=== PATIENT | male | born 1975 | race Caucasian/White ===

== ENCOUNTER 2017-04-25 09:03 | Emergency (ER) | payer OTHER ==
--- NOTE | 2017-04-25 09:29 | XR ---
EXAMINATION TYPE: XR knee complete RT DATE OF EXAM: 04/25/2017 COMPARISON: 04/06/2017 HISTORY: 41-year-old male patellar pain after fall a few days ago TECHNIQUE: 3 views FINDINGS: No acute fracture, subluxation, or dislocation. Extensor mechanism is intact. No significant knee ladraius nt effusion. Periarticular bone islands. IMPRESSION: 1. No acute osseous abnormality seen. 2. If concern for internal derangement or chondral injury, MRI can be performed.
--- NOTE | 2017-04-25 10:11 | XR ---
EXAMINATION TYPE: XR knee limited RT DATE OF EXAM: 04/25/2017 COMPARISON: Earlier today HISTORY: 41-year-old male pain in center of kneecap after fall a few days ago TECHNIQUE: Merchant's view. FINDINGS: A couple subtle cortical lucencies along the anterior margin of the patella suspected to relate to no rmal variation. The patella remains appropriate situated along the trochlear groove. IMPRESSION: A couple cortical lucencies along the anterior margin of the patella suspected to relate to normal va riation rather than a subtle nondisplaced fracture. If persistent clinical concern, follow-up CT or M [facility].
--- NOTE | 2017-04-25 10:29 | ED ---
General Adult HPI - General Chief complaint: Extremity Injury, Lower Stated complaint: Knee pain Time Seen by Provider: 04/25/17 09:10 Source: patient, RN notes reviewed Mode of arrival: ambulatory Limitations: no limitations - History of Present Illness Initial comments: 41-year-old male presents to the emergency department with a chief complaint of right knee pain. Patient states about a week ago he tripped and fell onto his right knee. Patient states he continues pain and he feels as if the top of his knee Feels different than it used to. He states he is able to ambulate still. Patient denies any fever chills with this. He states he did not hit his head and there is no other injury from the incident. The patient was concerned due to his continued discomfort so he thought that he should be seen.Patient denies any recent fever, chills, shortness of breath, chest pain, back pain, abdominal pain, nausea vomiting, numbness or tingling, dysuria or hematuria, constipation or diarrhea, headaches or visual changes, or any other current symptoms. - Related Data Home Medications Medication Instructions Recorded Confirmed Ibuprofen [Motrin] 800 mg PO TID PRN 04/25/17 04/25/17 Allergies Allergy/AdvReac Type Severity Reaction Status Date / Time No Known Allergies Allergy Verified 04/25/17 09:30 Review of Systems ROS Statement: Those systems with pertinent positive or pertinent negative responses have been documented in the HPI. ROS Other: All systems not noted in ROS Statement are negative. Past Medical History Past Medical History: No Reported History History of Any Multi-Drug Resistant Organisms: None Reported Past Surgical History: Cholecystectomy Past Psychological History: No Psychological Hx Reported Smoking Status: Current every day smoker Past Alcohol Use History: Occasional Past Drug Use History: None Reported General Exam - General Exam Comments Initial Comments: General: The patient is awake and alert, in no distress, and does not appear acutely ill. Neck: The neck is supple, there is no tenderness. Cardiovascular: There is a regular rate and rhythm. No murmur, rub or gallop is appreciated. Respiratory: Lungs are clear to auscultation, respirations are non-labored, breath sounds are equal. No wheezes, stridor, rales, or rhonchi. Musculoskeletal: Sensation intact with 2+ pulses. Right lower extremity. Frontal motion of right hip right knee and right ankle. Patient does have some tenderness to palpation of the patella. There is appear to be a mild depression noted with a small abrasion. Patient has full range of motion 5 out of 5 muscle strength testing. Patient is able to walk on the emergency department. Neurological: CN II-XII intact, There are no obvious motor or sensory deficits. Coordination appears grossly intact. Speech is normal. Skin: Skin is warm and dry and no rashes or lesions are noted. Psychiatric: Normal mood and affect. Limitations: no limitations Course Vital Signs 04/25/17 09:05 Temperature 97.8 F Pulse Rate 79 Respiratory 18 Rate Blood Pressure 155/88 O2 Sat by Pulse 100 Oximetry Medical Decision Making - Medical Decision Making 41-year-old male presents emergency Department chief complaint of right knee pain after a fall. At this time Scan was ordered due to the fact the x-rays show that there could possibly be a fracture and he has had pain for the last week without improvement continuous pain over this depression. This time CAT scan is reviewed with no acute fracture. This time we did discuss follow-up return parameters questions. Patient stated that he understood any significant this plan. He will be discharged. - Radiology Data Radiology results: report reviewed, image reviewed Disposition Clinical Impression: Contusion of right knee Disposition: HOME SELF-CARE Condition: Stable Instructions: Knee Pain (ED) Additional Instructions: Please use medication as discussed. Please follow up with family doctor if symptoms have not improved over the next two days. Please return to the emergency room if your symptoms increase or worsen or for any other concerns. Referrals: Manolo Lopez DO [Primary Care Provider] - 1-2 days Time of Disposition: 10:49
--- NOTE | 2017-04-25 10:47 | CT ---
EXAMINATION TYPE: CT knee RT wo con DATE OF EXAM: 04/25/2017 COMPARISON: 04/25/2017, 04/06/2017 HISTORY: Right sided knee pain post fall [address] DLP: 473.3 mGycm Automated exposure control for dose reduction was used. TECHNIQUE: Axial images with reconstructed coronal and sagittal plane images. FINDINGS: Joint spaces appear preserved. No acute fractures are evident. No significant joint effusion is evide nt. Patella appears intact. Couple of bone islands are within the lateral femoral condyle and within the metaphysis of the tibia. The lucencies identified on the sunrise view of the patella are again evident on the CT examination. No fractures evident. Muscular density is unremarkable surrounding the knee. Subcutaneous tissues appear unremarkable. IMPRESSION: 1. NO ACUTE OSSEOUS ABNORMALITY.
[2017-04-25 10:59] VITALS: BP 127/79; PULSE 65; RESP 16; TEMP 98
== END 2017-04-25 10:58 | disposition home or self-care (01) ==
LOC: EC 09:03
DX: S80.01XA Contusion of right knee, initial encounter (principal); F17.200 Nicotine dependence, unspecified, uncomplicated; W19.XXXA Unspecified fall, initial encounter; Y92.89 Other specified places as the place of occurrence of the external cause
CPT/HCPCS: 99284

== ENCOUNTER → 2018-06-18 | Outpatient (CLI) | payer OTHER ==
--- NOTE | 2018-06-19 07:25 | XR ---
EXAMINATION TYPE: XR shoulder complete RT DATE OF EXAM: 06/18/2018 CLINICAL HISTORY: Right-sided neck pain radiating to the right shoulder TECHNIQUE: Three views of the right shoulder are obtained. COMPARISON: None. FINDINGS: There is no acute fracture/dislocation evident in the right shoulder. Subcentimeter scler otic focus within the right humeral head likely represents a small benign bone island. The acromiocla vicular and glenohumeral joint spaces appear within normal limits. The visualized ribs are intact an d unremarkable. IMPRESSION: There is no acute fracture or dislocation in the right shoulder.
--- NOTE | 2018-06-19 07:32 | XR ---
EXAMINATION TYPE: XR cervical spine comp DATE OF EXAM: 06/18/2018 TECHNIQUE: Frontal, lateral, oblique, swimmers, and open mouth view of the cervical spine are didi du HISTORY: M25.511 pain in right shoulder, M54.2 Cervicalgia COMPARISON: None FINDINGS: The cervical spine is visualized in its entirety from C1 thru the top of T1 level, it is s atisfactory in alignment without evidence of acute fracture or dislocation. The pre-vertebral soft t issue appears within normal limits. Very small anterior osteophytes are seen at C6-C7. Uncovertebral hypertrophy and facet arthropathy are seen at this level creating bilateral mild neural foraminal erika rowing. The C1-C2 articulation is within normal limits on the open mouth view. The oblique images ar e within normal limits. IMPRESSION: No acute fracture or malalignment is seen in the cervical spine. Bilateral mild neural f oraminal narrowing at C6-C7 secondary to uncovertebral hypertrophy, facet arthropathy and small osteo phytes.
== END ==
LOC: RADXRMAIN 16:05
PROVIDERS: ATTEND Family Medicine
DX: M25.511 Pain in right shoulder (principal); M48.02 Spinal stenosis, cervical region; M46.92 Unspecified inflammatory spondylopathy, cervical region; M25.78 Osteophyte, vertebrae
CPT/HCPCS: 72050

== ENCOUNTER 2018-06-20 18:29 | Emergency (ER) | payer OTHER ==
[2018-06-20 18:38] VITALS: TEMP 98.6
[2018-06-20] MEDS ORDERED: methylPREDNISolone SOD SUCCI 125 MG/2 ML VIAL IM ONE (19:13)
[2018-06-20] MEDS ORDERED: HYDROcodone/APAP 5-325MG 1 EACH TAB PO STA (19:13)
[2018-06-20] MEDS ORDERED: KETOROLAC 30 MG/ML 1 ML VIAL IM STA (19:14)
--- NOTE | 2018-06-20 19:17 | ED ---
General Adult HPI - General Chief complaint: Extremity Injury, Upper Stated complaint: pain in neck and rt arm Time Seen by Provider: 06/20/18 18:52 Source: patient Mode of arrival: ambulatory Limitations: no limitations - History of Present Illness Initial comments: 42-year-old male patient presents to the emergency department today for evaluation of neck pain, right shoulder pain, and radicular type symptoms on the right arm. Patient states that the right arm feels weak and tingly at times. He states that symptoms started approximately a month ago and have been progressively worsening since. States he did see his primary care physician who diagnosed him with arthritis after obtaining x-rays. States he was given ibuprofen and Flexeril which have not been helping. Patient states that he is to start physical therapy however he has very significant pain with any type of movement. States he is unable to sleep or lie flat due to the pain. He denies any known injury to the neck. Denies any chest pain or trouble breathing. Denies any headache, blurred vision, double vision, dizziness, or weakness. Patient denies any recent rash, fever, chills, abdominal pain, nausea, vomiting , diarrhea, constipation, back pain, dizziness, weakness, hematuria, dysuria, urinary urgency, urinary frequency, headache, visual changes, or any other complaints. - Related Data Home Medications Medication Instructions Recorded Confirmed Ibuprofen [Motrin] 800 mg PO TID 04/25/17 06/20/18 Cyclobenzaprine [Flexeril] 10 mg PO TID 06/20/18 06/20/18 Previous Rx's Medication Instructions Recorded Hydrocodone/Acetaminophen [Bryan 1 tab PO Q6HR PRN #12 tab 06/20/18 5-325] predniSONE 50 mg PO DAILY #5 tablet 06/20/18 Allergies Allergy/AdvReac Type Severity Reaction Status Date / Time No Known Allergies Allergy Verified 06/20/18 19:11 Review of Systems ROS Statement: Those systems with pertinent positive or pertinent negative responses have been documented in the HPI. ROS Other: All systems not noted in ROS Statement are negative. Past Medical History Past Medical History: No Reported History History of Any Multi-Drug Resistant Organisms: None Reported Past Surgical History: Cholecystectomy Past Psychological History: No Psychological Hx Reported Smoking Status: Current every day smoker Past Alcohol Use History: Occasional Past Drug Use History: None Reported General Exam Limitations: no limitations General appearance: alert, in no apparent distress, other (Physical well- developed, well-nourished adult male patient in no acute distress. Vital signs upon presentation are temperature 98.6F, pulse 101, respirations 18, blood pressure 134/91, pulse ox 96% on room air.) Eye exam: Present: normal appearance, PERRL, EOMI. Absent: scleral icterus, conjunctival injection, periorbital swelling ENT exam: Present: normal exam, normal oropharynx, mucous membranes moist Neck exam: Present: normal inspection, full ROM, other (C-spine tenderness). Absent: tenderness, meningismus, lymphadenopathy Respiratory exam: Present: normal lung sounds bilaterally. Absent: respiratory distress, wheezes, rales, rhonchi, stridor Cardiovascular Exam: Present: regular rate, normal rhythm, normal heart sounds. Absent: systolic murmur, diastolic murmur, rubs, gallop, clicks Extremities exam: Present: normal inspection, full ROM, normal capillary refill , other (Skin to the right upper extremities pink, warm, dry. Cap refills less than 3 seconds. Radial pulses 2+ and equal bilaterally.). Absent: tenderness, pedal edema, joint swelling, calf tenderness Neurological exam: Present: alert, oriented X3, CN II-XII intact, other ( Strength to the right upper extremity is 3/5. All other extremities are 5/5) Psychiatric exam: Present: normal affect, normal mood Skin exam: Present: warm, dry, intact, normal color. Absent: rash Course Vital Signs 06/20/18 18:35 Temperature 98.6 F Pulse Rate 101 H Respiratory 18 Rate Blood Pressure 134/91 O2 Sat by Pulse 96 Oximetry Medical Decision Making - Medical Decision Making 42-year-old male patient presents to the emergency department today for evaluation of right neck and shoulder pain. Physical examination did reveal some mild weakness to the right upper extremity. Neurovascular status was intact. CT of the neck was performed and it shows mild spurring at C6 to C7. Patient symptoms are consistent with cervical radiculopathy. Will treat with prednisone. He does have ibuprofen and Flexeril at home, he is instructed to continue taking this. He will also be given a prescription for Bryan for assistance was sleeping. He is instructed to follow-up with his primary care physician for recheck in 1-2 days. He is instructed to proceed with physical therapy as directed. Return parameters discussed in detail. He verbalizes understanding and agrees with this plan. - Radiology Data Radiology results: report reviewed, image reviewed CT cervical spine without contrast was obtained. Report was reviewed in its entirety. Impression by Dr. Rizvi shows mild spurring at C6 to 7. No fracture seen Disposition Clinical Impression: Cervical radiculopathy Disposition: HOME SELF-CARE Condition: Good Instructions (If sedation given, give patient instructions): Cervical Radiculopathy (ED) Additional Instructions: Apply warm moist heat to the neck. Perform gentle range of motion exercises. Proceed with physical therapy as directed by your primary care physician. Complete medications as prescribed. Return to the emergency department immediately for any new, worsening, or concerning symptoms. Prescriptions: Hydrocodone/Acetaminophen [Bryan 5-325] 1 tab PO Q6HR PRN #12 tab PRN Reason: Pain predniSONE 50 mg PO DAILY #5 tablet Is patient prescribed a controlled substance at d/c from ED?: No Referrals: Manolo Lopez DO [Primary Care Provider] - 1-2 days Time of Disposition: 20:51
--- NOTE | 2018-06-20 19:53 | CT ---
EXAMINATION TYPE: CT cervical spine wo con DATE OF EXAM: 06/20/2018 COMPARISON: None HISTORY: neck pain radiating into right arm, no injury CT DLP: 601.3 mGycm Automated exposure control for dose reduction was used. TECHNIQUE: CT scan of the cervical spine is obtained without contrast, axial images are obtained, sa gittal and coronal reformatted images are also reviewed. FINDINGS: There is mild straightening of the cervical spine. Disc spaces are fairly normal. Posterior elements are intact. There is minimal spurring at C6-7. The facet joints are intact. Skull base is i ntact. There is no evidence of a fracture. IMPRESSION: Mild spurring at C6-7. No fracture seen.
[2018-06-20 20:57] VITALS: BP 128/72; PULSE 77; RESP 16
== END 2018-06-20 20:56 | disposition home or self-care (01) ==
LOC: EC 18:29
DX: M54.12 Radiculopathy, cervical region (principal); M46.02 Spinal enthesopathy, cervical region; F17.200 Nicotine dependence, unspecified, uncomplicated; Z79.1 Long term (current) use of non-steroidal anti-inflammatories (NSAID); Z79.899 Other long term (current) drug therapy
CPT/HCPCS: 72125; 99283; 96372 ×2; J2930; J1885

== ENCOUNTER 2019-05-27 15:09 | Emergency (ER) | payer OTHER ==
[2019-05-27 15:59] VITALS: PULSE 66; RESP 16; TEMP 97.8
--- NOTE | 2019-05-27 16:19 | XR ---
EXAMINATION TYPE: XR shoulder complete RT DATE OF EXAM: 05/27/2019 CLINICAL HISTORY: Pain for one month. TECHNIQUE: Three views of the right shoulder are obtained. COMPARISON: Right shoulder x-rays June 18, 2018. FINDINGS: There is no acute fracture/dislocation evident in the right shoulder. The acromioclavicul ar and glenohumeral joint spaces appear within normal limits. Distal acromion morphology unremarkable . Sclerotic round lesion superior femoral head measuring 4 to 5 mm favors benign bone island was pres ent on prior study. The visualized ribs are intact and unremarkable. IMPRESSION: As above. No significant change from prior.
--- NOTE | 2019-05-27 16:27 | ED ---
Extremity Problem HPI - General Chief complaint: Extremity Problem,Nontraumatic Stated complaint: Rt shoulder pain Time Seen by Provider: 05/27/19 15:56 Source: patient Mode of arrival: ambulatory Limitations: physical limitation - History of Present Illness Initial comments: 43-year-old male presented for right shoulder pain 1 month. Patient states he has right anterior shoulder pain has been ongoing for a month increased with overhead range of motion. Patient states he works for [employer] and does a lot of heavy lifting overhead and he feels that this has been created the pain patient denies any direct trauma injury to his a fever redness or swelling of the area. Patient denies a chest pain shortness of breath. Patient states when he palpates the anterior shoulder he can reproduce the pain at times hears cracking when he ranges at the shoulder. Remaining review of systems negative patient has a weakness distal to the shoulder denies any loss of sensation list pallor of the extremity. Remaining review of systems negative. Upon arrival patient appears well no signs of acute distress. - Related Data Home Medications Medication Instructions Recorded Confirmed Ibuprofen [Motrin] 800 mg PO TID 04/25/17 06/20/18 Cyclobenzaprine [Flexeril] 10 mg PO TID 06/20/18 06/20/18 Previous Rx's Medication Instructions Recorded Hydrocodone/Acetaminophen [Leverett 1 tab PO Q6HR PRN #12 tab 06/20/18 5-325] predniSONE 50 mg PO DAILY #5 tablet 06/20/18 Allergies Allergy/AdvReac Type Severity Reaction Status Date / Time No Known Allergies Allergy Verified 06/20/18 19:11 Review of Systems ROS Statement: Those systems with pertinent positive or pertinent negative responses have been documented in the HPI. ROS Other: All systems not noted in ROS Statement are negative. Past Medical History Past Medical History: No Reported History History of Any Multi-Drug Resistant Organisms: None Reported Past Surgical History: Cholecystectomy Past Psychological History: No Psychological Hx Reported Smoking Status: Former smoker Past Alcohol Use History: Occasional Past Drug Use History: None Reported General Exam - General Exam Comments Initial Comments: General: The patient is awake and alert, in no distress, and does not appear acutely ill. Eye: +3 mm pupils are equal, round and reactive to light, extra-ocular movements are intact. No nystagmus. There is normal conjunctiva bilaterally. No signs of icterus. . Cardiovascular: There is a regular rate and rhythm. No murmur, rub or gallop is appreciated. Respiratory: Lungs are clear to auscultation, respirations are non-labored, breath sounds are equal. No wheezes, stridor, rales, or rhonchi. Musculoskeletal: Normal inspection the shoulders bilaterally pain has pain palpation over the before meals joint. Patient has copious palpation over the before meals joint when he ranges overhead. Patient is a limitations range motion however complains of discomfort with overhead range of motion. Strength intact of the shoulder although and risks of the upper extremity is equal in comparison bilaterally. Sensation intact. No badge anesthesia. Patient is able to make the okay fingers crossed thumbs-up and oppose the small digit and thumb. Radial pulses +2 b/l. Neurological: A&O x 3. CN II-XII intact grossly, There are no obvious motor or sensory deficits. Coordination appears grossly intact. Speech is normal. Skin: Skin is warm and dry and no rashes or lesions are noted. No extremity edema. Psychiatric: Cooperative, appropriate mood & affect, normal judgment. Limitations: physical limitation Course Vital Signs 05/27/19 05/27/19 15:54 16:30 Temperature 97.8 F 97.8 F Pulse Rate 66 66 Respiratory 16 16 Rate Blood Pressure 143/90 140/88 O2 Sat by Pulse 97 97 Oximetry Medical Decision Making - Medical Decision Making 43-year-old male presenting today for chief complaint of right shoulder pain patient does a lot of repetitive movements with overhead. C joint pain to palpation. X-ray does not reveal any specific AC joint separation nor osseous process however MRI is a more sensitive study. Patient is neurovascularly intact and at this time feel he stated for discharge with outpatient orthopedic follow-up. Patient is placed in sling for comfort Rice instructions discussed the patient was discharged appearing well after discussing case with Dr. English Disposition Clinical Impression: Right shoulder pain, AC joint pain Disposition: HOME SELF-CARE Condition: Good Instructions (If sedation given, give patient instructions): Acromioclavicular Separation (ED), Shoulder Pain (ED) Additional Instructions: Please use medication as discussed. Please follow-up with family doctor in the next 2 days and orthopedic surgery for further evaluation of AC joint pain. Please return to emergency room if the symptoms increase or worsen or for any o ther concerns. Is patient prescribed a controlled substance at d/c from ED?: No Referrals: Manolo Lopez DO [Primary Care Provider] - 1-2 days Clif Marroquin MD [Medical Doctor] - 1-2 days Time of Disposition: 16:26
[2019-05-27 16:30] VITALS: BP 140/88
== END 2019-05-27 16:35 | disposition home or self-care (01) ==
LOC: EC 15:09
DX: M25.511 Pain in right shoulder (principal); Z87.891 Personal history of nicotine dependence
CPT/HCPCS: 99283

== ENCOUNTER → 2019-06-05 | Outpatient (CLI) | payer OTHER ==
--- NOTE | 2019-06-05 15:49 | MR ---
EXAMINATION TYPE: MR shoulder RT wo con DATE OF EXAM: 06/05/2019 1:58 PM COMPARISON: NONE HISTORY: Pain in right shoulder x 1.5 months TECHNIQUE: Multiplanar multispin echo imaging of the right shoulder was performed. FINDINGS: Rotator cuff : Heterogeneity of the supraspinatus tendon compatible with chronic tendinopathy. Focal intrasubstance tear at the level of the critical zone without full thickness tear identified. Remaini ng constituents of the rotator cuff are intact. Bursa: No bursal effusion or thickening is seen. Musculature: There is no muscular tear, contusion, or atrophy. Acromioclavicular joint : Small subacromial spur results in impingement. Mild AC joint arthropathy. Osseous structures : 4 mm bone island noted within the superior humeral head. Minimal cystic degenera tive change greater humeral tuberosity. There are no fractures or regions of abnormal bone marrow sig nal intensity. Long biceps tendon : The biceps tendon is normally situated within the bicipital groove. No complete or partial biceps tendon tear is present. Glenohumeral Joint fluid : There is no glenohumeral joint effusion. Cartilage and Bone : No focal hyaline cartilage defects are noted. No Hill-Sachs, reverse Hill-Sachs, or bony Bankart lesions are seen. Labrum : There are no SLAP or soft tissue Bankart lesions. No paralabral cysts are seen. OTHER FINDINGS : none IMPRESSION: 1. Heterogeneity of the supraspinatus tendon compatible with chronic tendinopathy. Focal intrasubstan ce tear at the level of the critical zone without full thickness tear identified. 2. Small subacromial spur resulting in impingement.
== END | disposition home or self-care (01) ==
LOC: RADMRIMAIN 13:02
PROVIDERS: ATTEND Nurse Practitioner Family
DX: M75.101 Unspecified rotator cuff tear or rupture of right shoulder, not specified as traumatic (principal); M25.811 Other specified joint disorders, right shoulder

== ENCOUNTER → 2021-01-19 | Outpatient (CLI) | payer OTHER ==
--- NOTE | 2021-01-19 09:22 | US ---
EXAMINATION TYPE: US liver DATE OF EXAM: 01/19/2021 COMPARISON: NONE CLINICAL HISTORY: B18.2 chronic viral hepatitis C. No complaints of pain. Patient had abnormal blood work EXAM MEASUREMENTS: Liver Length: 18.1 cm Gallbladder Wall: Surgically absent cm CBD: 0.8 cm Right Kidney: 11.4 x 6.6 x 5.2 cm Pancreas: Obscured by bowel gas Liver: Increased attenuation, decreased visualization of vessels suggestive of fatty infiltrate. Par tially Obscured by bowel gas Gallbladder: Surgically absent Evidence for sonographic Reza's sign: No CBD: wnl, post surgical Right Kidney: No hydronephrosis or masses seen sub optimal exam overall due to large amounts of bowel gas and large patient body habitus. IMPRESSION: 1. Moderate fatty infiltration of the liver. Hepatomegaly is present. No discrete mass is evident. 2. Some limitation due to bowel gas.
== END | disposition home or self-care (01) ==
LOC: RADUSWWP 08:49
PROVIDERS: ATTEND Family Medicine
DX: K76.0 Fatty (change of) liver, not elsewhere classified (principal); R16.0 Hepatomegaly, not elsewhere classified; B18.2 Chronic viral hepatitis C
CPT/HCPCS: 76705

== ENCOUNTER → 2021-09-23 | Outpatient (CLI) | payer OTHER ==
--- NOTE | 2021-09-23 18:07 | XR ---
EXAMINATION TYPE: Cervical Spine X-Ray Limited, Cervical Spine X-Ray Limited DATE OF EXAM: 09/23/2021 COMPARISON: 06/18/2018 HISTORY: Neck pain left hand fifth digit pain TECHNIQUE: 3 view cervical spine FINDINGS: Prevertebral space is normal. Vertebral body heights are preserved. Disc heights are preser apolonia. Alignment is normal. Posterior spinal lamellar line is intact. Odontoid is visualized. Normal. T here is mild limitation at the tip due to overlying occiput. No significant interval change is eviden t. IMPRESSION: 1. Unremarkable three-view cervical spine
== END | disposition home or self-care (01) ==
LOC: RADXRMAIN 14:43
PROVIDERS: ATTEND Family Medicine
DX: M54.2 Cervicalgia (principal)
CPT/HCPCS: 72040

== ENCOUNTER 2021-10-21 16:09 | Emergency (ER) | payer OTHER ==
[2021-10-21 16:33] VITALS: TEMP 97.8
--- NOTE | 2021-10-21 16:49 | ED ---
Skin/Abscess/FB HPI - General Chief complaint: Skin/Abscess/Foreign Body Stated complaint: IHS, Needle Stick Time Seen by Provider: 10/21/21 16:39 Source: patient, RN notes reviewed Mode of arrival: ambulatory Limitations: no limitations - History of Present Illness Initial comments: This is a 45-year-old male who is an employee at [employer] from [employer] [place] who presents to the emergency department with a finger prick injury. Patient was cleaning a heart retractor from a surgery that took place this morning, and the roll track from the retractor scraped his right ring finger. He did bleed following the event. Per regulations, he had to come to the emergency department for evaluation and blood work. He had his tetanus vaccine last year. Denies any fevers, chills, sore throat, cough, dyspnea, chest pain, palpitations, abdominal pain, nausea, vomiting, diarrhea, back pain, or headaches. MD complaint: other (finger prick) Location: R hand (right ring finger) - Related Data Home Medications Medication Instructions Recorded Confirmed Ibuprofen [Motrin] 800 mg PO TID 04/25/17 06/20/18 Cyclobenzaprine [Flexeril] 10 mg PO TID 06/20/18 06/20/18 Previous Rx's Medication Instructions Recorded Hydrocodone/Acetaminophen [Lorenzo 1 tab PO Q6HR PRN #12 tab 06/20/18 5-325] predniSONE 50 mg PO DAILY #5 tablet 06/20/18 Allergies Allergy/AdvReac Type Severity Reaction Status Date / Time No Known Allergies Allergy Verified 10/21/21 16:33 Review of Systems ROS Statement: Those systems with pertinent positive or pertinent negative responses have been documented in the HPI. ROS Other: All systems not noted in ROS Statement are negative. Past Medical History Past Medical History: No Reported History History of Any Multi-Drug Resistant Organisms: None Reported Past Surgical History: Cholecystectomy Past Psychological History: No Psychological Hx Reported Smoking Status: Never smoker Past Alcohol Use History: Occasional Past Drug Use History: None Reported General Exam Limitations: no limitations General appearance: alert, in no apparent distress Head exam: Present: atraumatic, normocephalic, normal inspection Respiratory exam: Present: normal lung sounds bilaterally. Absent: respiratory distress, wheezes, rales, rhonchi, stridor Cardiovascular Exam: Present: regular rate, normal rhythm, normal heart sounds. Absent: systolic murmur, diastolic murmur, rubs, gallop, clicks Neurological exam: Present: alert, oriented X3, CN II-XII intact Psychiatric exam: Present: normal affect, normal mood Skin exam: Present: other (Pinpoint puncture wound in the finger pad of the right index finger. No active bleeding. ) Course Vital Signs 10/21/21 16:30 Temperature 97.8 F Medical Decision Making - Medical Decision Making This is a 45-year-old male who presents to the emergency department for a needle stick injury. The appropriate forms were filled out for employee blood-borne pathogen exposure following needle stick injury. The forms were sent to the lab and the appropriate blood work, including HIV and hepatitis panels were drawn. Patient is up-to-date on his tetanus vaccine. Advised to keep the wound clean and to soak it in warm water for 10 minutes twice a day for 2-3 days. If he develops any swelling, erythema, heat to the effected area, or fevers, he should return to the emergency department as he may be developing an infection. Return precautions reviewed in depth, the patient is instructed to return to the emergency department with any new, worsening, or concerning symptoms. Patient verbalized understanding. This case was discussed in detail with the attending ED physician. Presentation, findings, and treatment plan discussed in detail as well. Disposition Clinical Impression: Exposure to body fluid due to accidental needlestick injury Disposition: HOME SELF-CARE Instructions (If sedation given, give patient instructions): Needle Stick Injuries (ED) Additional Instructions: Return to the emergency department with any new, worsening, or concerning symptoms. Is patient prescribed a controlled substance at d/c from ED?: No Referrals: Manolo Lopez DO [Primary Care Provider] - 1-2 days
== END 2021-10-21 17:48 | disposition home or self-care (01) ==
LOC: EC 16:09
DX: S69.91XA Unspecified injury of right wrist, hand and finger(s), initial encounter (principal); W46.1XXA Contact with contaminated hypodermic needle, initial encounter
CPT/HCPCS: 99283

== ENCOUNTER 2021-11-15 16:05 | Inpatient (IN) | payer OTHER ==
[2021-11-15] MEDS ORDERED: SODIUM CHLORIDE 0.9% 1,000 ML IV STA (16:15)
[2021-11-15] MEDS ORDERED: DILTIAZEM 5 MG/ML 5 ML VIAL IVP STA (16:17)
[2021-11-15] MEDS ORDERED: DILTIAZEM DRIP BOLUS FROM BAG 1 MG SOLN IV ONE (16:17)
--- NOTE | 2021-11-15 16:29 | ED ---
Dizziness HPI - General Chief Complaint: Dizziness Stated Complaint: dizziness Time Seen by Provider: 11/15/21 16:09 Source: patient, EMS, RN notes reviewed Mode of arrival: EMS Limitations: no limitations - History of Present Illness Initial Comments: 45-year-old male with a history of disease he had the onset this past week of dizziness after getting up from a bent over position he had recurrence of this also he went to [facility] and had a fairly extensive workup and was told he had vertigo. Over the will past week and today being Monday he had recurrent episodes of dizziness he denies any chest pain shortness of breath he presents today with complaints of persistent dizziness frontal headache dull in nature with some radiation to his right ear he was found by paramedics have a tachycardic heart rate suspicious for a flutter. He has no prior history of heart disease no thyroid issues and is aware of. Was seen in his doctor's office and sent from there to here by EMS . He denies any recent alcohol use is not Cough ear stimulant type drinks. No change in his diet recently. He also noted have very high blood pressure per paramedics. MD Complaint: dizziness, lightheadedness - Related Data Home Medications Medication Instructions Recorded Confirmed Ibuprofen [Motrin] 800 mg PO Q8H PRN 04/25/17 11/15/21 Allergies Allergy/AdvReac Type Severity Reaction Status Date / Time No Known Allergies Allergy Verified 11/15/21 18:46 Review of Systems ROS Statement: Those systems with pertinent positive or pertinent negative responses have been documented in the HPI. ROS Other: All systems not noted in ROS Statement are negative. Past Medical History Past Medical History: No Reported History History of Any Multi-Drug Resistant Organisms: None Reported Past Surgical History: Cholecystectomy Past Psychological History: No Psychological Hx Reported Smoking Status: Former smoker Past Alcohol Use History: Occasional Past Drug Use History: Marijuana General Exam - General Exam Comments Initial Comments: This is a well-developed well-nourished awake alert oriented 4 male Limitations: no limitations General appearance: alert, anxious Head exam: Present: atraumatic, normocephalic, normal inspection Eye exam: Present: normal appearance, PERRL, EOMI. Absent: scleral icterus, conjunctival injection, periorbital swelling ENT exam: Present: normal exam, mucous membranes moist Neck exam: Present: normal inspection, full ROM, other (No stridor JVD or bruits). Absent: tenderness, meningismus, lymphadenopathy Respiratory exam: Present: normal lung sounds bilaterally. Absent: respiratory distress, wheezes, rales, rhonchi, stridor Cardiovascular Exam: Present: normal rhythm, tachycardia, normal heart sounds. Absent: systolic murmur, diastolic murmur, rubs, gallop, clicks GI/Abdominal exam: Present: soft, normal bowel sounds. Absent: distended, tenderness, guarding, rebound, rigid Extremities exam: Present: normal inspection, full ROM, normal capillary refill. Absent: tenderness, pedal edema, joint swelling, calf tenderness Back exam: Present: normal inspection Neurological exam: Present: alert, oriented X3, CN II-XII intact Psychiatric exam: Present: normal affect, normal mood Skin exam: Present: warm, dry, intact, normal color. Absent: rash Course Vital Signs 11/15/21 11/15/21 11/15/21 16:08 16:26 19:14 Temperature 98.2 F 98.3 F Pulse Rate 154 H 89 72 Respiratory 20 18 16 Rate Blood Pressure 128/114 149/98 140/98 O2 Sat by Pulse 98 95 Oximetry - Reevaluation(s) Reevaluation #1: 11/15/21 17:31 The patient did appear to spontaneously convert no symptoms heart rate improved to 86 on monitor EKG showed a sinus rhythm 86 OK interval 151 QRS rate 101 daily since QTC 364/407 st-t wave changes Reevaluation #2: 11/15/21 17:46 I did review the charting from the [facility] visit on 11/11/21 labs appeared be within normal limits as well as a CAT scan. EKG Findings - EKG Results: EKG: interpreted by SEVEN (Gamino atrial flutter rate 153 QRS duration 103 QT/QTC 188/[address] configuration. This correlates with the one sent from the doctor's office.) Medical Decision Making - Medical Decision Making I did reevaluate the patient multiple occasions no further episodes of atrial flutter reported or detected and monitoring. I did discuss the case with Dr. Diaz as well as the patient and family. Patient will be admitted for observation today started on metoprolol XL and monitored throughout the night. I did discuss case with Dr. Mahan - Lab Data Result diagrams: 11/15/21 16:20 11/15/21 16:20 Lab Results 11/15/21 11/15/21 11/15/21 Range/Units 16:20 16:20 16:20 WBC 6.9 (3.8-10.6) k/uL RBC 5.45 (4.30-5.90) m/uL Hgb 18.0 H (13.0-17.5) gm/dL Hct 50.9 (39.0-53.0) % MCV 93.4 (80.0-100.0) fL MCH 33.1 (25.0-35.0) pg MCHC 35.4 (31.0-37.0) g/dL RDW 13.5 (11.5-15.5) % Plt Count 226 (150-450) k/uL MPV 8.0 Neutrophils % 84 % Lymphocytes % 13 % Monocytes % 1 % Eosinophils % 1 % Basophils % 0 % Neutrophils # 5.8 (1.3-7.7) k/uL Lymphocytes # 0.9 L (1.0-4.8) k/uL Monocytes # 0.1 (0-1.0) k/uL Eosinophils # 0.1 (0-0.7) k/uL Basophils # 0.0 (0-0.2) k/uL PT 11.0 (9.0-12.0) sec INR 1.0 (<1.2) D-Dimer 0.30 (<0.60) mg/L FEU Sodium 137 (137-145) mmol/L Potassium 4.8 (3.5-5.1) mmol/L Chloride 105 (98-107) mmol/L Carbon Dioxide 22 (22-30) mmol/L Anion Gap 10 mmol/L BUN 12 (9-20) mg/dL Creatinine 0.62 L (0.66-1.25) mg/dL Est GFR (CKD-EPI)AfAm >90 (>60 ml/min/1.73 sqM) Est GFR (CKD-EPI)NonAf >90 (>60 ml/min/1.73 sqM) Glucose 134 H (74-99) mg/dL Calcium 10.0 (8.4-10.2) mg/dL Magnesium 1.9 (1.6-2.3) mg/dL Total Bilirubin 1.2 (0.2-1.3) mg/dL AST 46 (17-59) U/L ALT 40 (4-49) U/L Alkaline Phosphatase 86 (38-126) U/L Creatine Kinase 269 H (55-170) U/L Troponin I (0.000-0.034) ng/mL NT-Pro-B Natriuret Pep pg/mL Total Protein 8.6 H (6.3-8.2) g/dL Albumin 5.1 H (3.5-5.0) g/dL TSH 0.915 (0.465-4.680) mIU/L 11/15/21 11/15/21 Range/Units 16:20 16:20 WBC (3.8-10.6) k/uL RBC (4.30-5.90) m/uL Hgb (13.0-17.5) gm/dL Hct (39.0-53.0) % MCV (80.0-100.0) fL MCH (25.0-35.0) pg MCHC (31.0-37.0) g/dL RDW (11.5-15.5) % Plt Count (150-450) k/uL MPV Neutrophils % % Lymphocytes % % Monocytes % % Eosinophils % % Basophils % % Neutrophils # (1.3-7.7) k/uL Lymphocytes # (1.0-4.8) k/uL Monocytes # (0-1.0) k/uL Eosinophils # (0-0.7) k/uL Basophils # (0-0.2) k/uL PT (9.0-12.0) sec INR (<1.2) D-Dimer (<0.60) mg/L FEU Sodium (137-145) mmol/L Potassium (3.5-5.1) mmol/L Chloride (98-107) mmol/L Carbon Dioxide (22-30) mmol/L Anion Gap mmol/L BUN (9-20) mg/dL Creatinine (0.66-1.25) mg/dL Est GFR (CKD-EPI)AfAm (>60 ml/min/1.73 sqM) Est GFR (CKD-EPI)NonAf (>60 ml/min/1.73 sqM) Glucose (74-99) mg/dL Calcium (8.4-10.2) mg/dL Magnesium (1.6-2.3) mg/dL Total Bilirubin (0.2-1.3) mg/dL AST (17-59) U/L ALT (4-49) U/L Alkaline Phosphatase (38-126) U/L Creatine Kinase (55-170) U/L Troponin I <0.012 (0.000-0.034) ng/mL NT-Pro-B Natriuret Pep 95 pg/mL Total Protein (6.3-8.2) g/dL Albumin (3.5-5.0) g/dL TSH (0.465-4.680) mIU/L - Radiology Data Radiology results: report reviewed (Patient reviewed no acute findings), image reviewed Disposition Clinical Impression: Atrial flutter, Dizziness, Cephalgia Disposition: ADMITTED IP TO THIS [facility] Condition: Stable Referrals: Manolo Lopez DO [Primary Care Provider] - 1-2 days Decision Date: 11/15/21 Decision Time: 19:00
--- NOTE | 2021-11-15 17:05 | XR ---
EXAMINATION TYPE: XR chest 1V portable DATE OF EXAM: 11/15/2021 COMPARISON: NONE HISTORY: Tachycardia TECHNIQUE: 2 views AP FINDINGS: There is no heart failure nor confluent pneumonic infiltrate. Costophrenic angles are clear but there are chest leads. Bony thorax is intact. IMPRESSION: Normal chest.
[2021-11-15 17:22] LABS: Basophils % (A) 0 %; Eosinophils # (A) 0.1 k/uL (0-0.7); Eosinophils % (A) 1 %; HCT 50.9 % (39.0-53.0); Lymphocytes # (A) 0.9 k/uL (1.0-4.8); Lymphocytes % (A) 13 %; MCH 33.1 pg (25.0-35.0); MCHC 35.4 g/dL (31.0-37.0); MCV 93.4 fL (80.0-100.0); Monocytes # (A) 0.1 k/uL (0-1.0); Monocytes % (A) 1 %; Neutrophils # (A) 5.8 k/uL (1.3-7.7); Neutrophils % (A) 84 %; Platelet Count 226 k/uL (150-450); RBC 5.45 m/uL (4.30-5.90); RDW 13.5 % (11.5-15.5); WBC 6.9 k/uL (3.8-10.6)
[2021-11-15 17:34] LABS: ALT 40 U/L (4-49); AST 46 U/L (17-59); African American GFR (CKD) >90 (>60 ml/min/1.73 sqM); Albumin 5.1 g/dL (3.5-5.0); Alkaline Phosphatase 86 U/L (38-126); Anion Gap 10 mmol/L; Blood Urea Nitrogen 12 mg/dL (9-20); Carbon Dioxide 22 mmol/L (22-30); Chloride 105 mmol/L (98-107); Creatine Kinase 269 U/L (55-170); Glucose 134 mg/dL (74-99); Magnesium 1.9 mg/dL (1.6-2.3); Non-African American GFR(CKD) >90 (>60 ml/min/1.73 sqM); Sodium 137 mmol/L (137-145); Total Bilirubin 1.2 mg/dL (0.2-1.3); Total Protein 8.6 g/dL (6.3-8.2)
[2021-11-15 17:42] LABS: Potassium 4.8 mmol/L (3.5-5.1)
[2021-11-15] MEDS: SODIUM CHLORIDE 0.9% 1,000 ML IV STA ×2 (18:11→19:22)
[2021-11-15] MEDS ORDERED: ACETAMINOPHEN TAB 500 MG TAB PO STA (19:24)
[2021-11-15] MEDS ORDERED: METOPROLOL SUCCINATE (ER) 25 MG TAB.ER.24H PO STA (19:48)
[2021-11-15] MEDS ORDERED: ACETAMINOPHEN TAB 325 MG TAB PO PRN (20:02)
[2021-11-15] MEDS ORDERED: NALOXONE 0.4 MG/ML 1 ML VIAL IV PRN (20:02)
[2021-11-15] MEDS: SODIUM CHLORIDE 0.9% 1,000 ML IV SCH (21:31)
--- NOTE | 2021-11-15 23:06 | P.HPIM ---
History of Present Illness H&P Date: 11/15/21 The patient is a 45-year-old male with no known PMH who presents to the emergency room with complaints of lightheadedness and diaphoresis. 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 He was able to gain his footing and did not lose consciousness. He again experienced the same symptoms as he tried to look up a few minutes later. He then had resolution of symptoms for the rest of the day. The following morning, he went to [facility] emergency room where a workup was unremarkable and the patient was diagnosed with vertigo and discharged home with meclizine. He reports however that his symptoms of lightheadedness started again on Monday morning, but were now also accompanied with diaphoresis and occasional shortness of breath with minimal exertion. He reports staying in bed for most of the weekend and was seen at his PCPs office earlier today where he was noted to be in tachycardia. The PCP subsequently sen t the patient to the emergency room via EMS. Upon arrival, EKG revealed a flutter with RVR at 153 bpm. Subsequent EKG without intervention revealed normal sinus rhythm at 86 bpm. The patient reports that after arrival to the emergency room, his symptoms resolved and he now feels back at his baseline, albeit somewhat tired. Denied experiencing lower extremity swelling or pain. Denied nausea, vomiting, cough, fever, chills. Chest x-ray was unremarkable. With laboratory evaluation showing troponin less than 0.012, CK 269, glucose 134. Review of systems: Pertinent positives and negatives as discussed in HPI, a complete review of systems was performed and all other systems are negative. Physical examination: General: non toxic, no distress, appears at stated age, obese Derm: no unusual rashes/lesions, warm Head: atraumatic, normocephalic, symmetric Eyes: EOMI, no lid lag, anicteric sclera, pupils equal round reactive to light ENT: Nose and ears atraumatic Neck: No cervical lymphadenopathy, trachea midline, supple Mouth: no lip lesion, mucus membranes moist Cardiovascular: S1S2 reg, no murmur, positive dorsalis pedis pulse bilateral, no edema Lungs: CTA bilateral, no rhonchi, no rales, no accessory muscle use Abdominal: soft, nontender to palpation, no guarding Ext: muscle strength 5 out of 5 in all 4 extremities grossly, no gross muscle atrophy, no contractures, Neuro: CN II-XI grossly intact, no gross focal neuro deficits Psych: Alert, oriented, appropriate affect Assessment/plan Newly diagnosed a flutter with RVR -Patient's [id number] score: 0 -Continue Toprol by mouth for now -Cardiology consulted -Echocardiogram -Cardiac monitoring -Hold off on anticoagulation at this time Lightheadedness, likely secondary to above -Continue with above management Hyperglycemia -Check A1c Elevated creatine kinase -Continue IV hydration Morbid obesity -Advised on lifestyle modification including a diet plan DVT prophylaxis -Lovenox subcu The patient is admitted with an anticipated less than 2 midnight stay for evaluation of a flutter. CODE STATUS: Full Code Discussed with: Patient Anticipated discharge date: In a.m. Anticipated discharge place: Home Past Medical History Past Medical History: No Reported History History of Any Multi-Drug Resistant Organisms: None Reported Past Surgical History: Cholecystectomy Past Psychological History: No Psychological Hx Reported Smoking Status: Former smoker Past Alcohol Use History: Occasional Past Drug Use History: Marijuana - Past Family History Father Family Medical History: Coronary Artery Disease (CAD) Medications and Allergies Home Medications Medication Instructions Recorded Confirmed Type Ibuprofen [Motrin] 800 mg PO Q8H PRN 04/25/17 11/15/21 History Allergies Allergy/AdvReac Type Severity Reaction Status Date / Time No Known Allergies Allergy Verified 11/15/21 18:46 Physical Exam Vitals: Vital Signs Temp Pulse Resp BP Pulse Ox 11/15/21 19:14 98.3 F 72 16 140/98 95 11/15/21 16:26 89 18 149/98 11/15/21 16:08 98.2 F 154 H 20 128/114 98 Intake and Output 11/15/21 11/15/21 11/15/21 06:59 14:59 22:59 Other: Weight 122.47 kg Results CBC & Chem 7: 11/15/21 16:20 11/15/21 16:20 Labs: Abnormal Lab Results - Last 24 Hours (Table) 11/15/21 11/15/21 Range/Units 16:20 16:20 Hgb 18.0 H (13.0-17.5) gm/dL Lymphocytes # 0.9 L (1.0-4.8) k/uL Creatinine 0.62 L (0.66-1.25) mg/dL Glucose 134 H (74-99) mg/dL Creatine Kinase 269 H (55-170) U/L Total Protein 8.6 H (6.3-8.2) g/dL Albumin 5.1 H (3.5-5.0) g/dL
[2021-11-16] MEDS: METOPROLOL SUCCINATE (ER) 25 MG TAB.ER.24H PO SCH ×3 (08:08→10:24)
[2021-11-16] MEDS: ENOXAPARIN 40 MG/0.4 ML SYRINGE SQ SCH ×2 (08:09→10:22)
[2021-11-16] MEDS: APIXABAN 5 MG TAB PO SCH ×2 (10:24→20:12)
[2021-11-16] MEDS ORDERED: SODIUM CHLORIDE 0.9% 1,000 ML IV SCH (10:45)
[2021-11-16] MEDS: SODIUM CHLORIDE 0.9% 1,000 ML IV SCH ×2 (11:18→22:44)
--- NOTE | 2021-11-16 11:31 | P.CRDCN ---
History of Present Illness History of present illness: This is Dr. Sullivan dictating a consult on this patient The patient was interviewed and examined IMPRESSION / ASSESSMENT: Typical atrial flutter with RVR associated with dizziness and lightheadedness Recurrent symptoms for the last several days Possible mild hypertension Possible obstructive sleep apnea per history Normal thyroid Increased BMI PLAN: Anticoagulative ELIQUIS 5 g twice daily Start oral be to blockers Consider EP study and ablation for typical atrial flutter I had a very detailed discussion with the patient regarding his diagnosis, discussion regarding atrial flutter and atrial fibrillation EP study and efficacy ablation in the management of atrial flutter Success rates of greater than 95% long-term Complication rate of less than 1% Risk of stroke Hence at least 3 months of anticoagulation Check hemoglobin A1c Lipid panel Reassessment of JULISSA VASC with thereafter Outpatient sleep apnea assessment Consideration for antihypertensive therapy with injury tensive receptor blockers after the ablation For now we will treat him with oral beta blockers ELIQUIS has been initiated Tomorrow Lovenox can be discontinued HPI Patient presented to the ER complaining of recurrent dizziness He also complained of palpitations He was at [facility] the same symptoms but his EKG was normal and he was discharged home with medications for vertigo They've not helped him at all Medication here is found to be in atrial flutter with RVR up to 150 beats a minute ROS: No fever chills or rigors, no cough, phlegm or expectoration, no nausea, vomiting or diarrhea, no hematuria, dysuria, no musculoskeletal complaints, no strokes or seizures, no skin lesions. EXAMINATION: Blood pressure 131/98 and 131/78 mmHg Pulse rate in the 60s in sinus rhythm Afebrile Normal heart sounds no murmurs or gallops no rub Breath sounds are clear no rhonchi no crackles Abdomen soft Extremities warm REVIEW OF LABS, ECG & MEDICAL DATA NO KNOWN DRUG ALLERGIES Possible mild hypertension Likely obstructive sleep apnea based on history He stopped smoking many years back Very social and minimal alcohol use Normal chest x-ray In sinus rhythm with twelve-lead EKG shows normal CA narrow QRS normal ST segments During tachycardia ventricular rate 753 beats a minute EKG consistent with typical atrial flutter with upsloping ST depression of 1 mm Normal white count of 6.9 thousand, hemoglobin 18 g Platelet count 226,000 Normal d-dimer Normal electrolytes Normal BUN and creatinine Normal cardiac enzymes Elevated CPK Normal TSH of 0.9 Past Medical History Past Medical History: No Reported History History of Any Multi-Drug Resistant Organisms: None Reported Past Surgical History: Cholecystectomy Past Psychological History: No Psychological Hx Reported Smoking Status: Former smoker Past Alcohol Use History: Occasional Past Drug Use History: Marijuana - Past Family History Father Family Medical History: Coronary Artery Disease (CAD) Medications and Allergies Home Medications Medication Instructions Recorded Confirmed Type Ibuprofen [Motrin] 800 mg PO Q8H PRN 04/25/17 11/15/21 History Allergies Allergy/AdvReac Type Severity Reaction Status Date / Time No Known Allergies Allergy Verified 11/15/21 18:46 Physical Exam Vitals: Vital Signs Temp Pulse Pulse Pulse Resp BP BP 11/16/21 11:28 97.9 F 66 17 123/72 11/16/21 11:19 70 18 131/78 11/16/21 08:07 98.6 F 64 18 131/98 11/16/21 08:00 97.1 F L 67 65 17 123/72 11/16/21 04:00 97.5 F L 56 L 14 113/59 11/16/21 02:00 63 14 11/16/21 00:00 98.3 F 63 14 148/91 11/15/21 19:14 98.3 F 72 16 140/98 11/15/21 16:26 89 18 149/98 11/15/21 16:08 98.2 F 154 H 20 128/114 Pulse Ox 11/16/21 11:28 97 11/16/21 11:19 97 11/16/21 08:07 96 11/16/21 08:00 96 11/16/21 04:00 98 11/16/21 02:00 11/16/21 00:00 96 11/15/21 19:14 95 11/15/21 16:26 11/15/21 16:08 98 Intake and Output 11/15/21 11/16/21 11/16/21 22:59 06:59 14:59 Intake Total 1000 Balance 1000 Intake: IV 1000 Sodium Chloride 0.9% 1, 1000 000 ml @ 130 mls/hr IV . Q7H42M STA Rx#:[id number] Other: Weight 122.47 kg Results 11/15/21 16:20 11/15/21 16:20 Cardiac Enzymes 11/15/21 11/15/21 11/15/21 Range/Units 16:20 16:20 20:42 AST 46 (17-59) U/L Troponin I <0.012 <0.012 (0.000-0.034) ng/mL 11/16/21 Range/Units 00:30 AST (17-59) U/L Troponin I <0.012 (0.000-0.034) ng/mL Coagulation 11/15/21 Range/Units 16:20 PT 11.0 (9.0-12.0) sec CBC 11/15/21 Range/Units 16:20 WBC 6.9 (3.8-10.6) k/uL RBC 5.45 (4.30-5.90) m/uL Hgb 18.0 H (13.0-17.5) gm/dL Hct 50.9 (39.0-53.0) % Plt Count 226 (150-450) k/uL Comprehensive Metabolic Panel 11/15/21 Range/Units 16:20 Sodium 137 (137-145) mmol/L Potassium 4.8 (3.5-5.1) mmol/L Chloride 105 (98-107) mmol/L Carbon Dioxide 22 (22-30) mmol/L BUN 12 (9-20) mg/dL Creatinine 0.62 L (0.66-1.25) mg/dL Glucose 134 H (74-99) mg/dL Calcium 10.0 (8.4-10.2) mg/dL AST 46 (17-59) U/L ALT 40 (4-49) U/L Alkaline Phosphatase 86 (38-126) U/L Total Protein 8.6 H (6.3-8.2) g/dL Albumin 5.1 H (3.5-5.0) g/dL Current Medications Generic Name Dose Route Start Last Admin Trade Name Freq PRN Reason Stop Dose Admin Acetaminophen 650 mg 11/15/21 20:02 11/16/21 05:58 Acetaminophen Tab 325 Mg Tab PO 650 mg Q6HR PRN Administration Mild Pain or Fever > 100.5 Apixaban 5 mg 11/16/21 10:15 11/16/21 10:24 Apixaban 5 Mg Tab PO 5 mg BID DONALD Administration Protocol Sodium Chloride 1,000 mls @ 75 mls/hr 11/15/21 20:15 11/16/21 11:18 Saline 0.9% IV Not Given .[id number] DONALD Sodium Chloride 1,000 mls @ 20 mls/hr 11/16/21 10:45 11/16/21 11:18 Saline 0.9% IV Not Given .Q24H DONALD Metoprolol Succinate 25 mg 11/16/21 10:30 11/16/21 10:24 Metoprolol Succinate (Er) 25 Mg Tab.Er.24h PO 25 mg DAILY DONALD Administration Naloxone HCl 0.2 mg 11/15/21 20:02 Naloxone 0.4 Mg/Ml 1 Ml Vial IV Q2M PRN Opioid Reversal Intake and Output 11/15/21 11/16/21 11/16/21 22:59 06:59 14:59 Intake Total 1000 Balance 1000 Intake: IV 1000 Sodium Chloride 0.9% 1, 1000 000 ml @ 130 mls/hr IV . Q7H42M STA Rx#:[id number] Other: Weight 122.47 kg 11/15/21 16:20 11/15/21 16:20
--- NOTE | 2021-11-16 12:40 | CA ---
Transthoracic Echo Report Name: John Neri Age: 45 Gender: M : 1975 Exam Date: 11/16/2021 08:42 Exam Location: [facility] Ht (in): 71 Wt (lb): 270 Ordering Physician: John Corcoran MD Attending/Referring Phys: Marketing Information Analyst Carmen Pugh RDCS Procedure CPT: Indications: atrial flutter Cardiac Hx: Fm hx of heart disease Technical Quality: Technically difficult study Contrast 1: Lumason Total Dose (mL): 1 Contrast 2: Total Dose (mL): MEASUREMENTS (Male / Female) Normal Values 2D ECHO LV Diastolic Diameter PLAX 4.8 cm 4.2 - 5.9 / 3.9 - 5.3 cm LV Systolic Diameter PLAX 2.2 cm IVS Diastolic Thickness 1.4 cm 0.6 - 1.0 / 0.6 - 0.9 cm LVPW Diastolic Thickness 1.7 cm 0.6 - 1.0 / 0.6 - 0.9 cm LV Relative Wall Thickness 0.6 M-MODE Aortic Root Diameter MM 3.2 cm LA Systolic Diameter MM 2.5 cm LA Ao Ratio MM 0.8 MV E Point Septal Separation 0.7 cm AV Cusp Separation MM 2.2 cm DOPPLER AV Peak Velocity 109.4 cm/s AV Peak Gradient 4.8 mmHg MV Area PHT 3.2 cm??? MR Peak Velocity 90.4 cm/s MR Peak Gradient 3.3 mmHg Mitral E Point Velocity 94.2 cm/s Mitral A Point Velocity 56.4 cm/s Mitral E to A Ratio 1.7 MV Deceleration Time 237.7 ms TR Peak Velocity 159.4 cm/s TR Peak Gradient 10.2 mmHg Right Ventricular Systolic Press 15.2 mmHg FINDINGS Left Ventricle Moderately increased septal wall thickness. Left ventricular ejection fraction is estimated at 55-60 %.left ventricular cavity size normal. Lumason used to visualize wall motion. Right Ventricle The right ventricle is normal in size and function. Right Atrium The right atrium is normal in size. Left Atrium The left atrium is normal in size. Mitral Valve Structurally normal mitral valve without significant stenosis or prolapse. There is trace mitral regurgitation. Aortic Valve Structurally normal aortic valve without significant sclerosis or stenosis. There is no aortic regurgitation. Tricuspid Valve Structurally normal tricuspid valve without significant stenosis. Pulmonary artery systolic pressure is normal. Trace tricuspid regurgitation. Pulmonic Valve Structurally normal pulmonic valve without significant stenosis. There is no pulmonic regurgitation. Pericardium Normal pericardium without effusion. Aorta Normal aortic root dimension. CONCLUSIONS Moderate LVH Normal left ventricular ejection fraction 55-60% Trace mitral regurgitation Normal RVSP Trace tricuspid regurgitation No pericardial effusion Previewed by: Dr. Bill Chu DO (Electronically Signed) Final Date: 16 November 2021 12:39
--- NOTE | 2021-11-16 14:26 | P.PN ---
Subjective Progress Note Date: 11/16/21 Hospital course: Patient is a very pleasant 45-year-old male with no known reported past medical history. He presented to the emergency department on 11/16/91 with chief complaints of dizziness/lightheadedness and diaphoresis. 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 He was able to gain his footing and did not lose consciousness. He again experienced the same symptoms as he tried to look up a few minutes later. He then had resolution of symptoms for the rest of the day. The following morning, he went to [facility] emergency room where a workup was unremarkable and the patient was diagnosed with vertigo and discharged home with meclizine. He reports however that his symptoms of lightheadedness started again on Monday morning, but were now also accompanied with diaphoresis and occasional shortness of breath with minimal exertion. He reports staying in bed for most of the weekend and was seen at his PCPs office earlier today where he was noted to be in tachycardia. The PCP subsequently sent the patient to the emergency room via EMS. Upon arrival, EKG revealed a flutter with RVR at 153 bpm. Subsequent EKG without intervention revealed normal sinus rhythm at 86 bpm. The patient reports that after arrival to the emergency room, his symptoms resolved and he now feels back at his baseline, albeit somewhat tired. Denied experiencing any chest pain or lower extremity swelling or pain. Denied nausea, vomiting, cough, fever, or chills. Chest x-ray was unremarkable. With laboratory evaluation showing troponin less than 0.012, CK 269, glucose 134. Physical examination: Patient seen and fully evaluated at bedside this morning. He remains converted back in normal sinus rhythm with rate in 60s. Vital signs unremarkable. Patient being started on Eliquis by cardiology at this time and to continue metoprolol 25 mg daily. Patient denies currently experiencing any headache, lightheadedness, dizziness, chest pain, palpitations, or shortness of breath. Patient denies any recent swelling/tingling/weakness/pain in his extremities. General: non toxic, no distress, appears at stated age Derm: warm, dry Head: atraumatic, normocephalic, symmetric Eyes: EOMI, no lid lag, anicteric sclera Mouth: no lip lesion, mucus membranes moist Cardiovascular: S1S2 reg, no murmur, positive posterior tibial pulse bilateral, Lungs: CTA bilateral, no rhonchi, no rales , no accessory muscle use Abdominal: soft, nontender to palpation, no guarding, no appreciable organomegaly Ext: no gross muscle atrophy, no edema, no contractures Neuro: CN II-XI grossly intact, no focal neuro deficits Psych: Alert, oriented, appropriate affect Assessment and plan of care Newly diagnosed a flutter with RVR -Patient's [id number] score: 0 -Continue Toprol by mouth for now -Cardiology consulted starting patient on Eliquis and discussed with patient e fficiency of ablation in the management of atrial flutter -Echocardiogram revealing EF 55-60% with moderate left ventricular hypertrophy and trace mitral and tricuspid regurgitation. -Cardiac monitoring Lightheadedness, likely secondary to above -Continue with above management Hyperglycemia -Hemoglobin A1c 5.5% Elevated creatine kinase -Continue IV hydration Morbid obesity -Advised on lifestyle modification including a diet plan DVT prophylaxis -Lovenox subcu CODE STATUS: Full Code Discussed with: Patient Anticipated discharge date: In a.m. Anticipated discharge place: Home A total of 34 minutes was spent on the care of this complex patient more than 50% of the time was spent in counseling and care coordination. Obi Randall NP rendered care for this patient independently, reviewed the findings and plan as documented in the note above. I did not physically speak with or examine the patient on this date. Objective - Vital Signs Vital signs: Vital Signs Temp 97.5 F L 11/16/21 04:00 Pulse 56 L 11/16/21 04:00 Resp 14 11/16/21 04:00 BP 113/59 11/16/21 04:00 Pulse Ox 98 11/16/21 04:00 FiO2 Intake & Output 11/15/21 11/16/21 11/16/21 18:59 06:59 18:59 Intake Total 1000 Balance 1000 Weight 122.47 kg 122.47 kg Intake: IV 1000 Sodium Chloride 0.9% 1, 1000 000 ml @ 130 mls/hr IV . [id number] [facility] Rx#:[id number] - Labs CBC & Chem 7: 11/15/21 16:20 11/15/21 16:20 Labs: Abnormal Lab Results - Last 24 Hours (Table) 11/15/21 11/15/21 Range/Units 16:20 16:20 Hgb 18.0 H (13.0-17.5) gm/dL Lymphocytes # 0.9 L (1.0-4.8) k/uL Creatinine 0.62 L (0.66-1.25) mg/dL Glucose 134 H (74-99) mg/dL Creatine Kinase 269 H (55-170) U/L Total Protein 8.6 H (6.3-8.2) g/dL Albumin 5.1 H (3.5-5.0) g/dL
[2021-11-16] MEDS ORDERED: MELATONIN 5 MG TABLET PO PRN (20:49)
[2021-11-17] MEDS: METOPROLOL SUCCINATE (ER) 25 MG TAB.ER.24H PO SCH (08:32)
[2021-11-17] MEDS: APIXABAN 5 MG TAB PO SCH ×2 (08:32→20:36)
[2021-11-17 08:49] LABS: HCT 46.6 % (39.0-53.0); HGB 16.1 gm/dL (13.0-17.5); MCHC 34.6 g/dL (31.0-37.0); MCV 95.5 fL (80.0-100.0); Mean Platelet Volume 8.6; Platelet Count 217 k/uL (150-450); RBC 4.88 m/uL (4.30-5.90); RDW 13.8 % (11.5-15.5); WBC 10.1 k/uL (3.8-10.6)
[2021-11-17 09:03] LABS: African American GFR (CKD) >90 (>60 ml/min/1.73 sqM); Anion Gap 7 mmol/L; Blood Urea Nitrogen 19 mg/dL (9-20); Calcium 8.9 mg/dL (8.4-10.2); Carbon Dioxide 21 mmol/L (22-30); Chloride 112 mmol/L (98-107); Glucose 108 mg/dL (74-99); Non-African American GFR(CKD) >90 (>60 ml/min/1.73 sqM); Potassium 4.4 mmol/L (3.5-5.1); Sodium 140 mmol/L (137-145)
--- NOTE | 2021-11-17 10:23 | P.PN ---
Subjective Progress Note Date: 11/17/21 Hospital course: Patient is a very pleasant 45-year-old male with no known reported past medical history. He presented to the emergency department on 11/16/91 with chief complaints of dizziness/lightheadedness and diaphoresis. 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 He was able to gain his footing and did not lose consciousness. He again experienced the same symptoms as he tried to look up a few minutes later. He then had resolution of symptoms for the rest of the day. The following morning, he went to [facility] emergency room where a workup was unremarkable and the patient was diagnosed with vertigo and discharged home with meclizine. He reports however that his symptoms of lightheadedness started again on Monday morning, but were now also accompanied with diaphoresis and occasional shortness of breath with minimal exertion. He reports staying in bed for most of the weekend and was seen at his PCPs office earlier today where he was noted to be in tachycardia. The PCP subsequently sent the patient to the emergency room via EMS. Upon arrival, EKG revealed a flutter with RVR at 153 bpm. Subsequent EKG without intervention revealed normal sinus rhythm at 86 bpm. The patient reports that after arrival to the emergency room, his symptoms resolved and he now feels back at his baseline, albeit somewhat tired. Denied experiencing any chest pain or lower extremity swelling or pain. Denied nausea, vomiting, cough, fever, or chills. Chest x-ray was unremarkable. With laboratory evaluation showing troponin less than 0.012, CK 269, glucose 134. Physical examination: Patient seen and fully evaluated at bedside this morning. He remains converted back in sinus rhythm with rate in 50s -60s. Vital signs otherwise stable. Morning vitals blood pressure 141/72, heart rate 61, respiratory rate 16, and SpO2 of 97% on room air. Patient remains on Eliquis and metoprolol 25 mg daily. He continues to deny experiencing any headache, lightheadedness, dizziness, chest pain, palpitations, or shortness of breath. Plan is for patient to undergo EPC study and ablation tomorrow morning with Dr. Sullivan. Morning labs reviewed. CBC unremarkable. BMP revealing hyperchloremia with chloride of 112 and hypocarbia with carbon dioxide 21. General: non toxic, no distress, appears at stated age Derm: warm, dry Head: atraumatic, normocephalic, symmetric Eyes: EOMI, no lid lag, anicteric sclera Mouth: no lip lesion, mucus membranes moist Cardiovascular: Regular rhythm, S1S2 reg, no murmur, positive posterior tibial pulse bilateral, Lungs: CTA bilateral, no rhonchi, no rales , no accessory muscle use Abdominal: soft, nontender to palpation, no guarding, no appreciable organomegaly Ext: no gross muscle atrophy, no edema, no contractures Neuro: CN II-XI grossly intact, no focal neuro deficits Psych: Alert, oriented, appropriate affect Assessment and plan of care Newly diagnosed atrial flutter with RVR -Patient's [id number] score: 0, however there is concerns for underlying hypertension which would place patient's [id number] score 1 -Continue metoprolol 25 mg daily -Cardiology following, plans to take patient for EP study with ablation tomorrow morning. -Continue anticoagulation with Eliquis. -Echocardiogram revealing EF 55-60% with moderate left ventricular hypertrophy and trace mitral and tricuspid regurgitation. -Cardiac monitoring Lightheadedness, likely secondary to above -Continue with above management Hyperglycemia -Hemoglobin A1c 5.5%, continue heart healthy and carb consistent diet. Elevated creatine kinase -Received IV fluid hydration Obesity with BMI of 30.7 kg/m -Advised on lifestyle modification including a diet plan CODE STATUS: Full Code DVT prophylaxis: Lovenox Discussed with: Patient Anticipated discharge date: Possibly tomorrow after ablation pending clearance from cardiology Anticipated discharge place: Home A total of 35 minutes was spent on the care of this complex patient more than 50% of the time was spent in counseling and care coordination. Obi Randall NP rendered care for this patient independently, reviewed the findings and plan as documented in the note above. I did not physically speak with or examine the patient on this date. Objective - Vital Signs Vital signs: Vital Signs Temp 97.9 F 11/17/21 08:00 Pulse 61 11/17/21 08:00 Resp 16 11/17/21 08:00 BP 141/72 11/17/21 08:00 Pulse Ox 97 11/17/21 08:00 FiO2 Intake & Output 11/16/21 11/17/21 11/17/21 18:59 06:59 18:59 Other: # Voids 1 2 - Labs CBC & Chem 7: 11/17/21 07:14 11/17/21 07:14 Labs: Abnormal Lab Results - Last 24 Hours (Table) 11/17/21 Range/Units 07:14 Chloride 112 H (98-107) mmol/L Carbon Dioxide 21 L (22-30) mmol/L Glucose 108 H (74-99) mg/dL
--- NOTE | 2021-11-17 12:49 | P.PN ---
Subjective Progress Note Date: 11/17/21 HISTORY OF PRESENT ILLNESS: This is a 45-year-old male who is admitted to the hospital secondary to dizziness and lightheadedness. Patient was found to be in atrial flutter with RVR. The patient was started on IV Cardizem. This morning the patient is maintaining sinus mechanism with a heart rate in the 50s. He denies chest pain or pressure. Denies shortness of breath. Denies dizziness or lightheadedness. Denies any palpitations. PHYSICAL EXAM: VITAL SIGNS: Reviewed. GENERAL: Well-developed in no acute distress. NECK: Supple. No JVD or thyromegaly LUNGS: Respirations even and unlabored. Lungs essentially clear to auscultation bilaterally. HEART: Regular rate and rhythm. S1 and S2 heard. EXTREMITIES: Normal range of motion. No clubbing or cyanosis. Peripheral pulses intact. No lower extremity edema ASSESSMENT: Dizziness and lightheadedness Paroxysmal typical atrial flutter with RVR Possible mild hypertension Likely obstructive sleep apnea Former nicotine dependence PLAN: Continue telemetry monitoring Continue current cardiac medications Nothing by mouth at midnight Patient scheduled for EP study tomorrow with Dr. Sullivan Further recommendations pending patient course Nurse practitioner note has been reviewed by physician. Signing provider agrees with the documented findings, assessment, and plan of care. Objective - Vital Signs Vital signs: Vital Signs Temp 97.8 F 11/17/21 11:24 Pulse 59 L 11/17/21 11:24 Resp 18 11/17/21 11:24 BP 135/82 11/17/21 11:24 Pulse Ox 96 11/17/21 11:24 FiO2 Intake & Output 11/16/21 11/17/21 11/17/21 18:59 06:59 18:59 Other: # Voids 1 2 1 - Labs CBC & Chem 7: 11/17/21 07:14 11/17/21 07:14 Labs: Abnormal Lab Results - Last 24 Hours (Table) 11/17/21 Range/Units 07:14 Chloride 112 H (98-107) mmol/L Carbon Dioxide 21 L (22-30) mmol/L Glucose 108 H (74-99) mg/dL
[2021-11-18] MEDS: APIXABAN 5 MG TAB PO SCH ×2 (06:12→20:26)
[2021-11-18] MEDS: METOPROLOL SUCCINATE (ER) 25 MG TAB.ER.24H PO SCH (06:12)
[2021-11-18] MEDS ORDERED: ROCURONIUM 10 MG/ML (5 ML VIAL) IV ONE (08:50)
[2021-11-18] MEDS ORDERED: fentaNYL (PF) 50 MCG/ML 2 ML AMP ONE (08:50)
[2021-11-18] MEDS ORDERED: HYDROmorphone (PF) 1 MG/ML ONE (08:50)
[2021-11-18] MEDS ORDERED: SUCCINYLCHOLINE CHLORIDE 200 MG/10 ML VIAL IV ONE (08:50)
[2021-11-18] MEDS ORDERED: MIDAZOLAM 2 MG/2 ML VIAL ONE (08:50)
[2021-11-18] MEDS ORDERED: IV FLUID CONTINUATION 1,000 ML IV ONE (08:50)
[2021-11-18] MEDS ORDERED: PROPOFOL 10 MG/ML 20 ML VIAL IV ONE (08:50)
[2021-11-18] MEDS ORDERED: NEOSTIGMINE 1 MG/ML 10 ML VIAL ONE (08:50)
[2021-11-18] MEDS ORDERED: GLYCOPYRROLATE 0.2 MG/ML 2 ML VIAL ONE (08:50)
[2021-11-18] MEDS ORDERED: ISOPROTERENOL 250 MCG/1.25 ML SYR IV ONE (08:50)
[2021-11-18] MEDS ORDERED: LIDOCAINE 1% INJ 10MG/ML (5 ML VIAL-PF) SQ ONE (09:30)
[2021-11-18] MEDS ORDERED: HEPARIN SODIUM (1,000 UNIT/ML) 1,000 UNIT in SODIUM CHLORIDE 0.9% 1,000 ML IRRIGATION ONE (10:01)
[2021-11-18] MEDS ORDERED: ACETAMINOPHEN IV (For NPO) 1,000 MG in EMPTY BAG 1 BAG IVPB ONE (11:26)
--- NOTE | 2021-11-18 12:37 | P.EPPROC ---
- EP Procedure Note Electrophysiology Procedure Note: Diagnosis Symptomatic paroxysmal typical atrial flutter with a very rapid ventricular response Associated near-syncopal spells Started on ELIQUIS 5 g twice daily Procedure Diagnostic EP study and successful radiofrequency ablation for typical atrial flutter with bidirectional block with differential pacing Plan ELIQUIS for 3 months Short course of metoprolol for a few weeks and then discontinue Details Patient was brought to the EP lab in a fasting state. Written informed consent was obtained prior to the procedure. General anesthesia provided Venous sheaths were placed in the right left femoral veins Baseline measurements were as follows Sinus cycle length 1177 ms, [place] interval 146 ms, QRS 106 ms and QT interval 410 ms AH 59 ms and HV 44 ms Sinus node recovery times at 600, 504 100 ms were 1153, 2054 and 05/05/2008 milliseconds Right bundle branch block with PACs AV node Wenckebach keep up block 360 ms Intracardiac echocardiography was performed high right atrial and CS pacing was performed 3-D electro-anatomic mapping of the cavo tricuspid isthmus RF ablation of the cavo tricuspid isthmus A complete line of block was made This line was interrogated with atrial pacing and complete bidirectional block with differential pacing was achieved Following that high-dose Isuprel was infused Short bursts of atrial fibrillation induced No other SVT induced with atrial pacing Patient tolerated the procedure well without any acute complications
[2021-11-18] MEDS ORDERED: ONDANSETRON 4 MG/2 ML VIAL IVP PRN ×2 (14:25→19:48)
--- NOTE | 2021-11-18 16:13 | P.PN ---
Subjective Progress Note Date: 11/18/21 Hospital course: Patient is a very pleasant 45-year-old male with no known reported past medical history. He presented to the emergency department on 11/16/91 with chief complaints of dizziness/lightheadedness and diaphoresis. 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 He was able to gain his footing and did not lose consciousness. He again experienced the same symptoms as he tried to look up a few minutes later. He then had resolution of symptoms for the rest of the day. The following morning, he went to [facility] emergency room where a workup was unremarkable and the patient was diagnosed with vertigo and discharged home with meclizine. He reports however that his symptoms of lightheadedness started again on Monday morning, but were now also accompanied with diaphoresis and occasional shortness of breath with minimal exertion. He reports staying in bed for most of the weekend and was seen at his PCPs office earlier today where he was noted to be in tachycardia. The PCP subsequently sent the patient to the emergency room via EMS. Upon arrival, EKG revealed a flutter with RVR at 153 bpm. Subsequent EKG without intervention revealed normal sinus rhythm at 86 bpm. The patient reports that after arrival to the emergency room, his symptoms resolved and he now feels back at his baseline, albeit somewhat tired. Denied experiencing any chest pain or lower extremity swelling or pain. Denied nausea, vomiting, cough, fever, or chills. Chest x-ray was unremarkable. With laboratory evaluation showing troponin less than 0.012, CK 269, glucose 134. Patient was admitted under our services with consultation to cardiology. He underwent an echocardiogram revealing EF 55-60% with moderate left ventricular hypertrophy and trace mitral and tricuspid regurgitation. Patient was started on oral anticoagulation with Eliquis and metoprolol 25 mg daily. Patient underwent EPS study with successful cardiac ablation on 11/18/21. Physical examination: Patient seen and fully evaluated at bedside after return from EPS study with successful radiofrequency ablation. Patient very nauseous upon return from procedure and order placed for Zofran at this time. Upon evaluation patient had noted irregular rhythm and evaluation and quality assurance monitor revealing normal sinus rhythm with frequent PACs. Patient currently denies having any headache, lightheadedness, dizziness, chest pain, palpitations, shortness of breath, or any other complaints. Patient's at bedside. We will continue to monitor patient overnight with continuous telemetry monitoring. General: non toxic, no distress, appears at stated age Derm: warm, dry Head: atraumatic, normocephalic, symmetric Eyes: EOMI, no lid lag, anicteric sclera Mouth: no lip lesion, mucus membranes moist Cardiovascular: Irregularly irregular rhythm S1S2 reg, no murmur, positive posterior tibial pulses bilaterally, Lungs: Respirations even, regular, and unlabored on room air. No accessory muscle use. Abdominal: soft, nontender to palpation, no guarding, no appreciable organomegaly Ext: no gross muscle atrophy, no edema, no contractures Neuro: CN II-XI grossly intact, no focal neuro deficits Psych: Alert, oriented, appropriate affect Assessment and plan of care Newly diagnosed a flutter with RVR -Patient's [id number] score: 0 -Continue metoprolol 25 mg daily. -Cardiology consulted starting patient on Eliquis and discussed with patient efficiency of ablation in the management of atrial flutter -Echocardiogram revealing EF 55-60% with moderate left ventricular hypertrophy and trace mitral and tricuspid regurgitation. -Cardiac monitoring Lightheadedness, likely secondary to above -Continue with above management Hyperglycemia -Hemoglobin A1c 5.5% Elevated creatine kinase -Treated with IV fluids. Morbid obesity -Advised on lifestyle modification including a diet plan CODE STATUS: Full Code DVT prophylaxis: Eliquis Discussed with: Patient, patient's , and RN Anticipated discharge date: Tomorrow morning Anticipated discharge place: Home A total of 33 minutes was spent on the care of this complex patient more than 50% of the time was spent in counseling and care coordination. I reviewed the documentation as provided by the GLADIS above, who is the original author of this note. I agree with the documented assessment and plan, with the following changes: none Objective - Vital Signs Vital signs: Vital Signs Temp 96.3 F L 11/18/21 15:11 Pulse 56 L 11/18/21 15:11 Resp 16 11/18/21 15:11 BP 111/75 11/18/21 15:11 Pulse Ox 95 11/18/21 15:11 FiO2 Intake & Output 11/17/21 11/18/21 11/18/21 18:59 06:59 18:59 Intake Total 300 913 Balance 300 913 Weight 122.47 kg Intake: IV 913 Intake, IV Titration 300 Amount Sodium Chloride 0.9% 1, 300 000 ml @ 75 mls/hr IV . [id number] [facility] Rx#:[id number] Oral 0 Other: # Voids 1 2 - Labs CBC & Chem 7: 11/17/21 07:14 11/17/21 07:14
[2021-11-18] MEDS ORDERED: ACETAMINOPHEN TAB 325 MG TAB PO PRN (18:00)
[2021-11-18] MEDS ORDERED: LACTATED RINGERS 1,000 ML IV SCH (19:48)
[2021-11-18] MEDS ORDERED: LIDOCAINE 1% (10MG/ML) FOR IV START INTRADERMA PRN (19:48)
[2021-11-18] MEDS ORDERED: DEXAMETHASONE SOD PHOSPHATE 4 MG/ML 1 ML VIAL IV ONE (19:48)
[2021-11-19 04:36] VITALS: RESP 18
[2021-11-19] MEDS: APIXABAN 5 MG TAB PO SCH (09:25)
[2021-11-19] MEDS: METOPROLOL SUCCINATE (ER) 25 MG TAB.ER.24H PO SCH (09:25)
--- NOTE | 2021-11-19 09:54 | P.DS ---
Providers Date of admission: 11/16/21 10:44 Expected date of discharge: 11/19/21 Attending physician: Ruddy Mahan MD Consults: 11/15/21 20:02 Consult Physician Routine Consulting Provider: Lorne Diaz Consult Reason/Comments: Atrial flutter Do you want consulting provider notified?: Yes, Notify in am Primary care physician: [facility] [place] Course: Discharge Diagnosis: Newly diagnosed a flutter with RVR, converted now in sinus rhythm. Patient was started on oral anticoagulation with Eliquis along with metoprolol 25 mg daily and underwent EPS study with successful cardiac ablation on 11/18/21. Patient will require oral anticoagulation 3 months and instructed to follow-up with PCP in 1-2 days and cardiology in 1 week. Lightheadedness, likely secondary to above Hyperglycemia, Hemoglobin A1c 5.5% . Patient educated on the importance of following a heart healthy and carb consistent diet. Elevated creatine kinase, Treated with IV fluids. Obesity with BMI of 38.7 kg/m . Advised on lifestyle modification including a diet plan Hospital Course: Patient is a very pleasant 45-year-old male with no known reported past medical history. He presented to the emergency department on 11/16/91 with chief complaints of dizziness/lightheadedness and diaphoresis. 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 He was able to gain his footing and did not lose consciousness. He again experienced the same symptoms as he tried to look up a few minutes later. He then had r esolution of symptoms for the rest of the day. The following morning, he went to [facility] emergency room where a workup was unremarkable and the patient was diagnosed with vertigo and discharged home with meclizine. He reports however that his symptoms of lightheadedness started again on Monday morning, but were now also accompanied with diaphoresis and occasional shortness of breath with minimal exertion. He reports staying in bed for most of the weekend and was seen at his PCPs office earlier today where he was noted to be in tachycardia. The PCP subsequently sent the patient to the emergency room via EMS. Upon arrival, EKG revealed a flutter with RVR at 153 bpm. Subsequent EKG without intervention revealed normal sinus rhythm at 86 bpm. The patient reports that after arrival to the emergency room, his symptoms resolved and he now feels back at his baseline, albeit somewhat tired. Denied experiencing any chest pain or lower extremity swelling or pain. Denied nausea, vomiting, cough, fever, or chills. Chest x-ray was unremarkable. With laboratory evaluation showing troponin less than 0.012, CK 269, glucose 134. Patient was admitted under our services with consultation to cardiology. He underwent an echocardiogram revealing EF 55-60% with moderate left ventricular hypertrophy and trace mitral and tricuspid regurgitation. Patient was started on oral anticoagulation with Eliquis along with metoprolol 25 mg daily and underwent EPS study with successful cardiac ablation on 11/18/21. Patient is medically stable at this time. Metoprolol and Eliquis prescriptions were sent to pharmacy. Patient to follow up outpatient with PCP in 1-2 days and cardiology in 1 week. Physical examination: Patient seen and fully evaluated at the bedside this morning. Patient reports feeling great and denies having any needs, complaints, or concerns at this time. Patient remains in sinus rhythm with frequent PACs. Patient is medically stable for discharge and will remain on metoprolol pending further cardiology evaluation and upon follow-up visit secondary to frequent PACs. General: non toxic, no distress, appears at stated age Derm: warm, dry Head: atraumatic, normocephalic, symmetric Eyes: EOMI, no lid lag, anicteric sclera Mouth: no lip lesion, mucus membranes moist Cardiovascular: Irregularly irregular rhythm S1S2 reg, no murmur, positive posterior tibial pulses bilaterally, Lungs: Respirations even, regular, and unlabored on room air. No accessory muscle use. Abdominal: soft, nontender to palpation, no guarding, no appreciable organ omegaly Ext: no gross muscle atrophy, no edema, no contractures Neuro: CN II-XI grossly intact, no focal neuro deficits Psych: Alert, oriented, appropriate affect A total of 33 minutes of time were spent preparing this complex discharge summary. Pt was discharged on 11/19/21 at 9:52 AM Patient Condition at Discharge: Stable Plan - Discharge Summary New Discharge Prescriptions: New Apixaban [Eliquis] 5 mg PO BID #180 tab Metoprolol Succinate (ER) [Toprol XL] 25 mg PO DAILY 30 Days #30 tab Continue Ibuprofen [Motrin] 800 mg PO Q8H PRN PRN Reason: Pain Discharge Medication List Ibuprofen [Motrin] 800 mg PO Q8H PRN 04/25/17 [History] Metoprolol Succinate (ER) [Toprol XL] 25 mg PO DAILY 30 Days #30 tab 11/17/21 [Rx] Apixaban [Eliquis] 5 mg PO BID #180 tab 11/18/21 [Rx] Follow up Appointment(s)/Referral(s): Patrick Sullivan MD [STAFF PHYSICIAN] - 11/29/21 9:30 am (Monday) Manolo Lopez DO [Primary Care Provider] - 11/22/21 11:15 am (Monday with PEDIATRIC CNS Evelyn) Patient Instructions/Handouts: Safe Use of Anticoagulants (DC), Cardiac Ablation (DC) Activity/Diet/Wound Care/Special Instructions: Activity: As tolerated. Take breaks as needed. Diet: Heart healthy and carb consistent diet. Avoid salts, or foods with hidden salts such as canned or boxed foods and frozen dinners. Extra salt makes your heart work harder and traps the fluid in your body for longer. Special Instructions: Take all of your medications as directed and remember to keep all of your doctor's appointments and follow-up as needed. Please monitor your blood pressure and heart rate daily and document these findings in a daily journal to bring with you to your next appointment at your cardiologists office. Post EP study - Ablation instructions 1. Keep access sites dry for 2 days. 2. No heavy lifting or straining for 2 days. 3. Avoid bending the hips repeatedly for 2 days. 4. You may go up and down stairs slowly Call if the following is noted 1. Bleeding, increasing swelling or pain at the access sites. 2. Increasing chest discomfort, especially upon taking a deep breath. 3. Increasing shortness of breath, at rest or with exertion. 4. Undue cough / phlegm 5. Difficulty or pain while swallowing. 6. Pain or change in color in the extremities. 7. Fever, chills, rigors. 8. Increasing headache or neurologic symptoms. 9. Dizziness, fainting, palpitations Continue ELIQUIS for 3 months, as we discussed....PLEASE be careful. 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 Being that you have been placed on a blood thinner it is very important to watch for any signs of bleeding and notify your doctor immediately if you notice any bleeding. It is also important to remove any trip hazards such as rugs or loose extension cords from your home to prevent unnecessary falls and if you do experience a fall or head injury, it is extremely important to be evaluated by a medical provider immediately to ensure no internal bleeding. Avoid any use of alcohol, as this places you at increased risk of falls and injuries. Thank you for allowing us to participate in your care, it was truly a pleasure having you for our patient!!! Discharge Disposition: HOME SELF-CARE
[2021-11-19 10:02] VITALS: BP 116/75; PULSE 49; TEMP 98.5
--- NOTE | 2021-11-19 11:33 | P.PN ---
Subjective Progress Note Date: 11/19/21 HISTORY OF PRESENT ILLNESS: This is a 45-year-old male who is admitted to the hospital secondary to dizziness and lightheadedness. Patient was found to be in atrial flutter with RVR. The patient was started on IV Cardizem. This morning the patient is maintaining sinus mechanism with a heart rate in the 50s. He denies chest pain or pressure. Denies shortness of breath. Denies dizziness or lightheadedness. Denies any palpitations. 11/19/2021 Patient examined this morning at the bedside. He is s/p ablation with Dr. Sullivan. He reports mild discomfort to his groins. He denies chest pain or pressure. Denies SOB. He has been up ambulating to the bathroom. Blood pressure stable. Telemetry reveals sinus bradycardia with PACs. PHYSICAL EXAM: VITAL SIGNS: Reviewed. GENERAL: Well-developed in no acute distress. NECK: Supple. No JVD or thyromegaly LUNGS: Respirations even and unlabored. Lungs essentially clear to auscultation bilaterally. HEART: Regular rate and rhythm. S1 and S2 heard. EXTREMITIES: Normal range of motion. No clubbing or cyanosis. Peripheral pulses intact. No lower extremity edema ASSESSMENT: Dizziness and lightheadedness Paroxysmal typical atrial flutter with RVR Possible mild hypertension Likely obstructive sleep apnea Former nicotine dependence PLAN: Continue current cardiac medications Patient may be discharged home this afternoon from a cardiac standpoint Follow up outpatient with Dr. Sullivan Further recommendations pending patient course Nurse practitioner note has been reviewed by physician. Signing provider agrees with the documented findings, assessment, and plan of care. Objective - Vital Signs Vital signs: Vital Signs Temp 98.5 F 11/19/21 08:20 Pulse 49 L 11/19/21 08:20 Resp 18 11/19/21 08:20 BP 116/75 11/19/21 08:20 Pulse Ox 95 11/19/21 08:20 FiO2 Intake & Output 11/18/21 11/19/21 11/19/21 18:59 06:59 18:59 Intake Total 913 180 Output Total 0 Balance 913 180 Weight 122.47 kg Intake: IV 913 Oral 0 180 Output: Urine 0 Stool 0 Urine/Stool Mix 0 Oral Regurgitation 0 Other: Voiding Method Toilet # Voids 0 2 # Bowel Movements 0 - Labs CBC & Chem 7: 11/17/21 07:14 11/17/21 07:14
== END 2021-11-19 12:40 | disposition home or self-care (01) | DRG 274 ==
LOC: EC 16:05 → 3SCARD 20:02 → OBSVTOIN 11-16 10:44 → 3SCARD 11-16 11:16
PROVIDERS: ADMIT Internal Medicine; ATTEND Internal Medicine
PROC: 02K83ZZ Map Conduction Mechanism, Percutaneous Approach (ICD-10-PCS; principal; 2021-11-18 08:30)
PROC: 02583ZZ Destruction of Conduction Mechanism, Percutaneous Approach (ICD-10-PCS; principal; 2021-11-18 08:30)
PROC: 4A023FZ Measurement of Cardiac Rhythm, Percutaneous Approach (ICD-10-PCS; principal; 2021-11-18 08:30)
PROC: 4A0234Z Measurement of Cardiac Electrical Activity, Percutaneous Approach (ICD-10-PCS; principal; 2021-11-18 08:30)
DX: I48.3 Typical atrial flutter (principal); Y99.0 Civilian activity done for income or pay; I08.1 Rheumatic disorders of both mitral and tricuspid valves; R73.9 Hyperglycemia, unspecified; Z87.891 Personal history of nicotine dependence; I49.1 Atrial premature depolarization; I45.10 Unspecified right bundle-branch block; G47.33 Obstructive sleep apnea (adult) (pediatric); E66.01 Morbid (severe) obesity due to excess calories; Z68.38 Body mass index [BMI] 38.0-38.9, adult; Z71.3 Dietary counseling and surveillance; Z79.899 Other long term (current) drug therapy; I48.91 Unspecified atrial fibrillation; Z82.49 Family history of ischemic heart disease and other diseases of the circulatory system
CPT/HCPCS: 36415; 71045; 80048; 80053; 82550; 83036; 83735; 83880; 84443; 84484; 85025; 85027; 85379; 85610; 93005; 93306; 93623; 93653; 93662; 96360; 96361; 96372; 99285

== ENCOUNTER → 2021-12-16 | Outpatient (CLI) | payer OTHER ==
--- NOTE | 2021-12-16 17:17 | P.SLEEP ---
History of Present Illness DATE: 12/16/2021 CONSULTATION/NEW PATIENT EVALUATION HISTORY OF PRESENT ILLNESS/SLEEP-WAKE EVALUATION: 46year old gentleman had been evaluated in the sleep center for possible obstructive sleep apnea hypopnea syndrome. SLEEP SCHEDULE: Usually sleep schedule on weekdaysfrom 11 PM to 8:15 AM], during days of from midnight until 10 AM]. FALLING ASLEEP No problems with falling asleep, although patient has TV set and bedroom]. DURING SLEEP:Patient sleeps in different positions with the snoring and witnessed episodes of stop breathing. Usually patient wakes up from sleep 2 times with nocturia] No history of hypnogogical hallucinations, sleep paralysis, or cataplexy. DURING THE DAY/WAKE STATE In the morning patient wake up tired, has episodes of irritability]. [place] sleepiness scale i 6] Usually patient doesn't take naps]. PAST MEDICAL HISTORY atrial flutter]. PAST SURGICAL HISTORY Cardiac ablation 10/2021, cholecystectomy. MEDICATIONS Metoprolol 25 mg once a day, Eliquis 5 mg once a day, ibuprofen 800 mg as needed]. SOCIAL HISTORY Positive history of smoking for about 20 years half pack a day, quit , alcohol consumption occasional. FAMILY HISTORY:Heart problems, snoring, cancer]. REVIEW OF SYSTEMS:Snoring, awakenings from sleep]. No fevers. No double vision. No recent chest pain. No shortness of breath. No abdominal pain. No bleeding episodes. No blood in urine. No seizure episodes. PHYSICAL EXAMINATION: GENERAL: A pleasant patient without any distress. VITAL SIGNS: B 112/79 , HR [69] , RR16 , .8 pounds, height5 t10s, body mass index38.8 . HEENT: PERRLA, EOMI. Evaluation of oropharynx showed tongue protrudes midline, low position of soft palate Mallampati4. NECK: Supple. No JVD. Thyroid is not palpable. 18 inches in circumference. LUNGS: Clear to percussion and to auscultation. Good air exchange. No wheezing or rhonchi. HEART: S1, S2 regular. No murmurs, gallops or rubs. ABDOMEN: Soft and nontender. Bowel sounds are present. No organomegaly appreciated. EXTREMITIES: No clubbing or cyanosis. FAMILY PHYSICIAN: Awake, alert, and oriented x3. Cranial nerves 2 to 7 intact. There is no fasciculation or atrophy noted. No focal deficits observed. ASSESSMENT: 1 Snoring, awakenings from sleep, extremely low position of soft palate Mallampati 4, white neck 18 inches in circumference. Obstructive sleep apnea hypopnea syndrome]. 2. [].History of atrial flatter. 3 [].Status post cardiac ablation recently. 4. [].Obesity body mass index 38.8 5 [].Status post cholecystectomy. PLAN: 1. Polysomnography for evaluation of patient's breathing during sleep. 2. CPAP/BiPAP titration if sleep study confirms obstructive sleep apnea- hypopnea syndrome. 3. Preferable position during sleep on the side. 4. No driving if patient feels any sleepiness. Patient is aware of civil and criminal liability for unsafe driving. 5. Sleep hygiene with regular sleep time for at least 7.5-8 hours. 6. Losing weight. Thank you very much for referring this patient for consultation. Sincerely, Naeem Alvarado MD, PhD, FAASM. Diplomat of [place] [employer], Sleep Medicine Board by [place] [employer] [place] [employer] [place] [facility] [place] Past Medical History Past Medical History: No Reported History History of Any Multi-Drug Resistant Organisms: None Reported Past Surgical History: Cholecystectomy Past Psychological History: No Psychological Hx Reported Smoking Status: Former smoker Past Alcohol Use History: Occasional Past Drug Use History: Marijuana - Past Family History Father Family Medical History: Coronary Artery Disease (CAD) Medications and Allergies Home Medications Medication Instructions Recorded Confirmed Type Ibuprofen [Motrin] 800 mg PO Q8H PRN 04/25/17 11/15/21 History Metoprolol Succinate (ER) [Toprol 25 mg PO DAILY 30 Days #30 tab 11/17/21 Rx XL] Apixaban [Eliquis] 5 mg PO BID #180 tab 11/18/21 Rx Allergies Allergy/AdvReac Type Severity Reaction Status Date / Time No Known Allergies Allergy Verified 11/15/21 18:46 Sleep Note - Sleep Note Sleep Note: Temperature: Pulse Rate: Respiratory Rate: Blood Pressure: SpO2: Height: Weight: BMI: Neck Circumference:
== END | disposition home or self-care (01) ==
LOC: SLEEP 16:30
PROVIDERS: ATTEND Internal Medicine
DX: G47.33 Obstructive sleep apnea (adult) (pediatric) (principal); Z86.79 Personal history of other diseases of the circulatory system; Z68.38 Body mass index [BMI] 38.0-38.9, adult; Z90.49 Acquired absence of other specified parts of digestive tract
CPT/HCPCS: 99211

== ENCOUNTER 2022-01-11 08:34 | Emergency (ER) | payer OTHER ==
[2022-01-11 08:39] VITALS: BP 145/87; PULSE 68; RESP 20; TEMP 98
[2022-01-11] MEDS ORDERED: KETOROLAC 15 MG/ML 1 ML VIAL IM STA (09:09)
[2022-01-11] MEDS ORDERED: predniSONE 20 MG TAB PO STA (09:09)
[2022-01-11] MEDS ORDERED: CYCLOBENZAPRINE 10 MG TAB PO STA (09:10)
--- NOTE | 2022-01-11 09:46 | CT ---
EXAMINATION TYPE: CT cervical spine wo con DATE OF EXAM: 01/11/2022 COMPARISON: CT cervical spine report 2019. Images not available due to down time. Cervical spine Limi stu x-ray September 23, 2021 HISTORY: pain after radicular injury. CT DLP: 730.6 mGycm. Automated Exposure Control for Dose Reduction was Utilized. TECHNIQUE: CT scan of the cervical spine is obtained without contrast, axial images are obtained, sa gittal and coronal reformatted images are also reviewed. FINDINGS: Cervical spine is visualized in its entirety from C1 through upper thoracic levels, demonst rates stable and satisfactory alignment without evidence of acute fracture or dislocation. Preverteb ral soft tissue appears within normal limits. The C1-C2 articulation is within normal limits on the coronal images. Vertebral body heights are maintained. Mild disc space narrowing and spurring C6-C7 l evel. Spinal canal grossly preserved. Axial images show focal right paracentral disc protrusion effacing anterior thecal sac at C6-C7 level on axial image 68 along with mild to moderate bilateral neural foraminal narrowing due to marginal s purring. Remainder axial levels appear within normal limits.. Thyroid gland is felt within normal goldsmith its. Visualized lung apices show no pneumothorax. IMPRESSION: There is no acute fracture or dislocation evident in the cervical spine.
--- NOTE | 2022-01-11 10:20 | ED ---
Neck Injury/Pain HPI - General Chief Complaint: Neck Pain/Injury Stated Complaint: neck pain, possible pinched nerve Mode of arrival: ambulatory Limitations: no limitations - History of Present Illness Initial Comments: 46-year-old male presents to the emergency department with reported right-sided neck pain. He is an employee in [employer]. States that he has been doing a lot of heavy lifting and twisting. He has had right-sided neck pain which radiates into his right chest and down his right arm. Reports to a numbing and tingling sensation in the right hand. He is right-hand dominant. Denies any blunt trauma. No headaches or visual changes. No pain, numbness or tingling into his leg. He has been taking ibuprofen and placing cool compresses to the site. He is on Eliquis for his cardiac history and is not supposed to be taking NSAIDs. He called his cardiac cath tech for pain medication recommendations however when he did not receive a call back, he proceeded to the emergency department. No fevers. No intravenous drug use. No other alleviating, precipitating or modifying factors - Related Data Home Medications Medication Instructions Recorded Confirmed Ibuprofen [Motrin] 800 mg PO Q8H PRN 04/25/17 11/15/21 Previous Rx's Medication Instructions Recorded Metoprolol Succinate (ER) [Toprol 25 mg PO DAILY 30 Days #30 tab 11/17/21 XL] Apixaban [Eliquis] 5 mg PO BID #180 tab 11/18/21 Cyclobenzaprine [Flexeril] 10 mg PO TID #24 tab 01/11/22 predniSONE [Deltasone] 20 mg PO BID #10 tab 01/11/22 Allergies Allergy/AdvReac Type Severity Reaction Status Date / Time No Known Allergies Allergy Verified 11/15/21 18:46 Review of Systems ROS Statement: Those systems with pertinent positive or pertinent negative responses have been documented in the HPI. ROS Other: All systems not noted in ROS Statement are negative. Past Medical History Past Medical History: No Reported History History of Any Multi-Drug Resistant Organisms: None Reported Past Surgical History: Cholecystectomy Additional Past Surgical History / Comment(s): Cardiac ablation Past Psychological History: No Psychological Hx Reported Smoking Status: Former smoker Past Alcohol Use History: Occasional Past Drug Use History: Marijuana - Past Family History Father Family Medical History: Coronary Artery Disease (CAD) General Exam Limitations: no limitations General appearance: alert, in no apparent distress Head exam: Present: atraumatic, normocephalic, normal inspection Eye exam: Present: normal appearance, PERRL, EOMI. Absent: scleral icterus, conjunctival injection, periorbital swelling ENT exam: Present: normal exam, mucous membranes moist Neck exam: Present: tenderness (paraspinal tenderness to the right). Absent: meningismus, lymphadenopathy Respiratory exam: Present: normal lung sounds bilaterally. Absent: respiratory distress, wheezes, rales, rhonchi, stridor Cardiovascular Exam: Present: regular rate, normal rhythm, normal heart sounds. Absent: systolic murmur, diastolic murmur, rubs, gallop, clicks GI/Abdominal exam: Present: soft, normal bowel sounds. Absent: distended, tenderness, guarding, rebound, rigid Extremities exam: Present: normal inspection, full ROM, normal capillary refill. Absent: tenderness, pedal edema, joint swelling, calf tenderness Back exam: Present: normal inspection Neurological exam: Present: alert, oriented X3, CN II-XII intact Psychiatric exam: Present: normal affect, normal mood Skin exam: Present: warm, dry, intact, normal color. Absent: rash Course Vital Signs 01/11/22 08:36 Temperature 98 F Pulse Rate 68 Respiratory 20 Rate Blood Pressure 145/87 O2 Sat by Pulse 97 Oximetry Medical Decision Making - Medical Decision Making Upon arrival patient is placed in room 27. A thorough history and physical exam was performed. Patient reports to worsening pain after working. He is given prednisone 60 mg and Flexeril [address] is performed which demonstrates C6-C7 right paracentral disc protrusion effacing the anterior thecal sac. Mild to moderate bilateral neural foraminal narrowing due to marginal spurring. Results are discussed with the patient. He does feel improved after medication administration. He will be placed on steroids and muscle relaxers the outpatient setting. Instructed to call his primary care doctor to make an appointment. May need an MRI. They also need a spine referral. If he has any new or worsening symptoms she should return to the emergency room. Patient was agreeable to this plan and was discharged home in stable condition Disposition Clinical Impression: Cervical radiculopathy, Neck pain Disposition: HOME SELF-CARE Condition: Stable Instructions (If sedation given, give patient instructions): Cervical Radiculopathy (ED) Additional Instructions: Please take the steroids and muscle relaxers as directed. Call your primary care doctor. You may need an MRI. I recommend that you follow-up with a spine doctor. Return for any new or worsening symptoms Prescriptions: predniSONE [Deltasone] 20 mg PO BID #10 tab Cyclobenzaprine [Flexeril] 10 mg PO TID #24 tab Is patient prescribed a controlled substance at d/c from ED?: No Referrals: Manolo Lopez DO [Primary Care Provider] - 1-2 days Justin Wilson DO [Doctor of Osteopathic Medicine] - 1-2 days Time of Disposition: 10:20
== END 2022-01-11 10:33 | disposition home or self-care (01) ==
LOC: EC 08:34
DX: M54.12 Radiculopathy, cervical region (principal); Z87.891 Personal history of nicotine dependence; F12.90 Cannabis use, unspecified, uncomplicated; Z79.899 Other long term (current) drug therapy
CPT/HCPCS: 72125; 99284; 96372; J1885; J7512

== ENCOUNTER 2022-01-25 08:39 | Inpatient (IN) | payer OTHER ==
[2022-01-25] MEDS ORDERED: KETOROLAC 15 MG/ML 1 ML VIAL IM STA (10:14)
--- NOTE | 2022-01-25 10:23 | ED ---
Neck Injury/Pain HPI - General Chief Complaint: Neck Pain/Injury Stated Complaint: Neck pain,numbness in arm,recheck Time Seen by Provider: 01/25/22 10:04 Source: RN notes reviewed Limitations: no limitations - History of Present Illness Initial Comments: Patient is a 46-year-old male presents to the emergency room with complaints of worsening neck pain with right upper extremity radiculopathy. He reports that his right upper extremity radiculopathy was initially intermittent but now has become persistent with right upper extremity weakness interfering with ADLs and persistent tingling in his hand. He states that due to his insurance and occupation he has not been able to follow-up with physical therapy or maintain lifting restrictions. He states initially muscle relaxers and pain medications were helping with his symptoms but no longer help. He states that he was on a regimen of steroids without any improvement in symptoms as well. he denies any new trauma or injury to his neck. He denies any headache, dizziness, or syncopal episodes. He has a past medical history significant for a flutter which she has had a cardiac ablation for and remains on Eliquis. - Related Data Home Medications Medication Instructions Recorded Confirmed traMADol HCL 50 mg PO Q6H PRN 01/25/22 01/25/22 Previous Rx's Medication Instructions Recorded Apixaban [Eliquis] 5 mg PO BID #180 tab 11/18/21 Cyclobenzaprine [Flexeril] 10 mg PO TID #24 tab 01/11/22 Allergies Allergy/AdvReac Type Severity Reaction Status Date / Time No Known Allergies Allergy Verified 01/25/22 14:57 Review of Systems ROS Statement: Those systems with pertinent positive or pertinent negative responses have been documented in the HPI. ROS Other: All systems not noted in ROS Statement are negative. Past Medical History Past Medical History: No Reported History History of Any Multi-Drug Resistant Organisms: None Reported Past Surgical History: Cholecystectomy Additional Past Surgical History / Comment(s): Cardiac ablation Past Psychological History: No Psychological Hx Reported Smoking Status: Former smoker Past Alcohol Use History: Occasional Past Drug Use History: Marijuana - Past Family History Father Family Medical History: Coronary Artery Disease (CAD) General Exam General appearance: alert, in no apparent distress Head exam: Present: atraumatic, normocephalic, normal inspection Eye exam: Present: normal appearance, PERRL, EOMI. Absent: scleral icterus, conjunctival injection, periorbital swelling ENT exam: Present: normal exam, mucous membranes moist Neck exam: Present: tenderness (Posterior) Respiratory exam: Absent: respiratory distress, accessory muscle use Right General: Present: normal inspection Vascular: Absent: vascular compromise Back exam: Present: normal inspection, full ROM, tenderness (Cervical spine) Neurological exam: Present: alert, oriented X3, CN II-XII intact Expanded Motor strength exam: RUE: 4, LUE: 5 Psychiatric exam: Present: normal affect, normal mood Skin exam: Present: warm, dry, intact, normal color. Absent: rash Course Vital Signs 01/25/22 08:59 Temperature 98.0 F Pulse Rate 89 Respiratory 18 Rate Blood Pressure 136/86 O2 Sat by Pulse 96 Oximetry Medical Decision Making - Medical Decision Making 46-year-old male presenting to the emergency room with increase in chronic neck pain with worsening radiculopathy. Will give Toradol IM and monitor response. Will update computed tomography scan of neck due to worsening of radiculopathy. No change in symptoms with Toradol. Computed tomography scan revealed worsening of C6 C7 bilateral neural foramen stenosis. Dr. Wilson page regarding discussion of changes in findings. Dr. Wilson in the OR spoke with him after completion of his R case regarding patient's symptomatology and CT progression. Recommended a dose of IV Decadron and pain control. Advised obtaining a stat MRI for further evaluation. MRI ordered along with Decadron will monitor response. Morphine also given for pain. Pain control with morphine and Decadron in lying position however when sitting upright pain quickly returned. No significant pain improvement with Dilaudid. Dr. Wilson at bedside to discuss MRI findings and potential plan of care. MRI shows at level CVI-C7 lobulated posterior spur disc complex effacing the anterior thecal sac with slight indentation left aspect of the spinal cord ventricular surface moderate to severe bilateral foramen narrowing is confirmed. Dr. Wilson to admit with medical management and cardiac consult for surgery at the end of the week. Will place admission orders. Case discussed with Dr. Lozano - Radiology Data Radiology results: report reviewed, image reviewed CT cervical spine without contrast impression 1. No acute fracture or malalignment of cervical spine. 2. Moderate spondylitic changes particularly centered at C6-C7. This may contribute to mild spinal stenosis. Additional moderate to severe bilateral neuroforaminal stenosis at this level primarily due to uncovertebral joint arthropathy. 3. Mild to moderate bilateral neuroforaminal foramen narrowing at C7 through T1 and mild at left C5- C6. MRI cervical spine without contrast impression straightening of cervical goal spine with multilevel degenerative disc changes greatest at C6/C7 level with lobulated posterior spur disc complex effacing the anterior thecal sac with slight indentation left aspect of the spinal cord ventricular surface. Moderate to severe bilateral neural foraminal narrowing is confirmed. Disposition Clinical Impression: Cervical radiculopathy, Spondylosis of cervical spine Disposition: ADMITTED IP TO THIS HOSP Condition: Stable Is patient prescribed a controlled substance at d/c from ED?: No Referrals: Manolo Lopez DO [Primary Care Provider] - 1-2 days Time of Disposition: 17:16
--- NOTE | 2022-01-25 10:56 | CT ---
EXAMINATION TYPE: CT cervical spine wo con DATE OF EXAM: 01/25/2022 COMPARISON: 01/11/2022 HISTORY: 46-year-old male Neck pain, right arm weakness. TECHNIQUE: Contiguous axial scanning of the cervical spine without IV contrast. Coronal and sagittal reconstructions performed. CT DLP: 680.4 mGycm Automated exposure control for dose reduction was used. FINDINGS: No cranial cervical junction abnormality, predental space widening, or prevertebral soft tissue swell ing. Degenerative change at the C1 dens articulation. Mild to moderate degenerative change C6-C7 with disc osteophyte complex formation. This likely impres ses on the ventral thecal sac possibly with mild narrowing of the spinal canal. Uncovertebral joint a rthropathy lower cervical spine particularly C6-C7. No acute fracture of the cervical spine. There is straightening of the normal cervical lordosis but with preserved alignment. Assessment of the spinal canal from C6 and below is limited due to artifact from shoulders. At C5-C6, mild uncovertebral and facet spurring contributes to mild left neuroforaminal narrowing. At C6/C7, bilateral uncovertebral joint arthropathy contributes to moderate to severe bilateral neura l foraminal stenosis. At C7-T1, uncovertebral joint arthropathy contributes to mild to moderate bilateral neuroforaminal na rrowing. IMPRESSION: 1. NO ACUTE FRACTURE OR MALALIGNMENT OF THE CERVICAL SPINE. 2. MODERATE SPONDYLOTIC CHANGE PARTICULARLY CENTERED AT C6-C7. THIS MAY CONTRIBUTE TO MILD SPINAL CAN AL STENOSIS HERE. ADDITIONAL MODERATE TO SEVERE BILATERAL NEUROFORAMINAL STENOSIS AT THIS LEVEL, PRIM ARILY DUE TO UNCOVERTEBRAL JOINT ARTHROPATHY. 3. MILD TO MODERATE BILATERAL NEUROFORAMINAL NARROWING AT C7-T1 AND MILD ON THE LEFT AT C5-C6.
[2022-01-25] MEDS ORDERED: MORPHINE SULFATE 4 MG/ML SYRINGE IVP STA (11:15)
[2022-01-25] MEDS ORDERED: MORPHINE SULFATE 4 MG/ML SYRINGE IM STA (12:40)
[2022-01-25] MEDS ORDERED: DEXAMETHASONE SOD PHOSPHATE 10 MG/ML 1 ML VIAL IVP STA (12:44)
[2022-01-25] MEDS ORDERED: DEXAMETHASONE SOD PHOSPHATE 10 MG/ML 1 ML VIAL IM STA (12:50)
--- NOTE | 2022-01-25 15:12 | MR ---
MRI CERVICAL SPINE: CLINICAL HISTORY: Neck pain with right upper extremity weakness. TECHNIQUE: Multiplanar, multisequence imaging of the cervical spine is performed without IV contrast. COMPARISON: CT cervical spine earlier today. FINDINGS: Sagittal images of the cervical spine show the craniocervical junction to remain within nor mal limits. The cervical and upper thoracic spinal cord is normal in caliber and signal. Vertebral alignment is stable and straightened. Mild disc space narrowing C6-C7 level redemonstrated otherwise the vertebral body and intravertebral disk heights otherwise are normal. The bone marrow signal int ensity is within normal limits. Axial images C2-C3 level show mild to minimal right-sided neural foraminal narrowing due to uncoverte bral facet spurring. Axial images at C3-C4 level shows similar finding. Axial images at C4-C5 level show broad-based left paracentral disc protrusion minimally effacing ante rior thecal sac and causing asymmetric mild to minimal left-sided neural foraminal narrowing. Axial images at C5-C6 level show broad-based posterior spur disc complex minimally effacing anterior thecal sac and causing mild to moderate bilateral neural foraminal narrowing. Axial images at C6-C7 level show lobulated posterior spur disc complex effacing the anterior thecal s ac with slight indentation left aspect of final cord ventral surface axial image 16. [id number] re bilateral neural foraminal narrowing is confirmed. Axial images at C7-T1 level appear within normal limits. IMPRESSION: Straightening of cervical spine with multilevel degenerative changes greatest at C6-C7 le alexander as detailed above. No acute findings are evident.
[2022-01-25] MEDS ORDERED: HYDROmorphone 1 MG/ML 1 ML SYRINGE IVP STA (15:46)
[2022-01-25] MEDS ORDERED: HYDROmorphone 0.5 MG/0.5 ML SYRINGE IVP PRN (16:45)
[2022-01-25] MEDS ORDERED: SENNOSIDES-DOCUSATE SODIUM 1 EACH TAB PO PRN (16:45)
[2022-01-25] MEDS ORDERED: HYDROcodone/APAP 5-325MG 1 EACH TAB PO PRN (16:45)
[2022-01-25] MEDS ORDERED: NALOXONE 0.4 MG/ML 1 ML VIAL IV PRN (16:54)
--- NOTE | 2022-01-25 17:14 | P.HPOR ---
History of Present Illness H&P Date: 01/25/22 Chief Complaint: arm pain/weakness Patient is a 46-year-old male employed at [employer] in with a history of CAD, recent cardiac ablation an ongoing right upper extremity pain/weakness who presented to the emergency department earlier today with a chief complaint of worsening neck pain and right upper extremity weakness and numbness/tingling. Patient says around Labor weekend this year he began having right-sided neck pain as well as pain in right shoulder blade which radiated down his right arm all the way into his digits. Patient says he has seen his primary care provider, Dr. Ellen Lopez before for this issue and did come to the emergency department 2 weeks ago here at [employer] [facility] [employer] for the same complaint. Patient was then treated with steroids, Flexeril and Donie over the past month. Patient says when he ran out of steroids at home and the pain in his right upper extremity came back. Patient feels over the past few days the pain is right upper extremity has increased. Patient does feel that the weakness in his right upper extremity is getting worse. Patient says he did have a cardiac ablation at the end of October of this year. Patient says he has been taking Eliquis daily since then and his last dose of Eliquis was this morning. Patient denies any previous orthopedic surgical history. Patient denies any falls/traumas to his right arm/neck. CT of cervical spine MRI of cervical spine was performed today at [facility]. MRI of cervical spine does show disc herniation at C6-C7 as well as bilateral neural foraminal stenosis at this level. Negative for any vertebral fractures/subluxation/spondylolisthesis. Patient denies chest pain, fever, shortness breath, nausea, vomiting, change in vision, loss of bowel/bladder control. Past Medical History Past Medical History: No Reported History History of Any Multi-Drug Resistant Organisms: None Reported Past Surgical History: Cholecystectomy Additional Past Surgical History / Comment(s): Cardiac ablation Past Psychological History: No Psychological Hx Reported Smoking Status: Former smoker Past Alcohol Use History: Occasional Past Drug Use History: Marijuana - Past Family History Father Family Medical History: Coronary Artery Disease (CAD) Medications and Allergies Home Medications Medication Instructions Recorded Confirmed Type Apixaban [Eliquis] 5 mg PO BID #180 tab 11/18/21 01/25/22 Rx Cyclobenzaprine [Flexeril] 10 mg PO TID #24 tab 01/11/22 01/25/22 Rx traMADol HCL 50 mg PO Q6H PRN 01/25/22 01/25/22 History Allergies Allergy/AdvReac Type Severity Reaction Status Date / Time No Known Allergies Allergy Verified 01/25/22 14:57 Physical Examination Inspection: Negative for any open fractures, significant ecchymosis/erythema/ulcers. Sensation: Sensation is equal, symmetric, bilaterally intact throughout the upper and lower extremities. Palpation: Patient does have some mild tenderness to palpation along the Lower posterior cervical spine. Nontender to palpation throughout rest of exam Range of motion: Full range of motion bilateral upper and lower extremities on exam Motor: 4/5 in resisted right elbow flexion and right wrist flexion/extension. 5/5 in all other major motor groups. Special tests: Positive Spurling's on the right side. Negative Fredi's bilaterally; negative clonus bilaterally Neurovascular status: Radial pulse intact, 2+ bilaterally. Capillary refill under 3 seconds in digits of upper extremities. Assessment and Plan Assessment: 1. Right upper extremity radiculopathy; neck pain; right upper extremity weakness 2. History of recent cardiac ablation Plan: 1. Right upper extremity radiculopathy; neck pain; right upper extremity weakness - MRI and CT of cervical spine do demonstrate disc herniation at C6-C7 as well as bilateral neuroforaminal stenosis at this level. Patient was seen at bedside this afternoon in the emergency department with family at bedside. Dr. Wilson and I did discuss with options for treatment and results of the imaging. At this time, due to ongoing right upper extremity pain and weakness and worsening in symptoms without relief from Donie, Flexeril, patient would like to move forward with spine surgery. Patient does have some weakness in resisted elbow flexion and wrist flexion/extension on the right upper extremity as well as positive Spurling's. We are recommending intervention in the form of C6 to C7 ACDF. Patient is to be NPO beginning Monday01/30/2022. Withhold Eliquis at this time. We'll continue to follow patient during his stay here in hospital 2. Appreciate medical and cardiac management - patient does need clearance for surgery 3. Pain management - Toradol; Donie; Flexeril; Dilaudid only if necessary 4. DVT prophylaxis - withhold thinners at this time 5. GI prophylaxis - senna 6. PT/OT - weightbearing as tolerated Time with Patient: Less than 30
[2022-01-25] MEDS: KETOROLAC 15 MG/ML 1 ML VIAL IVP SCH (20:00)
[2022-01-25] MEDS: HYDROmorphone 1 MG/ML 1 ML SYRINGE IVP PRN (21:57)
[2022-01-25] MEDS: CYCLOBENZAPRINE 5 MG TAB PO PRN (21:58)
[2022-01-26] MEDS: KETOROLAC 15 MG/ML 1 ML VIAL IVP SCH ×4 (00:22→18:02)
[2022-01-26] MEDS: HYDROmorphone 1 MG/ML 1 ML SYRINGE IVP PRN ×5 (01:59→19:44)
--- NOTE | 2022-01-26 03:36 | P.CONS ---
History of Present Illness - Reason for Consult Consult date: 01/25/22 - History of Present Illness The patient is a 46-year-old male with a PMH of a flutter (status post ablation October 2021 currently on Eliquis) who presented to the emergency room with complaints of neck pain with radiation of the right arm. She reports that symptoms started roughly 2 months ago with predominantly right-sided neck pain with radiation down to the right arm with accompanying arm weakness, numbness, and tingling. The patient was seen at [facility] emergency room and was given a course of steroids, Flexeril, and pain control with [place], which failed to alleviate his symptoms. The patient denied any urinary or bowel complaints. The patient underwent a CT scan and MRI of cervical spine which revealed C6/C7 disc herniation with neural foraminal stenosis. The patient was subsequently given IV Decadron and pain control and is admitted for further management. Orthopedic surgery is planning on spinal surgery for Monday01/30/22. The patient denied any additional complaints. He denied experiencing chest discomfort, shortness of breath, nausea, vomiting, abdominal pain, diarrhea. Review of systems: Pertinent positives and negatives as discussed in HPI, a complete review of systems was performed and all other systems are negative. Physical examination: General: non toxic, no distress, appears at stated age, obese Derm: no unusual rashes/lesions, warm Head: atraumatic, normocephalic, symmetric Eyes: EOMI, no lid lag, anicteric sclera, pupils equal round reactive to light ENT: Nose and ears atraumatic Neck: No cervical lymphadenopathy, trachea midline, supple Mouth: no lip lesion, mucus membranes moist Cardiovascular: S1S2 reg, no murmur, positive dorsalis pedis pulse bilateral, no edema Lungs: CTA bilateral, no rhonchi, no rales, no accessory muscle use Abdominal: soft, nontender to palpation, no guarding Ext: muscle strength 4 out of 5 of right upper extremity, strength 5 out of 5 elsewhere, no gross muscle atrophy, no contractures, Neuro: CN II-XI grossly intact, no gross focal neuro deficits Psych: Alert, oriented, appropriate affect Assessment/plan History of a flutter status post ablation -Eliquis currently being held in preparation for surgery -Cardiology consulted for cardiac clearance preop Cervical radiculopathy -Defer management including pain control and DVT prophylaxis to primary surgery service Past Medical History Past Medical History: No Reported History, Atrial Flutter, Sleep Apnea/CPAP/BIPAP Additional Past Medical History / Comment(s): HX of hep C History of Any Multi-Drug Resistant Organisms: None Reported Past Surgical History: Cholecystectomy Additional Past Surgical History / Comment(s): Cardiac ablation, Gall bladder 2003 Past Psychological History: No Psychological Hx Reported Smoking Status: Former smoker Past Alcohol Use History: Occasional Past Drug Use History: Marijuana - Past Family History Father Family Medical History: Coronary Artery Disease (CAD) Additional Family Medical History / Comment(s): Brain tumor Mother Family Medical History: Chest Pain / Angina Additional Family Medical History / Comment(s): Breast cancer Medications and Allergies Home Medications Medication Instructions Recorded Confirmed Type Apixaban [Eliquis] 5 mg PO BID #180 tab 11/18/21 01/25/22 Rx Cyclobenzaprine [Flexeril] 10 mg PO TID #24 tab 01/11/22 01/25/22 Rx traMADol HCL 50 mg PO Q6H PRN 01/25/22 01/25/22 History Allergies Allergy/AdvReac Type Severity Reaction Status Date / Time No Known Allergies Allergy Verified 01/25/22 14:57 Physical Exam Vitals: Vital Signs Temp Pulse Pulse Resp BP BP Pulse Ox 01/25/22 20:00 98.2 F 87 16 123/79 95 01/25/22 18:45 98.2 F 97 18 150/80 95 01/25/22 17:00 98.1 F 100 18 153/87 95 01/25/22 16:45 98.1 F 98 18 95 01/25/22 08:59 98.0 F 89 18 136/86 96 Intake and Output 01/25/22 01/25/22 01/25/22 06:59 14:59 22:59 Other: Weight 124.738 kg 124.738 kg
[2022-01-26] MEDS: CYCLOBENZAPRINE 5 MG TAB PO PRN ×2 (05:42→14:20)
[2022-01-26 09:15] LABS: African American GFR (CKD) 105.6 (60.0-200.0); Anion Gap 11.1 mmol/L (10.00-18.00); BUN/Creat Ratio 13.7 Ratio (12.00-20.00); Blood Urea Nitrogen 13.7 mg/dL (9.0-27.0); Calcium 9.2 mg/dL (8.7-10.3); Carbon Dioxide 21.9 mmol/L (20.0-27.5); Non-African American GFR(CKD) 91.1 (60.0-200.0); Potassium 5.1 mmol/L (3.5-5.5)
--- NOTE | 2022-01-26 09:17 | P.PN ---
Subjective Progress Note Date: 01/26/22 Principal diagnosis: Right upper extremity weakness/radiculopathy Patient was seen at bedside this morning resting comfortably sitting in the semirecumbent position in bed. Patient says he has been up and walking around the room and urinating okay. Patient says he is still having right upper extremity numbness and tingling. Patient says is mostly in the center of the neck and does radiate to his right shoulder blade and down the backside of his right arm into his right forearm and digits 2 and 3 in his right hand. Patient feels that some of the medication has helped somewhat, although he is still in a lot of pain in the right upper extremity. Patient denies any chest pain, fever, shortness breath, nausea, oncology vision, loss of bowel/bladder control. Patient denies saddle anesthesia. Objective - Vital Signs Vital signs: Vital Signs Temp 97.6 F 01/26/22 04:37 Pulse 78 01/26/22 04:37 Resp 16 01/26/22 04:37 BP 104/64 01/26/22 04:37 Pulse Ox 96 01/26/22 04:37 FiO2 Intake & Output 01/25/22 01/26/22 01/26/22 18:59 06:59 18:59 Intake Total 1080 Balance 1080 Weight 124.738 kg Intake: Oral 1080 Other: # Voids 3 - Exam Inspection: Negative for any open fractures, significant ecchymosis/er ythema/ulcers. Sensation: Sensation is equal, symmetric, bilaterally intact throughout the upper and lower extremities. Palpation: Patient does have some mild tenderness to palpation along the Lower posterior cervical spine. Nontender to palpation throughout rest of exam Range of motion: Full range of motion bilateral upper and lower extremities on exam Motor: 4/5 in resisted right elbow flexion and right wrist flexion/extension. 5/5 in all other major motor groups. Special tests: Positive Spurling's on the right side. Negative Fredi's bilaterally; negative clonus bilaterally Neurovascular status: Radial pulse intact, 2+ bilaterally. Capillary refill under 3 seconds in digits of upper extremities. - Labs CBC & Chem 7: 01/26/22 04:52 Assessment and Plan Assessment: 1. C6/C7 bilateral neural foraminal stenosis; degenerative disc disease; herniated disc, C6 to C7 2. History of recent cardiac ablation Plan: 1. C6-C7 bilateral neural foraminal stenosis; degenerative disc disease; herniated disc, C6 to C7- MRI and CT of cervical spine do demonstrate disc herniation at C6-C7 as well as bilateral neuroforaminal stenosis at this level. At this time, due to ongoing right upper extremity pain and weakness and worsening in symptoms without relief from [place], Flexeril, patient would like to move forward with spine surgery. Patient does have some weakness in resisted elbow flexion and wrist flexion/extension on the right upper extremity as well as positive Spurling's. We are recommending intervention in the form of C6 to C7 ACDF. Patient is to be NPO beginning Monday01/30/2022. Withhold Eliquis at this time. We'll continue to follow patient during his stay here in hospital 2. Appreciate medical and cardiac management - patient does need clearance for surgery 3. Pain management - Toradol; [place]; Flexeril; Dilaudid only if necessary 4. DVT prophylaxis - withhold thinners at this time 5. GI prophylaxis - senna 6. PT/OT - weightbearing as tolerated Time with Patient: Less than 30
--- NOTE | 2022-01-26 11:14 | P.CRDCN ---
History of Present Illness Consult date: 01/26/22 History of present illness: HISTORY OF PRESENT ILLNESS: This is a 46-year-old male with a past medical history significant for typical atrial flutter with history of ablation. Patient follows in the office with Dr. Sullivan. We have been asked to see the patient in consultation for clearance. Patient examined at the bedside. Patient is scheduled for C6-C7 decompression and fusion in the near future with orthopedic surgery. The patient's Eliquis has been placed on hold. Patient denies any chest pain or pressure. He denies any shortness of breath. Patient states prior to coming to the hospital he was able to walk up a few flight of stairs with no difficulty. Patient's vital signs are stable. He is laying flat in bed and appears comfortable. * EKG: Not available at this time * Laboratory data: Sodium 135. Potassium 5.1. BUN 13. Creatinine 1.0. * Current home cardiac medications include Eliquis 5mg BID * Most recent echocardiogram obtained in October 2021 revealed ejection fraction 55-60% REVIEW OF SYSTEMS: At the time of my exam: CONSTITUTIONAL: Denies fever or chills. HEENT: Denies blurred vision, vision changes, or eye pain. Denies hemoptysis CARDIOVASCULAR: Denies chest pain. Denies orthopnea. Denies PND. Denies palpitations RESPIRATORY: Denies shortness of breath. GASTROINTESTINAL: Denies abdominal pain. Denies nausea or vomiting. HEMATOLOGIC: Denies bleeding disorders. GENITOURINARY: Denies any blood in urine. SKIN: Denies pruitis. Denies rash. PHYSICAL EXAM: VITAL SIGNS: Reviewed. GENERAL: Well-developed in no acute distress. HEENT: Head is normocephalic. Pupils are equal, round. Sclerae anicteric. Mucous membranes of the mouth are moist. Neck supple. No JVD or thyromegaly LUNGS: Respirations even and unlabored. Lungs essentially clear to auscultation bilaterally. HEART: Regular rate and rhythm. S1 and S2 heard. ABDOMEN: Soft. Nondistended. Nontender. EXTREMITIES: Normal range of motion. No clubbing or cyanosis. Peripheral pulses intact. No lower extremity edema NEUROLOGIC: Awake and alert. Oriented x 3. ASSESSMENT: Upper extremity weakness/radiculopathy C6/C7 bilateral neural foraminal stenosis; degenerative disc disease; herniated disc, C6 to C7 History of typical atrial flutter with previous ablation PLAN: No need to repeat echocardiogram as this was performed in October 2021 Continue to hold Eliquis. Resume VELMA post operatively when cleared with orthopedics The patient is cleared from a cardiac standpoint to proceed with surgery Further recommendations pending patient course Nurse practitioner note has been reviewed by physician. Signing provider agrees with the documented findings, assessment, and plan of care. Past Medical History Past Medical History: No Reported History, Atrial Flutter, Sleep Apnea/CPAP/B IPAP Additional Past Medical History / Comment(s): HX of hep C History of Any Multi-Drug Resistant Organisms: None Reported Past Surgical History: Cholecystectomy Additional Past Surgical History / Comment(s): Cardiac ablation, Gall bladder 2002 Past Psychological History: No Psychological Hx Reported Smoking Status: Former smoker Past Alcohol Use History: Occasional Past Drug Use History: Marijuana - Past Family History Father Family Medical History: Coronary Artery Disease (CAD) Additional Family Medical History / Comment(s): Brain tumor Mother Family Medical History: Chest Pain / Angina Additional Family Medical History / Comment(s): Breast cancer Medications and Allergies Home Medications Medication Instructions Recorded Confirmed Type Apixaban [Eliquis] 5 mg PO BID #180 tab 11/18/21 01/25/22 Rx Cyclobenzaprine [Flexeril] 10 mg PO TID #24 tab 01/11/22 01/25/22 Rx traMADol HCL 50 mg PO Q6H PRN 01/25/22 01/25/22 History Allergies Allergy/AdvReac Type Severity Reaction Status Date / Time No Known Allergies Allergy Verified 01/25/22 14:57 Physical Exam Vitals: Vital Signs Temp Pulse Pulse Resp BP BP Pulse Ox 01/26/22 08:35 78 16 01/26/22 04:37 97.6 F 78 16 104/64 96 01/25/22 20:00 98.2 F 87 16 123/79 95 01/25/22 18:45 98.2 F 97 18 150/80 95 01/25/22 17:00 98.1 F 100 18 153/87 95 01/25/22 16:45 98.1 F 98 18 95 Intake and Output 01/25/22 01/26/22 01/26/22 22:59 06:59 14:59 Intake Total 1080 Balance 1080 Intake: Oral 1080 Other: # Voids 3 Weight 124.738 kg Results 01/26/22 04:52 Comprehensive Metabolic Panel 01/26/22 Range/Units 04:52 Sodium 135 (135-145) mmol/L Potassium 5.1 (3.5-5.5) mmol/L Chloride 102 (96-109) mmol/L Carbon Dioxide 21.9 (20.0-27.5) mmol/L BUN 13.7 (9.0-27.0) mg/dL Creatinine 1.0 (0.6-1.5) mg/dL Glucose 124 H (70-110) mg/dL Calcium 9.2 (8.7-10.3) mg/dL Current Medications Generic Name Dose Route Start Last Admin Trade Name Freq PRN Reason Stop Dose Admin Hydrocodone Bitart/Acetaminophen 1 each 01/25/22 16:45 01/26/22 00:22 Hydrocodone/Apap 5-325mg 1 Each Tab PO 1 each Q6HR PRN Administration Pain Scale 4 - 6 Hydrocodone Bitart/Acetaminophen 1 each 01/25/22 16:45 Hydrocodone/Apap 10-325mg 1 Each Tab PO Q6H PRN Pain Scale 7 - 10 Cyclobenzaprine HCl 5 mg 01/25/22 16:45 01/26/22 05:42 Cyclobenzaprine 5 Mg Tab PO 5 mg TID PRN Administration Muscle Spasm Hydromorphone HCl 0.5 mg 01/25/22 16:45 Hydromorphone 0.5 Mg/0.5 Ml Syringe IVP Q3HR PRN Pain Scale 4 - 6 Hydromorphone HCl 1 mg 01/25/22 16:45 01/26/22 09:12 Hydromorphone 1 Mg/Ml 1 Ml Syringe IVP 1 mg Q3HR PRN Administration Pain Scale of 7 - 10 Ketorolac Tromethamine 15 mg 01/25/22 18:00 01/26/22 05:41 Ketorolac 15 Mg/Ml 1 Ml Vial IVP 01/28/22 16:49 15 mg Q6HR DONALD Administration Naloxone HCl 0.2 mg 01/25/22 16:54 Naloxone 0.4 Mg/Ml 1 Ml Vial IV Q2M PRN Opioid Reversal Senna/Docusate Sodium 2 each 01/25/22 16:45 Sennosides-Docusate Sodium 1 Each Tab PO DAILY PRN Constipation Intake and Output 01/25/22 01/26/22 01/26/22 22:59 06:59 14:59 Intake Total 1080 Balance 1080 Intake: Oral 1080 Other: # Voids 3 Weight 124.738 kg 01/26/22 04:52
[2022-01-26 11:44] LABS: Basophils # (A) 0.02 X 10*3/uL (0.00-0.10); Basophils % (A) 0.2 %; Eosinophils # (A) 0.01 X 10*3/uL (0.04-0.35); Eosinophils % (A) 0.1 %; HCT 49.1 % (39.6-50.0); HGB 16.9 g/dL (13.0-17.0); Immature Grans, Automated 0.4 %; Lymphocytes # (A) 1.04 X 10*3/uL (0.90-5.00); MCH 31.8 pg (27.0-32.0); MCHC 34.4 g/dL (32.0-37.0); MCV 92.3 fL (80.0-97.0); Monocytes # (A) 0.73 X 10*3/uL (0.20-1.00); Monocytes % (A) 5.6 %; NRBC Per 100 WBC 0 /100 WBCS (0.0-0.0); Neutrophils # (A) 11.19 X 10*3/uL (1.80-7.70); Neutrophils % (A) 85.7 %; Platelet Count 138 X 10*3/uL (140-440); RBC 5.32 X 10*6/uL (4.40-5.60); RBC Morphology NORMAL; RDW 11.8 % (11.5-14.5); WBC 13.04 X 10*3/uL (4.50-10.00)
--- NOTE | 2022-01-26 12:05 | P.PN ---
Subjective Progress Note Date: 01/26/22 The patient is a 46-year-old male with a PMH of a flutter (status post ablation October 2021 currently on Eliquis) who presented to the emergency room with complaints of neck pain with radiation of the right arm.The patient underwent a CT scan and MRI of cervical spine which revealed C6/C7 disc herniation with neural foraminal stenosis. The patient was subsequently given IV Decadron and pain control and is admitted for further management. Orthopedic surgery is planning on spinal surgery for Monday01/30/22. Patient was seen and examined. No acute events overnight. Patient was well- controlled lower back pain. General: non toxic, no distress, appears at stated age, obese Derm: no unusual rashes/lesions, warm Head: atraumatic, normocephalic, symmetric Eyes: EOMI, no lid lag, anicteric sclera ENT: Nose and ears atraumatic Neck: No cervical lymphadenopathy, trachea midline, supple Mouth: no lip lesion, mucus membranes moist Cardiovascular: S1S2 reg, no murmur, no edema Lungs: CTA bilateral, no rhonchi, no rales, no accessory muscle use Ext: muscle strength 4 out of 5 of right upper extremity, strength 5 out of 5 elsewhere, no gross muscle atrophy, no contractures, Neuro: no gross focal neuro deficits Psych: Alert, oriented, appropriate affect Assessment/plan #History of a flutter status post ablation -Eliquis currently being held in preparation for surgery -Cardiology cleared the patient for surgery #Cervical radiculopathy -Defer management including pain control and DVT prophylaxis to primary surgery service Objective - Vital Signs Vital signs: Vital Signs Temp 98 F 01/26/22 11:56 Pulse 94 01/26/22 11:56 Resp 16 01/26/22 11:56 BP 154/83 01/26/22 11:56 Pulse Ox 97 01/26/22 11:56 FiO2 Intake & Output 01/25/22 01/26/22 01/26/22 18:59 06:59 18:59 Intake Total 1080 Balance 1080 Weight 124.738 kg Intake: Oral 1080 Other: # Voids 3 - Labs CBC & Chem 7: 01/26/22 04:52 01/26/22 04:52 Labs: Abnormal Lab Results - Last 24 Hours (Table) 09/28/22 09/28/22 Range/Units 04:52 04:52 WBC 13.04 H (4.50-10.00) X 10*3/uL Plt Count 138 L (140-440) X 10*3/uL Immature Gran # 0.05 H (0.00-0.04) X 10*3/uL Neutrophils # 11.19 H (1.80-7.70) X 10*3/uL Eosinophils # 0.01 L (0.04-0.35) X 10*3/uL Glucose 124 H (70-110) mg/dL
[2022-01-27] MEDS: HYDROcodone/APAP 10-325MG 1 EACH TAB PO PRN (00:03)
[2022-01-27] MEDS: KETOROLAC 15 MG/ML 1 ML VIAL IVP SCH ×4 (00:04→17:59)
[2022-01-27] MEDS: HYDROmorphone 1 MG/ML 1 ML SYRINGE IVP PRN ×6 (04:46→22:10)
[2022-01-27] MEDS: CYCLOBENZAPRINE 5 MG TAB PO PRN ×2 (08:53→22:10)
--- NOTE | 2022-01-27 09:29 | P.PN ---
Subjective Progress Note Date: 01/27/22 HISTORY OF PRESENT ILLNESS: This is a 46-year-old male with a past medical history significant for typical atrial flutter with history of ablation. Patient follows in the office with Dr. Sullivan. We have been asked to see the patient in consultation for clearance. Patient examined at the bedside. Patient is scheduled for C6-C7 decompression and fusion in the near future with orthopedic surgery. The patient's Eliquis has been placed on hold. Patient denies any chest pain or pressure. He denies any shortness of breath. Patient states prior to coming to the hospital he was able to walk up a few flight of stairs with no difficulty. Patient's vital signs are stable. He is laying flat in bed and appears comfortable. * EKG: Not available at this time * Laboratory data: Sodium 135. Potassium 5.1. BUN 13. Creatinine 1.0. * Current home cardiac medications include Eliquis 5mg BID * Most recent echocardiogram obtained in October 2021 revealed ejection fraction 55-60% 01/27/2022 Patient examined this morning at the bedside. He denies chest pain or pressure. Denies SOB. Vital signs are stable. Eliquis remains on hold. PHYSICAL EXAM: VITAL SIGNS: Reviewed. GENERAL: Well-developed in no acute distress. HEENT: Head is normocephalic. Pupils are equal, round. Sclerae anicteric. Mucous membranes of the mouth are moist. Neck supple. No JVD or thyromegaly LUNGS: Respirations even and unlabored. Lungs essentially clear to auscultation bilaterally. HEART: Regular rate and rhythm. S1 and S2 heard. ABDOMEN: Soft. Nondistended. Nontender. EXTREMITIES: Normal range of motion. No clubbing or cyanosis. Peripheral pulses intact. No lower extremity edema NEUROLOGIC: Awake and alert. Oriented x 3. ASSESSMENT: Upper extremity weakness/radiculopathy C6/C7 bilateral neural foraminal stenosis; degenerative disc disease; herniated disc, C6 to C7 History of typical atrial flutter with previous ablation PLAN: No need to repeat echocardiogram as this was performed in October 2021 Continue to hold Eliquis. Resume VELMA post operatively when cleared with orthopedics The patient is cleared from a cardiac standpoint to proceed with surgery Further recommendations pending patient course Nurse practitioner note has been reviewed by physician. Signing provider agrees with the documented findings, assessment, and plan of care. Objective - Vital Signs Vital signs: Vital Signs Temp 97.5 F L 01/27/22 05:00 Pulse 76 01/27/22 05:00 Resp 16 01/27/22 05:00 BP 131/85 01/27/22 05:00 Pulse Ox 96 01/27/22 05:00 FiO2 Intake & Output 01/26/22 01/27/22 01/27/22 18:59 06:59 18:59 Intake Total 360 590 Balance 360 590 Intake: Oral 360 590 Other: # Voids 4 3 # Bowel Movements 1 - Labs CBC & Chem 7: 01/26/22 04:52 01/26/22 04:52 Labs: Abnormal Lab Results - Last 24 Hours (Table) 01/26/22 Range/Units 04:52 WBC 13.04 H (4.50-10.00) X 10*3/uL Plt Count 138 L (140-440) X 10*3/uL Immature Gran # 0.05 H (0.00-0.04) X 10*3/uL Neutrophils # 11.19 H (1.80-7.70) X 10*3/uL Eosinophils # 0.01 L (0.04-0.35) X 10*3/uL
--- NOTE | 2022-01-27 10:20 | P.PN ---
Subjective Progress Note Date: 01/27/22 The patient is a 46-year-old male with a PMH of a flutter (status post ablation October 2021 currently on Eliquis) who presented to the emergency room with complaints of neck pain with radiation of the right arm.The patient underwent a CT scan and MRI of cervical spine which revealed C6/C7 disc herniation with neural foraminal stenosis. The patient was subsequently given IV Decadron and pain control and is admitted for further management. Orthopedic surgery is planning on spinal surgery for Monday01/30/22. Patient was seen and examined. No acute events overnight. Patient was well- controlled lower back pain. General: non toxic, no distress, appears at stated age, obese Derm: no unusual rashes/lesions, warm Head: atraumatic, normocephalic, symmetric Eyes: EOMI, no lid lag, anicteric sclera ENT: Nose and ears atraumatic Neck: No cervical lymphadenopathy, trachea midline, supple Mouth: no lip lesion, mucus membranes moist Lungs: no accessory muscle use Ext: no gross muscle atrophy, no contractures Neuro: no gross focal neuro deficits Psych: Alert, oriented, appropriate affect Assessment/plan #History of a flutter status post ablation -Eliquis currently being held in preparation for surgery -Cardiology cleared the patient for surgery #Leukocytosis -No signs of active infection -Likely reactive -Continue to monitor #Cervical radiculopathy -Defer management including pain control and DVT prophylaxis to primary surgery service Objective - Vital Signs Vital signs: Vital Signs Temp 97.5 F L 01/27/22 05:00 Pulse 76 01/27/22 05:00 Resp 16 01/27/22 05:00 BP 131/85 01/27/22 05:00 Pulse Ox 96 01/27/22 05:00 FiO2 Intake & Output 01/26/22 01/27/22 01/27/22 18:59 06:59 18:59 Intake Total 360 590 Balance 360 590 Intake: Oral 360 590 Other: # Voids 4 3 # Bowel Movements 1 - Labs CBC & Chem 7: 01/26/22 04:52 01/26/22 04:52 Labs: Abnormal Lab Results - Last 24 Hours (Table) 01/26/22 Range/Units 04:52 WBC 13.04 H (4.50-10.00) X 10*3/uL Plt Count 138 L (140-440) X 10*3/uL Immature Gran # 0.05 H (0.00-0.04) X 10*3/uL Neutrophils # 11.19 H (1.80-7.70) X 10*3/uL Eosinophils # 0.01 L (0.04-0.35) X 10*3/uL
--- NOTE | 2022-01-27 11:56 | P.PN ---
Subjective Progress Note Date: 01/27/22 Principal diagnosis: Right upper extremity weakness/radiculopathy Patient was seen at bedside this morning resting comfortably sitting up in chair. Patient says he has been up and walking around the room and urinating okay. Patient says he is still having right upper extremity numbness and tingling. Patient says is mostly in the center of the neck and does radiate to his right shoulder blade and down the backside of his right arm into his right forearm and digits 2 and 3 in his right hand. Patient feels that some of the medication has helped somewhat, although he is still in a lot of pain in the right upper extremity. Patient denies any chest pain, fever, shortness breath, nausea, oncology vision, loss of bowel/bladder control. Patient denies saddle anesthesia. Objective - Vital Signs Vital signs: Vital Signs Temp 97.5 F L 01/27/22 05:00 Pulse 76 01/27/22 05:00 Resp 16 01/27/22 05:00 BP 131/85 01/27/22 05:00 Pulse Ox 96 01/27/22 05:00 FiO2 Intake & Output 01/26/22 01/27/22 01/27/22 18:59 06:59 18:59 Intake Total 360 590 Balance 360 590 Intake: Oral 360 590 Other: # Voids 4 3 # Bowel Movements 1 - Exam Inspection: Negative for any open fractures, significant ecchymosis/erythema/ulcers. Sensation: Sensation is equal, symmetric, bilaterally intact throughout the upper and lower extremities. Palpation: Patient does have some mild tenderness to palpation along the Lower posterior cervical spine. Nontender to palpation throughout rest of exam Range of motion: Full range of motion bilateral upper and lower extremities on exam Motor: 4/5 in resisted right elbow flexion and right wrist flexion/extension. 5/5 in all other major motor groups. Special tests: Positive Spurling's on the right side. Negative Fredi's bilaterally; negative clonus bilaterally Neurovascular status: Radial pulse intact, 2+ bilaterally. Capillary refill under 3 seconds in digits of upper extremities. - Labs CBC & Chem 7: 01/26/22 04:52 01/26/22 04:52 Assessment and Plan Assessment: 1. C6/C7 bilateral neural foraminal stenosis; degenerative disc disease; herniated disc, C6 to C7 2. History of recent cardiac ablation Plan: 1. C6-C7 bilateral neural foraminal stenosis; degenerative disc disease; herniated disc, C6 to C7- MRI and CT of cervical spine do demonstrate disc he rniation at C6-C7 as well as bilateral neuroforaminal stenosis at this level. Surgery planned/schedule for this Monday01/30/2022 - C6-C7 ACDF. Patient is to be NPO beginning Monday01/30/2022. Withhold Eliquis at this time. We'll continue to follow patient during his stay here in hospital 2. Appreciate medical and cardiac management 3. Pain management - Toradol; [place]; Flexeril; Dilaudid only if necessary 4. DVT prophylaxis - withhold thinners at this time 5. GI prophylaxis - senna 6. PT/OT - weightbearing as tolerated Time with Patient: Less than 30
[2022-01-28] MEDS: HYDROcodone/APAP 10-325MG 1 EACH TAB PO PRN (01:13)
[2022-01-28] MEDS: KETOROLAC 15 MG/ML 1 ML VIAL IVP SCH ×3 (01:14→12:02)
[2022-01-28] MEDS: HYDROmorphone 1 MG/ML 1 ML SYRINGE IVP PRN ×6 (04:27→22:02)
[2022-01-28] MEDS: CYCLOBENZAPRINE 5 MG TAB PO PRN ×2 (09:14→19:25)
--- NOTE | 2022-01-28 09:31 | P.PN ---
Subjective Progress Note Date: 01/28/22 HISTORY OF PRESENT ILLNESS: This is a 46-year-old male with a past medical history significant for typical atrial flutter with history of ablation. Patient follows in the office with Dr. Sullivan. We have been asked to see the patient in consultation for clearance. Patient examined at the bedside. Patient is scheduled for C6-C7 decompression and fusion in the near future with orthopedic surgery. The patient's Eliquis has been placed on hold. Patient denies any chest pain or pressure. He denies any shortness of breath. Patient states prior to coming to the hospital he was able to walk up a few flight of stairs with no difficulty. Patient's vital signs are stable. He is laying flat in bed and appears comfortable. * EKG: Not available at this time * Laboratory data: Sodium 135. Potassium 5.1. BUN 13. Creatinine 1.0. * Current home cardiac medications include Eliquis 5mg BID * Most recent echocardiogram obtained in October 2021 revealed ejection fraction 55-60% 01/27/2022 Patient examined this morning at the bedside. He denies chest pain or pressure. Denies SOB. Vital signs are stable. Eliquis remains on hold. 01/28/2022 Patient examined this morning at the bedside. He denies chest pain or pressure. Denies SOB. Vital signs are stable. Eliquis remains on hold. PHYSICAL EXAM: VITAL SIGNS: Reviewed. GENERAL: Well-developed in no acute distress. HEENT: Head is normocephalic. Pupils are equal, round. Sclerae anicteric. Mucous membranes of the mouth are moist. Neck supple. No JVD or thyromegaly LUNGS: Respirations even and unlabored. Lungs essentially clear to auscultation bilaterally. HEART: Regular rate and rhythm. S1 and S2 heard. ABDOMEN: Soft. Nondistended. Nontender. EXTREMITIES: Normal range of motion. No clubbing or cyanosis. Peripheral pulses intact. No lower extremity edema NEUROLOGIC: Awake and alert. Oriented x 3. ASSESSMENT: Upper extremity weakness/radiculopathy C6/C7 bilateral neural foraminal stenosis; degenerative disc disease; herniated disc, C6 to C7 History of typical atrial flutter with previous ablation PLAN: No need to repeat echocardiogram as this was performed in October 2021 Continue to hold Eliquis. Resume VELMA post operatively when cleared with orthopedics The patient is cleared from a cardiac standpoint to proceed with surgery we will sign off. Please reconsult if needed. Nurse practitioner note has been reviewed by physician. Signing provider agrees with the documented findings, assessment, and plan of care. Objective - Vital Signs Vital signs: Vital Signs Temp 97.7 F 01/28/22 05:00 Pulse 62 01/28/22 05:00 Resp 16 01/28/22 05:00 BP 105/69 01/28/22 05:00 Pulse Ox 98 01/28/22 05:00 FiO2 Intake & Output 01/27/22 01/28/22 01/28/22 18:59 06:59 18:59 Intake Total 590 Balance 590 Intake: Oral 590 Other: # Voids 2 3 - Labs CBC & Chem 7: 01/26/22 04:52 01/26/22 04:52
--- NOTE | 2022-01-28 10:13 | P.PN ---
Subjective Progress Note Date: 01/28/22 Principal diagnosis: Right upper extremity weakness/radiculopathy Patient was seen at bedside this morning resting comfortably. Patient says he has been up and walking around the room and urinating okay. Patient says he is still having right upper extremity numbness and tingling. Patient says is mostly in the center of the neck and does radiate to his right shoulder blade an d down the backside of his right arm into his right forearm and digits 2 and 3 in his right hand. Patient feels that some of the medication has helped somewhat, although he is still in a lot of pain in the right upper extremity. Patient denies any chest pain, fever, shortness breath, nausea, oncology vision, loss of bowel/bladder control. Patient denies saddle anesthesia. Objective - Vital Signs Vital signs: Vital Signs Temp 97.7 F 01/28/22 05:00 Pulse 62 01/28/22 05:00 Resp 16 01/28/22 05:00 BP 105/69 01/28/22 05:00 Pulse Ox 98 01/28/22 05:00 FiO2 Intake & Output 01/27/22 01/28/22 01/28/22 18:59 06:59 18:59 Intake Total 590 Balance 590 Intake: Oral 590 Other: # Voids 2 3 - Exam Inspection: Negative for any open fractures, significant ecchymosis/erythema/ulcers. Sensation: Sensation is equal, symmetric, bilaterally intact throughout the upper and lower extremities. Palpation: Patient does have some mild tenderness to palpation along the Lower posterior cervical spine. Nontender to palpation throughout rest of exam Range of motion: Full range of motion bilateral upper and lower extremities on exam Motor: 4/5 in resisted right elbow flexion and right wrist flexion/extension. 5/5 in all other major motor groups. Special tests: Positive Spurling's on the right side. Negative Fredi's bilaterally; negative clonus bilaterally Neurovascular status: Radial pulse intact, 2+ bilaterally. Capillary refill under 3 seconds in digits of upper extremities. - Labs CBC & Chem 7: 01/26/22 04:52 01/26/22 04:52 Assessment and Plan Assessment: 1. C6/C7 bilateral neural foraminal stenosis; degenerative disc disease; herni ated disc, C6 to C7 2. History of recent cardiac ablation Plan: 1. C6-C7 bilateral neural foraminal stenosis; degenerative disc disease; herniated disc, C6 to C7- MRI and CT of cervical spine do demonstrate disc herniation at C6-C7 as well as bilateral neuroforaminal stenosis at this level. Surgery planned/schedule for this Monday01/30/2022 - C6-C7 ACDF. Patient is to be NPO beginning Monday01/30/2022. Withhold Eliquis at this time. We'll continue to follow patient during his stay here in hospital 2. Appreciate medical and cardiac management 3. Pain management - Toradol; [place]; Flexeril; Dilaudid only if necessary 4. DVT prophylaxis - withhold thinners at this time 5. GI prophylaxis - senna 6. PT/OT - weightbearing as tolerated Time with Patient: Less than 30
--- NOTE | 2022-01-28 12:57 | P.PN ---
Subjective Progress Note Date: 01/28/22 The patient is a 46-year-old male with a PMH of a flutter (status post ablation October 2021 currently on Eliquis) who presented to the emergency room with complaints of neck pain with radiation of the right arm.The patient underwent a CT scan and MRI of cervical spine which revealed C6/C7 disc herniation with neural foraminal stenosis. The patient was subsequently given IV Decadron and pain control and is admitted for further management. Orthopedic surgery is planning on spinal surgery for Monday01/30/22. Patient was seen and examined. No acute events overnight. Patient was well- controlled lower back pain. General: non toxic, no distress, appears at stated age, obese Derm: no unusual rashes/lesions, warm Head: atraumatic, normocephalic, symmetric Eyes: EOMI, no lid lag, anicteric sclera ENT: Nose and ears atraumatic Neck: No cervical lymphadenopathy, trachea midline, supple Mouth: no lip lesion, mucus membranes moist Lungs: no accessory muscle use Ext: no gross muscle atrophy, no contractures Neuro: no gross focal neuro deficits Psych: Alert, oriented, appropriate affect Assessment/plan #History of a flutter status post ablation -Eliquis currently being held in preparation for surgery -Cardiology cleared the patient for surgery #Leukocytosis -No signs of active infection -Likely reactive -Continue to monitor #Cervical radiculopathy -Defer management including pain control and DVT prophylaxis to primary surgery service Objective - Vital Signs Vital signs: Vital Signs Temp 98 F 01/28/22 11:32 Pulse 81 01/28/22 11:32 Resp 20 01/28/22 11:32 BP 127/68 01/28/22 11:32 Pulse Ox 99 01/28/22 11:32 FiO2 Intake & Output 01/27/22 01/28/22 01/28/22 18:59 06:59 18:59 Intake Total 590 Balance 590 Intake: Oral 590 Other: # Voids 2 3 - Labs CBC & Chem 7: 01/26/22 04:52 01/26/22 04:52
[2022-01-29] MEDS: HYDROmorphone 1 MG/ML 1 ML SYRINGE IVP PRN ×7 (03:31→23:56)
[2022-01-29] MEDS: CYCLOBENZAPRINE 5 MG TAB PO PRN ×2 (07:34→17:26)
--- NOTE | 2022-01-29 10:11 | P.PN ---
Subjective Progress Note Date: 01/29/22 The patient is a 46-year-old male with a PMH of a flutter (status post ablation October 2021 currently on Eliquis) who presented to the emergency room with complaints of neck pain with radiation of the right arm.The patient underwent a CT scan and MRI of cervical spine which revealed C6/C7 disc herniation with neural foraminal stenosis. The patient was subsequently given IV Decadron and pain control and is admitted for further management. Orthopedic surgery is planning on spinal surgery for Monday01/30/22. Patient was seen and examined. No acute events overnight. Patient was well- controlled lower back pain. General: non toxic, no distress, appears at stated age, obese Derm: no unusual rashes/lesions, warm Head: atraumatic, normocephalic, symmetric Eyes: EOMI, no lid lag, anicteric sclera ENT: Nose and ears atraumatic Neck: No cervical lymphadenopathy, trachea midline, supple Mouth: no lip lesion, mucus membranes moist Lungs: no accessory muscle use Ext: no gross muscle atrophy, no contractures Neuro: no gross focal neuro deficits Psych: Alert, oriented, appropriate affect Assessment/plan #History of a flutter status post ablation -Eliquis currently being held in preparation for surgery -Cardiology cleared the patient for surgery #Leukocytosis -No signs of active infection -Likely reactive -Continue to monitor #Cervical radiculopathy -Defer management including pain control and DVT prophylaxis to primary surgery service Objective - Vital Signs Vital signs: Vital Signs Temp 98.0 F 01/29/22 04:06 Pulse 76 01/29/22 04:06 Resp 15 01/29/22 04:06 BP 116/64 01/29/22 04:06 Pulse Ox 94 L 01/29/22 04:06 FiO2 - Labs CBC & Chem 7: 01/26/22 04:52 01/26/22 04:52
--- NOTE | 2022-01-29 11:01 | P.PN ---
Subjective Progress Note Date: 01/29/22 Principal diagnosis: Right upper extremity weakness/radiculopathy Patient was seen at bedside this morning resting comfortably. Patient says he has been up and walking around the room and urinating okay. Patient says he is still having right upper extremity numbness and tingling. Patient says is mostly in the center of the neck and does radiate to his right shoulder blade an d down the backside of his right arm into his right forearm and digits 2 and 3 in his right hand. Patient feels that some of the medication has helped somewhat, although he is still in a lot of pain in the right upper extremity. Patient denies any chest pain, fever, shortness breath, nausea, oncology vision, loss of bowel/bladder control. Patient denies saddle anesthesia. Objective - Vital Signs Vital signs: Vital Signs Temp 98.0 F 01/29/22 04:06 Pulse 76 01/29/22 08:40 Resp 15 01/29/22 08:40 BP 116/64 01/29/22 04:06 Pulse Ox 94 L 01/29/22 04:06 FiO2 Intake & Output 01/28/22 01/29/22 01/29/22 18:59 06:59 18:59 Intake Total 480 Balance 480 Intake: Oral 480 Other: # Voids 4 - Exam Inspection: Negative for any open fractures, significant ecchymosis/erythema/ulcers. Sensation: Sensation is equal, symmetric, bilaterally intact throughout the upper and lower extremities. Palpation: Patient does have some mild tenderness to palpation along the Lower posterior cervical spine. Nontender to palpation throughout rest of exam Range of motion: Full range of motion bilateral upper and lower extremities on exam Motor: 4/5 in resisted right elbow flexion and right wrist flexion/extension. 5/5 in all other major motor groups. Special tests: Positive Spurling's on the right side. Negative Fredi's bilaterally; negative clonus bilaterally Neurovascular status: Radial pulse intact, 2+ bilaterally. Capillary refill under 3 seconds in digits of upper extremities. - Labs CBC & Chem 7: 01/26/22 04:52 01/26/22 04:52 Assessment and Plan Assessment: 1. C6/C7 bilateral neural foraminal stenosis; degenerative disc disease; herni ated disc, C6 to C7 2. History of recent cardiac ablation Plan: 1. C6-C7 bilateral neural foraminal stenosis; degenerative disc disease; herniated disc, C6 to C7- MRI and CT of cervical spine do demonstrate disc herniation at C6-C7 as well as bilateral neuroforaminal stenosis at this level. Surgery planned/schedule for r, Monday01/30/2022 - C6-C7 ACDF. Patient is to be NPO beginning rw, Monday01/30/2022. Withhold Eliquis at this time. We'll continue to follow patient during his stay here in hospital 2. Appreciate medical and cardiac management 3. Pain management - Toradol; [place]; Flexeril; Dilaudid only if necessary 4. DVT prophylaxis - withhold thinners at this time 5. GI prophylaxis - senna 6. PT/OT - weightbearing as tolerated Time with Patient: Less than 30
[2022-01-30] MEDS: HYDROmorphone 1 MG/ML 1 ML SYRINGE IVP PRN ×6 (03:06→23:58)
[2022-01-30] MEDS ORDERED: TRANEXAMIC ACID IN NACL,ISO-OS 1,000 MG in SALINE 1 100ML.BAG IVPB PRN ×2 (05:00)
--- NOTE | 2022-01-30 07:42 | P.PN ---
Progress Note - Text Progress Note Date: 01/30/22 Spine Surgery Risk Review John Neri is a 46 yo male presenting for evaluation of RUE radiculopathy with new RUE weakness that is progressive and refractory. It was my pleasure to have seen and examined John Neri . In our visit today we have had a chance to go over subjective complaints, physical examination findings and treatments including the natural course history without intervention and various interventional options. The patients imaging demonstrates C6-7 spondylosis with stenosis central and b/l foraminal due to large HNP that is older. There is myelomalacia starting at this level as well as kyphosis related to the spondylotic changes and disc collapse. On physical exam, John Neri demonstrates RUE weakness, RUE radiculopathy, decreased sensation in C6-7 levels in the hands b/l. I have explained to the patient that as their condition progresses it will cause further neurological deficits and eventual paralysis. Based on the patients imaging, physical exam, and the rapid progression and disabling nature of their symptoms, at this time I recommend surgery in the form or a: C6-7 anterior cervical discectomy and fusion. I discussed the risk and benefits of this procedure at length with John Neri . The patient and his who is at bedside agreed to considered pursuing the procedure abovementioned. Prior to surgery, she should follow up with her PCP (Cardio, ID, IM etc) for clearance. Questions were invited and answered, and the patient wishes to proceed as outlined below. Currently, I am recommendin. C6-7 anterior cervical discectomy and fusion 2. Follow up with PCP for surgical clearance 3. Review of surgical risks and benefits as well as an educational packet on the proposed surgical procedure. Risks: All surgical procedures come with inherent risks, including those related to positioning, anesthesia, intraoperative findings, and postoperative complications. It is important to understand that surgery does not come with any guarantee of a successful outcome as complications and adverse events are always possible. The patient was given a handout in office today discussing the surgical procedure and risks associated with the intervention, both of which were discussed with the patient. These risks include but are not limited to the following: * Experiencing same, different or even worse symptoms in back, neck, arms, or legs compared to before surgery. * Requiring further surgery or other forms of treatment presently or at some time in the future at same or other levels of the intended spine surgery. * On an extreme but fortunately relatively rare basis severe complication such as blindness, stroke, heart attack, temporary and/or permanent nerve injury, paralysis, coma, or may occur, sometimes without known explanation. * Surgical complications may include but are not limited to risk of infection, fluid accumulation in the surgical dissection site, including a seroma or hematoma, that requires additional surgery, wound drainage, bleeding, new numbness or weakness, vision changes/loss, spinal fluid leakage, non-healing and/or infected incision, headaches, difficulty or inability to swallow, hoarseness, hemopneumothorax, pneumothorax, impotence, retrograde ejaculation, vaginal dryness; injury to nerves, spinal cord, blood vessels, lymphatics or other vital organs (i.e., bowel injury, injury to the great vessels); heterotopic bone formation; complications related to the hardware such as screws, rods, cages including misplaced hardware, device failure, instrumentation at the wrong spine level, hardware fracture/breakage, or hardware loosening; vertebral failure of the spinal column above or below the newly placed hardware; retained surgical instrumentations or devices and the need for further surgery. * Medical risks of the planned spine surgery include but are not limited to generalized Infections to the whole body or local areas outside of the surgical site (sepsis), heart attack, bleeding, anaphylaxis, meningitis, seizure, epilepsy, hearing loss, burn hayes, laceration of the head or other areas of the body, bruising, hypersensitivity of the skin, bladder over distension; allergic reaction; shoulder injury related to positioning; fat, blood and air clots to other areas of the body like heart, lungs, brain; failure of internal organs such as lungs, kidneys, liver and excessive bleeding. If blood transfusions are necessary, note that transfusions may cause intolerance reactions such as anaphylaxis or other complex reactions. * Despite best efforts, the results of spine surgery might not heal in terms of bone, soft tissues such as skin, fascia, ligaments, and joints. Additionally, in order to achieve best possible results, spine surgery may be carried out beyond the initially planned levels and involve decompression, fusion including insertion of hardware at levels other than the original intended area of surgical interest change some portions of the procedure in order to ensure the best possible outcomes. * With spine surgery and spinal fusion, there are different off label uses of instrumentation (devices, implants and hardware) as well as biological substances (bone morphogenic proteins, demineralized bone matrix) as well as using extra bone from allograft sources (i.e. cadaver bone) or autograft (iliac crest bone, ribs, or the spine itself). The patient has been given information about these practices and their inherent risks and benefits. The patient has had a chance to review all the listed information, has been given print outs detailing this information, and has had all his/her questions answered to their satisfaction. It was my pleasure to have seen and examined John Neri . In our visit today we have had a chance to go over my understanding of our patient's current condition, the natural course history without intervention and various interventional options. Questions were invited and answered, and the patient wishes to proceed as outlined above. I have seen and examined the patient for 25 minutes and we have spent more than 50% of the time in repeat and detailed counseling about the patient's condition, its natural course history with out and as much as can be predicted with surgery and re-review of various surgical treatment options. In conclusion, John Neri and his at bedside requested we proceed with the above suggested surgery and are willing to accept risks and limitations of the suggested surgery as nature of the disease process and our best attempts at treatment for the condition. Thank you again for allowing us to be part of your patient's care. Please don't hesitate to contact me if you have any further questions. Signed and authenticated by: Justin Vazquez [facility] [address] [facility], [address] [address]
[2022-01-30] MEDS ORDERED: TRANEXAMIC ACID IN NACL,ISO-OS 1,000 MG/100 ML BAG ONE (08:09)
[2022-01-30] MEDS ORDERED: ceFAZolin 1,000 MG VIAL ONE (08:09)
[2022-01-30] MEDS ORDERED: GLYCOPYRROLATE 0.2 MG/ML 2 ML VIAL ONE (08:09)
[2022-01-30] MEDS ORDERED: NEOSTIGMINE 1 MG/ML 10 ML VIAL ONE (08:09)
[2022-01-30] MEDS ORDERED: ONDANSETRON 4 MG/2 ML VIAL ONE (08:09)
[2022-01-30] MEDS ORDERED: MIDAZOLAM 2 MG/2 ML VIAL ONE (08:09)
[2022-01-30] MEDS ORDERED: LIDOCAINE 2% INJ 20 MG/ML (2 ML VIAL) ONE (08:09)
[2022-01-30] MEDS ORDERED: HYDROmorphone (PF) 1 MG/ML ONE (08:09)
[2022-01-30] MEDS ORDERED: SODIUM CHLORIDE 0.9% 100 ML BAG ONE (08:09)
[2022-01-30] MEDS ORDERED: DEXAMETHASONE SOD PHOSPHATE 10 MG/ML 1 ML VIAL ONE (08:09)
[2022-01-30] MEDS ORDERED: PROPOFOL 10 MG/ML 20 ML VIAL IV ONE (08:09)
[2022-01-30] MEDS ORDERED: ROCURONIUM 10 MG/ML (5 ML VIAL) IV ONE (08:09)
[2022-01-30] MEDS ORDERED: fentaNYL (PF) 50 MCG/ML 2 ML AMP ONE (08:09)
[2022-01-30] MEDS ORDERED: KETOROLAC 15 MG/ML 1 ML VIAL ONE (08:09)
[2022-01-30] MEDS ORDERED: SUCCINYLCHOLINE CHLORIDE 200 MG/10 ML VIAL IV ONE (08:09)
[2022-01-30] MEDS ORDERED: LACTATED RINGERS 1,000 ML IV ONE (08:13)
[2022-01-30] MEDS ORDERED: GELATIN SPONGE,ABSORB (LARGE) 1 EACH SPONGE MISCELLANE ONE (08:40)
[2022-01-30] MEDS ORDERED: THROMBIN (BOVINE) 5,000 UNIT VIAL TOPICAL ONE (10:17)
[2022-01-30] MEDS ORDERED: HYDROmorphone 0.5 MG/0.5 ML SYRINGE IVP ONE ×4 (10:47→11:37)
--- NOTE | 2022-01-30 11:23 | FL ---
Intraoperative/procedural fluoroscopic services were provided. Total fluoroscopy time is 25 seconds w ith a total of 3 submitted images to PACS. Please see the operative/procedural note for further detai ls.
[2022-01-30] MEDS: ACETAMINOPHEN TAB 325 MG TAB PO SCH ×3 (12:49→23:55)
--- NOTE | 2022-01-30 12:49 | CT ---
EXAMINATION TYPE: CT cervical spine wo con CT DLP: 1020.00 mGycm, Automated exposure control for dose reduction was used. DATE OF EXAM: 01/30/2022 12:34 PM COMPARISON: Presurgical CT spine 06/20/2018 and 01/11/2022, 01/25/2022 CLINICAL INDICATION:Male, 46 years old with history of s/p C6-C ACDF, S/P C6-C7 Decompression fusion TECHNIQUE: Axial CT images from the skull base to the inferior aspect of T2 we obtained without intra venous contrast. Coronal and sagittal reformatted images were also reviewed. FINDINGS: Fracture: None. Osseous structures: Unremarkable post fixation hardware changes at 6 and C7. Hardware appears intact. Vertebral alignment: Alignment within normal limits. Spinal canal/Neural Foramina: No evidence of significant spinal canal narrowing. No evidence for sign ificant neural foraminal stenosis. Neck soft tissues: Prevertebral soft tissues are within normal limits. Other: The airway is patent. Postsurgical drainage catheter terminating in the soft tissues of the ri ght neck. Scattered foci of gas consistent with post surgical changes. Mild atelectasis changes seen within the lungs most pronounced medially. IMPRESSION: 1. Post surgical changes with mild multilevel degenerative disc disease. Hardware appears intact. 2. No evidence of fracture.
--- NOTE | 2022-01-30 13:43 | P.PN ---
Subjective Progress Note Date: 01/30/22 The patient is a 46-year-old male with a PMH of a flutter (status post ablation October 2021 currently on Eliquis) who presented to the emergency room with complaints of neck pain with radiation of the right arm.The patient underwent a CT scan and MRI of cervical spine which revealed C6/C7 disc herniation with neural foraminal stenosis. The patient was subsequently given IV Decadron and pain control and is admitted for further management. Orthopedic surgery is planning on spinal surgery for Monday01/30/22. Patient was seen and examined. No acute events overnight. He is s/p C6-7 anterior cervical discectomy and fusion. He reports pain well controlled with pain regimen. General: Drowsy, no distress, appears at stated age Derm: warm, dry Head: atraumatic, normocephalic, symmetric Eyes: EOMI, no lid lag, anicteric sclera Mouth: no lip lesion, mucus membranes moist Cardiovascular: S1S2 reg, no murmur Lungs: Decreased breath sounds bilateral, no rhonchi, no rales , no accessory muscle use Ext: no gross muscle atrophy, no edema, no contractures Neuro: no focal neuro deficits Psych: Alert, oriented, appropriate affect Assessment/plan #History of a flutter status post ablation -Eliquis currently being held in preparation for surgery -Cardiology cleared the patient for surgery #Leukocytosis -No signs of active infection -Likely reactive -Continue to monitor #Cervical radiculopathy -Defer management including pain control and DVT prophylaxis to primary surgery service -s/p C6-7 anterior cervical discectomy and fusion POD 0 Objective - Vital Signs Vital signs: Vital Signs Temp 98.7 F 01/30/22 12:30 Pulse 90 01/30/22 12:30 Resp 16 01/30/22 12:30 BP 143/74 01/30/22 12:30 Pulse Ox 92 L 01/30/22 12:30 FiO2 Intake & Output 01/29/22 01/30/22 01/30/22 18:59 06:59 18:59 Intake Total 360 0 560 Output Total 7 34 Balance 353 0 526 Weight 124.738 kg Intake: IV 500 Oral 360 0 60 Output: Drainage 3 Anterior Neck 3 Urine 6 Stool 1 1 Estimated Blood Loss 30 Other: # Voids 5 1 - Labs CBC & Chem 7: 01/26/22 04:52 01/26/22 04:52
[2022-01-30] MEDS: ceFAZolin 3 GM in SODIUM CHLORIDE 0.9% 100 ML IVPB SCH ×2 (16:56→23:54)
[2022-01-30] MEDS: CYCLOBENZAPRINE 5 MG TAB PO PRN (17:49)
[2022-01-30] MEDS: HYDROcodone/APAP 10-325MG 1 EACH TAB PO PRN (20:07)
[2022-01-31] MEDS: HYDROmorphone 1 MG/ML 1 ML SYRINGE IVP PRN ×3 (02:57→09:24)
[2022-01-31] MEDS: ACETAMINOPHEN TAB 325 MG TAB PO SCH (05:56)
[2022-01-31] MEDS: CYCLOBENZAPRINE 5 MG TAB PO PRN (05:56)
[2022-01-31 06:01] LABS: Basophils % (A) 0 %; Eosinophils # (A) 0.2 k/uL (0-0.7); Eosinophils % (A) 2 %; HCT 45.5 % (39.0-53.0); HGB 15.7 gm/dL (13.0-17.5); Lymphocytes % (A) 7 %; MCH 31.2 pg (25.0-35.0); MCHC 34.4 g/dL (31.0-37.0); MCV 90.5 fL (80.0-100.0); Mean Platelet Volume 9.2; Monocytes # (A) 0.6 k/uL (0-1.0); Monocytes % (A) 4 %; Neutrophils # (A) 13.4 k/uL (1.3-7.7); Neutrophils % (A) 87 %; Platelet Count 206 k/uL (150-450); RBC 5.02 m/uL (4.30-5.90); RDW 12.1 % (11.5-15.5); WBC 15.3 k/uL (3.8-10.6)
--- NOTE | 2022-01-31 08:41 | P.PN ---
Subjective Progress Note Date: 01/31/22 Principal diagnosis: Right upper extremity weakness/radiculopathy Patient seen and examined at bedside. Patient is currently resting in bed awaiting breakfast. He states he has been tolerating intake of fluids and food without difficulty swallowing. Surgical dressing has been changed and TIMOTHY drain removed, patient tolerated well. Patient states pain is managed on current re gimen. Patient reports intermittent numbness and tingling to the first 3 digits of the right hand. Overall patient states he has noticed improvement of his symptoms in the right upper extremity since procedure. Patient reports he feels comfortable being discharged home today. He denies any fever/chills, shortness of breath, or chest pain. Objective - Vital Signs Vital signs: Vital Signs Temp 98.4 F 01/31/22 06:23 Pulse 89 01/31/22 06:23 Resp 16 01/31/22 06:23 BP 143/72 01/31/22 06:23 Pulse Ox 96 01/31/22 06:23 FiO2 Intake & Output 01/30/22 01/31/22 01/31/22 18:59 06:59 18:59 Intake Total 560 Output Total 50 0 Balance 510 0 Weight 124.738 kg Intake: IV 500 Oral 60 Output: Drainage 13 0 Anterior Neck 13 0 Urine 6 Stool 1 Estimated Blood Loss 30 Other: Voiding Method Toilet # Voids 2 - Exam Physical Examination General: The patient is awake and alert, in no acute distress Skin: Skin is warm and dry with no obvious rashes or lesions. Hairy patches absent, no dorsal skin dimples, no cafe au lait spots. Surgical incision to right anterior cervical region; dressing CDI, TIMOTHY drain removed. Eye: Pupils are equal, round and reactive to light, extra-ocular movements are intact; there is normal conjunctiva bilaterally. Neck: The neck is supple, there is no tenderness and ROM intact. Cardiovascular: There is a regular rate and rhythm. No murmur, rub or gallop is appreciated. Respiratory: Lungs are clear to auscultation, respirations are non-labored, breath sounds are equal. Gastrointestinal: Soft, non-distended, non-tender abdomen . Back: There is no tenderness to palpation in the midline, paralumbar, parathoracic or buttocks region. There is no obvious deformity . Musculoskeletal: ROM limited secondary to pain and stiffness from surgical procedure. Shoulder abduction 5/5, elbow flexors 5/5, wrist dorsiflexors 4/5. finger abductor 4/5, industrial psychology teacher 4/5, hip flexor 5/5, knee flexor 5/5, ankle dorsiflexo r 5/5, ankle plantarflexion 5/5 and extensor hallucis 5/5. Neurological: CN 2-12 intact. There are no obvious motor or sensory deficits. Movement and coordination equal and intact. Sensory exam to light touch intact C5-T1 and intact from L2-S1. Reflexes 2/4 in bilateral upper and lower extremities. Negative Hoffmans, babinski, and clonus signs. Psychiatric: Cooperative, appropriate mood & affect, normal judgment. - Labs CBC & Chem 7: 01/31/22 05:17 01/26/22 04:52 Labs: Abnormal Lab Results - Last 24 Hours (Table) 01/31/22 Range/Units 05:17 WBC 15.3 H (3.8-10.6) k/uL Neutrophils # 13.4 H (1.3-7.7) k/uL Assessment and Plan Assessment: Post-op Day 1 anterior cervical dissection and fusion C6-C7 Plan: Plan: -Appreciate clinical practice consultant and team management. -Activity: Ambulate QID, OOB all meals, up and about, limit lifting bending twisting to less than 5 lbs. Use walker or cane if needed for stability. -Daily PT/OT, increase ambulation strength and balance. -Neck brace when up and about, not needed in bed or chair -Pain control: Adequate at this time -Meds: reviewed -GI ppx: senna, Miralax -DVT PPX: Patient may restart his Eliquis 02/01/22 -Hygiene: Shower today. Maintain dressing clean and dry. -Encourage IS 10x/hr -Dispo: Anticipate discharge home today 01/31/22 with homecare *I reviewed and discussed this case with my attending Dr. Wilson, whom has reviewed this chart and films and is in agreement with assessment and plan of care as outlined above. I have personally seen and examined the patient, performed the documentation and the assessment and plan as written. Number of minutes spent on the visit: 20m.
--- NOTE | 2022-01-31 08:43 | P.DS ---
Providers Date of admission: 01/25/22 16:58 Expected date of discharge: 01/31/22 Attending physician: Justin Wilson DO Consults: 01/25/22 16:43 Consult Physician Routine Consulting Provider: Phuong Shepard Consult Reason/Comments: Medical Management/clearance for c6-c7 ACDF Do you want consulting provider notified?: Yes Primary care physician: [facility] Course: Hospital Course: The patient was evaluated preoperatively and found to have the diagnosis of cervical stenosis, right upper extremity radiculopathy. They underwent appropriate preoperative care and were willing to undergo the intended procedure. They underwent a successful anterior cervical dissection and fusion C6-C7, were recovered appropriately and sent to the floor. While on the floor they worked with physical therapy, occupational therapy and nursing to enhance their recovery experience. Their pain was well controlled through their stay and they were started on appropriate medications, DVT ppx modalities, activity and dietary needs. Daily labs were monitored closely, and transfusions were only used when necessary. Medicine as well as other consulting services have made their input and have helped with our team approach and multidisciplinary care. PT milestones have been met and passed and they have made the recommendation of home for this patient and treating providers agree with this care path. The patient will be discharged home with appropriate medications, instructions and follow-up information and in stable condition. Patient Condition at Discharge: Good Plan - Discharge Summary Discharge Rx Participant: Yes New Discharge Prescriptions: New cefaDROXiL [Duricef] 500 mg PO Q12HR 3 Days #6 cap HYDROcodone/APAP 10-325MG [[place] 10-325] 1 tab PO Q4-6H PRN #56 tab PRN Reason: Pain Sennosides/Docusate Sodium [Senna-S 8.6-50 mg Tablet] 1 each PO DAILY PRN #20 tablet PRN Reason: Constipation Cyclobenzaprine [Flexeril] 5 mg PO TID #90 tablet Pregabalin [Lyrica] 150 mg PO BID #60 cap No Action Apixaban [Eliquis] 5 mg PO BID #180 tab Cyclobenzaprine [Flexeril] 10 mg PO TID #24 tab traMADol HCL 50 mg PO Q6H PRN PRN Reason: Pain Discharge Medication List Apixaban [Eliquis] 5 mg PO BID #180 tab 11/18/21 [Rx] Cyclobenzaprine [Flexeril] 10 mg PO TID #24 tab 01/11/22 [Rx] traMADol HCL 50 mg PO Q6H PRN 01/25/22 [History] Cyclobenzaprine [Flexeril] 5 mg PO TID #90 tablet 01/31/22 [Rx] HYDROcodone/APAP 10-325MG [[place]ide 10-325] 1 tab PO Q4-6H PRN #56 tab 01/31/22 [Rx] Pregabalin [Lyrica] 150 mg PO BID #60 cap 01/31/22 [Rx] Sennosides/Docusate Sodium [Senna-S 8.6-50 mg Tablet] 1 each PO DAILY PRN #20 tablet 01/31/22 [Rx] cefaDROXiL [Duricef] 500 mg PO Q12HR 3 Days #6 cap 01/31/22 [Rx] Follow up Appointment(s)/Referral(s): Manolo Lopez DO [Primary Care Provider] - 1-2 days Justin Wilson DO [Doctor of Osteopathic Medicine] - 2 Weeks Activity/Diet/Wound Care/Special Instructions: Spine Discharge and Recovery Instructions Date of Surgery: 01/30/2022 Diagnosis: Cervical stenosis, right upper extremity radiculopathy Procedure: Anterior cervical discectomy and fusion C6-C7 Medications: See medication list All medication refills should be obtained through your primary care doctor or your clinic spine surgeon. Please discuss prescription refills at your follow up appointment. Do not call the hospital for medication refills. Dressing: Leave your dressing in place for a total of 3 days post operatively. Then you may remove your dressing and leave open to air. Keep the area clean and if not able to keep area clean, then cover with sterile gauze and tape. Showering: You may shower 3 days after your procedure allowing soap and water to run over incision. Do not scrub. Do not soak. Blot dry. Follow up: Please confirm a follow up appointment with your surgeon 2 weeks post operatively. Please make an appointment to follow up with your PCP in 1-2 weeks after surgery for evaluation 3 phase, 3-week plan POST OP WEEKS 1-3 1. Lifting/carrying/pushing/pulling limited to less than 5 pounds. 2. Do not sit for longer than 15 minutes at one time. Get up and walk around. Prolonged sitting is NOT advised. If you lay down, see if you can tolerate laying down on you front (belly side) 3. Walk for periods of 15 minutes = 1 mile but no longer; do it multiple times times each day. 4. Ice your low back after activity. POST OP WEEKS 3-6 1. Lifting limited to less than 20 pounds. 2. Do not sit for longer than 30 minutes at a time. Frequently change positions. Use a sit-to stand workstation or take frequent breaks from sitting if you have returned to work. 3. Walk for 30 minutes each day. If possible, do these three or more times a day POST OP WEEKS 6+ At your 6-week appointment we will give you a physical therapy referral to focus on a core stabilization and strengthening program. You should also work on leg & buttock strengthening, hamstring & quadriceps stretching, and continue a low impact aerobic activity program such as swimming, walking, or riding a stationary bicycle. During the initial 6 weeks after your surgery, you are at the highest risk of re-injuring your spine. You should generally avoid BLTs (bending, lifting and twisting combination motions) and follow the above guidelines to reduce the chance of reinjury. You can anticipate post op appointments in our office at approximately 3 weeks and 6 weeks after your surgery. INCISION CARE: If your incision is not draining you do NOT need to cover it with a dressing. Keep your incision clean, dry and intact. In most cases, we apply skin glue, paloma or sutures to the incision at the time of surgery. This will be like a crust or have the appearance of a scab and will fall off in time on its own. The stitches or paloma need to be removed at 3 weeks post op appointment. You may begin to shower 3 days after surgery (this allows the glue to martini well). However, please avoid scrubbing the incision site or peeling off any of the skin glue. This will ensure optimal healing of your incision. Also, during this time avoid soaking the incision area in water - this includes swimming pools, hot tubs or baths. No ointments, lotions or oils on the incision until your surgeon allows. Leave paloma, sutures or glue in place. Neurological dysfunction that comes on suddenly can also be a sign of a stroke. Below some common symptoms of a stroke are listed: B - balance difficulty such as sudden onset walking or leaning to one side - NEW E - eye problem such as sudden double vision or trouble seeing on one side - NEW F - Facial weakness or numbness on one side - NEW A - Arm or leg weakness or numbness on one side - NEW S - Slurred speech or difficulty with word finding - NEW T - Time is BRAIN! Call 911 as soon as you recognize these symptoms Diet: Consume a regular diet rich in vegetables and lean protein such as chicken or fish. You should consume in a ratio of approximately 20% fats|40% carbohydrates|40%protein. Vegetables, sweet potatoes, brown rice or quinoa are examples of good carbohydrates. Chips, white bread, cookies and sweets/sugar are examples of bad carbohydrates. Limit your bad carbs, go wild with good carbs. "Life's Simple 7" Guidelines as per [place] [employer] These will help you reclaim your life after surgery and seismograph operator helper in your recovery, keeping in mind your restrictions. (1) Get Active. Physical activity can help people lose weight, control high blood pressure and cholesterol, feel emotionally better, and sleep better. (2) Control Cholesterol. Avoid a diet high in saturated fat, trans fat, & cholesterol. Limit whole milk & cream, ice cream, butter, egg yolks, processed meats (like sausage and hot dogs), and fatty meats. Choose healthy foods that are low in saturated fat, trans fat and cholesterol which include: Fruits and vegetables, fiber rich grain products (like whole grain pasta and brown rice), lean meat such as chicken, fish, nuts, seeds, and legumes. (3) Eat Better. Eat small portions. Shop at the grocery with a list and do not stray from it. Tips for a healthy diet include: Limit sodium intake to less than 1500mg daily, avoid prepackaged, processed, and fast foods, choose a diet rich in fruits, vegetables, and whole grain, high fiber foods, and limit saturated & cholesterol in your diet. (4) Manage Blood Pressure. If you have high blood pressure, you should have a cuff at home so that you can check your blood pressure regularly. Be sure you have a good cuff. An arm one is generally better than a wrist one. Bring the cuff to a doctor's appointment to validate that the measurements that your cuff are taking are accurate. Take your blood pressure twice daily when you are sitting down and relaxing. Record the numbers in a log and bring this log with you to your doctors' appointments. (5) Lose Weight if your BMI is above 25. A healthy BMI is between 19-25. To calculate Your BMI, you may use a Standard BMI Calculator on the NIH BMI website: <www.nhlbi.nih.gov/guidelines/obesity/BMI/bmicalc.htm>. Weigh oneself daily. If you are overweight, set a goal to lose weight. A pound a week loss if needed is a good target. (6) Reduce Blood Sugar. Limit foods and liquids with "added sugars." (Added sugars include sucrose, fructose, glucose, maltose, dextrose, high fructose corn syrup, corn syrup, concentrated fruit juice and honey). (7) Stop Smoking. If you smoke, quitting smoking is one of the best things that you can do for your health. Smoking increases your risk of heart attack, stroke, and peripheral vascular disease, which is a build-up of plaque in your arteries. Please discard all the cigarettes and lighters in your house. Have a plan for what you will do when you have the urge to smoke. Direct and second- hand smoke shortens your life as well as the lives of your family, friends and others around you. For your health and the health of those around you, please consider quitting! Proper Bending Body Mechanics: Maintain a wide stance with one foot slightly in front of the other. Keep your back straight. Bend utilizing the strength in your hips and knees. Do not bend at the waist. Maintain the lifted object at your waist-level close to your body. Avoid lifting weight that causes immediately pain or pain anywhere in the body afterwards. Smoking/Nicotine If there was ever one thing that you could do to increase your overall health, decrease your risk of cardiovascular problems by about 39% the second you make the choice, it is to STOP SMOKING. Your body's most instant gratification is the second you stop smoking. We have all heard the studies, read the articles but it is true, smoking is extremely bad for your overall health, and moreover it is detrimental to your bone health. Nicotine, IN ANY FORM, kills bone cells, prevents your body from healing fractures, and significantly prolongs healing after surgery. In spine surgery specifically, it increases your risk of not healing your bones to create a fusion and increases your risk of having a revision surgery due to this up to 60%. I know it is hard. I know it feels impossible. But there are ways. Take control of your life. We are here to help you through it. And when you are ready, ask us and we can direct you to help if you desire. Use the START Plan to Quit Smoking (please visit the [employer] website listed below for more information): S = Set a quit date. Choose a date within the next 2 weeks, so you have enough time to prepare without losing your motivation to quit. If you mainly smoke at work, quit on the weekend, so you have a few days to adjust to the change. T = Tell family, friends, and co-workers that you plan to quit. Let your friends and family in on your plan to quit smoking and tell them you need their support and encouragement to stop. Look for a quit ozzy who wants to stop smoking as well. You can help each other get through the rough times. A = Anticipate and plan for the challenges you'll face while quitting. Most people who begin smoking again do so within the first 3 months. You can help yourself make it through by preparing ahead for common challenges, such as nicotine withdrawal and cigarette cravings. R = Remove cigarettes and other tobacco products from your home, car, and work. Throw away all your cigarettes (no emergency pack!), lighters, ashtrays, and matches. Wash your clothes and freshen up anything that smells like smoke. Shampoo your car, clean your drapes and carpet, and steam your furniture. T = Talk to your doctor about getting help to quit. Your doctor can prescribe medication to help with withdrawal and suggest other alternatives. If you can't see a doctor, you can get many products over the counter at your local pharmacy or grocery store, including the nicotine patch, nicotine lozenges, and nicotine gum. Resources for Quitting Smoking: <https://www.[place].gov/documents/[facility]/Quit_Tobacco_Resources_for_patients _313480_7.pdf> Supplementation: Take recommended dosages of Vitamin D and Calcium to help fortify your bones and help them to heal. See your health maintenance packet for dosages and recommended levels. DVT/VTE prophylaxis: You will be given compression stockings from the hospital. Wear these daily for the first two weeks after surgery. You may take them off at night. You may be prescribed a medication to help thin your blood. Take this as directed. If you are not prescribed this medication, early and frequent ambulation has been shown to be the best prophylaxis to deep vein thrombosis and sequelae related to this event. Discharge Disposition: HOME WITH HOME HEALTH SERVICES
--- NOTE | 2022-01-31 10:29 | P.PN ---
Subjective Progress Note Date: 01/31/22 The patient is a 46-year-old male with a PMH of a flutter (status post ablation October 2021 currently on Eliquis) who presented to the emergency room with complaints of neck pain with radiation of the right arm.The patient underwent a CT scan and MRI of cervical spine which revealed C6/C7 disc herniation with neural foraminal stenosis. The patient was subsequently given IV Decadron and pain control and is admitted for further management. Orthopedic surgery is planning on spinal surgery for Monday01/30/22. Patient was seen and examined. No acute events overnight. He is s/p C6-7 anterior cervical discectomy and fusion. He reports pain well controlled with pain regimen. General: Drowsy, no distress, appears at stated age Derm: warm, dry Head: atraumatic, normocephalic, symmetric Eyes: EOMI, no lid lag, anicteric sclera Mouth: no lip lesion, mucus membranes moist Ext: no gross muscle atrophy, no edema, no contractures Neuro: no focal neuro deficits Psych: Alert, oriented, appropriate affect Assessment/plan #History of a flutter status post ablation -Eliquis to be restarted tomorrow -Cardiology cleared the patient for surgery #Leukocytosis -No signs of active infection -Likely reactive -Continue to monitor #Cervical radiculopathy -Defer management including pain control and DVT prophylaxis to primary surgery service -s/p C6-7 anterior cervical discectomy and fusion POD 1 Objective - Vital Signs Vital signs: Vital Signs Temp 98.4 F 01/31/22 06:23 Pulse 89 01/31/22 06:23 Resp 16 01/31/22 06:23 BP 143/72 01/31/22 06:23 Pulse Ox 96 01/31/22 06:23 FiO2 Intake & Output 01/30/22 01/31/22 01/31/22 18:59 06:59 18:59 Intake Total 560 Output Total 50 0 Balance 510 0 Weight 124.738 kg Intake: IV 500 Oral 60 Output: Drainage 13 0 Anterior Neck 13 0 Urine 6 Stool 1 Estimated Blood Loss 30 Other: Voiding Method Toilet Toilet # Voids 2 - Labs CBC & Chem 7: 01/31/22 05:17 01/26/22 04:52 Labs: Abnormal Lab Results - Last 24 Hours (Table) 01/31/22 Range/Units 05:17 WBC 15.3 H (3.8-10.6) k/uL Neutrophils # 13.4 H (1.3-7.7) k/uL
[2022-01-31 11:14] VITALS: BP 132/83; PULSE 72; RESP 18; TEMP 98.1
[2022-01-31] MEDS: HYDROcodone/APAP 10-325MG 1 EACH TAB PO PRN (11:23)
--- NOTE | 2022-02-01 10:20 | P.OP ---
Date of Procedure: 01/30/22 Preoperative Diagnosis: 1. C6-7 HNP with stenosis 2. b/l radiculopathy 3. RUE weakness Postoperative Diagnosis: 1. C6-7 HNP with stenosis 2. b/l radiculopathy 3. RUE weakness Procedure(s) Performed: 1. Anterior Right sided approach 2. C6-7 anterior interbody arthrodesis (79821) 3. C6-7 insertion of interbody device (43591) 4. Application anterior non-integrated plate (27085) 5. Use of intraoperative microscope (81678) Implants: -Leisa cascadia 12 deg lordotic 9 mm cage -Boomerane 14 mm plate -Autograft -Allografat Anesthesia: GETA Surgeon: Justin Wilson Claim Specialist #1: Tony Heart (Was present and assisted in all aspects of the case. ) Estimated Blood Loss (ml): 10 IV fluids (ml): 1,000 Urine output (ml): 0 Pathology: none sent Condition: stable Disposition: PACU Indications for Procedure: 46 yo male who has been dealing with RUE weakness and radiculopathy for some time now has presented to the ED several times in the past month for increasing weakness in his RUE as well as radiculopathy. 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 This last time to the ED he was unable to go home as the pain was significant and was refractory to all medications. An MRI was ordered which showed large disc herniation at C6-7 that was subacute and causing severe central and b/l foraminal stenosis. We discussed options with the patient. He was on Eliquis and we stopped this, obtained cardio and medical clearances and discussed surgical options. Given the patients state as well as his MRI findings and pain, surgery was offered in the form of C6-7 ACDF and he agreed. We discussed risks as outlined in the risk review and he was willing to accept these and was ready for surgery. Description of Procedure: The patient was seen and examined in the preoperative area. All preoperative protocols were followed. Informed consent was obtained risks and benefits of the procedure were discussed at length. Risks including bleeding infection damage to the surrounding tissue and risk of reoperation were discussed with the patient. Risk of anesthesia up to and including was a discussed with the patient. These are outlined in the risk review. They were willing to accept these risks and all of the risks of surgery. The patient was given a weight- based dose of antibiotics in the form of 2 g Ancef. The patient was seen and evaluated by the anesthesia team who deemed them fit for surgery. The site was marked, the patient was willing to proceed with the procedure. The patient was transferred to the operative suite by the Department of anesthesia. They were then drifted off to sleep by the department anesthesia an d GETA was performed. The patient tolerated this well. Once confirmation of lines and ventilation the patient was transferred to a supine flattop Anthony table very carefully. All bony prominences including wrists, elbows, axilla, chest, hips, and thighs, and feet were padded very well. Special attention was paid to the genitalia and these were padded accordingly. SCDs were placed on bilateral lower extremities and were connected. Arms were well padded and placed tucked at his side thumbs up well-padded. Interscapular roll was placed and the patient's head was gently placed on a jelly donut.. Once in position, again we confirmed good ventilation capabilities and that lines were running appropriately. The patient's anterior cervical spine was then exposed. 1010s were placed outlining the incision site. Standard alcohol was used to clean the incision site and allowed to dry. C-arm was used to biomark the patient and confirm level for incision which was marked with a skin marker. Operative briefing was performed with all teams and everyone in agreement to proceed. The patient was then prepped and draped in a normal sterile fashion. Timeout was then performed and all parties were in agreement with the procedure to be performed. Transverse incision was made on the right side of the patient's anterior cervical neck over the previously by marked area and a standard Conteh-Batista approach. Dissection was bluntly taken down to the omohyoid was identified and carefully mobilized the medial structures were carefully mobilized. The platysma was split longitudinally with its fibers. We then mobilized some platysmal flap which allowed visualization of the omohyoid immobilization. We then bluntly dissected with a Kitner down until the anterior cervical fascia was identified as well as LL. A blunt probe was then used under lateral fluoroscopy to confirm level of operation we confirmed C6-C7 levels of operation. We then under lateral fluoroscopy placed our pins in the C6 and C7 respectively the retractor was placed as well as the distractor and a Lambert rongeur was used to remove the disc material. The operating microscope was then brought in for visualization. We performed complete discectomy anteriorly using curette as well as Lambert Francisco pituitary and Kerrison rongeur. A high-speed bur was then used to minimally bur the endplates of any remaining cartilage and posteriorly of the C6 inferior endplate any osteophytes were removed. This revealed the PLL which was identified and the PLL was then split using a 60 up-biting curette. Once split a Kerrison rongeur was used to remove the PLL as well as perform bilateral foraminotomies. Once this was accomplished meticulous hemostasis was performed we irrigated the disc space out with an used trials under lateral fluoroscopic guidance to size the area once the appropriate size was identified the cage was selected and impacted into place under lateral fluoroscopic guidance after being packed with autograft and allograft. Once in position the cage was tested and was stable to draw press operator was then removed distraction was removed and the distractor pins removed and bone wax placed in the void. We then selected a plate that was the appropriate size and drilled through the plate for the holes under lateral fluoroscopic guidance we then placed screws through these holes of the lateral fluoroscopic guidance and tightened them and they had good purchase. The locking mechanism was then set on the anterior portion of the plate and screws were stable. Final AP and lateral fluoroscopic images confirmed good placement of hardware as well as centrally located in good decompression. We then copiously irrigated with normal sterile saline Surgicel was placed deep over the plate and a deep drain was placed and sewn in position on the skin. The wound was then closed in layered fashion first the platysmal muscle with 3-0 Vicryl followed by the subcu tissue with 3-0 Vicryl. Subcuticular was closed with a 4-0 running strata fix. The skin was then cleaned and dressed sterilely with skin glue which was allowed to dry and then a operative foam dressing was placed. The drain sponge and Tegaderm. The patient was placed in a soft collar. The patient was transferred back to their hospital bed atraumatically. Drain continued to hold suction and were in good position. Patient was then awakened and extubated by the department of anesthesia having tolerated the procedure very well with no complications. They were transferred to the postoperative care unit in stable condition.
== END 2022-01-31 13:20 | disposition home or self-care (01) | DRG 472 ==
LOC: EC 08:39 → 5NMEDONC 16:58
PROVIDERS: ADMIT Orthopaedic Surgery; ATTEND Orthopaedic Surgery
PROC: 01N10ZZ Release Cervical Nerve, Open Approach (ICD-10-PCS; principal; 2022-01-30 08:00)
PROC: 0RG1070 Fusion of Cervical Vertebral Joint with Autologous Tissue Substitute, Anterior Approach, Anterior Column, Open Approach (ICD-10-PCS; principal; 2022-01-30 08:00)
PROC: 4A11X4G Monitoring of Peripheral Nervous Electrical Activity, Intraoperative, External Approach (ICD-10-PCS; principal; 2022-01-30 08:00)
PROC: 0RG10A0 Fusion of Cervical Vertebral Joint with Interbody Fusion Device, Anterior Approach, Anterior Column, Open Approach (ICD-10-PCS; principal; 2022-01-30 08:00)
PROC: 0RT30ZZ Resection of Cervical Vertebral Disc, Open Approach (ICD-10-PCS; principal; 2022-01-30 08:00)
DX: M48.02 Spinal stenosis, cervical region (principal); G95.89 Other specified diseases of spinal cord; I48.3 Typical atrial flutter; D72.829 Elevated white blood cell count, unspecified; G89.29 Other chronic pain; I25.10 Atherosclerotic heart disease of native coronary artery without angina pectoris; G47.30 Sleep apnea, unspecified; M47.22 Other spondylosis with radiculopathy, cervical region; M50.123 Cervical disc disorder at C6-C7 level with radiculopathy; M40.12 Other secondary kyphosis, cervical region; Z28.311 Partially vaccinated for COVID-19; Z87.891 Personal history of nicotine dependence; Z82.49 Family history of ischemic heart disease and other diseases of the circulatory system; Z79.01 Long term (current) use of anticoagulants; Z79.899 Other long term (current) drug therapy
CPT/HCPCS: 72040; 72125; 72141; 80048; 85025; 93005; 96372; 96374; 99285

== ENCOUNTER → 2022-03-23 | Outpatient (CLI) | payer OTHER ==
--- NOTE | 2022-03-23 12:15 | P.PN ---
Subjective DATE: 03/23/2022 FOLLOW UP VISIT. Patient with obstructive sleep apnea hypopnea syndrome return to sleep center for follow-up visit. Recently patient had sleep study which documented obstructive sleep apnea hypopnea syndrome. Patient was initiated on PAP therapy and today is first visit after treatment was started. I explained to the patient details of sleep studies which have been done for him. Patient was able to use PAP equipment most of the nights. Patient has problems with drooling from his mouth. The patient does not have significant problems with the mask, PAP pressure and humidification. [place] sleepiness scale is 7, which is normal. Recently patient had neck surgery and because of that was not able to use CPAP unit every night. I checked information from PAP unit. PAP unit pressure 5-12, average 11.0 cm H2O. Usage is 77% and 67 % for more then 4 hours, average 5.4 hours per night. Leak is 5.8 l/m, which is in acceptable range. Apnea Hypopnea Index is 1.7, which is normal. MEDICATIONS:1. Metoprolol 25 mg once a day 2. Eliquis 5 mg once a day 3. Ibuprofen as needed During physical exam: GENERAL: A pleasant patient without any distress. VITAL SIGNS: BP 116/81, HR 78, RR 16 , weight 299, temperature 97.9, oxygen saturation at room air 97% . HEENT: PERRLA, EOMI.low position of soft palate, Mallapati 4 . NECK: Supple. No JVD. LUNGS: Clear to percussion and to auscultation. Good air exchange. No wheezing or rhonchi. HEART: S1, S2 regular. ABDOMEN: Soft and nontender. Obese EXTREMITIES: No clubbing or cyanosis. AXMINSTER WEAVER: Awake, alert, and oriented x3. No focal deficit. Impressions: 1. Obstructive sleep apnea-hypopnea syndrome. Patient demonstrated borderline compliance with treatment, benefiting from treatment. 2. Obesity. 3. History of atrial flutter. 4. Status post cardiac ablation. 5. Status post cholecystectomy. Plan: 1. Continue using PAP equipment every night for the whole night. Prescription for chinstrap to prevent drooling. 2. To change air filter at least 1-2 times per month. 3. PAP unit should stay lower then position of the head. 4. Advised patient to remove all remaining water from humidifier canister daily and make it dry after each usage. Refill canister with fresh distilled water before each usage. 5. Sleep hygiene with regular time in bed for at least 8 hours. 6. Precautions related to driving. No driving if feel any sleepiness. 7. I will maintain prescription for PAP supplies including mask, tube, filters. 8. Follow up visit in 6 months or earlier if patient has any problems. 9. Watching and losing weight. Thank you very much for allowing me to participate in the management of your patient. Naeem Alvarado MD, PhD, FAASM. Diplomat of [place] [employer], Sleep Medicine Board by [place] [employer] [facility] [facility] [place]
== END | disposition home or self-care (01) ==
LOC: SLEEP 11:46
PROVIDERS: ATTEND Internal Medicine
DX: G47.33 Obstructive sleep apnea (adult) (pediatric) (principal); E66.9 Obesity, unspecified; I48.92 Unspecified atrial flutter; Z90.49 Acquired absence of other specified parts of digestive tract; R63.4 Abnormal weight loss

== ENCOUNTER → 2023-02-27 | Outpatient (CLI) | payer OTHER ==
[2023-02-27 13:57] LABS: Basophils % (A) 1 %; Eosinophils # (A) 0.1 k/uL (0-0.7); Eosinophils % (A) 2 %; HCT 52.8 % (39.0-53.0); HGB 18.4 gm/dL (13.0-17.5); Lymphocytes # (A) 2.1 k/uL (1.0-4.8); Lymphocytes % (A) 34 %; MCH 31.7 pg (25.0-35.0); MCHC 34.8 g/dL (31.0-37.0); Mean Platelet Volume 8.4; Monocytes # (A) 0.4 k/uL (0-1.0); Monocytes % (A) 6 %; Neutrophils # (A) 3.5 k/uL (1.3-7.7); Neutrophils % (A) 56 %; Platelet Count 228 k/uL (150-450); RDW 12.9 % (11.5-15.5); WBC 6.2 k/uL (3.8-10.6)
[2023-02-27 22:31] LABS: ALT 70 U/L (10-49); AST 47 U/L (14-35); Albumin/Globulin Ratio 1.56 Ratio (1.60-3.17); Alkaline Phosphatase 95 U/L (41-126); BUN/Creat Ratio 11.33 Ratio (12.00-20.00); Blood Urea Nitrogen 10.2 mg/dL (9.0-27.0); Calcium 10.2 mg/dL (8.7-10.3); Carbon Dioxide 23.7 mmol/L (21.6-31.8); Chloride 100 mmol/L (96-109); Globulin 3.2 d/dL (1.6-3.3); Glucose 95 mg/dL (70-110); Potassium 4.4 mmol/L (3.5-5.5); Sodium 137 mmol/L (135-145); Total Bilirubin 0.6 mg/dL (0.3-1.2); Total Protein 8.2 d/dL (6.2-8.2)
[2023-02-28 07:54] LABS: Chol/HDL Ratio 5.07 Ratio; LDL Cholesterol,Calculated 147.5 mg/dL (0.0-131.0); Magnesium 2.2 mg/dL (1.5-2.4); VLDL Calculation 19.48 mg/dL (5.00-40.00)
== END | disposition home or self-care (01) ==
LOC: LABWHC1 11:33
PROVIDERS: ATTEND Internal Medicine Clinical Cardiac Electrophysiology
DX: E78.5 Hyperlipidemia, unspecified (principal); I48.0 Paroxysmal atrial fibrillation
CPT/HCPCS: 36415; 80053; 80061; 83735; 84443; 85025

== ENCOUNTER 2023-03-26 15:25 | Emergency (ER) | payer OTHER ==
[2023-03-26 16:00] VITALS: TEMP 98.1
[2023-03-26] MEDS ORDERED: LIDOCAINE 5% PATCH TOPICAL STA (18:04)
[2023-03-26] MEDS ORDERED: HYDROcodone/APAP 5-325MG 1 EACH TAB PO STA (18:04)
[2023-03-26] MEDS ORDERED: KETOROLAC 15 MG/ML 1 ML VIAL IM STA (18:20)
--- NOTE | 2023-03-26 18:41 | CT ---
EXAMINATION TYPE: CT lumbar spine wo con CT DLP: 1525.4 mGycm, Automated exposure control for dose reduction was used. DATE OF EXAM: 03/26/2023 6:35 PM COMPARISON: Radiograph 02/16/2023. CLINICAL INDICATION:Male, 47 years old with history of pain; Chronic lower back pain. TECHNIQUE: Multiple axial images were obtained from the midportion of T11 through the sacroiliac ladarius nts. Soft tissue and bone windows in coronal and sagittal planes were obtained and reviewed Contrast used: mL of , none. Oral contrast used: none. FINDINGS: Alignment: There are 5 lumbar type vertebral bodies within normal alignment. Bone: No evidence of fracture is identified. Mild degeneration changes with osteophyte formation dis c space narrowing facet arthropathy. Findings worse at L5-S1. There is moderate to severe bilateral n eural foraminal stenosis at L5-S1. Nonfused posterior arch of L5. Discs: There is moderate to severe bilateral neural foraminal stenosis at L5-S1 and moderate bilatera l L4-L5 neural foraminal stenosis. The spinal canal is patent without evidence of significant spinal canal stenosis. Other: No gallbladder surgically absent. IMPRESSION: 1. No evidence for spinal fracture. 2. Degeneration changes worse at L5-S1 with severe bilateral neural foraminal stenosis and L4-L5 with moderate to severe bilateral neural foraminal stenosis.
[2023-03-26] MEDS ORDERED: ACET/COD 300 MG/30 MG STARTER PACK 6 TAB BTL PO STA (19:46)
--- NOTE | 2023-03-26 19:49 | ED ---
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 Wilson since emergency Department with breakthrough lower back pain. No acute injury. Describes shooting pain through both buttocks into the legs. States this is somewhat new. Denies saddle paresthesias or anesthesias. Denies any numbness. Denies urinary or bowel incontinence or retention. Denies any paralysis. History to have an MRI of his lumbar spine in the next week however due to the pain presents for further evaluation. Typically does not have this amount of pain or type of pain. - Related Data Home Medications Medication Instructions Recorded Confirmed traMADol HCL 50 mg PO Q6H PRN 01/25/22 01/25/22 Previous Rx's Medication Instructions Recorded Apixaban [Eliquis] 5 mg PO BID #180 tab 11/18/21 Cyclobenzaprine [Flexeril] 10 mg PO TID #24 tab 01/11/22 Cyclobenzaprine [Flexeril] 5 mg PO TID #90 tablet 01/31/22 HYDROcodone/APAP 10-325MG [[place] 1 tab PO Q4-6H PRN #56 tab 01/31/22 10-325] Pregabalin [Lyrica] 150 mg PO BID #60 cap 01/31/22 Sennosides/Docusate Sodium 1 each PO DAILY PRN #20 tablet 01/31/22 [Senna-S 8.6-50 mg Tablet] cefaDROXiL [Duricef] 500 mg PO Q12HR 3 Days #6 cap 01/31/22 Allergies Allergy/AdvReac Type Severity Reaction Status Date / Time No Known Allergies Allergy Verified 03/26/23 15:52 Review of Systems ROS Statement: Those systems with pertinent positive or pertinent negative responses have been documented in the HPI. Review of Systems: CONST: Denies fever EYES: Denies blurry vision ENT: Denies nasal congestion C/V: Denies Chest pain RESP: Denies shortness of breath GI: Denies abdominal pain : Denies dysuria SKIN: Denies rash. MSK: Endorses lower back pain NEURO: Denies headache ROS Other: All systems not noted in ROS Statement are negative. Past Medical History Past Medical History: No Reported History, Atrial Flutter, Sleep Apnea/CPAP/BIPAP Additional Past Medical History / Comment(s): HX of hep C, Back History of Any Multi-Drug Resistant Organisms: None Reported Past Surgical History: Cholecystectomy Additional Past Surgical History / Comment(s): Cardiac ablation, Gall bladder 2002 Past Psychological History: No Psychological Hx Reported Smoking Status: Former smoker Past Alcohol Use History: Occasional Past Drug Use History: Marijuana - Past Family History Father Family Medical History: Coronary Artery Disease (CAD) Additional Family Medical History / Comment(s): Brain tumor Mother Family Medical History: Chest Pain / Angina Additional Family Medical History / Comment(s): Breast cancer General Exam - General Exam Comments Initial Comments: General: Appears in no acute distress. HEAD: Normal with no signs of head trauma. EYES: PERRLA, EOMI, conjunctiva normal, no discharge. ENT: Hearing grossly intact, normal oropharynx. RESPIRATORY: Clear breath sounds bilaterally. No wheezes, rales, or rhonchi. C/V: Regular rate and rhythm. S1 and S2 auscultated, peripheral pulses 2+ and intact throughout ABD: Abd is soft, nontender, nondistended EXT: Normal range of motion, no obvious deformity. No midline cervical, t horacic, lumbar spine deformities. Mild distal lumbar spine tenderness to palpation in the midline. Patient states this is chronic. SKIN: No rashes or lesions observed on exposed skin. NEURO: Alert and oriented x 4. Cranial nerves II-XII intact. No focal sensory or strength deficits. GCS of 15. Limitations: no limitations Course Vital Signs 03/26/23 03/26/23 15:50 20:00 Temperature 98.1 F Pulse Rate 57 L 60 Respiratory 20 18 Rate Blood Pressure 133/89 123/83 O2 Sat by Pulse 99 94 L Oximetry Medical Decision Making - Medical Decision Making Was pt. sent in by a medical professional or institution (, PA, J[employer]NEY[employer]STIC ANALYST, urgent care, hospital, or custodial...) When possible be specific @ -No Did you speak to anyone other than the patient for history (EMS, parent, family, police, friend...)? What history was obtained from this source @ -No Did you review nursing and triage notes (agree or disagree)? Why? @ -I reviewed and agree with nursing and triage notes Were old charts reviewed (outside hosp., previous admission, EMS record, old EKG, old radiological studies, urgent care reports/EKG's, custodial records)? Report findings @ -Old charts reviewed Differential Diagnosis (chest pain, altered mental status, abdominal pain women, abdominal pain men, vaginal bleeding, weakness, fever, dyspnea, syncope, headache, dizziness, GI bleed, back pain, seizure, CVA, palpatations, mental health, musculoskeletal)? @ -Differential Back Pain: Strain, zoster, cauda equina syndrome, epidural abscess, vertebral osteomyelitis, discitis, fracture, subluxation, disc herniation, DJD, spinal stenosis, dissection, AAA, pancreatitis, peptic ulcer disease, pyelonephritis, kidney stone, this is not meant to be an all-inclusive list. EKG interpreted by me (3pts min.). @ -None done X-rays interpreted by me (1pt min.). @ -None done CT interpreted by me (1pt min.). @ -CT of the lumbar spine reveals degenerative changes at L5-S1 with bilateral foraminal stenosis consistent with his pain. U/S interpreted by me (1pt. min.). @ -None done What testing was considered but not performed or refused? (CT, X-rays, U/S, labs)? Why? @ -None What meds were considered but not given or refused? Why? @ -None Did you discuss the management of the patient with other professionals (professionals i.e. , PA, JOURNEY[employer] LEVEL ACOUSTIC ANALYST, lab, RT, psych nurse, social service director, chief of party, teacher, environmental officer, immigration case worker)? Give summary @ -No Was smoking cessation discussed for >3mins.? @ -No Was critical care preformed (if so, how long)? @ -No Were there social determinants of health that impacted care today? How? (Homelessness, low income, unemployed, alcoholism, drug addiction, transportation, low edu. Level, literacy, decrease access to med. care, long-term, rehab)? @ -No Was there de-escalation of care discussed even if they declined (Discuss DNR or withdrawal of care, Hospice)? DNR status @ -No What co-morbidities impacted this encounter? (DM, HTN, Smoking, COPD, CAD, Cancer, CVA, ARF, Chemo, Hep., AIDS, mental health diagnosis, sleep apnea, morb id obesity)? @ -None Was patient admitted / discharged? Hospital course, mention meds given and route, prescriptions, significant lab abnormalities, going to OR and other pertinent info. @ -Based on the patient's presentation physical exam, I did offer the patient CT imaging which he accepted. No evidence of cauda equina at this time. Vital signs are within acceptable limits. He will be provided analgesia control with Toradol, lidocaine patch, Irvona. CT imaging shows degenerative changes with foraminal stenosis bilaterally likely causing his symptoms. Discussed this with the patient. He expressed understanding. He will continue with follow-up with MRI and follow-up with his surgeon Dr. Wilson. He is feeling improved at this time. I instructed the patient to follow up with their PCP in the next 1-3 days. I explained that the patient should return to the emergency department if they experience any worsening symptoms. Strict return precautions were discussed with the patient. The patient expressed understanding of these instructions. I answered all questions that the patient had. The patient was discharged home in good condition with their prescriptions and follow up information. Undiagnosed new problem with uncertain prognosis? @ -No Drug Therapy requiring intensive monitoring for toxicity (Heparin, Nitro, Insulin, Cardizem)? @ -No Were any procedures done? @ -No Diagnosis/symptom? @ -Low back pain, radiculopathy Acute, or Chronic, or Acute on Chronic? @ -Acute Uncomplicated (without systemic symptoms) or Complicated (systemic symptoms)? @ -Uncomplicated Side effects of treatment? @ -No Exacerbation, Progression, or Severe Exacerbation? @ -No Poses a threat to life or bodily function? How? (Chest pain, [place], [place], pneumonia, PE, COPD, DKA, ARF, appy, cholecystitis, CVA, Diverticulitis, Homicidal, Suicidal, threat to staff... and all critical care pts) @ -No Disposition Clinical Impression: Radiculopathy, Back pain Disposition: HOME SELF-CARE Condition: Good Instructions (If sedation given, give patient instructions): Acute Low Back Pain (ED) Is patient prescribed a controlled substance at d/c from ED?: No Referrals: Rafael Dinero MD [Primary Care Provider] - 1-2 days Goodmanson,Justin, DO [Doctor of Osteopathic Medicine] - 1-2 days Time of Disposition: 19:48
[2023-03-26 20:07] VITALS: BP 123/83; PULSE 60; RESP 18
== END 2023-03-26 20:01 | disposition home or self-care (01) ==
LOC: EC 15:25
DX: M54.10 Radiculopathy, site unspecified (principal); M51.37 Other intervertebral disc degeneration, lumbosacral region; M48.061 Spinal stenosis, lumbar region without neurogenic claudication; G47.30 Sleep apnea, unspecified; F12.90 Cannabis use, unspecified, uncomplicated; Z87.891 Personal history of nicotine dependence; Z90.49 Acquired absence of other specified parts of digestive tract
CPT/HCPCS: 72131; 99284; 96372; J1885

== ENCOUNTER 2023-03-28 19:04 | Emergency (ER) | payer OTHER ==
--- NOTE | 2023-03-28 19:16 | ED ---
Back Pain HPI - General Source: patient, RN notes reviewed Mode of arrival: ambulatory Limitations: no limitations - History of Present Illness MD Complaint: back pain <Delmy Trammell - Last Filed: 03/28/23 20:13> <Joseph Mtz - Last Filed: 03/28/23 23:11> - General Chief Complaint: Back Pain/Injury Stated Complaint: pain in lower spine/hip/back area Time Seen by Provider: 03/28/23 19:07 - History of Present Illness Initial Comments: This is a 47 year old male who presents to the emergency department for lower back pain. Reports a history of chronic lower back pain that has been worsening over the last few days. This starts in the lower back and goes down both of his legs. Denies any loss of bowel/bladder control or saddle anesthesia. He was evaluated here for this 2 days ago as well. He was supposed to have an MRI, however this was denied by his insurance. (Delmy Trammell) 47-year-old male presenting with chief complaint of low back pain. Patient has history of chronic lower back pain for which he follows with Dr. Wilson. No new injury or trauma. Pain goes across the lower back with radiation down the left leg. No loss of bowel or bladder control or saddle paresthesia. Patient was seen here 2 days ago and received lumbar spine CT. He states he was supposed to receive an MRI but was declined by insurance. He is waiting to get in with Dr. Wilson after he returns from being on the office. No abdominal pain, dysuria, hematuria, fever, chills (Joseph Mtz) - Related Data Home Medications Medication Instructions Recorded Confirmed traMADol HCL 50 mg PO Q6H PRN 01/25/22 01/25/22 Previous Rx's Medication Instructions Recorded Apixaban [Eliquis] 5 mg PO BID #180 tab 11/18/21 Cyclobenzaprine [Flexeril] 10 mg PO TID #24 tab 01/11/22 Cyclobenzaprine [Flexeril] 5 mg PO TID #90 tablet 01/31/22 HYDROcodone/APAP 10-325MG [[place] 1 tab PO Q4-6H PRN #56 tab 01/31/22 10-325] Pregabalin [Lyrica] 150 mg PO BID #60 cap 01/31/22 Sennosides/Docusate Sodium 1 each PO DAILY PRN #20 tablet 01/31/22 [Senna-S 8.6-50 mg Tablet] cefaDROXiL [Duricef] 500 mg PO Q12HR 3 Days #6 cap 01/31/22 methylPREDNISolone Dose Pack 4 mg PO DIRECTED #1 packet 03/28/23 [Medrol Dose Pack] Allergies Allergy/AdvReac Type Severity Reaction Status Date / Time No Known Allergies Allergy Verified 03/28/23 19:59 Review of Systems ROS Other: All systems not noted in ROS Statement are negative. <Delmy Trammell - Last Filed: 03/28/23 20:13> ROS Other: All systems not noted in ROS Statement are negative. <Joseph Mtz - Last Filed: 03/28/23 23:11> ROS Statement: Those systems with pertinent positive or pertinent negative responses have been documented in the HPI. Past Medical History Past Medical History: No Reported History, Atrial Flutter, Sleep Apnea/CPAP/BIPAP Additional Past Medical History / Comment(s): HX of hep C, Back History of Any Multi-Drug Resistant Organisms: None Reported Past Surgical History: Cholecystectomy Additional Past Surgical History / Comment(s): Cardiac ablation, Gall bladder 2002 Past Psychological History: No Psychological Hx Reported Smoking Status: Former smoker Past Alcohol Use History: Occasional Past Drug Use History: Marijuana - Past Family History Father Family Medical History: Coronary Artery Disease (CAD) Additional Family Medical History / Comment(s): Brain tumor Mother Family Medical History: Chest Pain / Angina Additional Family Medical History / Comment(s): Breast cancer <Delmy Trammell - Last Filed: 03/28/23 20:13> General Exam Limitations: no limitations <Delmy Trammell - Last Filed: 03/28/23 20:13> Limitations: no limitations General appearance: alert, in no apparent distress Head exam: Present: atraumatic, normocephalic, normal inspection Eye exam: Present: normal appearance, EOMI Neck exam: Present: normal inspection, full ROM Respiratory exam: Absent: respiratory distress Back exam: Present: normal inspection, paraspinal tenderness Neurological exam: Present: alert, oriented X3 Psychiatric exam: Present: normal affect, normal mood Skin exam: Present: warm, dry, intact, normal color. Absent: rash <Joseph Mtz - Last Filed: 03/28/23 23:11> - General Exam Comments Initial Comments: Visual Physical Exam Vital signs reviewed General: Well-appearing, nontoxic, no acute distress. Head: Normocephalic, atraumatic Eyes: PERRLA, EOMI ENT: Airway patent Chest: Nonlabored breathing Skin: No visual rash, normal skin tone Neuro: Alert and oriented 3 Musculoskeletal: No gross abnormalities (Delmy Trammell) Course Vital Signs 03/28/23 03/28/23 19:56 21:35 Temperature 98.5 F Pulse Rate 77 55 L Respiratory 20 18 Rate Blood Pressure 161/102 163/104 O2 Sat by Pulse 95 98 Oximetry Medical Decision Making <Delmy Trammell - Last Filed: 03/28/23 20:13> <Joseph Mtz - Last Filed: 03/28/23 23:11> - Medical Decision Making I performed the QuickNote portion of this chart. Signed Delmy Trammell PA-C. (Delmy Trammell) Was pt. sent in by a medical professional or institution ([facility], [employer], urgent care, hospital, or [facility]...) When possible be specific @ -No Did you speak to anyone other than the patient for history (EMS, parent, family, police, friend...)? What history was obtained from this source @ -No Did you review nursing and triage notes (agree or disagree)? Why? @ -I reviewed and agree with nursing and triage notes Were old charts reviewed (outside hosp., previous admission, EMS record, old EKG, old radiological studies, urgent care reports/EKG's, [facility] records)? Report findings @ -No old charts were reviewed Differential Diagnosis (chest pain, altered mental status, abdominal pain women, abdominal pain men, vaginal bleeding, weakness, fever, dyspnea, syncope, headache, dizziness, GI bleed, back pain, seizure, CVA, palpatations, mental health, musculoskeletal)? @ - [facility] Differential Back Pain: Strain, zoster, cauda equina syndrome, epidural abscess, vertebral osteomyelitis, discitis, fracture, subluxation, disc herniation, DJD, spinal stenosis, dissection, AAA, pancreatitis, peptic ulcer disease, pyelonephritis, kidney stone this is not meant to be an all-inclusive list. EKG interpreted by me (3pts min.). @ -As above X-rays interpreted by me (1pt min.). @ -None done CT interpreted by me (1pt min.). @ -None done U/S interpreted by me (1pt. min.). @ -None done What testing was considered but not performed or refused? (CT, X-rays, U/S, labs)? Why? @ -None What meds were considered but not given or refused? Why? @ -None Did you discuss the management of the patient with other professionals (professionals i.e. Dr., PA, [employer], lab, RT, psych nurse, social media marketer, power engineer, teacher, chemistry technical officer, telephonic case manager)? Give summary @ -No Was smoking cessation discussed for >3mins.? @ -No Was critical care preformed (if so, how long)? @ -No Were there social determinants of health that impacted care today? How? (Homelessness, low income, unemployed, alcoholism, drug addiction, transportation, low edu. Level, literacy, decrease access to med. care, usp, rehab)? @ -No Was there de-escalation of care discussed even if they declined (Discuss DNR or withdrawal of care, Hospice)? DNR status @ -No What co-morbidities impacted this encounter? (DM, HTN, Smoking, COPD, CAD, Cancer, CVA, ARF, Chemo, Hep., AIDS, mental health diagnosis, sleep apnea, morbid obesity)? @ -None Was patient admitted / discharged? Hospital course, mention meds given and route, prescriptions, significant lab abnormalities, going to OR and other pertinent info. @ -47-year-old male with history of chronic low back pain presenting with chief complaint of lower back pain. No new injury or trauma. No red flag symptoms. Patient has radiation of pain down the left leg. He recently received lumbar spine CT. He was going to get an MRI was declined by insurance. History and physical were conducted. Patient is treated with Toradol, Norflex, and Dilaudid. He is instructed to follow-up with Dr. Wilson. Follow-up with PCP. Report back to ER with any new or worsening symptoms. Discussed return parameters and answered all questions. Patient conveyed verbal understanding and agreed to the plan. I discussed this case in detail with my attending Dr. Mcfarlane Undiagnosed new problem with uncertain prognosis? @ -No Drug Therapy requiring intensive monitoring for toxicity (Heparin, Nitro, Insulin, Cardizem)? @ -No Were any procedures done? @ -No Diagnosis/symptom? @ -Lumbar radiculopathy Acute, or Chronic, or Acute on Chronic? @ -Acute Uncomplicated (without systemic symptoms) or Complicated (systemic symptoms)? @ -Uncomplicated Side effects of treatment? @ -No Exacerbation, Progression, or Severe Exacerbation? @ -No Poses a threat to life or bodily function? How? (Chest pain, [place], [place], pneumonia, PE, COPD, DKA, ARF, appy, cholecystitis, CVA, Diverticulitis, Homicidal, Suicidal, threat to staff... and all critical care pts) @ -No (Joseph Mtz) Disposition <Delmy Trammell - Last Filed: 03/28/23 20:13> Is patient prescribed a controlled substance at d/c from ED?: No Time of Disposition: 22:09 <Joseph Mtz - Last Filed: 03/28/23 23:11> Clinical Impression: Lumbar radiculopathy Disposition: HOME SELF-CARE Condition: Good Instructions (If sedation given, give patient instructions): Acute Low Back Pain (ED) Additional Instructions: Follow up with orthopedics. Report back to ER with any new or worsening symptoms. Prescriptions: methylPREDNISolone Dose Pack [Medrol Dose Pack] 4 mg PO DIRECTED #1 packet Referrals: Rafael Dinero MD [Primary Care Provider] - 1-2 days
[2023-03-28 20:13] VITALS: TEMP 98.5
[2023-03-28] MEDS ORDERED: DEXAMETHASONE SOD PHOSPHATE 10 MG/ML 1 ML VIAL IM STA (21:11)
[2023-03-28] MEDS ORDERED: KETOROLAC 15 MG/ML 1 ML VIAL IM STA (21:11)
[2023-03-28] MEDS ORDERED: ORPHENADRINE 30 MG/ML 2 ML VIAL IM STA (21:12)
[2023-03-28 21:58] VITALS: BP 163/104; PULSE 55; RESP 18
[2023-03-28] MEDS ORDERED: HYDROmorphone 1 MG/ML 1 ML SYRINGE IM STA (22:27)
[2023-03-28] MEDS ORDERED: traMADol 50 MG STARTER PACK 3 TAB BTL PO STA (22:52)
== END 2023-03-28 23:04 | disposition home or self-care (01) ==
LOC: EC 19:04
DX: M54.16 Radiculopathy, lumbar region (principal); G47.30 Sleep apnea, unspecified; F12.90 Cannabis use, unspecified, uncomplicated; Z87.891 Personal history of nicotine dependence; Z90.49 Acquired absence of other specified parts of digestive tract
CPT/HCPCS: 99283; 96372 ×3; J2360; J1170; J1885

== ENCOUNTER 2023-03-30 19:25 | Emergency (ER) | payer OTHER ==
--- NOTE | 2023-03-30 19:44 | ED ---
General Adult HPI - General Stated complaint: Revisit - Back Pain Time Seen by Provider: 03/30/23 19:42 Source: patient, RN notes reviewed - History of Present Illness Initial comments: 47-year-old male presents emergency department chief complaint of low back pain. He states that this is been going on for quite some time and he follows with Dr. Wilson for this. He states that he was here 2 days ago for this and was given medication for pain control. He had a CT at that time. He was scheduled for an MRI yesterday which he reports has been cancelled by his insurance company. He states that he has taken tramadol with no relief. He was prescribed a Medrol Dosepak which he has not picked up because he is concerned that the steroid will increase his heart rate. No red flag symptoms at this time including loss of bowel or bladder function, saddle anesthesia, fever. - Related Data Home Medications Medication Instructions Recorded Confirmed traMADol HCL 50 mg PO Q6H PRN 01/25/22 01/25/22 Previous Rx's Medication Instructions Recorded Apixaban [Eliquis] 5 mg PO BID #180 tab 11/18/21 Cyclobenzaprine [Flexeril] 10 mg PO TID #24 tab 01/11/22 Cyclobenzaprine [Flexeril] 5 mg PO TID #90 tablet 01/31/22 HYDROcodone/APAP 10-325MG [[place] 1 tab PO Q4-6H PRN #56 tab 01/31/22 10-325] Pregabalin [Lyrica] 150 mg PO BID #60 cap 01/31/22 Sennosides/Docusate Sodium 1 each PO DAILY PRN #20 tablet 01/31/22 [Senna-S 8.6-50 mg Tablet] cefaDROXiL [Duricef] 500 mg PO Q12HR 3 Days #6 cap 01/31/22 methylPREDNISolone Dose Pack 4 mg PO DIRECTED #1 packet 03/28/23 [Medrol Dose Pack] HYDROcodone/APAP 5-325MG [[place] 1 tab PO Q6HR PRN 2 Days #8 tab 03/30/23 5-325] Allergies Allergy/AdvReac Type Severity Reaction Status Date / Time No Known Allergies Allergy Verified 03/28/23 19:59 Review of Systems ROS Statement: Those systems with pertinent positive or pertinent negative responses have been documented in the HPI. ROS Other: All systems not noted in ROS Statement are negative. Past Medical History Past Medical History: No Reported History, Atrial Flutter, Sleep Apnea/CPAP/BIPAP Additional Past Medical History / Comment(s): HX of hep C, Back History of Any Multi-Drug Resistant Organisms: None Reported Past Surgical History: Cholecystectomy Additional Past Surgical History / Comment(s): Cardiac ablation, Gall bladder 2003 Past Psychological History: No Psychological Hx Reported Smoking Status: Former smoker Past Alcohol Use History: Occasional Past Drug Use History: Marijuana - Past Family History Father Family Medical History: Coronary Artery Disease (CAD) Additional Family Medical History / Comment(s): Brain tumor Mother Family Medical History: Chest Pain / Angina Additional Family Medical History / Comment(s): Breast cancer General Exam - General Exam Comments Initial Comments: Visual Physical Exam Vital signs reviewed General: Well-appearing, nontoxic, no acute distress. Head: Normocephalic, atraumatic Eyes: PERRLA, EOMI ENT: Airway patent Chest: Nonlabored breathing Skin: No visual rash, normal skin tone Neuro: Alert and oriented 3 Musculoskeletal: No gross abnormalities Limitations: no limitations General appearance: alert, in no apparent distress Head exam: Present: atraumatic, normocephalic, normal inspection Eye exam: Present: normal appearance, PERRL, EOMI. Absent: scleral icterus, conjunctival injection, periorbital swelling ENT exam: Present: normal exam, mucous membranes moist Neck exam: Present: normal inspection. Absent: tenderness, meningismus, lymphadenopathy Respiratory exam: Present: normal lung sounds bilaterally. Absent: respiratory distress, wheezes, rales, rhonchi, stridor Cardiovascular Exam: Present: regular rate, normal rhythm, normal heart sounds. Absent: systolic murmur, diastolic murmur, rubs, gallop, clicks GI/Abdominal exam: Present: soft, normal bowel sounds. Absent: distended, tenderness, guarding, rebound, rigid Extremities exam: Present: normal inspection, full ROM, normal capillary refill, other (DP and PT pulses 2+). Absent: tenderness, pedal edema, joint swelling, calf tenderness Back exam: Present: normal inspection Neurological exam: Present: alert, oriented X3 Psychiatric exam: Present: normal affect, normal mood Skin exam: Present: warm, dry, intact, normal color. Absent: rash Course Vital Signs 03/30/23 20:04 Temperature 98.2 F Pulse Rate 63 Respiratory 20 Rate Blood Pressure 152/101 O2 Sat by Pulse 95 Oximetry Medical Decision Making - Medical Decision Making Quick note preformed by Neyda Alvarenga PA-C Was pt. sent in by a medical professional or institution ([facility], REGIONAL SALES COORDINATOR, urgent care, hospital, or jail...) When possible be specific @ -No Did you speak to anyone other than the patient for history (EMS, parent, family, police, friend...)? What history was obtained from this source @ -No Did you review nursing and triage notes (agree or disagree)? Why? @ -I reviewed and agree with nursing and triage notes Were old charts reviewed (outside hosp., previous admission, EMS record, old EKG, old radiological studies, urgent care reports/EKG's, jail records)? Report findings @ -No old charts were reviewed Differential Diagnosis (chest pain, altered mental status, abdominal pain women, abdominal pain men, vaginal bleeding, weakness, fever, dyspnea, syncope, headache, dizziness, GI bleed, back pain, seizure, CVA, palpatations, mental health, musculoskeletal)? @ -Differential Back Pain: Strain, zoster, cauda equina syndrome, epidural abscess, vertebral osteomyelitis, discitis, fracture, subluxation, disc herniation, DJD, spinal stenosis, dissection, AAA, pancreatitis, peptic ulcer disease, pyelonephritis, kidney stone, this is not meant to be an all-inclusive list. EKG interpreted by me (3pts min.). @ -None X-rays interpreted by me (1pt min.). @ -None done CT interpreted by me (1pt min.). @ -None done U/S interpreted by me (1pt. min.). @ -None done What testing was considered but not performed or refused? (CT, X-rays, U/S, labs)? Why? @ -X-rays considered, patient recently had lumbar spine CT without any changes in his symptoms or new trauma What meds were considered but not given or refused? Why? @ -None Did you discuss the management of the patient with other professionals (professionals i.e. [facility] Miller, REGIONAL SALES COORDINATOR, lab, RT, psych nurse, licensed clinical social worker, epoxy specialist, teacher, chief science officer, case technician)? Give summary @ -No Was smoking cessation discussed for >3mins.? @ -No Was critical care preformed (if so, how long)? @ -No Were there social determinants of health that impacted care today? How? (Homel essness, low income, unemployed, alcoholism, drug addiction, transportation, low edu. Level, literacy, decrease access to med. care, care home, rehab)? @ -No Was there de-escalation of care discussed even if they declined (Discuss DNR or withdrawal of care, Hospice)? DNR status @ -No What co-morbidities impacted this encounter? (DM, HTN, Smoking, COPD, CAD, Cancer, CVA, ARF, Chemo, Hep., AIDS, mental health diagnosis, sleep apnea, morbid obesity)? @ -None Was patient admitted / discharged? Hospital course, mention meds given and route, prescriptions, significant lab abnormalities, going to OR and other pertinent info. @ -Discharged. Patient presented to the emergency department chief complaint of back pain. He has a history of chronic back pain and is scheduled to see Dr. Wilson on 04/06/23. He is not having breath like symptoms at this time including loss of bowel or bladder function, saddle anesthesia, fever. He reports that he is taking Tylenol 3 at home along with muscle relaxers which are not improving his symptoms. He states that his pain has not changed in character. Patient given medication for pain control. Advised to follow-up with Dr. Wilson as scheduled. Return precautions discussed. Patient understanding and agreeable with plan. Patient stable at time of discharge. Case discussed with Dr. Lozano. Undiagnosed new problem with uncertain prognosis? @ -No Drug Therapy requiring intensive monitoring for toxicity (Heparin, Nitro, Insulin, Cardizem)? @ -No Were any procedures done? @ -No Diagnosis/symptom? @ -Back pain Acute, or Chronic, or Acute on Chronic? @ -Acute Uncomplicated (without systemic symptoms) or Complicated (systemic symptoms)? @ -Uncomplicated Side effects of treatment? @ -No Exacerbation, Progression, or Severe Exacerbation? @ -No Poses a threat to life or bodily function? How? (Chest pain, [place], [place], pneumonia, PE, COPD, DKA, ARF, appy, cholecystitis, CVA, Diverticulitis, Homicidal, Suicidal, threat to staff... and all critical care pts) @ -No Disposition Clinical Impression: Back pain Disposition: HOME SELF-CARE Condition: Stable Instructions (If sedation given, give patient instructions): Acute Low Back Pain (ED) Additional Instructions: Please follow up with Dr. Wilson as scheduled. Return to the emergency department for new or worsening symptoms. Prescriptions: HYDROcodone/APAP 5-325MG [[place] 5-325] 1 tab PO Q6HR PRN 2 Days #8 tab PRN Reason: pain Is patient prescribed a controlled substance at d/c from ED?: Yes When asked, does pt state using other controlled substances?: No If prescribed controlled substance>3 days was MAPS reviewed?: Prescribed <3 Days Referrals: Rafael Dinero MD [Primary Care Provider] - 1-2 days
[2023-03-30] MEDS ORDERED: KETOROLAC 15 MG/ML 1 ML VIAL IM STA (22:31)
[2023-03-30] MEDS ORDERED: ORPHENADRINE 30 MG/ML 2 ML VIAL IM STA (22:35)
[2023-03-30] MEDS ORDERED: HYDROmorphone 1 MG/ML 1 ML SYRINGE IM STA (23:13)
[2023-03-30 23:44] VITALS: BP 125/88; PULSE 71; RESP 18; TEMP 98.4
== END 2023-03-30 23:35 | disposition home or self-care (01) ==
LOC: EC 19:25
DX: M54.50 Low back pain, unspecified (principal); G47.30 Sleep apnea, unspecified; F12.90 Cannabis use, unspecified, uncomplicated; Z87.891 Personal history of nicotine dependence; Z90.49 Acquired absence of other specified parts of digestive tract
CPT/HCPCS: 99283; 96372 ×3; J2360; J1170; J1885

== ENCOUNTER 2023-04-04 10:18 | Emergency (ER) | payer OTHER ==
--- NOTE | 2023-04-04 10:57 | ED ---
Fall HPI - General Chief Complaint: Fall Stated Complaint: Fall Time Seen by Provider: 04/04/23 10:45 Source: patient Mode of arrival: ambulatory - History of Present Illness Initial Comments: 47-year-old male with a past medical history significant for chronic back pain and follows with Dr. Wilson presents to the ED with a chief complaint of fall. Patient states this morning was in the kitchen and notes that he accidently stepped on his daughter's foot. Upon noticing this states that he lifted his left foot up. When he did this states that he lost his balance and he fell backwards onto his back and onto the left side of his hip. Denies head injury. Denies blood thinner use. Now notes pain of the left hip and worsening of chronic back pain. No incontinence or saddle anesthesia. No numbness or weakness. No chest pain or shortness of breath. No other complaints. - Related Data Home Medications Medication Instructions Recorded Confirmed traMADol HCL 50 mg PO Q6H PRN 01/25/22 01/25/22 Previous Rx's Medication Instructions Recorded Apixaban [Eliquis] 5 mg PO BID #180 tab 11/18/21 Cyclobenzaprine [Flexeril] 10 mg PO TID #24 tab 01/11/22 Cyclobenzaprine [Flexeril] 5 mg PO TID #90 tablet 01/31/22 HYDROcodone/APAP 10-325MG [[place] 1 tab PO Q4-6H PRN #56 tab 01/31/22 10-325] Pregabalin [Lyrica] 150 mg PO BID #60 cap 01/31/22 Sennosides/Docusate Sodium 1 each PO DAILY PRN #20 tablet 01/31/22 [Senna-S 8.6-50 mg Tablet] cefaDROXiL [Duricef] 500 mg PO Q12HR 3 Days #6 cap 01/31/22 methylPREDNISolone Dose Pack 4 mg PO DIRECTED #1 packet 03/28/23 [Medrol Dose Pack] HYDROcodone/APAP 5-325MG [[place] 1 tab PO Q6HR PRN 2 Days #8 tab 03/30/23 5-325] Allergies Allergy/AdvReac Type Severity Reaction Status Date / Time No Known Allergies Allergy Verified 04/04/23 10:42 Review of Systems ROS Statement: Those systems with pertinent positive or pertinent negative responses have been documented in the HPI. ROS Other: All systems not noted in ROS Statement are negative. Past Medical History Past Medical History: No Reported History, Atrial Flutter, Sleep Apnea/CPAP/BIPAP Additional Past Medical History / Comment(s): HX of hep C, Back History of Any Multi-Drug Resistant Organisms: None Reported Past Surgical History: Cholecystectomy Additional Past Surgical History / Comment(s): Cardiac ablation, Gall bladder 2003 Past Psychological History: No Psychological Hx Reported Smoking Status: Former smoker Past Alcohol Use History: Occasional Past Drug Use History: Marijuana - Past Family History Father Family Medical History: Coronary Artery Disease (CAD) Additional Family Medical History / Comment(s): Brain tumor Mother Family Medical History: Chest Pain / Angina Additional Family Medical History / Comment(s): Breast cancer General Exam Limitations: no limitations General appearance: alert, in no apparent distress Neck exam: Present: normal inspection Respiratory exam: Present: normal lung sounds bilaterally Cardiovascular Exam: Present: regular rate, normal rhythm GI/Abdominal exam: Present: soft Extremities exam: Present: other (Ambulates without significant difficulty. Strength and sensation of bilateral upper and lower extremities intact. Radial pulses 2+. DP/PT pulses 2+. Pelvis is stable on rocking. No significant pain on log roll. No shortening or rotation.) Back exam: Present: normal inspection, other (Lower lumbar spinal tenderness to palpation.) Neurological exam: Present: alert, oriented X3 Course Vital Signs 04/04/23 10:42 Temperature 98.2 F Pulse Rate 89 Respiratory 20 Rate Blood Pressure 147/100 O2 Sat by Pulse 96 Oximetry Medical Decision Making - Medical Decision Making Was pt. sent in by a medical professional or institution ([facility] Miller, DANCE COACH, urgent care, hospital, or penitentiary...) When possible be specific @ -No Did you speak to anyone other than the patient for history (EMS, parent, family, police, friend...)? What history was obtained from this source @ -No Did you review nursing and triage notes (agree or disagree)? Why? @ -I reviewed and agree with nursing and triage notes Were old charts reviewed (outside hosp., previous admission, EMS record, old EKG, old radiological studies, urgent care reports/EKG's, penitentiary records)? Report findings @ -No old charts were reviewed Differential Diagnosis (chest pain, altered mental status, abdominal pain women, abdominal pain men, vaginal bleeding, weakness, fever, dyspnea, syncope, headache, dizziness, GI bleed, back pain, seizure, CVA, palpatations, mental health, musculoskeletal)? @ -Differential Musculoskeletal Muscular strain, contusion, ligament sprain, fracture, arthritis, septic arthritis, bursitis, cellulitis, muscle spasm, nerve compression, DVT, arterial occlusion, herpes zoster, electrolyte abnormality, tumor.... This is not meant to be in all inclusive list EKG interpreted by me (3pts min.). @ -None X-rays interpreted by me (1pt min.). @ -X-ray of the pelvis and lumbar spine interpreted as showing no evidence of fracture or other acute finding. CT interpreted by me (1pt min.). @ -None done U/S interpreted by me (1pt. min.). @ -None done What testing was considered but not performed or refused? (CT, X-rays, U/S, labs)? Why? @ -None What meds were considered but not given or refused? Why? @ -None Did you discuss the management of the patient with other professionals (professionals i.e. , PA, DANCE COACH, lab, RT, psych nurse, social media community manager, cable strander, teacher, workplace rehabilitation officer, case resource manager)? Give summary @ -No Was smoking cessation discussed for >3mins.? @ -No Was critical care preformed (if so, how long)? @ -No Were there social determinants of health that impacted care today? How? (Homelessness, low income, unemployed, alcoholism, drug addiction, transportation, low edu. Level, literacy, decrease access to med. care, [facility], rehab)? @ -No Was there de-escalation of care discussed even if they declined (Discuss DNR or withdrawal of care, Hospice)? DNR status @ -No What co-morbidities impacted this encounter? (DM, HTN, Smoking, COPD, CAD, Cancer, CVA, ARF, Chemo, Hep., AIDS, mental health diagnosis, sleep apnea, morbid obesity)? @ -None Was patient admitted / discharged? Hospital course, mention meds given and route, prescriptions, significant lab abnormalities, going to OR and other pertinent info. @ -Discharged 47-year-old male presenting S/P mechanical fall presenting with left hip pain and low back pain. Imaging studies reviewed showing no evidence of fracture or other acute finding. No other symptoms at this time. Patient discharged home in stable condition and advised follow-up with his orthopedic surgeon as scheduled. Discussed return precautions w/ patient who verbalizes agreement. Undiagnosed new problem with uncertain prognosis? @ -No Drug Therapy requiring intensive monitoring for toxicity (Heparin, Nitro, Insulin, Cardizem)? @ -No Were any procedures done? @ -No Diagnosis/symptom? @ -S/p mechanical fall, low back pain, left hip pain Acute, or Chronic, or Acute on Chronic? @ -Acute Uncomplicated (without systemic symptoms) or Complicated (systemic symptoms)? @ -Uncomplicated Side effects of treatment? @ -No Exacerbation, Progression, or Severe Exacerbation? @ -No Poses a threat to life or bodily function? How? (Chest pain, [place], [place], pneumonia, PE, COPD, DKA, ARF, appy, cholecystitis, CVA, Diverticulitis, Homicidal, Suicidal, threat to staff... and all critical care pts) @ -No Disposition Clinical Impression: Fall, Hip pain, Back pain Disposition: HOME SELF-CARE Condition: Good Additional Instructions: Please return to the Emergency Department if symptoms worsen or any other concerns. Please follow up with Dr. Wilson as scheduled. Is patient prescribed a controlled substance at d/c from ED?: No Referrals: Rafael Dinero MD [Primary Care Provider] - 1-2 days Time of Disposition: 12:06
[2023-04-04] MEDS ORDERED: KETOROLAC 15 MG/ML 1 ML VIAL IM STA (10:58)
[2023-04-04 11:03] VITALS: TEMP 98.2
[2023-04-04] MEDS ORDERED: MORPHINE SULFATE 4 MG/ML SYRINGE IM STA (11:41)
--- NOTE | 2023-04-04 11:52 | XR ---
EXAMINATION TYPE: XR lumbar spine 3V, XR pelvis AP view DATE OF EXAM: 04/04/2023 Comparison: None Clinical History: 47-year-old male pain s/p fall. Findings: Lumbar spine: 5 lumbar type vertebral bodies. Hypertrophic facet arthropathy mid to lower lumbar spine. Moderate de generative disc disease L5-S1 and mild at L4-L5. Vertebral body heights are preserved and alignment i s maintained. Pelvis: SI joints appear symmetric and intact as is the pubic symphysis. There is mild degenerative spurring at the right hip but preserved joint space on both sides. No acute fracture, subluxation, or location is seen. Impression: 1. Lumbar spine: Moderate degenerative disc disease L5-S1 and mild at L4-L5. Facet arthropathy lower lumbar spine. No vertebral compression collapse or malalignment. 2. Pelvis: Mild early degenerative spurring of the right hip. No acute osseous abnormality seen.
[2023-04-04 12:39] VITALS: BP 133/80; PULSE 82; RESP 16
== END 2023-04-04 12:26 | disposition home or self-care (01) ==
LOC: EC 10:18
DX: M25.552 Pain in left hip (principal); M51.37 Other intervertebral disc degeneration, lumbosacral region; F12.90 Cannabis use, unspecified, uncomplicated; Z87.891 Personal history of nicotine dependence; W19.XXXA Unspecified fall, initial encounter; Y92.030 Kitchen in apartment as the place of occurrence of the external cause
CPT/HCPCS: 72100; 72170; 99283; 96372 ×2; J2270; J1885

== ENCOUNTER 2023-04-14 02:34 | Emergency (ER) | payer OTHER ==
[2023-04-14 02:47] VITALS: RESP 18
[2023-04-14] MEDS ORDERED: HYDROmorphone 1 MG/ML 1 ML SYRINGE IM STA (03:29)
[2023-04-14] MEDS ORDERED: LIDOCAINE 4% PATCH TOPICAL STA (03:29)
[2023-04-14] MEDS ORDERED: KETOROLAC 15 MG/ML 1 ML VIAL IM STA (03:30)
--- NOTE | 2023-04-14 05:05 | ED ---
Back Pain [facility] - General Chief Complaint: Back Pain/Injury Stated Complaint: Spine pain Time Seen by Provider: 04/14/23 02:56 Source: patient Limitations: no limitations - History of Present Illness Initial Comments: 47-year-old male with past medical history of chronic back pain who reports to the emergency department with an exacerbation of his back pain. He is a patient of Dr. Wilson. He has chronic lumbar back pain. He has had a cervical fusion. Currently he takes Flexeril for his back pain. He has been on several courses of Mills and prednisone. States he is currently out of both of these medications. Dr. Wilson wanted to get an MRI of his lower spine however this was refused by insurance. They recommended that the patient participate in physical therapy. States that he went to physical therapy yesterday and this is what exacerbated his pain. He has a numbing sensation to his low back which radiates into his posterior buttocks. He denies any saddle anesthesia. No bowel or bladder incontinence. He has been ambulatory however slow due to pain. He denies any weakness. No new trauma. Fevers. No other alleviating, precipitating or modifying factors - Related Data Home Medications Medication Instructions Recorded Confirmed traMADol HCL 50 mg PO Q6H PRN 01/25/22 01/25/22 Previous Rx's Medication Instructions Recorded Apixaban [Eliquis] 5 mg PO BID #180 tab 11/18/21 Cyclobenzaprine [Flexeril] 10 mg PO TID #24 tab 01/11/22 Cyclobenzaprine [Flexeril] 5 mg PO TID #90 tablet 01/31/22 HYDROcodone/APAP 10-325MG [Mills 1 tab PO Q4-6H PRN #56 tab 01/31/22 10-325] Pregabalin [Lyrica] 150 mg PO BID #60 cap 01/31/22 Sennosides/Docusate Sodium 1 each PO DAILY PRN #20 tablet 01/31/22 [Senna-S 8.6-50 mg Tablet] cefaDROXiL [Duricef] 500 mg PO Q12HR 3 Days #6 cap 01/31/22 methylPREDNISolone Dose Pack 4 mg PO DIRECTED #1 packet 03/28/23 [Medrol Dose Pack] HYDROcodone/APAP 5-325MG [Mills 1 tab PO Q6HR PRN 2 Days #8 tab 03/30/23 5-325] HYDROcodone/APAP 10-325MG [Mills 1 tab PO Q4HR PRN 3 Days #18 tab 04/14/23 10-325] Allergies Allergy/AdvReac Type Severity Reaction Status Date / Time No Known Allergies Allergy Verified 04/14/23 02:40 Review of Systems ROS Statement: Those systems with pertinent positive or pertinent negative responses have been documented in the HPI. ROS Other: All systems not noted in ROS Statement are negative. Past Medical History Past Medical History: Atrial Flutter, Sleep Apnea/CPAP/BIPAP Additional Past Medical History / Comment(s): HX of hep C, Back pain History of Any Multi-Drug Resistant Organisms: None Reported Past Surgical History: Cholecystectomy Additional Past Surgical History / Comment(s): Cardiac ablation, Gall bladder 2003 Past Psychological History: No Psychological Hx Reported Smoking Status: Former smoker Past Alcohol Use History: Occasional Past Drug Use History: Marijuana - Past Family History Father Family Medical History: Coronary Artery Disease (CAD) Additional Family Medical History / Comment(s): Brain tumor Mother Family Medical History: Chest Pain / Angina Additional Family Medical History / Comment(s): Breast cancer General Exam Limitations: no limitations General appearance: alert, in no apparent distress Head exam: Present: atraumatic, normocephalic, normal inspection Eye exam: Present: normal appearance, PERRL, EOMI. Absent: scleral icterus, conjunctival injection, periorbital swelling ENT exam: Present: normal exam, mucous membranes moist Neck exam: Present: normal inspection. Absent: tenderness, meningismus, lymphadenopathy Respiratory exam: Present: normal lung sounds bilaterally. Absent: respiratory distress, wheezes, rales, rhonchi, stridor Cardiovascular Exam: Present: regular rate, normal rhythm, normal heart sounds. Absent: systolic murmur, diastolic murmur, rubs, gallop, clicks GI/Abdominal exam: Present: soft, normal bowel sounds. Absent: distended, tenderness, guarding, rebound, rigid Extremities exam: Present: normal inspection, full ROM, normal capillary refill. Absent: tenderness, pedal edema, joint swelling, calf tenderness Back exam: Present: paraspinal tenderness (Over lumbar spine. 5/5 muscle strength in the bilateral lower externally is to include the hip flexors, knee extensors, ankle and great toe dorsiflexors and foot plantar flexors. Intact sensation over the medial, lateral dorsal aspects of the lower extremities) Neurological exam: Present: alert, oriented X3, CN II-XII intact Psychiatric exam: Present: normal affect, normal mood Skin exam: Present: warm, dry, intact, normal color. Absent: rash Course Vital Signs 04/14/23 04/14/23 02:40 05:09 Temperature 97.6 F 98.2 F Pulse Rate 96 92 Respiratory 18 18 Rate Blood Pressure 133/99 128/92 O2 Sat by Pulse 98 98 Oximetry Medical Decision Making - Medical Decision Making Was pt. sent in by a medical professional or institution (, PA, MEDICAL LABORATORY TECHNICAL OFFICER, urgent care, hospital, or skilled nursing...) When possible be specific @ -No Did you speak to anyone other than the patient for history (EMS, parent, family, police, friend...)? What history was obtained from this source @ -No Did you review nursing and triage notes (agree or disagree)? Why? @ -I reviewed and agree with nursing and triage notes Were old charts reviewed (outside hosp., previous admission, EMS record, old EKG, old radiological studies, urgent care reports/EKG's, skilled nursing records)? Report findings @ -No old charts were reviewed Differential Diagnosis (chest pain, altered mental status, abdominal pain women, abdominal pain men, vaginal bleeding, weakness, fever, dyspnea, syncope, headache, dizziness, GI bleed, back pain, seizure, CVA, palpatations, mental health, musculoskeletal)? @ -Differential Back Pain: Strain, zoster, cauda equina syndrome, epidural abscess, vertebral osteomyelitis, discitis, fracture, subluxation, disc herniation, DJD, spinal stenosis, dissection, AAA, pancreatitis, peptic ulcer disease, pyelonephritis, kidney stone, this is not meant to be an all-inclusive list. EKG interpreted by me (3pts min.). @ -Not done X-rays interpreted by me (1pt min.). @ -None done CT interpreted by me (1pt min.). @ -None done U/S interpreted by me (1pt. min.). @ -None done What testing was considered but not performed or refused? (CT, X-rays, U/S, labs)? Why? @ -None What meds were considered but not given or refused? Why? @ -None Did you discuss the management of the patient with other professionals (professionals i.e. , PA, MEDICAL LABORATORY TECHNICAL OFFICER, lab, RT, psych nurse, social science teacher, dice person, teacher, earth science technical officer, director of casework)? Give summary @ -No Was smoking cessation discussed for >3mins.? @ -No Was critical care preformed (if so, how long)? @ -No Were there social determinants of health that impacted care today? How? (Homelessness, low income, unemployed, alcoholism, drug addiction, transportation, low edu. Level, literacy, decrease access to med. care, senior living, rehab)? @ -No Was there de-escalation of care discussed even if they declined (Discuss DNR or withdrawal of care, Hospice)? DNR status @ -No What co-morbidities impacted this encounter? (DM, HTN, Smoking, COPD, CAD, Cancer, CVA, ARF, Chemo, Hep., AIDS, mental health diagnosis, sleep apnea, morbid obesity)? @ -Chronic lumbar back pain Was patient admitted / discharged? Hospital course, mention meds given and route, prescriptions, significant lab abnormalities, going to OR and other pertinent info. @ -Discharged. Upon arrival patient was placed into room 11. Thorough history and physical exam was performed. Patient has no new trauma. Denies symptoms consistent with his chronic back pain however worsened due to recent pertussis patient in physical therapy. Patient requesting pain control. He was given 1 mg IM dilaudid, 15 mg of Toradol and a Lidoderm patch. Reevaluation demonstrates that the patient does have improvement in his symptoms. At this time we did discuss the treatment plan - he is agreeable to a short course of norco. Recommended continuing anti-inflammatories. He will follow up with his orthopedic landscape specialist for further management. Return for any new or worsening symptoms. Patient was agreeable to plan and he was discharged in stable condition Undiagnosed new problem with uncertain prognosis? @ -No Drug Therapy requiring intensive monitoring for toxicity (Heparin, Nitro, Insulin, Cardizem)? @ -No Were any procedures done? @ -No Diagnosis/symptom? @ -acute exacerbation of chronic back pain Acute, or Chronic, or Acute on Chronic? @ -acute on chronic Uncomplicated (without systemic symptoms) or Complicated (systemic symptoms)? @ -Complicated Side effects of treatment? @ -No Exacerbation, Progression, or Severe Exacerbation? @ -yes Poses a threat to life or bodily function? How? (Chest pain, [place], [place], pneumonia, PE, COPD, DKA, ARF, appy, cholecystitis, CVA, Diverticulitis, Homicidal, Suicidal, threat to staff... and all critical care pts) @ -No Disposition Clinical Impression: Back pain Disposition: HOME SELF-CARE Condition: Stable Instructions (If sedation given, give patient instructions): Acute Low Back Pain (ED) Additional Instructions: Please take the pain medications as directed. Follow up with Dr. Wilson and return for any new or worsening symptoms Prescriptions: HYDROcodone/APAP 10-325MG [Mills 10-325] 1 tab PO Q4HR PRN 3 Days #18 tab PRN Reason: Pain Is patient prescribed a controlled substance at d/c from ED?: Yes When asked, does pt state using other controlled substances?: No If prescribed controlled substance>3 days was MAPS reviewed?: Prescribed <3 Days If opioid is for acute pain is fill amount 7 days or less?: No Referrals: Rafael Dinero MD [Primary Care Provider] - 1-2 days Time of Disposition: 05:05
[2023-04-14 05:31] VITALS: BP 128/92; PULSE 92; TEMP 98.2
== END 2023-04-14 05:11 | disposition home or self-care (01) ==
LOC: EC 02:34
DX: G89.29 Other chronic pain (principal); M54.50 Low back pain, unspecified; G47.30 Sleep apnea, unspecified; F12.90 Cannabis use, unspecified, uncomplicated; Z87.891 Personal history of nicotine dependence; Z90.49 Acquired absence of other specified parts of digestive tract
CPT/HCPCS: 99283; 96372 ×2; J1170; J1885

== ENCOUNTER 2023-04-29 05:57 | Emergency (ER) | payer OTHER ==
[2023-04-29] MEDS ORDERED: LIDOCAINE 4% PATCH TOPICAL ONE (06:06)
[2023-04-29] MEDS ORDERED: KETOROLAC 15 MG/ML 1 ML VIAL IVP STA (06:06)
[2023-04-29] MEDS ORDERED: HYDROmorphone 1 MG/ML 1 ML SYRINGE IM STA (06:16)
[2023-04-29] MEDS ORDERED: KETOROLAC 15 MG/ML 1 ML VIAL IM STA (06:16)
--- NOTE | 2023-04-29 06:20 | ED ---
General Adult HPI - General Chief complaint: Back Pain/Injury Stated complaint: Pain in legs and spine Time Seen by Provider: 04/29/23 06:04 Source: patient, RN notes reviewed Mode of arrival: ambulatory Limitations: no limitations - History of Present Illness Initial comments: 47 year old male with a past medical history significant for chronic back pain presents to the nearest emergency department with a chief complaint of back pain. He describes his pain is chronic in nature. He denies any new trauma or injury. He denies any fever, saddle paresthesia or loss of bowel or bladder function. Patient reports that he is in between this orthopedist doctor and insurance company in order and is care for his chronic back pain. Patient verbalizes that he here for pain management. - Related Data Home Medications Medication Instructions Recorded Confirmed traMADol HCL 50 mg PO Q6H PRN 01/25/22 01/25/22 Previous Rx's Medication Instructions Recorded Apixaban [Eliquis] 5 mg PO BID #180 tab 11/18/21 Cyclobenzaprine [Flexeril] 10 mg PO TID #24 tab 01/11/22 Cyclobenzaprine [Flexeril] 5 mg PO TID #90 tablet 01/31/22 HYDROcodone/APAP 10-325MG [Hollywood 1 tab PO Q4-6H PRN #56 tab 01/31/22 10-325] Pregabalin [Lyrica] 150 mg PO BID #60 cap 01/31/22 Sennosides/Docusate Sodium 1 each PO DAILY PRN #20 tablet 01/31/22 [Senna-S 8.6-50 mg Tablet] cefaDROXiL [Duricef] 500 mg PO Q12HR 3 Days #6 cap 01/31/22 methylPREDNISolone Dose Pack 4 mg PO DIRECTED #1 packet 03/28/23 [Medrol Dose Pack] HYDROcodone/APAP 5-325MG [Hollywood 1 tab PO Q6HR PRN 2 Days #8 tab 03/30/23 5-325] HYDROcodone/APAP 10-325MG [Hollywood 1 tab PO Q4HR PRN 3 Days #18 tab 04/14/23 10-325] HYDROcodone/APAP 10-325MG [Hollywood 1 tab PO Q4-6H PRN 3 Days #3 tab 04/29/23 10-325] Allergies Allergy/AdvReac Type Severity Reaction Status Date / Time No Known Allergies Allergy Verified 04/29/23 06:06 Review of Systems ROS Statement: Those systems with pertinent positive or pertinent negative responses have been documented in the HPI. ROS Other: All systems not noted in ROS Statement are negative. Past Medical History Past Medical History: Atrial Flutter, Sleep Apnea/CPAP/BIPAP Additional Past Medical History / Comment(s): HX of hep C, Back pain History of Any Multi-Drug Resistant Organisms: None Reported Past Surgical History: Cholecystectomy Additional Past Surgical History / Comment(s): Cardiac ablation, Gall bladder 20 Past Psychological History: No Psychological Hx Reported Smoking Status: Former smoker Past Alcohol Use History: Occasional Past Drug Use History: Marijuana - Past Family History Father Family Medical History: Coronary Artery Disease (CAD) Additional Family Medical History / Comment(s): Brain tumor Mother Family Medical History: Chest Pain / Angina Additional Family Medical History / Comment(s): Breast cancer General Exam - General Exam Comments Initial Comments: General: Alert, in no acute distress Head: atraumatic normocephalic. Eyes PERRL, EOMI intact, mucous membranes moist Respiratory: Lungs clear to auscultation bilaterally Cardiovascular: regular rate rhythm and rate Abdominal: Soft without guarding or rebound Extremities: Normal inspection with full range of motion and normal capillary refill Neuroogic: alert and oriented 3, CN II-XII intact, able to ambulate with steady gait Skin: warm dry and intact with normal color Limitations: no limitations Course Vital Signs 04/29/23 06:05 Temperature 98.7 F Pulse Rate 70 Respiratory 18 Rate Blood Pressure 192/91 O2 Sat by Pulse 96 Oximetry Medical Decision Making - Medical Decision Making Was pt. sent in by a medical professional or institution (, PA, QUALITY PROCESS ENGINEER, urgent care, hospital, or fci...) When possible be specific @ -[No] Did you speak to anyone other than the patient for history (EMS, parent, family, police, friend...)? What history was obtained from this source @ -[No] Did you review nursing and triage notes (agree or disagree)? Why? @ -[I reviewed and agree with nursing and triage notes] Were old charts reviewed (outside hosp., previous admission, EMS record, old EKG, old radiological studies, urgent care reports/EKG's, fci records)? Report findings @ -[No old charts were reviewed] Differential Diagnosis (chest pain, altered mental status, abdominal pain women, abdominal pain men, vaginal bleeding, weakness, fever, dyspnea, syncope, headache, dizziness, GI bleed, back pain, seizure, CVA, palpatations, mental health, musculoskeletal)? @ -[not applicable] EKG interpreted by me (3pts min.). @ -[As above] X-rays interpreted by me (1pt min.). @ -[None done] CT interpreted by me (1pt min.). @ -[None done] U/S interpreted by me (1pt. min.). @ -[None done] What testing was considered but not performed or refused? (CT, X-rays, U/S, labs)? Why? @ -[None] What meds were considered but not given or refused? Why? @ -[None] Did you discuss the management of the patient with other professionals (professionals i.e. , PA, QUALITY PROCESS ENGINEER, lab, RT, psych nurse, social work administrator, damascener, teacher, bomb squad officer, rehabilitation case coordinator)? Give summary @ -[No] Was smoking cessation discussed for >3mins.? @ -[No] Was critical care preformed (if so, how long)? @ -[No] Were there social determinants of health that impacted care today? How? (Homelessness, low income, unemployed, alcoholism, drug addiction, transportation, low edu. Level, literacy, decrease access to med. care, long-term, rehab)? @ -[No] Was there de-escalation of care discussed even if they declined (Discuss DNR or withdrawal of care, Hospice)? DNR status @ -[No] What co-morbidities impacted this encounter? (DM, HTN, Smoking, COPD, CAD, Cancer, CVA, ARF, Chemo, Hep., AIDS, mental health diagnosis, sleep apnea, morbid obesity)? @ -[None] Was patient admitted / discharged? Hospital course, mention meds given and route, prescriptions, significant lab abnormalities, going to OR and other pertinent info. @ -Discharged. This is a 47-year-old male who presents the emergency department the chief complaint of back pain. Patient history and physical exam performed. Physical exam unremarkable. Heart rate regular rate and rhythm, lungs clear to auscultation bilaterally abdomen soft and nontender. There is no focal neuro deficits noted exam. On exam. Patient given Dilaudid with symptomatic improvement. Return precautions discussed at length. Case is discussed with Dr. Hopkins, ED attending who agrees and Undiagnosed new problem with uncertain prognosis? @ -[No] Drug Therapy requiring intensive monitoring for toxicity (Heparin, Nitro, Insulin, Cardizem)? @ -[No] Were any procedures done? @ -[No] Diagnosis/symptom? @ -Back Pain Acute, or Chronic, or Acute on Chronic? @ -Acute Uncomplicated (without systemic symptoms) or Complicated (systemic symptoms)? @ -Unocmplicated Side effects of treatment? @ -[No] Exacerbation, Progression, or Severe Exacerbation? @ -[No] Poses a threat to life or bodily function? How? (Chest pain, [place], [place], pneumonia, PE, COPD, DKA, ARF, appy, cholecystitis, CVA, Diverticulitis, Homicidal, Suicidal, threat to staff... and all critical care pts) @ -low likelihood Disposition Clinical Impression: Back pain Disposition: HOME SELF-CARE Condition: Stable Instructions (If sedation given, give patient instructions): Acute Low Back Pain (ED) Additional Instructions: PLease monitor you symptoms closely Please follow up with Dr. Delatorre's offices within 1-2 days Please return to the nearest emergency department if worsening pain or worsening symptoms develop Prescriptions: HYDROcodone/APAP 10-325MG [Hollywood 10-325] 1 tab PO Q4-6H PRN 3 Days #3 tab PRN Reason: Pain Is patient prescribed a controlled substance at d/c from ED?: No Referrals: Rafael Dinero MD [Primary Care Provider] - 1-2 days Justin Wilson DO [Doctor of Osteopathic Medicine] - 1-2 days Time of Disposition: 06:20
[2023-04-29 06:22] VITALS: BP 192/91; PULSE 70; RESP 18; TEMP 98.7
== END 2023-04-29 06:52 | disposition home or self-care (01) ==
LOC: EC 05:57
DX: M54.50 Low back pain, unspecified (principal); G47.30 Sleep apnea, unspecified; F12.90 Cannabis use, unspecified, uncomplicated; Z87.891 Personal history of nicotine dependence; Z90.49 Acquired absence of other specified parts of digestive tract
CPT/HCPCS: 99283; 96372 ×2; J1170; J1885

== ENCOUNTER 2023-05-01 03:48 | Emergency (ER) | payer OTHER ==
[2023-05-01] MEDS ORDERED: KETOROLAC 15 MG/ML 1 ML VIAL IM STA (04:04)
[2023-05-01] MEDS ORDERED: HYDROmorphone 1 MG/ML 1 ML SYRINGE IM STA (04:04)
[2023-05-01 04:09] VITALS: BP 146/90; PULSE 87; RESP 18; TEMP 98.5
--- NOTE | 2023-05-01 04:09 | ED ---
General Adult HPI - General Chief complaint: Back Pain/Injury Stated complaint: Spine and leg pain Time Seen by Provider: 05/01/23 03:50 Source: patient, RN notes reviewed, old records reviewed Mode of arrival: ambulatory Limitations: no limitations - History of Present Illness Initial comments: 47-year-old male with chronic back pain. Patient presents to the emergency department with request for pain management for chronic back pain. Patient states he is awaiting MRI and has followed closely with orthopedic spine surgery regarding this chronic issue. He states he's has lumbar back pain with radicular symptoms into both legs. No bowel or bladder incontinence. He is ambulatory. He does state this is a chronic issue but his home medications are not adequately treating his pain. He states that he has attempted physical therapy and is currently awaiting scheduled MRI. - Related Data Home Medications Medication Instructions Recorded Confirmed traMADol HCL 50 mg PO Q6H PRN 01/25/22 01/25/22 Previous Rx's Medication Instructions Recorded Apixaban [Eliquis] 5 mg PO BID #180 tab 11/18/21 Cyclobenzaprine [Flexeril] 10 mg PO TID #24 tab 01/11/22 Cyclobenzaprine [Flexeril] 5 mg PO TID #90 tablet 01/31/22 HYDROcodone/APAP 10-325MG [[place] 1 tab PO Q4-6H PRN #56 tab 01/31/22 10-325] Pregabalin [Lyrica] 150 mg PO BID #60 cap 01/31/22 Sennosides/Docusate Sodium 1 each PO DAILY PRN #20 tablet 01/31/22 [Senna-S 8.6-50 mg Tablet] cefaDROXiL [Duricef] 500 mg PO Q12HR 3 Days #6 cap 01/31/22 methylPREDNISolone Dose Pack 4 mg PO DIRECTED #1 packet 03/28/23 [Medrol Dose Pack] HYDROcodone/APAP 5-325MG [[place] 1 tab PO Q6HR PRN 2 Days #8 tab 03/30/23 5-325] HYDROcodone/APAP 10-325MG [[place] 1 tab PO Q4HR PRN 3 Days #18 tab 04/14/23 10-325] HYDROcodone/APAP 10-325MG [[place] 1 tab PO Q4-6H PRN 3 Days #3 tab 04/29/23 10-325] Ibuprofen [Motrin] 600 mg PO Q8HR PRN #24 tab 05/01/23 Allergies Allergy/AdvReac Type Severity Reaction Status Date / Time No Known Allergies Allergy Verified 05/01/23 03:53 Review of Systems ROS Statement: Those systems with pertinent positive or pertinent negative responses have been documented in the HPI. ROS Other: All systems not noted in ROS Statement are negative. Past Medical History Past Medical History: Atrial Flutter, Sleep Apnea/CPAP/BIPAP Additional Past Medical History / Comment(s): HX of hep C, Back pain History of Any Multi-Drug Resistant Organisms: None Reported Past Surgical History: Cholecystectomy Additional Past Surgical History / Comment(s): Cardiac ablation, Gall bladder 2003 Past Psychological History: No Psychological Hx Reported Smoking Status: Former smoker Past Alcohol Use History: Occasional Past Drug Use History: Marijuana - Past Family History Father Family Medical History: Coronary Artery Disease (CAD) Additional Family Medical History / Comment(s): Brain tumor Mother Family Medical History: Chest Pain / Angina Additional Family Medical History / Comment(s): Breast cancer General Exam Limitations: no limitations General appearance: alert, in no apparent distress Head exam: Present: atraumatic, normocephalic Eye exam: Present: normal appearance, PERRL ENT exam: Present: normal exam Neck exam: Present: normal inspection Respiratory exam: Present: normal lung sounds bilaterally. Absent: respiratory distress, wheezes Cardiovascular Exam: Present: regular rate, normal rhythm Extremities exam: Present: normal inspection Back exam: Present: paraspinal tenderness Neurological exam: Present: reflexes normal Psychiatric exam: Present: normal affect, normal mood Skin exam: Present: warm, dry, intact Course Vital Signs 05/01/23 03:52 Temperature 98.5 F Pulse Rate 87 Respiratory 18 Rate Blood Pressure 146/90 O2 Sat by Pulse 96 Oximetry - Reevaluation(s) Reevaluation #1: 05/01/23 04:09 Patient states his is driving Medical Decision Making - Medical Decision Making Was pt. sent in by a medical professional or institution (, PA, PORT TRAFFIC MANAGER, urgent care, hospital, or fdc...) When possible be specific @ -No Did you speak to anyone other than the patient for history (EMS, parent, family, police, friend...)? What history was obtained from this source @ -No Did you review nursing and triage notes (agree or disagree)? Why? @ -I reviewed and agree with nursing and triage notes Were old charts reviewed (outside hosp., previous admission, EMS record, old EKG, old radiological studies, urgent care reports/EKG's, fdc records)? Report findings @ -No old charts were reviewed Differential Diagnosis (chest pain, altered mental status, abdominal pain women, abdominal pain men, vaginal bleeding, weakness, fever, dyspnea, syncope, headache, dizziness, GI bleed, back pain, seizure, CVA, palpatations, mental health, musculoskeletal)? @ -Differential Musculoskeletal Muscular strain, contusion, ligament sprain, fracture, arthritis, septic arthritis, bursitis, cellulitis, muscle spasm, nerve compression, DVT, arterial occlusion, herpes zoster, electrolyte abnormality, tumor.... This is not meant to be in all inclusive list EKG interpreted by me (3pts min.). @ -As above X-rays interpreted by me (1pt min.). @ -None done CT interpreted by me (1pt min.). @ -None done U/S interpreted by me (1pt. min.). @ -None done What testing was considered but not performed or refused? (CT, X-rays, U/S, labs)? Why? @ -None What meds were considered but not given or refused? Why? @ -None Did you discuss the management of the patient with other professionals (professionals i.e. , PA, PORT TRAFFIC MANAGER, lab, RT, psych nurse, social media designer, die sinker, teacher, disability liaison officer, pillowcase folder)? Give summary @ -No Was smoking cessation discussed for >3mins.? @ -No Was critical care preformed (if so, how long)? @ -No Were there social determinants of health that impacted care today? How? (Homelessness, low income, unemployed, alcoholism, drug addiction, transportation, low edu. Level, literacy, decrease access to med. care, alf, rehab)? @ -No Was there de-escalation of care discussed even if they declined (Discuss DNR or withdrawal of care, Hospice)? DNR status @ -No What co-morbidities impacted this encounter? (DM, HTN, Smoking, COPD, CAD, Cancer, CVA, ARF, Chemo, Hep., AIDS, mental health diagnosis, sleep apnea, morbid obesity)? @ chronic back pain Was patient admitted / discharged? Hospital course, mention meds given and route, prescriptions, significant lab abnormalities, going to OR and other pertinent info. @ -47-year-old male requesting treatment of chronic back pain. Patient has good follow-up as an outpatient, no red flag symptoms, no new injuries. No feve r. Undiagnosed new problem with uncertain prognosis? @ -No Drug Therapy requiring intensive monitoring for toxicity (Heparin, Nitro, Insulin, Cardizem)? @ -No Were any procedures done? @ -No Diagnosis/symptom? @ -[chronic back pain Acute, or Chronic, or Acute on Chronic? @ -[chronic Uncomplicated (without systemic symptoms) or Complicated (systemic symptoms)? @ -default Side effects of treatment? @ -No Exacerbation, Progression, or Severe Exacerbation? @ -No Poses a threat to life or bodily function? How? (Chest pain, [place], [place], pneumonia, PE, COPD, DKA, ARF, appy, cholecystitis, CVA, Diverticulitis, Homicidal, Suicidal, threat to staff... and all critical care pts) @ -No Disposition Clinical Impression: Back pain Disposition: HOME SELF-CARE Condition: Fair Instructions (If sedation given, give patient instructions): Acute Low Back Pain (ED) Prescriptions: Ibuprofen [Motrin] 600 mg PO Q8HR PRN #24 tab PRN Reason: Pain Is patient prescribed a controlled substance at d/c from ED?: No Referrals: Rafael Dinero MD [Primary Care Provider] - 1-2 days Justin Wilson DO [Doctor of Osteopathic Medicine] - 1-2 days Time of Disposition: 04:08
== END 2023-05-01 04:41 | disposition home or self-care (01) ==
LOC: EC 03:48
DX: G89.29 Other chronic pain (principal); M54.9 Dorsalgia, unspecified; G47.30 Sleep apnea, unspecified; F12.90 Cannabis use, unspecified, uncomplicated; Z87.891 Personal history of nicotine dependence
CPT/HCPCS: 99283; 96372 ×2; J1170; J1885

== ENCOUNTER 2023-05-04 00:28 | Emergency (ER) | payer OTHER ==
[2023-05-04] MEDS ORDERED: KETOROLAC 15 MG/ML 1 ML VIAL IM STA (00:46)
[2023-05-04] MEDS ORDERED: ACET/COD 300 MG/30 MG STARTER PACK 6 TAB BTL PO STA (00:46)
[2023-05-04] MEDS ORDERED: HYDROmorphone 0.5 MG/0.5 ML SYRINGE IM STA (00:46)
--- NOTE | 2023-05-04 00:47 | ED ---
General Adult HPI - General Stated complaint: Back pain Time Seen by Provider: 05/04/23 00:39 - History of Present Illness Initial comments: 47-year-old male with a history of chronic back pain currently follows with Dr. Goodman mcdowell and currently has MRI pending presenting to the ED for the chief complaint of back pain. Patient states earlier today was moving some stuff and slipped. States that he was able to catch himself but during this states that he twisted his body and now has pain across his lower back. No incontinence or saddle anesthesia. No fever. No history of IV drug use. No other complaints. - Related Data Home Medications Medication Instructions Recorded Confirmed traMADol HCL 50 mg PO Q6H PRN 01/25/22 01/25/22 Previous Rx's Medication Instructions Recorded Apixaban [Eliquis] 5 mg PO BID #180 tab 11/18/21 Cyclobenzaprine [Flexeril] 10 mg PO TID #24 tab 01/11/22 Cyclobenzaprine [Flexeril] 5 mg PO TID #90 tablet 01/31/22 HYDROcodone/APAP 10-325MG [[place] 1 tab PO Q4-6H PRN #56 tab 01/31/22 10-325] Pregabalin [Lyrica] 150 mg PO BID #60 cap 01/31/22 Sennosides/Docusate Sodium 1 each PO DAILY PRN #20 tablet 01/31/22 [Senna-S 8.6-50 mg Tablet] cefaDROXiL [Duricef] 500 mg PO Q12HR 3 Days #6 cap 01/31/22 methylPREDNISolone Dose Pack 4 mg PO DIRECTED #1 packet 03/28/23 [Medrol Dose Pack] HYDROcodone/APAP 5-325MG [[place] 1 tab PO Q6HR PRN 2 Days #8 tab 03/30/23 5-325] HYDROcodone/APAP 10-325MG [[place] 1 tab PO Q4HR PRN 3 Days #18 tab 04/14/23 10-325] HYDROcodone/APAP 10-325MG [[place] 1 tab PO Q4-6H PRN 3 Days #3 tab 04/29/23 10-325] Ibuprofen [Motrin] 600 mg PO Q8HR PRN #24 tab 05/01/23 Allergies Allergy/AdvReac Type Severity Reaction Status Date / Time No Known Allergies Allergy Verified 05/01/23 03:53 Review of Systems ROS Statement: Those systems with pertinent positive or pertinent negative responses have been documented in the HPI. ROS Other: All systems not noted in ROS Statement are negative. Past Medical History Past Medical History: Atrial Flutter, Sleep Apnea/CPAP/BIPAP Additional Past Medical History / Comment(s): HX of hep C, Back pain History of Any Multi-Drug Resistant Organisms: None Reported Past Surgical History: Cholecystectomy Additional Past Surgical History / Comment(s): Cardiac ablation, Gall bladder 2002 Past Psychological History: No Psychological Hx Reported Smoking Status: Former smoker Past Alcohol Use History: Occasional Past Drug Use History: Marijuana - Past Family History Father Family Medical History: Coronary Artery Disease (CAD) Additional Family Medical History / Comment(s): Brain tumor Mother Family Medical History: Chest Pain / Angina Additional Family Medical History / Comment(s): Breast cancer General Exam General appearance: alert, in no apparent distress Eye exam: Present: normal appearance Neck exam: Present: normal inspection Respiratory exam: Present: normal lung sounds bilaterally Cardiovascular Exam: Present: regular rate, normal rhythm GI/Abdominal exam: Present: soft Extremities exam: Present: other (Strength and sensation in bilateral lower extremities equal and intact. Ambulatory without difficulty. Lower lumbar paraspinal tenderness to palpation.) Neurological exam: Present: alert, oriented X3 Skin exam: Present: warm, dry Medical Decision Making - Medical Decision Making Was pt. sent in by a medical professional or institution (, PA, TRUCK CHAUFFEUR, urgent care, hospital, or assisted...) When possible be specific @ -No Did you speak to anyone other than the patient for history (EMS, parent, family, police, friend...)? What history was obtained from this source @ -No Did you review nursing and triage notes (agree or disagree)? Why? @ -I reviewed and agree with nursing and triage notes Were old charts reviewed (outside hosp., previous admission, EMS record, old EKG, old radiological studies, urgent care reports/EKG's, assisted records)? Report findings @ -No old charts were reviewed Differential Diagnosis (chest pain, altered mental status, abdominal pain women, abdominal pain men, vaginal bleeding, weakness, fever, dyspnea, syncope, headache, dizziness, GI bleed, back pain, seizure, CVA, palpatations, mental health, musculoskeletal)? @ -Differential Musculoskeletal Muscular strain, contusion, ligament sprain, fracture, arthritis, septic arthritis, bursitis, cellulitis, muscle spasm, nerve compression, DVT, arterial occlusion, herpes zoster, electrolyte abnormality, tumor.... This is not meant to be in all inclusive list EKG interpreted by me (3pts min.). @ -None X-rays interpreted by me (1pt min.). @ -None done CT interpreted by me (1pt min.). @ -None done U/S interpreted by me (1pt. min.). @ -None done What testing was considered but not performed or refused? (CT, X-rays, U/S, labs)? Why? @ -Imaging was considered however at this time patient reports no alarming symptoms. Additionally, patient states he was just here for pain control and does not want any additional testing. What meds were considered but not given or refused? Why? @ -None Did you discuss the management of the patient with other professionals (professionals i.e. , PA, TR[employer] CHAUFFEUR, lab, RT, psych nurse, social science professor, manager of security, teacher, assignment officer, case management coordinator)? Give summary @ -No Was smoking cessation discussed for >3mins.? @ -No Was critical care preformed (if so, how long)? @ -No Were there social determinants of health that impacted care today? How? (Homelessness, low income, unemployed, alcoholism, drug addiction, transportation, low edu. Level, literacy, decrease access to med. care, half-way, rehab)? @ -No Was there de-escalation of care discussed even if they declined (Discuss DNR or withdrawal of care, Hospice)? DNR status @ -No What co-morbidities impacted this encounter? (DM, HTN, Smoking, COPD, CAD, Cancer, CVA, ARF, Chemo, Hep., AIDS, mental health diagnosis, sleep apnea, morbid obesity)? @ -None Was patient admitted / discharged? Hospital course, mention meds given and route, prescriptions, significant lab abnormalities, going to OR and other pertinent info. @ -Discharge 47-year-old male presenting to the ED with complaints of back pain after slipping however able to catch himself but during the process twisted his body. Exam does show lower paraspinal tenderness to palpation. Patient has no saddle anesthesia, incontinence, fever. Patient provided analgesia here in the ED with significant improvement of pain. Discharged home in stable condition and advised to follow-up with Dr. Wilson and as scheduled. Discussed return precautions with patient who verbalizes agreement. Undiagnosed new problem with uncertain prognosis? @ -No Drug Therapy requiring intensive monitoring for toxicity (Heparin, Nitro, Insulin, Cardizem)? @ -No Were any procedures done? @ -No Diagnosis/symptom? @ -Back pain Acute, or Chronic, or Acute on Chronic? @ -Acute on chronic Uncomplicated (without systemic symptoms) or Complicated (systemic symptoms)? @ -Uncomplicated Side effects of treatment? @ -No Exacerbation, Progression, or Severe Exacerbation? @ -No Poses a threat to life or bodily function? How? (Chest pain, [place], [place], pneumonia, PE, COPD, DKA, ARF, appy, cholecystitis, CVA, Diverticulitis, Homicidal, Suicidal, threat to staff... and all critical care pts) @ -No Disposition Clinical Impression: Back pain Disposition: HOME SELF-CARE Condition: Good Additional Instructions: Please return to the Emergency Department if symptoms worsen or any other concerns. Please follow up with Dr. Wilson. Is patient prescribed a controlled substance at d/c from ED?: No Referrals: Rafael Dinero MD [Primary Care Provider] - 1-2 days Time of Disposition: 00:51
[2023-05-04 00:56] VITALS: BP 172/87; PULSE 85; RESP 18; TEMP 98
== END 2023-05-04 01:01 | disposition home or self-care (01) ==
LOC: EC 00:28
DX: M54.9 Dorsalgia, unspecified (principal); G47.30 Sleep apnea, unspecified; F12.90 Cannabis use, unspecified, uncomplicated; Z87.891 Personal history of nicotine dependence
CPT/HCPCS: 99283; 96372 ×2; J1885; J1170

== ENCOUNTER 2023-05-10 22:37 | Emergency (ER) | payer OTHER ==
[2023-05-10] MEDS ORDERED: KETOROLAC 15 MG/ML 1 ML VIAL IM STA (23:04)
[2023-05-10] MEDS ORDERED: HYDROmorphone 0.5 MG/0.5 ML SYRINGE IM STA (23:04)
--- NOTE | 2023-05-10 23:04 | ED ---
Back Pain HPI - General Chief Complaint: Back Pain/Injury Stated Complaint: Lower Back pain Source: patient - History of Present Illness Initial Comments: A 47-year-old male with a history of chronic back pain currently follows with Dr. Goodman louis presenting to the ED with a chief complaint of back pain. No recent injury or trauma. States that his home pain medications are not helping him. Notes that he has an MRI scheduled in the near future for this. No incontinence or saddle anesthesia. No fever or chills. No history of IV drug use. No chest pain or shortness of breath. No other complaints. - Related Data Home Medications Medication Instructions Recorded Confirmed traMADol HCL 50 mg PO Q6H PRN 01/25/22 01/25/22 Previous Rx's Medication Instructions Recorded Apixaban [Eliquis] 5 mg PO BID #180 tab 11/18/21 Cyclobenzaprine [Flexeril] 10 mg PO TID #24 tab 01/11/22 Cyclobenzaprine [Flexeril] 5 mg PO TID #90 tablet 01/31/22 HYDROcodone/APAP 10-325MG [[place] 1 tab PO Q4-6H PRN #56 tab 01/31/22 10-325] Pregabalin [Lyrica] 150 mg PO BID #60 cap 01/31/22 Sennosides/Docusate Sodium 1 each PO DAILY PRN #20 tablet 01/31/22 [Senna-S 8.6-50 mg Tablet] cefaDROXiL [Duricef] 500 mg PO Q12HR 3 Days #6 cap 01/31/22 methylPREDNISolone Dose Pack 4 mg PO DIRECTED #1 packet 03/28/23 [Medrol Dose Pack] HYDROcodone/APAP 5-325MG [[place] 1 tab PO Q6HR PRN 2 Days #8 tab 03/30/23 5-325] HYDROcodone/APAP 10-325MG [[place] 1 tab PO Q4HR PRN 3 Days #18 tab 04/14/23 10-325] HYDROcodone/APAP 10-325MG [[place] 1 tab PO Q4-6H PRN 3 Days #3 tab 04/29/23 10-325] Ibuprofen [Motrin] 600 mg PO Q8HR PRN #24 tab 05/01/23 Allergies Allergy/AdvReac Type Severity Reaction Status Date / Time No Known Allergies Allergy Verified 05/10/23 22:44 Review of Systems ROS Statement: Those systems with pertinent positive or pertinent negative responses have been documented in the HPI. ROS Other: All systems not noted in ROS Statement are negative. Past Medical History Past Medical History: Atrial Flutter, Sleep Apnea/CPAP/BIPAP Additional Past Medical History / Comment(s): HX of hep C, Back pain History of Any Multi-Drug Resistant Organisms: None Reported Past Surgical History: Cholecystectomy Additional Past Surgical History / Comment(s): Cardiac ablation, Gall bladder 2003 Past Psychological History: No Psychological Hx Reported Smoking Status: Former smoker Past Alcohol Use History: Occasional Past Drug Use History: Marijuana - Past Family History Father Family Medical History: Coronary Artery Disease (CAD) Additional Family Medical History / Comment(s): Brain tumor Mother Family Medical History: Chest Pain / Angina Additional Family Medical History / Comment(s): Breast cancer General Exam General appearance: alert, in no apparent distress Eye exam: Present: normal appearance Respiratory exam: Present: normal lung sounds bilaterally Cardiovascular Exam: Present: regular rate, normal rhythm GI/Abdominal exam: Present: soft Extremities exam: Present: other (Strength and sensation equal and intact in bilateral upper and lower extremities. Ambulates without difficulty.) Neurological exam: Present: alert, oriented X3 Skin exam: Present: warm, dry Course Vital Signs 05/10/23 22:39 Temperature 97.9 F Pulse Rate 87 Respiratory 18 Rate Blood Pressure 128/78 O2 Sat by Pulse 100 Oximetry Medical Decision Making - Medical Decision Making Was pt. sent in by a medical professional or institution (, PA, [employer] SAL[employer], urgent care, hospital, or [facility]...) When possible be specific @ -No Did you speak to anyone other than the patient for history (EMS, parent, family, police, friend...)? What history was obtained from this source @ -No Did you review nursing and triage notes (agree or disagree)? Why? @ -I reviewed and agree with nursing and triage notes Were old charts reviewed (outside hosp., previous admission, EMS record, old EKG, old radiological studies, urgent care reports/EKG's, [facility] records)? Report findings @ -No old charts were reviewed Differential Diagnosis (chest pain, altered mental status, abdominal pain women, abdominal pain men, vaginal bleeding, weakness, fever, dyspnea, syncope, headache, dizziness, GI bleed, back pain, seizure, CVA, palpatations, mental health, musculoskeletal)? @ -Differential Musculoskeletal Muscular strain, contusion, ligament sprain, fracture, arthritis, septic arthritis, bursitis, cellulitis, muscle spasm, nerve compression, DVT, arterial occlusion, herpes zoster, electrolyte abnormality, tumor.... This is not meant to be in all inclusive list EKG interpreted by me (3pts min.). @ -None X-rays interpreted by me (1pt min.). @ -None done CT interpreted by me (1pt min.). @ -None done U/S interpreted by me (1pt. min.). @ -None done What testing was considered but not performed or refused? (CT, X-rays, U/S, labs)? Why? @ -None What meds were considered but not given or refused? Why? @ -None Did you discuss the management of the patient with other professionals (professionals i.e. , PA, M[employer]OTE[employer] SALES, lab, RT, psych nurse, school social worker, serials librarian, teacher, chief merchandising officer, hospice case manager)? Give summary @ -No Was smoking cessation discussed for >3mins.? @ -No Was critical care preformed (if so, how long)? @ -No Were there social determinants of health that impacted care today? How? (Homelessness, low income, unemployed, alcoholism, drug addiction, transportation, low edu. Level, literacy, decrease access to med. care, intermediate, rehab)? @ -No Was there de-escalation of care discussed even if they declined (Discuss DNR or withdrawal of care, Hospice)? DNR status @ -No What co-morbidities impacted this encounter? (DM, HTN, Smoking, COPD, CAD, Cancer, CVA, ARF, Chemo, Hep., AIDS, mental health diagnosis, sleep apnea, morbid obesity)? @ -None Was patient admitted / discharged? Hospital course, mention meds given and route, prescriptions, significant lab abnormalities, going to OR and other pertinent info. @ -Discharge 47-year-old male presenting to the ED with a chief complaint of back pain. Pain is chronic in nature however patient states that his home meds are not helping. Denies any recent trauma or injury. No saddle seizure or incontinence. He reports that he would just like to be given pain medications and discharged home. Provided analgesia here in the ED. Discharged home in stable condition. Discussed return precautions with patient who verbalizes agreement. Undiagnosed new problem with uncertain prognosis? @ [N] Drug Therapy requiring intensive monitoring for toxicity (Heparin, Nitro, Insulin, Cardizem)? @ [N] Were any procedures done? @ [N] Diagnosis/symptom? @ -Back pain Acute, or Chronic, or Acute on Chronic? @ Acute o chronic Uncomplicated (without systemic symptoms) or Complicated (systemic symptom)? @ -ncomplicated Side effects of tretmnt? @ -[No] Exacerbation, Progression, or Severe Exacerbation? @ -[No] Poses a threat to life or bodily function? How? (Chest pain, [place], [place], pneumonia, PE, COPD, DKA, ARF, appy, cholecystitis, CVA, Diverticulitis, Homicidal, Suicidal, threat to staff... and all critical care pts) @ -[No] Disposition Clinical Impression: Back pain Disposition: HOME SELF-CARE Condition: Good Additional Instructions: Please return to the Emergency Department if symptoms worsen or any other concerns. Please follow up with your orthopedist. Is patient prescribed a controlled substance at d/c from ED?: No Referrals: Rafael Dinero MD [Primary Care Provider] - 1-2 days Time of Disposition: 23:08
[2023-05-10 23:43] VITALS: BP 144/89; PULSE 99; RESP 20; TEMP 98.9
== END 2023-05-10 23:30 | disposition home or self-care (01) ==
LOC: EC 22:37
DX: M54.50 Low back pain, unspecified (principal); G47.30 Sleep apnea, unspecified; F12.90 Cannabis use, unspecified, uncomplicated; Z87.891 Personal history of nicotine dependence
CPT/HCPCS: 99283; 96372 ×2; J1885; J1170

== ENCOUNTER 2023-05-12 15:00 | Emergency (ER) | payer OTHER ==
[2023-05-12] MEDS ORDERED: HYDROmorphone 0.5 MG/0.5 ML SYRINGE IM STA (15:50)
[2023-05-12] MEDS ORDERED: KETOROLAC 15 MG/ML 1 ML VIAL IM STA (15:50)
--- NOTE | 2023-05-12 15:54 | ED ---
Back Pain HPI - General Chief Complaint: Back Pain/Injury Stated Complaint: Back/Hip Pain Time Seen by Provider: 05/12/23 15:52 Source: patient, RN notes reviewed Limitations: no limitations - History of Present Illness Initial Comments: Patient is a 47-year-old male presented ER chief complaint back pain. Patient states he is following up with Dr. Wilson for his back pain and difficulties continuing treatment due to insurance problems. Patient states he has no disc between L4-5. Patient reports last night his daughter was cry and he ended up sleeping on the cough with her, which he believes flared up his back pain. Patient reports he is here for pain control. Patient denies any bowel or bladder incontinence, saddle paresthesias, radiating pain, fevers, IV drug use. - Related Data Home Medications Medication Instructions Recorded Confirmed traMADol HCL 50 mg PO Q6H PRN 01/25/22 01/25/22 Previous Rx's Medication Instructions Recorded Apixaban [Eliquis] 5 mg PO BID #180 tab 11/18/21 Cyclobenzaprine [Flexeril] 10 mg PO TID #24 tab 01/11/22 Cyclobenzaprine [Flexeril] 5 mg PO TID #90 tablet 01/31/22 HYDROcodone/APAP 10-325MG [[place] 1 tab PO Q4-6H PRN #56 tab 01/31/22 10-325] Pregabalin [Lyrica] 150 mg PO BID #60 cap 01/31/22 Sennosides/Docusate Sodium 1 each PO DAILY PRN #20 tablet 01/31/22 [Senna-S 8.6-50 mg Tablet] cefaDROXiL [Duricef] 500 mg PO Q12HR 3 Days #6 cap 01/31/22 methylPREDNISolone Dose Pack 4 mg PO DIRECTED #1 packet 03/28/23 [Medrol Dose Pack] HYDROcodone/APAP 5-325MG [[place] 1 tab PO Q6HR PRN 2 Days #8 tab 03/30/23 5-325] HYDROcodone/APAP 10-325MG [[place] 1 tab PO Q4HR PRN 3 Days #18 tab 04/14/23 10-325] HYDROcodone/APAP 10-325MG [[place] 1 tab PO Q4-6H PRN 3 Days #3 tab 04/29/23 10-325] Ibuprofen [Motrin] 600 mg PO Q8HR PRN #24 tab 05/01/23 Allergies Allergy/AdvReac Type Severity Reaction Status Date / Time No Known Allergies Allergy Verified 05/12/23 15:15 Review of Systems ROS Statement: Those systems with pertinent positive or pertinent negative responses have been documented in the HPI. ROS Other: All systems not noted in ROS Statement are negative. Past Medical History Past Medical History: Atrial Flutter, Sleep Apnea/CPAP/BIPAP Additional Past Medical History / Comment(s): HX of hep C, Back pain History of Any Multi-Drug Resistant Organisms: None Reported Past Surgical History: Cholecystectomy Additional Past Surgical History / Comment(s): Cardiac ablation, Gall bladder 2002 Past Psychological History: No Psychological Hx Reported Smoking Status: Former smoker Past Alcohol Use History: Occasional Past Drug Use History: Marijuana - Past Family History Father Family Medical History: Coronary Artery Disease (CAD) Additional Family Medical History / Comment(s): Brain tumor Mother Family Medical History: Chest Pain / Angina Additional Family Medical History / Comment(s): Breast cancer General Exam - General Exam Comments Initial Comments: Visual Physical Exam Vital signs reviewed General: Well-appearing, nontoxic, no acute distress. Head: Normocephalic, atraumatic Eyes: PERRLA, EOMI ENT: Airway patent Chest: Nonlabored breathing Skin: No visual rash, normal skin tone Neuro: Alert and oriented 3 Musculoskeletal: No gross abnormalities Limitations: no limitations General appearance: alert, in no apparent distress Head exam: Present: atraumatic, normocephalic, normal inspection Respiratory exam: Present: normal lung sounds bilaterally. Absent: respiratory distress, wheezes, rales, rhonchi, stridor Cardiovascular Exam: Present: regular rate, normal rhythm, normal heart sounds. Absent: systolic murmur, diastolic murmur, rubs, gallop, clicks Back exam: Present: normal inspection, tenderness (Tenderness to lumbar spine. Straight leg raise positive on left) Neurological exam: Present: alert, oriented X3, CN II-XII intact Psychiatric exam: Present: normal affect, normal mood Skin exam: Present: warm, dry, intact, normal color. Absent: rash Course Vital Signs 05/12/23 05/12/23 15:11 16:46 Temperature 98.0 F 98.3 F Pulse Rate 85 81 Respiratory 22 20 Rate Blood Pressure 148/88 141/89 O2 Sat by Pulse 96 97 Oximetry Medical Decision Making - Medical Decision Making I performed the quick note portion of the exam. Electronically signed by Bensno Ortiz PA-C Was pt. sent in by a medical professional or institution (CHARLES Miller, TRADE UNION SECRETARY, urgent care, hospital, or shelter...) When possible be specific @ -No Did you speak to anyone other than the patient for history (EMS, parent, family, police, friend...)? What history was obtained from this source @ -No Did you review nursing and triage notes (agree or disagree)? Why? @ -I reviewed and agree with nursing and triage notes Were old charts reviewed (outside hosp., previous admission, EMS record, old EKG, old radiological studies, urgent care reports/EKG's, shelter records)? Report findings @ -No old charts were reviewed Differential Diagnosis (chest pain, altered mental status, abdominal pain women, abdominal pain men, vaginal bleeding, weakness, fever, dyspnea, syncope, headache, dizziness, GI bleed, back pain, seizure, CVA, palpatations, mental health, musculoskeletal)? @ -Differential Back Pain: Strain, zoster, cauda equina syndrome, epidural abscess, vertebral osteomyelitis, discitis, fracture, subluxation, disc herniation, DJD, spinal stenosis, dissection, AAA, pancreatitis, peptic ulcer disease, pyelonephritis, kidney stone, this is not meant to be an all-inclusive list. EKG interpreted by me (3pts min.). @ -None X-rays interpreted by me (1pt min.). @ -None done CT interpreted by me (1pt min.). @ -None done U/S interpreted by me (1pt. min.). @ -None done What testing was considered but not performed or refused? (CT, X-rays, U/S, labs)? Why? @ -X-rays/ CT of back was considered but not performed due to patient preference and history. What meds were considered but not given or refused? Why? @ -None Did you discuss the management of the patient with other professionals (professionals i.e. CHARLES Miller, [employer] SECRETARY, lab, RT, psych nurse, social media marketer, can conveyor feeder, teacher, cavalry officer, case management coordinator)? Give summary @ -No Was smoking cessation discussed for >3mins.? @ -No Was critical care preformed (if so, how long)? @ -No Were there social determinants of health that impacted care today? How? (Homelessness, low income, unemployed, alcoholism, drug addiction, transportation, low edu. Level, literacy, decrease access to med. care, residential, rehab)? @ -No Was there de-escalation of care discussed even if they declined (Discuss DNR or withdrawal of care, Hospice)? DNR status @ -No What co-morbidities impacted this encounter? (DM, HTN, Smoking, COPD, CAD, Cancer, CVA, ARF, Chemo, Hep., AIDS, mental health diagnosis, sleep apnea, morbid obesity)? @ -None Was patient admitted / discharged? Hospital course, mention meds given and route, prescriptions, significant lab abnormalities, going to OR and other pertinent info. @ -Discharge. Patient is a 47-year-old male presented ER with chief complaint of back pain. Vitals stable. History and physical exam were completed. No red flag back pain symptoms. Patient received IM Toradol and IM Dilaudid for pain control. I discussed return parameters with patient. I advised him to follow up with Dr. Wilson. Patient will be discharged in stable condition with follow-up to PCP/Dr. Wilson. Patient expressed understanding and agreement with care plan. Undiagnosed new problem with uncertain prognosis? @ -No Drug Therapy requiring intensive monitoring for toxicity (Heparin, Nitro, Insulin, Cardizem)? @ -No Were any procedures done? @ -No Diagnosis/symptom? @ -Back pain Acute, or Chronic, or Acute on Chronic? @ -Chronic Uncomplicated (without systemic symptoms) or Complicated (systemic symptoms)? @ -Uncomplicated Side effects of treatment? @ -No Exacerbation, Progression, or Severe Exacerbation? @ -No Poses a threat to life or bodily function? How? (Chest pain, [place], [place], pneumonia, PE, COPD, DKA, ARF, appy, cholecystitis, CVA, Diverticulitis, Homicidal, Suicidal, threat to staff... and all critical care pts) @ -No Disposition Clinical Impression: Back pain Disposition: HOME SELF-CARE Condition: Stable Additional Instructions: Please follow-up with Dr. Wilson. Return to ER for any new or worsening symptoms. Is patient prescribed a controlled substance at d/c from ED?: No Referrals: Rafael Dinero MD [Primary Care Provider] - 1-2 days Justin Wilson DO [Doctor of Osteopathic Medicine] - 1-2 days Time of Disposition: 16:18
[2023-05-12 17:01] VITALS: BP 141/89; PULSE 81; RESP 20; TEMP 98.3
== END 2023-05-12 19:25 | disposition home or self-care (01) ==
LOC: EC 15:00
DX: M54.50 Low back pain, unspecified (principal); G47.30 Sleep apnea, unspecified; F12.90 Cannabis use, unspecified, uncomplicated; Z87.891 Personal history of nicotine dependence
CPT/HCPCS: 99283; 96372 ×2; J1885; J1170

== ENCOUNTER 2023-05-13 19:26 | Emergency (ER) | payer OTHER ==
[2023-05-13 20:02] VITALS: RESP 18; TEMP 98.7
[2023-05-13] MEDS ORDERED: HYDROmorphone 1 MG/ML 1 ML SYRINGE IM STA (20:45)
[2023-05-13] MEDS ORDERED: KETOROLAC 15 MG/ML 1 ML VIAL IM STA (20:45)
--- NOTE | 2023-05-13 20:46 | ED ---
Back Pain HPI - General Chief Complaint: Back Pain/Injury Stated Complaint: Back pain Time Seen by Provider: 05/13/23 20:11 Source: patient Limitations: no limitations - History of Present Illness Initial Comments: 47-year-old male with a past medical history significant for chronic back pain presenting to the ED with chief complaint of back pain. Patient states his daughter was crying and slept on the couch with her to calm her down. No other injury. States after this worsening of his back pain. Patient follows with Dr. Goodman mcdowell. States that he is hopefully family having MRI performed sometime this week. Denies saddle anesthesia or incontinence. No shortness of breath. No other complaints. - Related Data Home Medications Medication Instructions Recorded Confirmed traMADol HCL 50 mg PO Q6H PRN 01/25/22 01/25/22 Previous Rx's Medication Instructions Recorded Apixaban [Eliquis] 5 mg PO BID #180 tab 11/18/21 Cyclobenzaprine [Flexeril] 10 mg PO TID #24 tab 01/11/22 Cyclobenzaprine [Flexeril] 5 mg PO TID #90 tablet 01/31/22 HYDROcodone/APAP 10-325MG [[place] 1 tab PO Q4-6H PRN #56 tab 01/31/22 10-325] Pregabalin [Lyrica] 150 mg PO BID #60 cap 01/31/22 Sennosides/Docusate Sodium 1 each PO DAILY PRN #20 tablet 01/31/22 [Senna-S 8.6-50 mg Tablet] cefaDROXiL [Duricef] 500 mg PO Q12HR 3 Days #6 cap 01/31/22 methylPREDNISolone Dose Pack 4 mg PO DIRECTED #1 packet 03/28/23 [Medrol Dose Pack] HYDROcodone/APAP 5-325MG [[place] 1 tab PO Q6HR PRN 2 Days #8 tab 03/30/23 5-325] HYDROcodone/APAP 10-325MG [[place] 1 tab PO Q4HR PRN 3 Days #18 tab 04/14/23 10-325] HYDROcodone/APAP 10-325MG [[place] 1 tab PO Q4-6H PRN 3 Days #3 tab 04/29/23 10-325] Ibuprofen [Motrin] 600 mg PO Q8HR PRN #24 tab 05/01/23 Allergies Allergy/AdvReac Type Severity Reaction Status Date / Time No Known Allergies Allergy Verified 05/13/23 19:52 Review of Systems ROS Statement: Those systems with pertinent positive or pertinent negative responses have been documented in the HPI. ROS Other: All systems not noted in ROS Statement are negative. Past Medical History Past Medical History: Atrial Flutter, Sleep Apnea/CPAP/BIPAP Additional Past Medical History / Comment(s): HX of hep C, Back pain History of Any Multi-Drug Resistant Organisms: None Reported Past Surgical History: Cholecystectomy Additional Past Surgical History / Comment(s): Cardiac ablation, Gall bladder 2003 Past Psychological History: No Psychological Hx Reported Smoking Status: Former smoker Past Alcohol Use History: Occasional Past Drug Use History: Marijuana - Past Family History Father Family Medical History: Coronary Artery Disease (CAD) Additional Family Medical History / Comment(s): Brain tumor Mother Family Medical History: Chest Pain / Angina Additional Family Medical History / Comment(s): Breast cancer General Exam Limitations: no limitations General appearance: alert, in no apparent distress Eye exam: Present: normal appearance Neck exam: Present: normal inspection Respiratory exam: Present: normal lung sounds bilaterally Cardiovascular Exam: Present: regular rate, normal rhythm GI/Abdominal exam: Present: soft Extremities exam: Present: other (Strength and Sensation bilateral lower extremities equal and intact. Ambulates without difficulty.) Back exam: Present: other (Lumbar paraspinal tenderness to palpation.) Neurological exam: Present: alert, oriented X3 Skin exam: Present: warm, dry Course Vital Signs 05/13/23 19:50 Temperature 98.7 F Pulse Rate 90 Respiratory 18 Rate Blood Pressure 138/67 O2 Sat by Pulse 95 Oximetry Medical Decision Making - Medical Decision Making Was pt. sent in by a medical professional or institution (, PA, MARKETING TECHNOLOGIST, urgent care, hospital, or fpc...) When possible be specific @ -No Did you speak to anyone other than the patient for history (EMS, parent, family, police, friend...)? What history was obtained from this source @ -No Did you review nursing and triage notes (agree or disagree)? Why? @ -I reviewed and agree with nursing and triage notes Were old charts reviewed (outside hosp., previous admission, EMS record, old EKG, old radiological studies, urgent care reports/EKG's, fpc records)? Report findings @ -No old charts were reviewed Differential Diagnosis (chest pain, altered mental status, abdominal pain women, abdominal pain men, vaginal bleeding, weakness, fever, dyspnea, syncope, headache, dizziness, GI bleed, back pain, seizure, CVA, palpatations, mental health, musculoskeletal)? @ -Differential Back Pain: Strain, zoster, cauda equina syndrome, epidural abscess, vertebral osteomyelitis, discitis, fracture, subluxation, disc herniation, DJD, spinal stenosis, dissection, AAA, pancreatitis, peptic ulcer disease, pyelonephritis, kidney stone, this is not meant to be an all-inclusive list. EKG interpreted by me (3pts min.). @ -None X-rays interpreted by me (1pt min.). @ -None done CT interpreted by me (1pt min.). @ -None done U/S interpreted by me (1pt. min.). @ -None done What testing was considered but not performed or refused? (CT, X-rays, U/S, lab s)? Why? @ -Imaging was considered however at this time patient reports no new injuries and deferred imaging at this time. What meds were considered but not given or refused? Why? @ -None Did you discuss the management of the patient with other professionals (professionals i.e. , PA, MARKETING TECHNOLOGIST, lab, RT, psych nurse, social welfare clerk, station mechanic apprentice, teacher, command and control officer, shoe caser)? Give summary @ -No Was smoking cessation discussed for >3mins.? @ -No Was critical care preformed (if so, how long)? @ -No Were there social determinants of health that impacted care today? How? (Homelessness, low income, unemployed, alcoholism, drug addiction, transportation, low edu. Level, literacy, decrease access to med. care, longterm, rehab)? @ -No Was there de-escalation of care discussed even if they declined (Discuss DNR or withdrawal of care, Hospice)? DNR status @ -No What co-morbidities impacted this encounter? (DM, HTN, Smoking, COPD, CAD, C ancer, CVA, ARF, Chemo, Hep., AIDS, mental health diagnosis, sleep apnea, morbid obesity)? @ -None Was patient admitted / discharged? Hospital course, mention meds given and route, prescriptions, significant lab abnormalities, going to OR and other pertinent info. @ -Discharge 47-year-old male with a past medical history significant for chronic back pain presenting with exacerbation of this after sleeping on the couch. Patient states that he would just like to have pain control and would like to be discharged home at this time. Would not like any additional imaging at this time. Patient follows with Dr. Wilson and is scheduled for an MRI. No saddle anesthesia or incontinence or any other red flag symptoms at this time. Discharged home in stable condition. Discussed return precautions with patient who verbalizes agreement. Undiagnosed new problem with uncertain prognosis? @ -No Drug Therapy requiring intensive monitoring for toxicity (Heparin, Nitro, Insulin, Cardizem)? @ -No Were any procedures done? @ -No Diagnosis/symptom? @ -Back pain Acute, or Chronic, or Acute on Chronic? @ -Acute on chronic Uncomplicated (without systemic symptoms) or Complicated (systemic symptoms)? @ -Uncomplicated Side effects of treatment? @ -No Exacerbation, Progression, or Severe Exacerbation? @ -No Poses a threat to life or bodily function? How? (Chest pain, [place], [place], pneumonia, PE, COPD, DKA, ARF, appy, cholecystitis, CVA, Diverticulitis, Homicidal, Suicidal, threat to staff... and all critical care pts) @ -No Disposition Clinical Impression: Back pain Disposition: HOME SELF-CARE Condition: Good Additional Instructions: Please return to the Emergency Department if symptoms worsen or any other concerns. Follow up with Dr. Olson Is patient prescribed a controlled substance at d/c from ED?: No Referrals: Rafael Dinero MD [Primary Care Provider] - 1-2 days Time of Disposition: 20:52
[2023-05-13 21:07] VITALS: BP 126/80; PULSE 78
== END 2023-05-13 21:06 | disposition home or self-care (01) ==
LOC: EC 19:26
DX: G89.29 Other chronic pain (principal); M54.50 Low back pain, unspecified; F12.90 Cannabis use, unspecified, uncomplicated; Z87.891 Personal history of nicotine dependence
CPT/HCPCS: 99283; 96372 ×2; J1170; J1885

== ENCOUNTER 2023-05-15 20:41 | Emergency (ER) | payer OTHER ==
[2023-05-15 21:43] VITALS: BP 162/87; PULSE 52; RESP 18; TEMP 97.4
[2023-05-15] MEDS ORDERED: HYDROmorphone 0.5 MG/0.5 ML SYRINGE IM STA (22:17)
[2023-05-15] MEDS ORDERED: KETOROLAC 15 MG/ML 1 ML VIAL IM STA (22:17)
--- NOTE | 2023-05-15 22:18 | ED ---
Back Pain HPI - General Chief Complaint: Back Pain/Injury Stated Complaint: Back Pain Time Seen by Provider: 05/15/23 21:51 Source: patient Limitations: no limitations - History of Present Illness Initial Comments: 47-year-old male presenting with chief complaint of back pain. Patient has been here multiple occasions for back pain previously. It is lower back pain with radiation down the right leg. No new injury or trauma. He states that it feels like his regular flareups of his chronic pain. He follows with Dr. Goodman chacon and is trying to get an MRI appointment. No loss of bowel or bladder control or saddle paresthesia. No weakness, abdominal pain, urinary symptoms, fever, chills, nausea, vomiting. - Related Data Home Medications Medication Instructions Recorded Confirmed traMADol HCL 50 mg PO Q6H PRN 01/25/22 01/25/22 Previous Rx's Medication Instructions Recorded Apixaban [Eliquis] 5 mg PO BID #180 tab 11/18/21 Cyclobenzaprine [Flexeril] 10 mg PO TID #24 tab 01/11/22 Cyclobenzaprine [Flexeril] 5 mg PO TID #90 tablet 01/31/22 HYDROcodone/APAP 10-325MG [[place] 1 tab PO Q4-6H PRN #56 tab 01/31/22 10-325] Pregabalin [Lyrica] 150 mg PO BID #60 cap 01/31/22 Sennosides/Docusate Sodium 1 each PO DAILY PRN #20 tablet 01/31/22 [Senna-S 8.6-50 mg Tablet] cefaDROXiL [Duricef] 500 mg PO Q12HR 3 Days #6 cap 01/31/22 methylPREDNISolone Dose Pack 4 mg PO DIRECTED #1 packet 03/28/23 [Medrol Dose Pack] HYDROcodone/APAP 5-325MG [[place] 1 tab PO Q6HR PRN 2 Days #8 tab 03/30/23 5-325] HYDROcodone/APAP 10-325MG [[place] 1 tab PO Q4HR PRN 3 Days #18 tab 04/14/23 10-325] HYDROcodone/APAP 10-325MG [[place] 1 tab PO Q4-6H PRN 3 Days #3 tab 04/29/23 10-325] Ibuprofen [Motrin] 600 mg PO Q8HR PRN #24 tab 05/01/23 Allergies Allergy/AdvReac Type Severity Reaction Status Date / Time No Known Allergies Allergy Verified 05/15/23 21:35 Review of Systems ROS Statement: Those systems with pertinent positive or pertinent negative responses have been documented in the HPI. ROS Other: All systems not noted in ROS Statement are negative. Past Medical History Past Medical History: Atrial Flutter, Sleep Apnea/CPAP/BIPAP Additional Past Medical History / Comment(s): HX of hep C, Back pain History of Any Multi-Drug Resistant Organisms: None Reported Past Surgical History: Cholecystectomy Additional Past Surgical History / Comment(s): Cardiac ablation, Gall bladder 2002 Past Psychological History: No Psychological Hx Reported Smoking Status: Former smoker, Vaper Past Alcohol Use History: Occasional Past Drug Use History: Marijuana - Past Family History Father Family Medical History: Coronary Artery Disease (CAD) Additional Family Medical History / Comment(s): Brain tumor Mother Family Medical History: Chest Pain / Angina Additional Family Medical History / Comment(s): Breast cancer General Exam Limitations: no limitations General appearance: alert, in no apparent distress Head exam: Present: atraumatic, normocephalic Eye exam: Present: normal appearance Neck exam: Present: normal inspection Respiratory exam: Absent: respiratory distress Cardiovascular Exam: Present: regular rate Extremities exam: Present: normal inspection Back exam: Present: normal inspection Neurological exam: Present: alert, oriented X3, normal gait Psychiatric exam: Present: normal affect, normal mood Skin exam: Present: dry Course Vital Signs 05/15/23 21:33 Temperature 97.4 F L Pulse Rate 52 L Respiratory 18 Rate Blood Pressure 162/87 O2 Sat by Pulse 96 Oximetry Medical Decision Making - Medical Decision Making Was pt. sent in by a medical professional or institution (, PA, RECREATION PROFESSOR, urgent care, hospital, or custodial...) When possible be specific @ -No Did you speak to anyone other than the patient for history (EMS, parent, family, police, friend...)? What history was obtained from this source @ -No Did you review nursing and triage notes (agree or disagree)? Why? @ -I reviewed and agree with nursing and triage notes Were old charts reviewed (outside hosp., previous admission, EMS record, old EKG, old radiological studies, urgent care reports/EKG's, custodial records)? Report findings @ -No old charts were reviewed Differential Diagnosis (chest pain, altered mental status, abdominal pain women, abdominal pain men, vaginal bleeding, weakness, fever, dyspnea, syncope, headache, dizziness, GI bleed, back pain, seizure, CVA, palpatations, mental health, musculoskeletal)? @ - [facility] Differential Back Pain: Strain, zoster, cauda equina syndrome, epidural abscess, vertebral osteomyelitis, discitis, fracture, subluxation, disc herniation, DJD, spinal stenosis, dissection, AAA, pancreatitis, peptic ulcer disease, pyelonephritis, kidney stone this is not meant to be an all-inclusive list. EKG interpreted by me (3pts min.). @ -As above X-rays interpreted by me (1pt min.). @ -None done CT interpreted by me (1pt min.). @ -None done U/S interpreted by me (1pt. min.). @ -None done What testing was considered but not performed or refused? (CT, X-rays, U/S, labs)? Why? @ -None What meds were considered but not given or refused? Why? @ -None Did you discuss the management of the patient with other professionals (professionals i.e. , PA, RECREATION PROFESSOR, lab, RT, psych nurse, socially responsible investment adviser, automobile repossessor, teacher, youth probation officer, adult protective caseworker)? Give summary @ -No Was smoking cessation discussed for >3mins.? @ -No Was critical care preformed (if so, how long)? @ -No Were there social determinants of health that impacted care today? How? (Homelessness, low income, unemployed, alcoholism, drug addiction, transportation, low edu. Level, literacy, decrease access to med. care, long term, rehab)? @ -No Was there de-escalation of care discussed even if they declined (Discuss DNR or withdrawal of care, Hospice)? DNR status @ -No What co-morbidities impacted this encounter? (DM, HTN, Smoking, COPD, CAD, Cancer, CVA, ARF, Chemo, Hep., AIDS, mental health diagnosis, sleep apnea, morbid obesity)? @ -None Was patient admitted / discharged? Hospital course, mention meds given and route, prescriptions, significant lab abnormalities, going to OR and other pertinent info. @ -47-year-old male presenting with chief complaint of lower back pain. Patient has history of chronic back pain. No new injury or trauma. No red flag symptoms. History and physical exam were conducted. Patient is treated with pain medication and instructed to follow-up with his orthopedist Dr. Goodman chacon. Follow-up with PCP. Report back to ER with any new or worsening symptoms. Discussed return parameters and answered all questions. Patient conveyed verbal understanding and agreed to the plan. I discussed this case in detail with my attending Dr. Mcfarlane Undiagnosed new problem with uncertain prognosis? @ -No Drug Therapy requiring intensive monitoring for toxicity (Heparin, Nitro, Insulin, Cardizem)? @ -No Were any procedures done? @ -No Diagnosis/symptom? @ -Back pain, lumbar radiculopathy Acute, or Chronic, or Acute on Chronic? @ -Acute Uncomplicated (without systemic symptoms) or Complicated (systemic symptoms)? @ -uncomplicated Side effects of treatment? @ -No Exacerbation, Progression, or Severe Exacerbation? @ -No Poses a threat to life or bodily function? How? (Chest pain, [place], [place], pneumonia, PE, COPD, DKA, ARF, appy, cholecystitis, CVA, Diverticulitis, Homicidal, Suicidal, threat to staff... and all critical care pts) @ -No Disposition Clinical Impression: Lumbar radiculopathy Disposition: HOME SELF-CARE Condition: Good Instructions (If sedation given, give patient instructions): Chronic Back Pain (DC) Additional Instructions: Follow-up with PCP and orthopedics. Report back to ER with any new or worsening symptoms. Is patient prescribed a controlled substance at d/c from ED?: No Referrals: Rafael Dinero MD [Primary Care Provider] - 1-2 days Justin Wilson DO [Doctor of Osteopathic Medicine] - 1-2 days Time of Disposition: 22:18
== END 2023-05-15 22:40 | disposition home or self-care (01) ==
LOC: EC 20:41
DX: M54.16 Radiculopathy, lumbar region (principal); G89.29 Other chronic pain; F17.290 Nicotine dependence, other tobacco product, uncomplicated; F12.90 Cannabis use, unspecified, uncomplicated; Z90.49 Acquired absence of other specified parts of digestive tract
CPT/HCPCS: 99283; 96372 ×2; J1885; J1170

== ENCOUNTER 2023-05-16 20:03 | Emergency (ER) | payer OTHER ==
[2023-05-16 20:21] VITALS: BP 140/68; PULSE 96; RESP 18; TEMP 98
[2023-05-16] MEDS ORDERED: KETOROLAC 15 MG/ML 1 ML VIAL IM STA (22:09)
[2023-05-16] MEDS ORDERED: DEXAMETHASONE SOD PHOSPHATE 10 MG/ML 1 ML VIAL IM STA (22:09)
[2023-05-16] MEDS ORDERED: LIDOCAINE 4% PATCH TOPICAL ONE (22:10)
--- NOTE | 2023-05-16 22:11 | ED ---
Back Pain [facility] - General Chief Complaint: Back Pain/Injury Stated Complaint: Lower Back Pain Time Seen by Provider: 05/16/23 20:52 Source: patient Limitations: no limitations - History of Present Illness Initial Comments: 47-year-old male presenting with chief complaint of lower back pain. Patient has history of chronic back pain. He currently follows with Dr. Wilson and it is awaiting an MRI. He states that he had a flareup of his back pain today because his recently had surgery and he has had to do more lifting than usual while she is recovering. He does have radiculopathy symptoms, no loss of bowel or bladder control or saddle paresthesia. No fevers or urinary symptoms. No new injury. - Related Data Home Medications Medication Instructions Recorded Confirmed traMADol HCL 50 mg PO Q6H PRN 01/25/22 01/25/22 Previous Rx's Medication Instructions Recorded Apixaban [Eliquis] 5 mg PO BID #180 tab 11/18/21 Cyclobenzaprine [Flexeril] 10 mg PO TID #24 tab 01/11/22 Cyclobenzaprine [Flexeril] 5 mg PO TID #90 tablet 01/31/22 HYDROcodone/APAP 10-325MG [[place] 1 tab PO Q4-6H PRN #56 tab 01/31/22 10-325] Pregabalin [Lyrica] 150 mg PO BID #60 cap 01/31/22 Sennosides/Docusate Sodium 1 each PO DAILY PRN #20 tablet 01/31/22 [Senna-S 8.6-50 mg Tablet] cefaDROXiL [Duricef] 500 mg PO Q12HR 3 Days #6 cap 01/31/22 methylPREDNISolone Dose Pack 4 mg PO DIRECTED #1 packet 03/28/23 [Medrol Dose Pack] HYDROcodone/APAP 5-325MG [[place] 1 tab PO Q6HR PRN 2 Days #8 tab 03/30/23 5-325] HYDROcodone/APAP 10-325MG [[place] 1 tab PO Q4HR PRN 3 Days #18 tab 04/14/23 10-325] HYDROcodone/APAP 10-325MG [[place] 1 tab PO Q4-6H PRN 3 Days #3 tab 04/29/23 10-325] Ibuprofen [Motrin] 600 mg PO Q8HR PRN #24 tab 05/01/23 Cyclobenzaprine [Flexeril] 10 mg PO TID PRN #15 tab 05/16/23 Allergies Allergy/AdvReac Type Severity Reaction Status Date / Time No Known Allergies Allergy Verified 05/15/23 21:35 Review of Systems ROS Statement: Those systems with pertinent positive or pertinent negative responses have been documented in the HPI. ROS Other: All systems not noted in ROS Statement are negative. Past Medical History Past Medical History: Atrial Flutter, Sleep Apnea/CPAP/BIPAP Additional Past Medical History / Comment(s): HX of hep C, Back pain History of Any Multi-Drug Resistant Organisms: None Reported Past Surgical History: Cholecystectomy Additional Past Surgical History / Comment(s): Cardiac ablation, Gall bladder 2003 Past Psychological History: No Psychological Hx Reported Smoking Status: Former smoker, Vaper Past Alcohol Use History: Occasional Past Drug Use History: Marijuana - Past Family History Father Family Medical History: Coronary Artery Disease (CAD) Additional Family Medical History / Comment(s): Brain tumor Mother Family Medical History: Chest Pain / Angina Additional Family Medical History / Comment(s): Breast cancer General Exam Limitations: no limitations General appearance: alert, in no apparent distress Head exam: Present: atraumatic, normocephalic Eye exam: Present: normal appearance Neck exam: Present: normal inspection Respiratory exam: Absent: respiratory distress Cardiovascular Exam: Present: regular rate Extremities exam: Present: normal inspection Back exam: Present: normal inspection Neurological exam: Present: alert, oriented X3 Psychiatric exam: Present: normal affect, normal mood Skin exam: Present: warm, dry Course Vital Signs 05/16/23 20:20 Temperature 98 F Pulse Rate 96 Respiratory 18 Rate Blood Pressure 140/68 O2 Sat by Pulse 96 Oximetry Medical Decision Making - Medical Decision Making Was pt. sent in by a medical professional or institution (, PA, LUNCH COUNTER MANAGER, urgent care, hospital, or fci...) When possible be specific @ -No Did you speak to anyone other than the patient for history (EMS, parent, family, police, friend...)? What history was obtained from this source @ -No Did you review nursing and triage notes (agree or disagree)? Why? @ -I reviewed and agree with nursing and triage notes Were old charts reviewed (outside hosp., previous admission, EMS record, old EKG, old radiological studies, urgent care reports/EKG's, fci records)? Report findings @ -No old charts were reviewed Differential Diagnosis (chest pain, altered mental status, abdominal pain women, abdominal pain men, vaginal bleeding, weakness, fever, dyspnea, syncope, headache, dizziness, GI bleed, back pain, seizure, CVA, palpatations, mental health, musculoskeletal)? @ - [facility] Differential Back Pain: Strain, zoster, cauda equina syndrome, epidural abscess, vertebral osteomy elitis, discitis, fracture, subluxation, disc herniation, DJD, spinal stenosis, dissection, AAA, pancreatitis, peptic ulcer disease, pyelonephritis, kidney stone this is not meant to be an all-inclusive list. EKG interpreted by me (3pts min.). @ -As above X-rays interpreted by me (1pt min.). @ -None done CT interpreted by me (1pt min.). @ -None done U/S interpreted by me (1pt. min.). @ -None done What testing was considered but not performed or refused? (CT, X-rays, U/S, labs)? Why? @ -None What meds were considered but not given or refused? Why? @ -None Did you discuss the management of the patient with other professionals (professionals i.e. , PA, LUNCH COUNTER MANAGER, lab, RT, psych nurse, social worker psychiatric, implementation lead, teacher, aboriginal home school liaison officer, case repairer)? Give summary @ -No Was smoking cessation discussed for >3mins.? @ -No Was critical care preformed (if so, how long)? @ -No Were there social determinants of health that impacted care today? How? (Homelessness, low income, unemployed, alcoholism, drug addiction, transportation, low edu. Level, literacy, decrease access to med. care, fpc, rehab)? @ -No Was there de-escalation of care discussed even if they declined (Discuss DNR or withdrawal of care, Hospice)? DNR status @ -No What co-morbidities impacted this encounter? (DM, HTN, Smoking, COPD, CAD, Cancer, CVA, ARF, Chemo, Hep., AIDS, mental health diagnosis, sleep apnea, morbid obesity)? @ -None Was patient admitted / discharged? Hospital course, mention meds given and route, prescriptions, significant lab abnormalities, going to OR and other pertinent info. @ -47-year-old male with history of chronic back pain presenting with chief complaint of lower back pain. This pain feels consistent with his previous back pain flareups. No new injury or trauma. No red flag symptoms. Patient is treated with Toradol lidocaine patch and Decadron. Instructed to follow-up with his orthopedic surgeon Dr. Wilson. Follow-up with PCP. Report back to ER with any new or worsening symptoms. Discussed return parameters and answered all questions. Patient conveyed verbal understanding and agreed to the plan. I discussed this case in detail with my attending Dr. Lozano Undiagnosed new problem with uncertain prognosis? @ -No Drug Therapy requiring intensive monitoring for toxicity (Heparin, Nitro, Insulin, Cardizem)? @ -No Were any procedures done? @ -No Diagnosis/symptom? @ -Lumbar radiculopathy Acute, or Chronic, or Acute on Chronic? @ -Acute on chronic Uncomplicated (without systemic symptoms) or Complicated (systemic symptoms)? @ -uncomplicated Side effects of treatment? @ -No Exacerbation, Progression, or Severe Exacerbation? @ -No Poses a threat to life or bodily function? How? (Chest pain, [place], [place], pneumonia, PE, COPD, DKA, ARF, appy, cholecystitis, CVA, Diverticulitis, Homicidal, Suicidal, threat to staff... and all critical care pts) @ -No Disposition Clinical Impression: Lumbar radiculopathy Disposition: HOME SELF-CARE Condition: Good Instructions (If sedation given, give patient instructions): Acute Low Back Pain (ED) Additional Instructions: Follow-up with your surgeon. Report back to ER with any new or worsening symptoms. Prescriptions: Cyclobenzaprine [Flexeril] 10 mg PO TID PRN #15 tab PRN Reason: Spasms Is patient prescribed a controlled substance at d/c from ED?: No Referrals: Rafael Dinero MD [Primary Care Provider] - 1-2 days Time of Disposition: 22:11
== END 2023-05-16 22:36 | disposition home or self-care (01) ==
LOC: EC 20:03
DX: M54.16 Radiculopathy, lumbar region (principal); F17.290 Nicotine dependence, other tobacco product, uncomplicated; F12.90 Cannabis use, unspecified, uncomplicated
CPT/HCPCS: 99283; 96372; J1885

== ENCOUNTER → 2023-05-17 | Outpatient (CLI) | payer OTHER ==
--- NOTE | 2023-05-19 14:37 | MR ---
EXAMINATION TYPE: MR lumbar spine wo con DATE OF EXAM: 05/17/2023 9:50 PM CLINICAL INDICATION:Male, 47 years old with history of M54.50; PHH, Low back pain into both sides COMPARISON: 04/04/2023 TECHNIQUE: Multi planar, multi sequence imaging was performed utilizing: T1-weighted, T2-weighted, a nd turbo inversion recovery imaging of the lumbar spine. IV Contrast: (None if empty) FINDINGS: Alignment: The lumbar vertebral bodies have preserved heights and alignment. Cord: The conus medullaris and the distal spinal cord appear unremarkable with regards to their signa l intensity and morphology. Bones/Discs: Mild degeneration changes throughout the spine with osteophyte formation and facet joint arthropathy. No abnormal bony edema on inversion recovery sequences. When compared changes most prox imal L5-S1. Multilevel disc desiccation is present. T12-L1: No evidence of significant spinal canal stenosis or neural foraminal stenosis. L1-L2: No evidence of significant spinal canal stenosis or neural foraminal stenosis. L2-L3: No evidence of significant spinal canal stenosis or neural foraminal stenosis. L3-L4: Disc bulge and facet joint arthropathy result in mild spinal canal and mild bilateral neural f oraminal stenosis. L4-L5: Disc bulge and facet joint arthropathy result in mild spinal canal and moderate to severe bila teral neural foraminal stenosis. L5-S1: The disc is rounded posterior morphology without significant spinal canal stenosis. Facet join t arthropathy with severe bilateral neural foraminal stenosis. No significant spinal canal or neural foraminal stenosis in the remainder of the visualized levels. Other findings: None. IMPRESSION: 1. No definitive evidence of disc herniation or significant spinal canal stenosis. 2. Moderate disc degeneration at L5-S1 with severe bilateral neural foraminal stenosis. Additional L 4-L5 disc bulge and facet joint arthropathy with moderate to severe bilateral neural foraminal stenos is.
== END | disposition home or self-care (01) ==
LOC: RADMRIMAIN 21:05
PROVIDERS: ATTEND Orthopaedic Surgery
DX: M51.37 Other intervertebral disc degeneration, lumbosacral region (principal); M99.73 Connective tissue and disc stenosis of intervertebral foramina of lumbar region; M51.26 Other intervertebral disc displacement, lumbar region
CPT/HCPCS: 72148

== ENCOUNTER 2023-05-22 04:43 | Emergency (ER) | payer OTHER ==
[2023-05-22 04:54] VITALS: TEMP 97.5
[2023-05-22] MEDS ORDERED: HYDROmorphone 1 MG/ML 1 ML SYRINGE IM STA (05:55)
[2023-05-22] MEDS ORDERED: KETOROLAC 15 MG/ML 1 ML VIAL IM STA (05:55)
--- NOTE | 2023-05-22 05:59 | ED ---
General Adult HPI - General Chief complaint: Back Pain/Injury Stated complaint: Low Back Pain Time Seen by Provider: 05/22/23 05:39 Source: patient Mode of arrival: ambulatory Limitations: no limitations - History of Present Illness Initial comments: Dictation was produced using [email or web address] dictation software. please excuse any grammatical, word or spelling errors. Chief Complaint: 47-year-old male presents to the emergency department for acute on chronic back pain History of Present Illness: 37-year-old male who presents to the ER for acute on chronic back pain he has extensive history of back pain follows up with the presentation specialist, Dr. Goodman mcdowell. Patient states that he ran out of his pain medications. States that he feels like his symptoms feel relatively well controlled after IM injections of analgesics. Denies any fever. States that his pain feels like his usual back pain. Denies any trauma. No syncope paresthesias to the lower extremities. Denies any saddle anesthesia. The ROS documented in this emergency department record has been reviewed and confirmed by me. Those systems with pertinent positive or negative responses have been documented in the HPI. All other systems are other negative and/or noncontributory. - Related Data Home Medications Medication Instructions Recorded Confirmed traMADol HCL 50 mg PO Q6H PRN 01/25/22 01/25/22 Previous Rx's Medication Instructions Recorded Apixaban [Eliquis] 5 mg PO BID #180 tab 11/18/21 Cyclobenzaprine [Flexeril] 10 mg PO TID #24 tab 01/11/22 Cyclobenzaprine [Flexeril] 5 mg PO TID #90 tablet 01/31/22 HYDROcodone/APAP 10-325MG [[place] 1 tab PO Q4-6H PRN #56 tab 01/31/22 10-325] Pregabalin [Lyrica] 150 mg PO BID #60 cap 01/31/22 Sennosides/Docusate Sodium 1 each PO DAILY PRN #20 tablet 01/31/22 [Senna-S 8.6-50 mg Tablet] cefaDROXiL [Duricef] 500 mg PO Q12HR 3 Days #6 cap 01/31/22 methylPREDNISolone Dose Pack 4 mg PO DIRECTED #1 packet 03/28/23 [Medrol Dose Pack] HYDROcodone/APAP 5-325MG [[place] 1 tab PO Q6HR PRN 2 Days #8 tab 03/30/23 5-325] HYDROcodone/APAP 10-325MG [[place] 1 tab PO Q4HR PRN 3 Days #18 tab 04/14/23 10-325] HYDROcodone/APAP 10-325MG [[place] 1 tab PO Q4-6H PRN 3 Days #3 tab 04/29/23 10-325] Ibuprofen [Motrin] 600 mg PO Q8HR PRN #24 tab 05/01/23 Cyclobenzaprine [Flexeril] 10 mg PO TID PRN #15 tab 05/16/23 Allergies Allergy/AdvReac Type Severity Reaction Status Date / Time No Known Allergies Allergy Verified 05/22/23 04:47 Review of Systems ROS Statement: Those systems with pertinent positive or pertinent negative responses have been documented in the HPI. ROS Other: All systems not noted in ROS Statement are negative. Past Medical History Past Medical History: Atrial Flutter, Sleep Apnea/CPAP/BIPAP Additional Past Medical History / Comment(s): HX of hep C, Back pain History of Any Multi-Drug Resistant Organisms: None Reported Past Surgical History: Cholecystectomy Additional Past Surgical History / Comment(s): Cardiac ablation, Gall bladder 2002 Past Psychological History: No Psychological Hx Reported Smoking Status: Former smoker, Vaper Past Alcohol Use History: Occasional Past Drug Use History: Marijuana - Past Family History Father Family Medical History: Coronary Artery Disease (CAD) Additional Family Medical History / Comment(s): Brain tumor Mother Family Medical History: Chest Pain / Angina Additional Family Medical History / Comment(s): Breast cancer General Exam - General Exam Comments Initial Comments: General: Well-appearing, nontoxic, no acute distress. Head: Normocephalic, atraumatic Eyes: PERRLA, EOMI ENT: Airway patent Chest: Nonlabored breathing Skin: No visual rash, normal skin tone Neuro: Alert and oriented 3 Musculoskeletal: No gross abnormalities Limitations: no limitations Course Vital Signs 05/22/23 04:46 Temperature 97.5 F L Pulse Rate 60 Respiratory 18 Rate Blood Pressure 160/86 O2 Sat by Pulse 96 Oximetry Medical Decision Making - Medical Decision Making Was pt. sent in by a medical professional or institution (, PA, PHOTOGRAMMETRIC STEREO COMPILER, urgent care, hospital, or [facility]...) When possible be specific @ -No Did you speak to anyone other than the patient for history (EMS, parent, family, police, friend...)? What history was obtained from this source @ -No Did you review nursing and triage notes (agree or disagree)? Why? @ -I reviewed and agree with nursing and triage notes Were old charts reviewed (outside hosp., previous admission, EMS record, old EKG, old radiological studies, urgent care reports/EKG's, [facility] records)? Report findings @ -MRI from 5 days ago was reviewed showing disc degeneration with neural foraminal stenosis Differential Diagnosis (chest pain, altered mental status, abdominal pain women, abdominal pain men, vaginal bleeding, musculoskeletal, weakness, fever, dyspnea, syncope, headache, dizziness, GI bleed, back pain, seizure, CVA, palpatations, mental health)? @ -Differential Back Pain: Strain, zoster, cauda equina syndrome, epidural abscess, vertebral osteomyelitis, discitis, fracture, subluxation, disc herniation, DJD, spinal stenosis, dissection, AAA, pancreatitis, peptic ulcer disease, pyelonephritis, kidney stone, this is not meant to be an all-inclusive list. EKG interpreted by me (3pts min.). @ -None done X-rays interpreted by me (1pt min.). @ -None done CT interpreted by me (1pt min.). @ -None done U/S interpreted by me (1pt. min.). @ -None done What testing was considered but not performed or refused? (CT, X-rays, U/S, labs)? Why? @ -None What meds were considered but not given or refused? Why? @ -None Did you discuss the management of the patient with other professionals (professionals i.e. , PA, PHOTOGRAMMETRIC STEREO COMPILER, lab, RT, psych nurse, sexual assault social worker, social media editor, teacher, information assurance officer, hospice case manager)? Give summary @ -No Was smoking cessation discussed for >3mins.? @ -No Was critical care preformed (if so, how long)? @ -No Were there social determinants of health that impacted care today? How? (Homelessness, low income, unemployed, alcoholism, drug addiction, transportation, low edu. Level, literacy, decrease access to med. care, custodial, rehab)? @ -No Was there de-escalation of care discussed even if they declined (Discuss DNR or withdrawal of care, Hospice)? DNR status @ -No What co-morbidities impacted this encounter? (DM, HTN, Smoking, COPD, CAD, Cancer, CVA, ARF, Chemo, Hep., AIDS, mental health diagnosis, sleep apnea, morbid obesity)? @ -None Was patient admitted / discharged? Hospital course, mention meds given and route, prescriptions, significant lab abnormalities, going to OR and other pertinent info. @ -47 Year-old male presents emergency department for general chronic back pain. Patient has established care with presentation specialist Dr. Goodman louis. Vital signs stable. Patient is well-appearing at the bedside with minimal distress. Is able to stand. Patient given IM analgesics. Still to follow-up with his presentation specialist. Undiagnosed new problem with uncertain prognosis? @ -No Drug Therapy requiring intensive monitoring for toxicity (Heparin, Nitro, Insulin, Cardizem)? @ -No Were any procedures done? @ -No Diagnosis/symptom? Acute, or Chronic, or Acute on Chronic? Uncomplicated (without systemic symptoms) or Complicated (systemic symptoms)? @Acute on chronic back pain Side effects of treatment? @ -No Exacerbation, Progression, or Severe Exacerbation? @ -No Poses a threat to life or bodily function? How? (Chest pain, [place], [place], pneumonia, PE, COPD, DKA, ARF, appy, cholecystitis, CVA, Diverticulitis, Homicidal, Suicidal, threat to staff... and all critical care pts) @ -yes Disposition Clinical Impression: Back pain Disposition: HOME SELF-CARE Condition: Good Instructions (If sedation given, give patient instructions): Chronic Back Pain (DC) Is patient prescribed a controlled substance at d/c from ED?: No Referrals: Justin Wilson DO [Doctor of Osteopathic Medicine] - 1-2 days Time of Disposition: 05:58
[2023-05-22 06:26] VITALS: BP 138/98; PULSE 77; RESP 19
== END 2023-05-22 06:09 | disposition home or self-care (01) ==
LOC: EC 04:43
DX: M54.50 Low back pain, unspecified (principal); G47.30 Sleep apnea, unspecified; F12.90 Cannabis use, unspecified, uncomplicated; F17.290 Nicotine dependence, other tobacco product, uncomplicated; Z90.49 Acquired absence of other specified parts of digestive tract
CPT/HCPCS: 99283; 96372 ×2; J1170; J1885

== ENCOUNTER 2023-05-24 19:56 | Emergency (ER) | payer OTHER ==
--- NOTE | 2023-05-24 20:00 | ED ---
Back Pain HPI - General Source: patient, RN notes reviewed Mode of arrival: ambulatory Limitations: no limitations - History of Present Illness MD Complaint: back pain <Delmy Trammell - Last Filed: 05/24/23 20:00> <Joseph Mtz - Last Filed: 05/25/23 05:06> - General Chief Complaint: Back Pain/Injury Stated Complaint: lower back pain Time Seen by Provider: 05/24/23 19:57 - History of Present Illness Initial Comments: This is a 47 year old male who presents to the emergency department for lower back pain radiating into the left lower extremity. Reports a hx of chronic back pain and follows with Dr. Wilson. Denies any loss of bowel/bladder control or saddle anesthesia. (Delmy Trammell) 47-year-old male history of chronic low back pain presenting with chief complaint of low back pain. Patient follows with Dr. Wilson. Denies any injury or trauma. No loss of bowel or bladder control or saddle paresthesia. Pain is like his typical flareups. He has radiation of pain down the left leg. (Joseph Mtz) - Related Data Home Medications Medication Instructions Recorded Confirmed traMADol HCL 50 mg PO Q6H PRN 01/25/22 01/25/22 Previous Rx's Medication Instructions Recorded Apixaban [Eliquis] 5 mg PO BID #180 tab 11/18/21 Cyclobenzaprine [Flexeril] 10 mg PO TID #24 tab 01/11/22 Cyclobenzaprine [Flexeril] 5 mg PO TID #90 tablet 01/31/22 HYDROcodone/APAP 10-325MG [[place] 1 tab PO Q4-6H PRN #56 tab 01/31/22 10-325] Pregabalin [Lyrica] 150 mg PO BID #60 cap 01/31/22 Sennosides/Docusate Sodium 1 each PO DAILY PRN #20 tablet 01/31/22 [Senna-S 8.6-50 mg Tablet] cefaDROXiL [Duricef] 500 mg PO Q12HR 3 Days #6 cap 01/31/22 methylPREDNISolone Dose Pack 4 mg PO DIRECTED #1 packet 03/28/23 [Medrol Dose Pack] HYDROcodone/APAP 5-325MG [[place] 1 tab PO Q6HR PRN 2 Days #8 tab 03/30/23 5-325] HYDROcodone/APAP 10-325MG [[place] 1 tab PO Q4HR PRN 3 Days #18 tab 04/14/23 10-325] HYDROcodone/APAP 10-325MG [[place] 1 tab PO Q4-6H PRN 3 Days #3 tab 04/29/23 10-325] Ibuprofen [Motrin] 600 mg PO Q8HR PRN #24 tab 05/01/23 Cyclobenzaprine [Flexeril] 10 mg PO TID PRN #15 tab 05/16/23 Cyclobenzaprine [Flexeril] 10 mg PO TID PRN #15 tab 05/24/23 Allergies Allergy/AdvReac Type Severity Reaction Status Date / Time No Known Allergies Allergy Verified 05/22/23 04:47 Review of Systems ROS Other: All systems not noted in ROS Statement are negative. <Delmy Trammell - Last Filed: 05/24/23 20:00> ROS Other: All systems not noted in ROS Statement are negative. <Joseph Mtz - Last Filed: 05/25/23 05:06> ROS Statement: Those systems with pertinent positive or pertinent negative responses have been documented in the HPI. Past Medical History Past Medical History: Atrial Flutter, Sleep Apnea/CPAP/BIPAP Additional Past Medical History / Comment(s): HX of hep C, Back pain History of Any Multi-Drug Resistant Organisms: None Reported Past Surgical History: Cholecystectomy Additional Past Surgical History / Comment(s): Cardiac ablation, Gall bladder 2002 Past Psychological History: No Psychological Hx Reported Smoking Status: Former smoker, Vaper Past Alcohol Use History: Occasional Past Drug Use History: Marijuana - Past Family History Father Family Medical History: Coronary Artery Disease (CAD) Additional Family Medical History / Comment(s): Brain tumor Mother Family Medical History: Chest Pain / Angina Additional Family Medical History / Comment(s): Breast cancer <Delmy Trammell - Last Filed: 05/24/23 20:00> General Exam <Delmy Trammell - Last Filed: 05/24/23 20:00> Limitations: no limitations General appearance: alert, in no apparent distress Head exam: Present: atraumatic, normocephalic Eye exam: Present: normal appearance, EOMI Neck exam: Present: normal inspection Respiratory exam: Absent: respiratory distress Cardiovascular Exam: Present: tachycardia Back exam: Present: normal inspection, paraspinal tenderness Neurological exam: Present: alert, oriented X3 Psychiatric exam: Present: normal affect, normal mood Skin exam: Present: warm, dry <Joseph Mtz - Last Filed: 05/25/23 05:06> - General Exam Comments Initial Comments: Visual Physical Exam Vital signs reviewed General: Well-appearing, nontoxic, no acute distress. Head: Normocephalic, atraumatic Eyes: PERRLA, EOMI ENT: Airway patent Chest: Nonlabored breathing Skin: No visual rash, normal skin tone Neuro: Alert and oriented 3 Musculoskeletal: No gross abnormalities (Delmy Trammell) Course Vital Signs 05/24/23 05/24/23 19:58 22:00 Temperature 97.7 F 98.2 F Pulse Rate 111 H 65 Respiratory 18 16 Rate Blood Pressure 127/89 134/90 O2 Sat by Pulse 96 96 Oximetry Medical Decision Making <Delmy Trammell - Last Filed: 05/24/23 20:00> <Joseph Mtz - Last Filed: 05/25/23 05:06> - Medical Decision Making I performed the QuickNote portion of this chart. Signed Delmy Trammell PA-C. (Delmy Trammell) Was pt. sent in by a medical professional or institution (CHARLES Miller, SHELLFISH MEAT SEPARATOR OPERATOR, urgent care, hospital, or half-way...) When possible be specific @ -[No] Did you speak to anyone other than the patient for history (EMS, parent, family, police, friend...)? What history was obtained from this source @ -[No] Did you review nursing and triage notes (agree or disagree)? Why? @ -[I reviewed and agree with nursing and triage notes] Were old charts reviewed (outside hosp., previous admission, EMS record, old EKG, old radiological studies, urgent care reports/EKG's, half-way records)? Report findings @ -[No old charts were reviewed] Differential Diagnosis (chest pain, altered mental status, abdominal pain women, abdominal pain men, vaginal bleeding, weakness, fever, dyspnea, syncope, headache, dizziness, GI bleed, back pain, seizure, CVA, palpatations, mental health, musculoskeletal)? @ - [facility] Differential Back Pain: Strain, zoster, cauda equina syndrome, epidural abscess, vertebral osteomyelitis, discitis, fracture, subluxation, disc herniation, DJD, spinal stenosis, dissection, AAA, pancreatitis, peptic ulcer disease, pyelonephritis, kidney stone this is not meant to be an all-inclusive list. EKG interpreted by me (3pts min.). @ -[As above] X-rays interpreted by me (1pt min.). @ -[None done] CT interpreted by me (1pt min.). @ -[None done] U/S interpreted by me (1pt. min.). @ -[None done] What testing was considered but not performed or refused? (CT, X-rays, U/S, labs)? Why? @ -[None] What meds were considered but not given or refused? Why? @ -[None] Did you discuss the management of the patient with other professionals (professionals i.e. , PA, SHELLFISH MEAT SEPARATOR OPERATOR, lab, RT, psych nurse, social media executive, structural analyst, teacher, grant officer, caser up)? Give summary @ -[No] Was smoking cessation discussed for >3mins.? @ -[No] Was critical care preformed (if so, how long)? @ -[No] Were there social determinants of health that impacted care today? How? (Homelessness, low income, unemployed, alcoholism, drug addiction, transportation, low edu. Level, literacy, decrease access to med. care, nursing home, rehab)? @ -[No] Was there de-escalation of care discussed even if they declined (Discuss DNR or withdrawal of care, Hospice)? DNR status @ -[No] What co-morbidities impacted this encounter? (DM, HTN, Smoking, COPD, CAD, Cancer, CVA, ARF, Chemo, Hep., AIDS, mental health diagnosis, sleep apnea, morbid obesity)? @ -[None] Was patient admitted / discharged? Hospital course, mention meds given and route, prescriptions, significant lab abnormalities, going to OR and other pertinent info. @ -47-year-old male presenting with chief complaint of lower back pain. History of chronic lower back pain. No new injury or trauma. No red flag symptoms. He is treated with pain medication and discharged home. Her to follow-up with his surgeon. Follow-up with PCP. Report back to ER with any new or worsening symptoms. Discussed return parameters and answered all questions. Patient conveyed verbal understanding and agreed to the plan. I discussed this case in detail with my attending Dr. Hopkins Undiagnosed new problem with uncertain prognosis? @ -[No] Drug Therapy requiring intensive monitoring for toxicity (Heparin, Nitro, Insulin, Cardizem)? @ -[No] Were any procedures done? @ -[No] Diagnosis/symptom? @ -Low back pain Acute, or Chronic, or Acute on Chronic? @ -Acute on chronic Uncomplicated (without systemic symptoms) or Complicated (systemic symptoms)? @ -Uncomplicated Side effects of treatment? @ -[No] Exacerbation, Progression, or Severe Exacerbation? @ -[No] Poses a threat to life or bodily function? How? (Chest pain, [place], [place], pneumonia, PE, COPD, DKA, ARF, appy, cholecystitis, CVA, Diverticulitis, Homicidal, Suicidal, threat to staff... and all critical care pts) @ -[No] (Joseph Mtz) Disposition <Delmy Trammell - Last Filed: 05/24/23 20:00> Is patient prescribed a controlled substance at d/c from ED?: No Time of Disposition: 22:01 <Joseph Mtz - Last Filed: 05/25/23 05:06> Clinical Impression: Lumbar radiculopathy Disposition: HOME SELF-CARE Condition: Good Instructions (If sedation given, give patient instructions): Acute Low Back Pain (ED) Additional Instructions: Follow-up with your surgeon. Report back to ER with any new or worsening symptoms. Do not take cyclobenzaprine before driving or operating heavy machinery as it may cause drowsiness Prescriptions: Cyclobenzaprine [Flexeril] 10 mg PO TID PRN #15 tab PRN Reason: Spasms Referrals: Rafael Dinero MD [Primary Care Provider] - 1-2 days
[2023-05-24] MEDS ORDERED: KETOROLAC 15 MG/ML 1 ML VIAL IM STA (21:59)
[2023-05-24] MEDS ORDERED: HYDROmorphone 1 MG/ML 1 ML SYRINGE IM STA (21:59)
[2023-05-24 22:57] VITALS: BP 134/90; PULSE 65; RESP 16; TEMP 98.2
== END 2023-05-24 22:54 | disposition home or self-care (01) ==
LOC: EC 19:56
DX: M54.16 Radiculopathy, lumbar region (principal); R00.0 Tachycardia, unspecified; F17.290 Nicotine dependence, other tobacco product, uncomplicated; F12.90 Cannabis use, unspecified, uncomplicated
CPT/HCPCS: 99283; 96372 ×2; J1170; J1885

== ENCOUNTER 2023-05-27 04:05 | Emergency (ER) | payer OTHER ==
[2023-05-27] MEDS ORDERED: HYDROmorphone 1 MG/ML 1 ML SYRINGE IM STA (04:22)
[2023-05-27] MEDS ORDERED: KETOROLAC 15 MG/ML 1 ML VIAL IM STA (04:22)
--- NOTE | 2023-05-27 04:23 | ED ---
General Adult HPI - General Chief complaint: Back Pain/Injury Stated complaint: lower back pain Time Seen by Provider: 05/27/23 04:13 Source: patient, RN notes reviewed, old records reviewed Mode of arrival: ambulatory Limitations: no limitations - History of Present Illness Initial comments: 47-year-old male presenting for evaluation of chronic back pain. No new injury. No difficulty urinating. No fever. No IV drug use. Patient has an appointment with his orthopedic surgeon on Monday and had an MRI last week. No new symptoms just requesting symptom management. - Related Data Home Medications Medication Instructions Recorded Confirmed traMADol HCL 50 mg PO Q6H PRN 01/25/22 01/25/22 Previous Rx's Medication Instructions Recorded Apixaban [Eliquis] 5 mg PO BID #180 tab 11/18/21 Cyclobenzaprine [Flexeril] 10 mg PO TID #24 tab 01/11/22 Cyclobenzaprine [Flexeril] 5 mg PO TID #90 tablet 01/31/22 HYDROcodone/APAP 10-325MG [[place] 1 tab PO Q4-6H PRN #56 tab 01/31/22 10-325] Pregabalin [Lyrica] 150 mg PO BID #60 cap 01/31/22 Sennosides/Docusate Sodium 1 each PO DAILY PRN #20 tablet 01/31/22 [Senna-S 8.6-50 mg Tablet] cefaDROXiL [Duricef] 500 mg PO Q12HR 3 Days #6 cap 01/31/22 methylPREDNISolone Dose Pack 4 mg PO DIRECTED #1 packet 03/28/23 [Medrol Dose Pack] HYDROcodone/APAP 5-325MG [[place] 1 tab PO Q6HR PRN 2 Days #8 tab 03/30/23 5-325] HYDROcodone/APAP 10-325MG [[place] 1 tab PO Q4HR PRN 3 Days #18 tab 04/14/23 10-325] HYDROcodone/APAP 10-325MG [[place] 1 tab PO Q4-6H PRN 3 Days #3 tab 04/29/23 10-325] Ibuprofen [Motrin] 600 mg PO Q8HR PRN #24 tab 05/01/23 Cyclobenzaprine [Flexeril] 10 mg PO TID PRN #15 tab 05/16/23 Cyclobenzaprine [Flexeril] 10 mg PO TID PRN #15 tab 05/24/23 Allergies Allergy/AdvReac Type Severity Reaction Status Date / Time No Known Allergies Allergy Verified 05/22/23 04:47 Review of Systems ROS Statement: Those systems with pertinent positive or pertinent negative responses have been documented in the HPI. ROS Other: All systems not noted in ROS Statement are negative. Past Medical History Past Medical History: Atrial Flutter, Sleep Apnea/CPAP/BIPAP Additional Past Medical History / Comment(s): HX of hep C, Back pain History of Any Multi-Drug Resistant Organisms: None Reported Past Surgical History: Cholecystectomy Additional Past Surgical History / Comment(s): Cardiac ablation, Gall bladder 2002 Past Psychological History: No Psychological Hx Reported Smoking Status: Former smoker, Vaper Past Alcohol Use History: None Reported, Occasional Past Drug Use History: Marijuana - Past Family History Father Family Medical History: Coronary Artery Disease (CAD) Additional Family Medical History / Comment(s): Brain tumor Mother Family Medical History: Chest Pain / Angina Additional Family Medical History / Comment(s): Breast cancer General Exam Limitations: no limitations General appearance: alert, in no apparent distress Head exam: Present: atraumatic, normocephalic Eye exam: Present: normal appearance, PERRL ENT exam: Present: normal exam Neck exam: Present: normal inspection. Absent: tenderness, meningismus Respiratory exam: Present: normal lung sounds bilaterally. Absent: respiratory distress Cardiovascular Exam: Present: regular rate, normal rhythm GI/Abdominal exam: Absent: distended Extremities exam: Present: normal inspection Neurological exam: Present: alert, oriented X3 Psychiatric exam: Present: normal affect, normal mood Skin exam: Present: warm, dry, intact. Absent: cyanosis, diaphoretic Course Vital Signs 05/27/23 04:11 Temperature 98.1 F Pulse Rate 105 H Respiratory 18 Rate Blood Pressure 156/99 O2 Sat by Pulse 98 Oximetry Medical Decision Making - Medical Decision Making Was pt. sent in by a medical professional or institution (, PA, OPERATING ROOM AIDE, urgent care, hospital, or penitentiary...) When possible be specific @ -No Did you speak to anyone other than the patient for history (EMS, parent, family, police, friend...)? What history was obtained from this source @ -No Did you review nursing and triage notes (agree or disagree)? Why? @ -I reviewed and agree with nursing and triage notes Were old charts reviewed (outside hosp., previous admission, EMS record, old EKG, old radiological studies, urgent care reports/EKG's, penitentiary records)? Report findings @ -No old charts were reviewed Differential Diagnosis (chest pain, altered mental status, abdominal pain women, abdominal pain men, vaginal bleeding, weakness, fever, dyspnea, syncope, headache, dizziness, GI bleed, back pain, seizure, CVA, palpatations, mental health, musculoskeletal)? @ -Differential Back Pain: Strain, zoster, cauda equina syndrome, epidural abscess, vertebral osteomyelitis, discitis, fracture, subluxation, disc herniation, DJD, spinal stenosis, dissection, AAA, pancreatitis, peptic ulcer disease, pyelonephritis, kidney stone, this is not meant to be an all-inclusive list. EKG interpreted by me (3pts min.). @ -As above X-rays interpreted by me (1pt min.). @ -None done CT interpreted by me (1pt min.). @ -None done U/S interpreted by me (1pt. min.). @ -None done What testing was considered but not performed or refused? (CT, X-rays, U/S, labs)? Why? @ -None What meds were considered but not given or refused? Why? @ -None Did you discuss the management of the patient with other professionals (pr ofessionals i.e. , PA, OPERATING ROOM AIDE, lab, RT, psych nurse, geriatric social work professor, finisher card tender, teacher, escrow officer, bilingual case manager)? Give summary @ -No Was smoking cessation discussed for >3mins.? @ -No Was critical care preformed (if so, how long)? @ -No Were there social determinants of health that impacted care today? How? (Homelessness, low income, unemployed, alcoholism, drug addiction, transportation, low edu. Level, literacy, decrease access to med. care, shelter, rehab)? @ -No Was there de-escalation of care discussed even if they declined (Discuss DNR or withdrawal of care, Hospice)? DNR status @ -No What co-morbidities impacted this encounter? (DM, HTN, Smoking, COPD, CAD, Cancer, CVA, ARF, Chemo, Hep., AIDS, mental health diagnosis, sleep apnea, morbid obesity)? @ -None Was patient admitted / discharged? Hospital course, mention meds given and route, prescriptions, significant lab abnormalities, going to OR and other pertinent info. @ -Chronic back pain, orthopedic follow-up in 24 to 48 hours, outpatient MRI performed. Symptoms controlled. Undiagnosed new problem with uncertain prognosis? @ -No Drug Therapy requiring intensive monitoring for toxicity (Heparin, Nitro, Insulin, Cardizem)? @ -No Were any procedures done? @ -No Diagnosis/symptom? @ -Moderate back pain Acute, or Chronic, or Acute on Chronic? @ -Chronic] Uncomplicated (without systemic symptoms) or Complicated (systemic symptoms)? @ -Default Side effects of treatment? @ -No Exacerbation, Progression, or Severe Exacerbation? @ -No Poses a threat to life or bodily function? How? (Chest pain, [place], [place], pneumonia, PE, COPD, DKA, ARF, appy, cholecystitis, CVA, Diverticulitis, Homicidal, Suicidal, threat to staff... and all critical care pts) @ -No Disposition Clinical Impression: Lumbar radiculopathy, Back pain Disposition: HOME SELF-CARE Condition: Fair Instructions (If sedation given, give patient instructions): Acute Low Back Pain (ED) Is patient prescribed a controlled substance at d/c from ED?: No Referrals: Rafael Dinero MD [Primary Care Provider] - 1-2 days Justin Wilson DO [Doctor of Osteopathic Medicine] - 1-2 days Time of Disposition: 04:23
[2023-05-27 04:32] VITALS: BP 156/99; PULSE 105; RESP 18; TEMP 98.1
== END 2023-05-27 04:47 | disposition home or self-care (01) ==
LOC: EC 04:05
DX: M54.16 Radiculopathy, lumbar region (principal); G47.30 Sleep apnea, unspecified; F17.290 Nicotine dependence, other tobacco product, uncomplicated; F12.90 Cannabis use, unspecified, uncomplicated
CPT/HCPCS: 99283; 96372 ×2; J1170; J1885

== ENCOUNTER 2023-05-28 16:33 | Emergency (ER) | payer OTHER ==
[2023-05-28 16:47] VITALS: BP 133/86; PULSE 100; RESP 20; TEMP 98.2
[2023-05-28] MEDS ORDERED: LIDOCAINE 4% PATCH TOPICAL ONE (17:23)
[2023-05-28] MEDS ORDERED: HYDROmorphone 1 MG/ML 1 ML SYRINGE IM STA (17:23)
[2023-05-28] MEDS ORDERED: KETOROLAC 15 MG/ML 1 ML VIAL IM STA (17:23)
--- NOTE | 2023-05-28 17:23 | ED ---
General Adult HPI - General Chief complaint: Back Pain/Injury Stated complaint: low back pain Time Seen by Provider: 05/28/23 16:45 Source: patient, RN notes reviewed Mode of arrival: ambulatory Limitations: no limitations - History of Present Illness Initial comments: 47-year-old male presents to the emergency department for evaluation of back pain which is chronic in nature. 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 He states that the pain radiates down his left leg. He has had a recent MRI. He states that he is scheduled with Dr. Wilson's office tomorrow for follow-up on MRI results. Patient denies any new symptoms. He denies saddle anesthesia, loss of bowel or bladder function, urinary retention, fever. - Related Data Home Medications Medication Instructions Recorded Confirmed traMADol HCL 50 mg PO Q6H PRN 01/25/22 01/25/22 Previous Rx's Medication Instructions Recorded Apixaban [Eliquis] 5 mg PO BID #180 tab 11/18/21 Cyclobenzaprine [Flexeril] 10 mg PO TID #24 tab 01/11/22 Cyclobenzaprine [Flexeril] 5 mg PO TID #90 tablet 01/31/22 HYDROcodone/APAP 10-325MG [[place] 1 tab PO Q4-6H PRN #56 tab 01/31/22 10-325] Pregabalin [Lyrica] 150 mg PO BID #60 cap 01/31/22 Sennosides/Docusate Sodium 1 each PO DAILY PRN #20 tablet 01/31/22 [Senna-S 8.6-50 mg Tablet] cefaDROXiL [Duricef] 500 mg PO Q12HR 3 Days #6 cap 01/31/22 methylPREDNISolone Dose Pack 4 mg PO DIRECTED #1 packet 03/28/23 [Medrol Dose Pack] HYDROcodone/APAP 5-325MG [[place] 1 tab PO Q6HR PRN 2 Days #8 tab 03/30/23 5-325] HYDROcodone/APAP 10-325MG [[place] 1 tab PO Q4HR PRN 3 Days #18 tab 04/14/23 10-325] HYDROcodone/APAP 10-325MG [[place] 1 tab PO Q4-6H PRN 3 Days #3 tab 04/29/23 10-325] Ibuprofen [Motrin] 600 mg PO Q8HR PRN #24 tab 05/01/23 Cyclobenzaprine [Flexeril] 10 mg PO TID PRN #15 tab 05/16/23 Cyclobenzaprine [Flexeril] 10 mg PO TID PRN #15 tab 05/24/23 Ketorolac [Toradol] 10 mg PO Q8HR #15 tab 05/28/23 Allergies Allergy/AdvReac Type Severity Reaction Status Date / Time No Known Allergies Allergy Verified 05/28/23 16:38 Review of Systems ROS Statement: Those systems with pertinent positive or pertinent negative responses have been documented in the HPI. ROS Other: All systems not noted in ROS Statement are negative. Past Medical History Past Medical History: Atrial Flutter, Sleep Apnea/CPAP/BIPAP Additional Past Medical History / Comment(s): HX of hep C, Back pain History of Any Multi-Drug Resistant Organisms: None Reported Past Surgical History: Cholecystectomy Additional Past Surgical History / Comment(s): Cardiac ablation, Gall bladder 2002 Past Psychological History: No Psychological Hx Reported Smoking Status: Never smoker Past Alcohol Use History: Occasional - Past Family History Father Family Medical History: Coronary Artery Disease (CAD) Additional Family Medical History / Comment(s): Brain tumor Mother Family Medical History: Chest Pain / Angina Additional Family Medical History / Comment(s): Breast cancer General Exam Limitations: no limitations General appearance: alert, in no apparent distress Head exam: Present: atraumatic, normocephalic, normal inspection Eye exam: Present: normal appearance, PERRL, EOMI. Absent: scleral icterus, conjunctival injection, periorbital swelling ENT exam: Present: normal exam, mucous membranes moist Neck exam: Present: normal inspection. Absent: tenderness, meningismus, lymphadenopathy Respiratory exam: Present: normal lung sounds bilaterally. Absent: respiratory distress, wheezes, rales, rhonchi, stridor Cardiovascular Exam: Present: regular rate, normal rhythm, normal heart sounds. Absent: systolic murmur, diastolic murmur, rubs, gallop, clicks Extremities exam: Present: normal inspection, full ROM, normal capillary refill. Absent: tenderness, pedal edema, joint swelling, calf tenderness Back exam: Present: normal inspection. Absent: tenderness Neurological exam: Present: alert, oriented X3 Psychiatric exam: Present: normal affect, normal mood Skin exam: Present: warm, dry, intact, normal color. Absent: rash Course Vital Signs 05/28/23 16:35 Temperature 98.2 F Pulse Rate 100 Respiratory 20 Rate Blood Pressure 133/86 O2 Sat by Pulse 97 Oximetry Medical Decision Making - Medical Decision Making Was pt. sent in by a medical professional or institution (, CHARLES, DIRECTOR OF HUMAN RESOURCES, urgent care, hospital, or [place] [facility] facility...) When possible be specific @ -No Did you speak to anyone other than the patient for history (EMS, parent, family, police, friend...)? What history was obtained from this source @ -No Did you review nursing and triage notes (agree or disagree)? Why? @ -I reviewed and agree with nursing and triage notes Were old charts reviewed (outside hosp., previous admission, EMS record, old EKG, old radiological studies, urgent care reports/EKG's, [place] [facility] facility records)? Report findings @ -MRI report reviewed from May 19 Differential Diagnosis (chest pain, altered mental status, abdominal pain women, abdominal pain men, vaginal bleeding, weakness, fever, dyspnea, syncope, headache, dizziness, GI bleed, back pain, seizure, CVA, palpatations, mental he alth, musculoskeletal)? @ -Differential Back Pain: Strain, zoster, cauda equina syndrome, epidural abscess, vertebral osteomyelitis, discitis, fracture, subluxation, disc herniation, DJD, spinal asif nosis, dissection, AAA, pancreatitis, peptic ulcer disease, pyelonephritis, kidney stone, this is not meant to be an all-inclusive list. EKG interpreted by me (3pts min.). @ -None X-rays interpreted by me (1pt min.). @ -None done CT interpreted by me (1pt min.). @ -None done U/S interpreted by me (1pt. min.). @ -None done What testing was considered but not performed or refused? (CT, X-rays, U/S, labs)? Why? @ -None What meds were considered but not given or refused? Why? @ -None Did you discuss the management of the patient with other professionals (professionals i.e. CHARLES Miller, DIRECTOR OF HUMAN RESOURCES, lab, RT, psych nurse, social science research assistant, knot saw operator, teacher, special forces warrant officer, case finisher)? Give summary @ -No Was smoking cessation discussed for >3mins.? @ -No Was critical care preformed (if so, how long)? @ -No Were there social determinants of health that impacted care today? How? (Homelessness, low income, unemployed, alcoholism, drug addiction, transportation, low edu. Level, literacy, decrease access to med. care, residential, rehab)? @ -No Was there de-escalation of care discussed even if they declined (Discuss DNR or withdrawal of care, Hospice)? DNR status @ -No What co-morbidities impacted this encounter? (DM, HTN, Smoking, COPD, CAD, Cancer, CVA, ARF, Chemo, Hep., AIDS, mental health diagnosis, sleep apnea, morbid obesity)? @ -None Was patient admitted / discharged? Hospital course, mention meds given and route, prescriptions, significant lab abnormalities, going to OR and other pertinent info. @ -Discharge. Patient presented to the emergency department for evaluation of low back pain. He states that this is chronic in nature. He has an appointment to follow-up with his orthopedic spine surgeon tomorrow. Patient is hoping for pain control at this time. He denies any red flag symptoms at this time. Patient given medication for pain control and prescription sent to patient's pharmacy for Toradol. Advised to not take Toradol and ibuprofen together. Patient understanding agreeable with discharge plan and to follow-up with his provider tomorrow. Understanding agreeable with plan. Patient stable at time of discharge. Case discussed with Dr. Lozano Undiagnosed new problem with uncertain prognosis? @ -No Drug Therapy requiring intensive monitoring for toxicity (Heparin, Nitro, Insulin, Cardizem)? @ -No Were any procedures done? @ -No Diagnosis/symptom? @ -Back pain Acute, or Chronic, or Acute on Chronic? @ -Acute on chronic Uncomplicated (without systemic symptoms) or Complicated (systemic symptoms)? @ -Uncomplicated Side effects of treatment? @ -No Exacerbation, Progression, or Severe Exacerbation? @ -No Poses a threat to life or bodily function? How? (Chest pain, [place], [place], pneumonia, PE, COPD, DKA, ARF, appy, cholecystitis, CVA, Diverticulitis, Homicidal, Suicidal, threat to staff... and all critical care pts) @ -No Disposition Clinical Impression: Mechanical back pain Disposition: HOME SELF-CARE Condition: Stable Instructions (If sedation given, give patient instructions): Acute Low Back Pain (ED) Additional Instructions: Follow-up with your orthopedic provider tomorrow as scheduled. Do not take ibuprofen and Toradol together. Return to the emergency department for new or worsening symptoms. Prescriptions: Ketorolac [Toradol] 10 mg PO Q8HR #15 tab Is patient prescribed a controlled substance at d/c from ED?: No Referrals: Rafael Dinero MD [Primary Care Provider] - 1-2 days
== END 2023-05-28 17:38 | disposition home or self-care (01) ==
LOC: EC 16:33
DX: M54.50 Low back pain, unspecified (principal)
CPT/HCPCS: 99284; 96372 ×2; J1170; J1885

== ENCOUNTER 2023-05-29 21:19 | Emergency (ER) | payer OTHER ==
[2023-05-29 22:13] VITALS: TEMP 98.5
[2023-05-29] MEDS ORDERED: HYDROmorphone 1 MG/ML 1 ML SYRINGE IM STA (22:20)
--- NOTE | 2023-05-29 22:25 | ED ---
Back Pain HPI - General Chief Complaint: Back Pain/Injury Stated Complaint: Back Pain Source: patient Limitations: no limitations - History of Present Illness Initial Comments: 47-year-old male with a past medical history significant for chronic back pain presenting to the ED with a chief complaint of back pain. Patient had MRI performed on 05/17/2023 that showed moderate disc degeneration at L5-S1 with severe bilateral neuroforaminal stenosis. Additional L4-L5 disc bulge and facet joint arthropathy with moderate to severe bilateral neural foraminal stenosis.. Patient notes that he was at his orthopedics office today and saw the PA who confirmed that patient would need surgery. States that he is meeting with Dr. Wilson on 06/01/23 to confirm surgery. Patient notes today his usual pain medications are not helping him thus presented to the ED for further evaluation. Denies any recent injury or trauma. No saddle anesthesia or incontinence. No IV drug use. No fever or chills. No other complaints. - Related Data Home Medications Medication Instructions Recorded Confirmed traMADol HCL 50 mg PO Q6H PRN 01/25/22 01/25/22 Previous Rx's Medication Instructions Recorded Apixaban [Eliquis] 5 mg PO BID #180 tab 11/18/21 Cyclobenzaprine [Flexeril] 10 mg PO TID #24 tab 01/11/22 Cyclobenzaprine [Flexeril] 5 mg PO TID #90 tablet 01/31/22 HYDROcodone/APAP 10-325MG [[facility] 1 tab PO Q4-6H PRN #56 tab 01/31/22 10-325] Pregabalin [Lyrica] 150 mg PO BID #60 cap 01/31/22 Sennosides/Docusate Sodium 1 each PO DAILY PRN #20 tablet 01/31/22 [Senna-S 8.6-50 mg Tablet] cefaDROXiL [Duricef] 500 mg PO Q12HR 3 Days #6 cap 01/31/22 methylPREDNISolone Dose Pack 4 mg PO DIRECTED #1 packet 03/28/23 [Medrol Dose Pack] HYDROcodone/APAP 5-325MG [[facility] 1 tab PO Q6HR PRN 2 Days #8 tab 03/30/23 5-325] HYDROcodone/APAP 10-325MG [[facility] 1 tab PO Q4HR PRN 3 Days #18 tab 04/14/23 10-325] HYDROcodone/APAP 10-325MG [[facility] 1 tab PO Q4-6H PRN 3 Days #3 tab 04/29/23 10-325] Ibuprofen [Motrin] 600 mg PO Q8HR PRN #24 tab 05/01/23 Cyclobenzaprine [Flexeril] 10 mg PO TID PRN #15 tab 05/16/23 Cyclobenzaprine [Flexeril] 10 mg PO TID PRN #15 tab 05/24/23 Ketorolac [Toradol] 10 mg PO Q8HR #15 tab 05/28/23 Allergies Allergy/AdvReac Type Severity Reaction Status Date / Time No Known Allergies Allergy Verified 05/29/23 21:44 Review of Systems ROS Statement: Those systems with pertinent positive or pertinent negative responses have been documented in the HPI. ROS Other: All systems not noted in ROS Statement are negative. Past Medical History Past Medical History: Atrial Flutter, Sleep Apnea/CPAP/BIPAP Additional Past Medical History / Comment(s): HX of hep C, Back pain History of Any Multi-Drug Resistant Organisms: None Reported Past Surgical History: Cholecystectomy Additional Past Surgical History / Comment(s): Cardiac ablation, Gall bladder 2002 Past Psychological History: No Psychological Hx Reported Smoking Status: Never smoker Past Alcohol Use History: Occasional - Past Family History Father Family Medical History: Coronary Artery Disease (CAD) Additional Family Medical History / Comment(s): Brain tumor Mother Family Medical History: Chest Pain / Angina Additional Family Medical History / Comment(s): Breast cancer General Exam Limitations: no limitations General appearance: alert, in no apparent distress Neck exam: Present: normal inspection Cardiovascular Exam: Present: regular rate GI/Abdominal exam: Present: soft Extremities exam: Present: other (Strength and sensation equal intact in bilateral lower extremities. Ambulates without difficulty.) Neurological exam: Present: alert, oriented X3 Skin exam: Present: warm, dry Course Vital Signs 05/29/23 21:44 Temperature 98.5 F Pulse Rate 101 H Respiratory 18 Rate Blood Pressure 118/78 O2 Sat by Pulse 95 Oximetry Medical Decision Making - Medical Decision Making Was pt. sent in by a medical professional or institution (, PA, PAPER MILL MANAGER, urgent care, hospital, or [facility]...) When possible be specific @ -No Did you speak to anyone other than the patient for history (EMS, parent, family, police, friend...)? What history was obtained from this source @ -No Did you review nursing and triage notes (agree or disagree)? Why? @ -I reviewed and agree with nursing and triage notes Were old charts reviewed (outside hosp., previous admission, EMS record, old EKG, old radiological studies, urgent care reports/EKG's, [facility] records)? Report findings @ -MRI reviewed. For further details please see HPI. Differential Diagnosis (chest pain, altered mental status, abdominal pain women, abdominal pain men, vaginal bleeding, weakness, fever, dyspnea, syncope, heada taylor, dizziness, GI bleed, back pain, seizure, CVA, palpatations, mental health, musculoskeletal)? @ -Differential Back Pain: Strain, zoster, cauda equina syndrome, epidural abscess, vertebral osteomyelitis, discitis, fracture, subluxation, disc herniation, DJD, spinal stenosis, dissection, AAA, pancreatitis, peptic ulcer disease, pyelonephritis, kidney stone, this is not meant to be an all-inclusive list. EKG interpreted by me (3pts min.). @ -None X-rays interpreted by me (1pt min.). @ -None done CT interpreted by me (1pt min.). @ -None done U/S interpreted by me (1pt. min.). @ -None done What testing was considered but not performed or refused? (CT, X-rays, U/S, labs)? Why? @ -None What meds were considered but not given or refused? Why? @ -None Did you discuss the management of the patient with other professionals (professionals i.e. , PA, PAPER MILL MANAGER, lab, RT, psych nurse, psychologist social, fall internship, teacher, command and control officer, community case manager)? Give summary @ -No Was smoking cessation discussed for >3mins.? @ -No Was critical care preformed (if so, how long)? @ -No Were there social determinants of health that impacted care today? How? (Homelessness, low income, unemployed, alcoholism, drug addiction, transportation, low edu. Level, literacy, decrease access to med. care, residential, rehab)? @ -No Was there de-escalation of care discussed even if they declined (Discuss DNR or withdrawal of care, Hospice)? DNR status @ -No What co-morbidities impacted this encounter? (DM, HTN, Smoking, COPD, CAD, Cancer, CVA, ARF, Chemo, Hep., AIDS, mental health diagnosis, sleep apnea, morbid obesity)? @ -Lumbar stenosis Was patient admitted / discharged? Hospital course, mention meds given and route, prescriptions, significant lab abnormalities, going to OR and other pertinent info. @ -Discharge 47-year-old male with past medical history of chronic back pain presents to the ED with complaints of back pain. No recent injury or trauma however notes that he has been moving around more than usual today and his typical pain medications are not helping him. No alarm symptoms. At this time vital signs stable afebrile. Provided pain control in the ED and discharged home in stable condition. Discussed return precautions with patient verbalized agreement. Advise follow-up with Dr. Wilson as scheduled on the first of next month. Undiagnosed new problem with uncertain prognosis? @ -No Drug Therapy requiring intensive monitoring for toxicity (Heparin, Nitro, Insulin, Cardizem)? @ -No Were any procedures done? @ -No Diagnosis/symptom? @ -Back pain Acute, or Chronic, or Acute on Chronic? @ -Acute on chronic Uncomplicated (without systemic symptoms) or Complicated (systemic symptoms)? @ -Uncomplicated Side effects of treatment? @ -No Exacerbation, Progression, or Severe Exacerbation? @ -No Poses a threat to life or bodily function? How? (Chest pain, [place], [place], pneumonia, PE, COPD, DKA, ARF, appy, cholecystitis, CVA, Diverticulitis, Homicidal, Suicidal, threat to staff... and all critical care pts) @ -No Disposition Clinical Impression: Back pain Disposition: HOME SELF-CARE Instructions (If sedation given, give patient instructions): Acute Low Back Pain (ED) Is patient prescribed a controlled substance at d/c from ED?: No Referrals: Rafael Dinero MD [Primary Care Provider] - 1-2 days Time of Disposition: 22:28
[2023-05-29 23:04] VITALS: BP 122/82; PULSE 64; RESP 20
== END 2023-05-29 23:01 | disposition home or self-care (01) ==
LOC: EC 21:19
DX: M54.9 Dorsalgia, unspecified (principal); G47.30 Sleep apnea, unspecified
CPT/HCPCS: 99283; 96372; J1170

== ENCOUNTER 2023-05-31 22:02 | Emergency (ER) | payer OTHER ==
[2023-05-31] MEDS ORDERED: ORPHENADRINE 30 MG/ML 2 ML VIAL IM STA (22:32)
[2023-05-31] MEDS ORDERED: KETOROLAC 15 MG/ML 1 ML VIAL IVP STA (22:32)
[2023-05-31] MEDS ORDERED: methylPREDNISolone SOD SUCCI 125 MG/2 ML VIAL IM ONE (22:32)
[2023-05-31 23:03] VITALS: BP 150/96; PULSE 103; RESP 22; TEMP 98
--- NOTE | 2023-05-31 23:05 | ED ---
General Adult HPI - General Chief complaint: Neck Pain/Injury Stated complaint: lower back pain Time Seen by Provider: 05/31/23 22:33 Source: patient, RN notes reviewed Mode of arrival: ambulatory Limitations: no limitations - History of Present Illness Initial comments: 47-year-old male presents to the emergency department for evaluation of low back pain. Patient states that he has been experiencing this for a while now and follows with Dr. Wilson. He reports that he has an appointment Dr. Wilson in the upcoming days to schedule surgery. Patient reports a history of spinal stenosis. He frequents our ER for the same issue. He denies any new symptoms at this time. He denies loss of bowel or bladder function, urinary retention, saddle anesthesia, fever, chills. - Related Data Home Medications Medication Instructions Recorded Confirmed traMADol HCL 50 mg PO Q6H PRN 01/25/22 01/25/22 Previous Rx's Medication Instructions Recorded Apixaban [Eliquis] 5 mg PO BID #180 tab 11/18/21 Cyclobenzaprine [Flexeril] 10 mg PO TID #24 tab 01/11/22 Cyclobenzaprine [Flexeril] 5 mg PO TID #90 tablet 01/31/22 HYDROcodone/APAP 10-325MG [[facility] 1 tab PO Q4-6H PRN #56 tab 01/31/22 10-325] Pregabalin [Lyrica] 150 mg PO BID #60 cap 01/31/22 Sennosides/Docusate Sodium 1 each PO DAILY PRN #20 tablet 01/31/22 [Senna-S 8.6-50 mg Tablet] cefaDROXiL [Duricef] 500 mg PO Q12HR 3 Days #6 cap 01/31/22 methylPREDNISolone Dose Pack 4 mg PO DIRECTED #1 packet 03/28/23 [Medrol Dose Pack] HYDROcodone/APAP 5-325MG [[facility] 1 tab PO Q6HR PRN 2 Days #8 tab 03/30/23 5-325] HYDROcodone/APAP 10-325MG [[facility] 1 tab PO Q4HR PRN 3 Days #18 tab 04/14/23 10-325] HYDROcodone/APAP 10-325MG [[facility] 1 tab PO Q4-6H PRN 3 Days #3 tab 04/29/23 10-325] Ibuprofen [Motrin] 600 mg PO Q8HR PRN #24 tab 05/01/23 Cyclobenzaprine [Flexeril] 10 mg PO TID PRN #15 tab 05/16/23 Cyclobenzaprine [Flexeril] 10 mg PO TID PRN #15 tab 05/24/23 Ketorolac [Toradol] 10 mg PO Q8HR #15 tab 05/28/23 Allergies Allergy/AdvReac Type Severity Reaction Status Date / Time No Known Allergies Allergy Verified 05/29/23 21:44 Review of Systems ROS Statement: Those systems with pertinent positive or pertinent negative responses have been documented in the HPI. ROS Other: All systems not noted in ROS Statement are negative. Past Medical History Past Medical History: Atrial Flutter, Sleep Apnea/CPAP/BIPAP Additional Past Medical History / Comment(s): HX of hep C, Back pain History of Any Multi-Drug Resistant Organisms: None Reported Past Surgical History: Cholecystectomy Additional Past Surgical History / Comment(s): Cardiac ablation, Gall bladder 2002 Past Psychological History: No Psychological Hx Reported Smoking Status: Never smoker Past Alcohol Use History: Occasional Past Drug Use History: None Reported - Past Family History Father Family Medical History: Coronary Artery Disease (CAD) Additional Family Medical History / Comment(s): Brain tumor Mother Family Medical History: Chest Pain / Angina Additional Family Medical History / Comment(s): Breast cancer General Exam Limitations: no limitations General appearance: alert, in no apparent distress Head exam: Present: atraumatic, normocephalic, normal inspection Eye exam: Present: normal appearance, PERRL, EOMI. Absent: scleral icterus, conjunctival injection, periorbital swelling ENT exam: Present: normal exam, mucous membranes moist Neck exam: Present: normal inspection. Absent: tenderness, meningismus, lymphadenopathy Respiratory exam: Present: normal lung sounds bilaterally. Absent: respiratory distress, wheezes, rales, rhonchi, stridor Cardiovascular Exam: Present: regular rate, normal rhythm, normal heart sounds. Absent: systolic murmur, diastolic murmur, rubs, gallop, clicks Extremities exam: Present: normal inspection, full ROM, normal capillary refill. Absent: tenderness, pedal edema, joint swelling, calf tenderness Back exam: Present: normal inspection, full ROM. Absent: tenderness Neurological exam: Present: alert, oriented X3 Psychiatric exam: Present: normal affect, normal mood Skin exam: Present: warm, dry, intact, normal color. Absent: rash Course Vital Signs 05/31/23 22:29 Temperature 98 F Pulse Rate 103 H Respiratory 22 Rate Blood Pressure 150/96 O2 Sat by Pulse 94 L Oximetry Medical Decision Making - Medical Decision Making Was pt. sent in by a medical professional or institution (CHARLES Miller, SERVICE LOSS CONTROL CONSULTANT, urgent care, hospital, or usp...) When possible be specific @ -No Did you speak to anyone other than the patient for history (EMS, parent, family, police, friend...)? What history was obtained from this source @ -No Did you review nursing and triage notes (agree or disagree)? Why? @ -I reviewed and agree with nursing and triage notes Were old charts reviewed (outside hosp., previous admission, EMS record, old EKG, old radiological studies, urgent care reports/EKG's, usp records)? Report findings @ -Old charts reviewed including MRI and pain medications that the patient received recently Differential Diagnosis (chest pain, altered mental status, abdominal pain women, abdominal pain men, vaginal bleeding, weakness, fever, dyspnea, syncope, headache, dizziness, GI bleed, back pain, seizure, CVA, palpatations, mental health, musculoskeletal)? @ -Differential Back Pain: Strain, zoster, cauda equina syndrome, epidural abscess, vertebral osteomyelitis, discitis, fracture, subluxation, disc herniation, DJD, spinal stenosis, dissection, AAA, pancreatitis, peptic ulcer disease, pyelonephritis, kidney stone, this is not meant to be an all-inclusive list. EKG interpreted by me (3pts min.). @ -None X-rays interpreted by me (1pt min.). @ -None done CT interpreted by me (1pt min.). @ -None done U/S interpreted by me (1pt. min.). @ -None done What testing was considered but not performed or refused? (CT, X-rays, U/S, labs)? Why? @ -Imaging was considered, patient has had no new injury and has no new symptoms, this is a chronic issue What meds were considered but not given or refused? Why? @ -None Did you discuss the management of the patient with other professionals (professionals i.e. CHARLES Miller, SERVICE LOSS CONTROL CONSULTANT, lab, RT, psych nurse, social service technician, bi analyst, teacher, marine safety officer, rifle case repairer)? Give summary @ -No Was smoking cessation discussed for >3mins.? @ -No Was critical care preformed (if so, how long)? @ -No Were there social determinants of health that impacted care today? How? (Homelessness, low income, unemployed, alcoholism, drug addiction, transportation, low edu. Level, literacy, decrease access to med. care, intermediate, rehab)? @ -No Was there de-escalation of care discussed even if they declined (Discuss DNR or withdrawal of care, Hospice)? DNR status @ -No What co-morbidities impacted this encounter? (DM, HTN, Smoking, COPD, CAD, Cancer, CVA, ARF, Chemo, Hep., AIDS, mental health diagnosis, sleep apnea, morbid obesity)? @ -None Was patient admitted / discharged? Hospital course, mention meds given and route, prescriptions, significant lab abnormalities, going to OR and other pertinent info. @ -Discharge. Patient presented to the emergency department for evaluation of low back pain in hopes of pain control. He frequents our ER for the same issue. He has had no change in his symptoms. Denies loss of bowel or bladder function, saddle anesthesia, urinary retention, fever, chills. Denies any new trauma. He is scheduled to see his spine surgeon this week. He reports that they are going to schedule surgery. Patient given a dose of Toradol, Norflex, Solu-Medrol in the emergency department and advised to follow-up with his spine surgeon as scheduled. Patient stable at time of discharge Undiagnosed new problem with uncertain prognosis? @ -No Drug Therapy requiring intensive monitoring for toxicity (Heparin, Nitro, Insulin, Cardizem)? @ -No Were any procedures done? @ -No Diagnosis/symptom? @ -Back pain Acute, or Chronic, or Acute on Chronic? @ -Chronic Uncomplicated (without systemic symptoms) or Complicated (systemic symptoms)? @ -Uncomplicated Side effects of treatment? @ -No Exacerbation, Progression, or Severe Exacerbation? @ -No Poses a threat to life or bodily function? How? (Chest pain, [place], [place], pneumonia, PE, COPD, DKA, ARF, appy, cholecystitis, CVA, Diverticulitis, Homicidal, Suicidal, threat to staff... and all critical care pts) @ -No Disposition Clinical Impression: Back pain Disposition: HOME SELF-CARE Condition: Stable Instructions (If sedation given, give patient instructions): Chronic Back Pain (DC) Is patient prescribed a controlled substance at d/c from ED?: No Referrals: Rafael Dinero MD [Primary Care Provider] - 1-2 days
== END 2023-05-31 23:02 | disposition home or self-care (01) ==
LOC: EC 22:02
DX: M54.50 Low back pain, unspecified (principal)
CPT/HCPCS: 99283; 96374; 96372; J2360; J1885

== ENCOUNTER 2023-06-01 12:20 | Emergency (ER) | payer OTHER ==
[2023-06-01] MEDS ORDERED: KETOROLAC 15 MG/ML 1 ML VIAL IM STA (12:54)
[2023-06-01] MEDS ORDERED: HYDROcodone/APAP 5-325MG 1 EACH TAB PO STA (12:54)
--- NOTE | 2023-06-01 13:00 | ED ---
General Adult HPI - General Chief complaint: Back Pain/Injury Stated complaint: low back pain Time Seen by Provider: 06/01/23 12:32 Source: patient, RN notes reviewed, old records reviewed Mode of arrival: ambulatory Limitations: no limitations - History of Present Illness Initial comments: Patient a 47-year-old male presenting to the emergency room today with a chief complaint of back pain. Patient does admit that he had multiple ER visits for this. Notes use of lumbar stenosis and bulging disc. States been following with orthopedics Dr. Delatorre who is planning to surgery and fusion of L3, 4 and 5. Patient does admit that he saw him today but there was a perez to visit as he needed to go to the OR and he states he did write prescriptions but they are not ready at his pharmacy. He was hoping that he can get injection as he states he has had relief with Toradol and Dilaudid. Patient denies any new injury or trauma. He states he does have pain to the lower lumbar area that radiates out. Does not to some radicular symptoms going down the left leg. Denies any bowel or bladder incontinence. Denies any saddle anesthesia. Patient denies any other complaints or symptoms at this time. - Related Data Home Medications Medication Instructions Recorded Confirmed traMADol HCL 50 mg PO Q6H PRN 01/25/22 01/25/22 Previous Rx's Medication Instructions Recorded Apixaban [Eliquis] 5 mg PO BID #180 tab 11/18/21 Cyclobenzaprine [Flexeril] 10 mg PO TID #24 tab 01/11/22 Cyclobenzaprine [Flexeril] 5 mg PO TID #90 tablet 01/31/22 HYDROcodone/APAP 10-325MG [[facility] 1 tab PO Q4-6H PRN #56 tab 01/31/22 10-325] Pregabalin [Lyrica] 150 mg PO BID #60 cap 01/31/22 Sennosides/Docusate Sodium 1 each PO DAILY PRN #20 tablet 01/31/22 [Senna-S 8.6-50 mg Tablet] cefaDROXiL [Duricef] 500 mg PO Q12HR 3 Days #6 cap 01/31/22 methylPREDNISolone Dose Pack 4 mg PO DIRECTED #1 packet 03/28/23 [Medrol Dose Pack] HYDROcodone/APAP 5-325MG [[facility] 1 tab PO Q6HR PRN 2 Days #8 tab 03/30/23 5-325] HYDROcodone/APAP 10-325MG [[facility] 1 tab PO Q4HR PRN 3 Days #18 tab 04/14/23 10-325] HYDROcodone/APAP 10-325MG [[facility] 1 tab PO Q4-6H PRN 3 Days #3 tab 04/29/23 10-325] Ibuprofen [Motrin] 600 mg PO Q8HR PRN #24 tab 05/01/23 Cyclobenzaprine [Flexeril] 10 mg PO TID PRN #15 tab 05/16/23 Cyclobenzaprine [Flexeril] 10 mg PO TID PRN #15 tab 05/24/23 Ketorolac [Toradol] 10 mg PO Q8HR #15 tab 05/28/23 Allergies Allergy/AdvReac Type Severity Reaction Status Date / Time No Known Allergies Allergy Verified 06/01/23 12:29 Review of Systems ROS Statement: Those systems with pertinent positive or pertinent negative responses have been documented in the HPI. ROS Other: All systems not noted in ROS Statement are negative. Past Medical History Past Medical History: Atrial Flutter, Sleep Apnea/CPAP/BIPAP Additional Past Medical History / Comment(s): HX of hep C, Back pain History of Any Multi-Drug Resistant Organisms: None Reported Past Surgical History: Cholecystectomy Additional Past Surgical History / Comment(s): Cardiac ablation, Gall bladder 2002 Past Psychological History: No Psychological Hx Reported Smoking Status: Never smoker Past Alcohol Use History: None Reported Past Drug Use History: Marijuana - Past Family History Father Family Medical History: Coronary Artery Disease (CAD) Additional Family Medical History / Comment(s): Brain tumor Mother Family Medical History: Chest Pain / Angina Additional Family Medical History / Comment(s): Breast cancer General Exam - General Exam Comments Initial Comments: General: The patient is awake and alert, in no distress, and does not appear acutely ill. Eye: Extra-ocular movements are intact. There is normal conjunctiva bilaterally. No signs of icterus. Ears, nose, mouth and throat: There are moist mucous membranes and no oral lesions. Neck: The neck is supple, there is no tenderness or JVD. Respiratory: respirations are non-labored Musculoskeletal: Normal appearance of lumbar spine with no step-off or deformity. Does have mild tenderness which increases down to the lower lumbar from L3-L5. Paravertebral tenderness both on the left and right. Patient shows good range of motion. Ambulating without any difficulty. Neurological: A&O x 3. CN II-XII intact, There are no obvious motor or sensory deficits. Coordination appears grossly intact. Speech is normal. Skin: Skin is warm and dry and no rashes or lesions are noted. Psychiatric: Cooperative, appropriate mood & affect, normal judgment. Limitations: no limitations Course Vital Signs 06/01/23 12:26 Temperature 98.8 F Pulse Rate 82 Respiratory 18 Rate Blood Pressure 139/92 O2 Sat by Pulse 94 L Oximetry Medical Decision Making - Medical Decision Making History was obtained from patient/Nurse/ I reviewed the external/internal non-ED medical records. Pertinent findings include: Patient has had multiple ER visits in the last month for same back pain. Initial assessment and chief complaint: back pain Chronic conditions affecting care: Chronic back pain Social determinants affecting care: None Differential diagnosis included, but not limited to: Bulging disc, muscle strain, herniated disc, lumbar stenosis 47-year-old male significant past medical history of chronic back pain, presented to the emergency room today with a chief complaint of chronic pain and was requesting pain medication of Toradol, Dilaudid that she states is helped in the past. Denies any new injury. Denies any bladder incontinence or retention. Denies any saddle anesthesia. Patient has had multiple ER visits for the same in the last month. Was discussed with patient about chronic pain needing to be treated by specialist or PCP or pain management. Patient states the did get prescription from orthopedics but is waiting for them to be filled. Was discussed with patient about Toradol shot here in the emergency room and giving her [place] as he states he does have a ride. Advised patient to continue to follow with his specialist. Signs symptoms and reason for concern and to return here to the emergency room discussed. Patient will be discharged and is in agreement. Disposition Clinical Impression: Acute exacerbation of chronic low back pain, Sciatica Disposition: HOME SELF-CARE Condition: Good Instructions (If sedation given, give patient instructions): Acute Low Back Pain (ED) Additional Instructions: Please continue to follow-up with your specialist as discussed. Return for any other concerns. Is patient prescribed a controlled substance at d/c from ED?: No Referrals: Rafael Dinero MD [Primary Care Provider] - 1-2 days Time of Disposition: 13:00
[2023-06-01 13:01] VITALS: BP 139/92; PULSE 82; RESP 18; TEMP 98.8
== END 2023-06-01 13:02 | disposition home or self-care (01) ==
LOC: EC 12:20
DX: M54.41 Lumbago with sciatica, right side (principal); M54.42 Lumbago with sciatica, left side; G89.29 Other chronic pain
CPT/HCPCS: 99283; 96372; J1885

== ENCOUNTER 2023-06-10 05:31 | Emergency (ER) | payer OTHER ==
[2023-06-10 05:55] VITALS: BP 153/107; PULSE 83; RESP 16; TEMP 97.8
[2023-06-10] MEDS: ACET/COD 300 MG/30 MG STARTER PACK 6 TAB BTL PO STA (06:23)
[2023-06-10] MEDS: HYDROcodone/APAP 5-325MG 1 EACH TAB PO STA (06:24)
[2023-06-10] MEDS: KETOROLAC 15 MG/ML 1 ML VIAL IM STA (06:25)
--- NOTE | 2023-06-10 06:29 | ED ---
Back Pain HPI - General Chief Complaint: Back Pain/Injury Stated Complaint: LOWER SPINE PAIN Time Seen by Provider: 06/10/23 05:41 Source: patient, RN notes reviewed Limitations: no limitations - History of Present Illness Initial Comments: 47-year-old male presents emergency department with chief complaint of low back pain. Patient states this is an ongoing issue. Patient states he has an acute exacerbation of his back pain. He states he is scheduled or being scheduled for surgery by Dr. Wilson. Patient denies any bowel, bladder incontinence retention is on Neurontin, Flexeril. Patient states that he was doing some household work and aggravated his back. - Related Data Home Medications Medication Instructions Recorded Confirmed traMADol HCL 50 mg PO Q6H PRN 01/25/22 01/25/22 Previous Rx's Medication Instructions Recorded Apixaban [Eliquis] 5 mg PO BID #180 tab 11/18/21 Cyclobenzaprine [Flexeril] 10 mg PO TID #24 tab 01/11/22 Cyclobenzaprine [Flexeril] 5 mg PO TID #90 tablet 01/31/22 HYDROcodone/APAP 10-325MG [[place] 1 tab PO Q4-6H PRN #56 tab 01/31/22 10-325] Pregabalin [Lyrica] 150 mg PO BID #60 cap 01/31/22 Sennosides/Docusate Sodium 1 each PO DAILY PRN #20 tablet 01/31/22 [Senna-S 8.6-50 mg Tablet] cefaDROXiL [Duricef] 500 mg PO Q12HR 3 Days #6 cap 01/31/22 methylPREDNISolone Dose Pack 4 mg PO DIRECTED #1 packet 03/28/23 [Medrol Dose Pack] HYDROcodone/APAP 5-325MG [[place] 1 tab PO Q6HR PRN 2 Days #8 tab 03/30/23 5-325] HYDROcodone/APAP 10-325MG [[place] 1 tab PO Q4HR PRN 3 Days #18 tab 04/14/23 10-325] HYDROcodone/APAP 10-325MG [[place] 1 tab PO Q4-6H PRN 3 Days #3 tab 04/29/23 10-325] Ibuprofen [Motrin] 600 mg PO Q8HR PRN #24 tab 05/01/23 Cyclobenzaprine [Flexeril] 10 mg PO TID PRN #15 tab 05/16/23 Cyclobenzaprine [Flexeril] 10 mg PO TID PRN #15 tab 05/24/23 Ketorolac [Toradol] 10 mg PO Q8HR #15 tab 05/28/23 Allergies Allergy/AdvReac Type Severity Reaction Status Date / Time No Known Allergies Allergy Verified 06/01/23 12:29 Review of Systems ROS Statement: Those systems with pertinent positive or pertinent negative responses have been documented in the HPI. ROS Other: All systems not noted in ROS Statement are negative. Past Medical History Past Medical History: Atrial Flutter, Sleep Apnea/CPAP/BIPAP Additional Past Medical History / Comment(s): HX of hep C, Back pain History of Any Multi-Drug Resistant Organisms: None Reported Past Surgical History: Cholecystectomy Additional Past Surgical History / Comment(s): Cardiac ablation, Gall bladder 2003 Past Psychological History: No Psychological Hx Reported Smoking Status: Never smoker Past Alcohol Use History: None Reported Past Drug Use History: Marijuana - Past Family History Father Family Medical History: Coronary Artery Disease (CAD) Additional Family Medical History / Comment(s): Brain tumor Mother Family Medical History: Chest Pain / Angina Additional Family Medical History / Comment(s): Breast cancer General Exam Limitations: no limitations General appearance: alert, in no apparent distress Head exam: Present: atraumatic, normocephalic, normal inspection Eye exam: Present: normal appearance, PERRL, EOMI. Absent: scleral icterus, conjunctival injection, periorbital swelling Respiratory exam: Present: normal lung sounds bilaterally. Absent: respiratory distress, wheezes, rales, rhonchi, stridor Cardiovascular Exam: Present: regular rate, normal rhythm, normal heart sounds. Absent: systolic murmur, diastolic murmur, rubs, gallop, clicks GI/Abdominal exam: Present: soft, normal bowel sounds. Absent: distended, tenderness, guarding, rebound, rigid Back exam: Present: paraspinal tenderness. Absent: CVA tenderness (R), CVA tenderness (L), vertebral tenderness Neurological exam: Present: alert Skin exam: Present: warm, dry, intact, normal color. Absent: rash Course Vital Signs 06/10/23 05:40 Temperature 97.8 F Pulse Rate 83 Respiratory 16 Rate Blood Pressure 153/107 O2 Sat by Pulse 96 Oximetry Medical Decision Making - Medical Decision Making Was pt. sent in by a medical professional or institution ([facility] Miller, TAPER MACHINE, urgent care, hospital, or usp...) When possible be specific @ -No Did you speak to anyone other than the patient for history (EMS, parent, family, police, friend...)? What history was obtained from this source @ -No Did you review nursing and triage notes (agree or disagree)? Why? @ -I reviewed and agree with nursing and triage notes Were old charts reviewed (outside hosp., previous admission, EMS record, old EKG, old radiological studies, urgent care reports/EKG's, usp records)? Report findings @ -[Reviewed prior imaging, chart Differential Diagnosis (chest pain, altered mental status, abdominal pain women, abdominal pain men, vaginal bleeding, weakness, fever, dyspnea, syncope, headache, dizziness, GI bleed, back pain, seizure, CVA, palpatations, mental health, musculoskeletal)? @ -Differential Back Pain: Strain, zoster, cauda equina syndrome, epidural abscess, vertebral osteomyelitis, discitis, fracture, subluxation, disc herniation, DJD, spinal stenosis, dissection, AAA, pancreatitis, peptic ulcer disease, pyelonephritis, kidney stone, this is not meant to be an all-inclusive list. EKG interpreted by me (3pts min.). @ -[None X-rays interpreted by me (1pt min.). @ -None done CT interpreted by me (1pt min.). @ -None done U/S interpreted by me (1pt. min.). @ -None done What testing was considered but not performed or refused? (CT, X-rays, U/S, labs)? Why? @ -[Consider x-ray, CT though patient recent MRI What meds were considered but not given or refused? Why? @ -None Did you discuss the management of the patient with other professionals (professionals i.e. CHARLES Miller, TAPER MACHINE, lab, RT, psych nurse, social media assistant, padding machine operator, teacher, access control officer, case mgr)? Give summary @ -No Was smoking cessation discussed for >3mins.? @ -No Was critical care preformed (if so, how long)? @ -No Were there social determinants of health that impacted care today? How? (Homelessness, low income, unemployed, alcoholism, drug addiction, transportation, low edu. Level, literacy, decrease access to med. care, longterm, rehab)? @ -No Was there de-escalation of care discussed even if they declined (Discuss DNR or withdrawal of care, Hospice)? DNR status @ -No What co-morbidities impacted this encounter? (DM, HTN, Smoking, COPD, CAD, Cancer, CVA, ARF, Chemo, Hep., AIDS, mental health diagnosis, sleep apnea, morbid obesity)? @ -None Was patient admitted / discharged? Hospital course, mention meds given and route, prescriptions, significant lab abnormalities, going to OR and other pertinent info. @ -[Discharge patient has acute exacerbation of chronic back pain he has no red flag symptoms to be discharged in stable condition. Undiagnosed new problem with uncertain prognosis? @ -No Drug Therapy requiring intensive monitoring for toxicity (Heparin, Nitro, Insulin, Cardizem)? @ -No Were any procedures done? @ -No Diagnosis/symptom? @ -[Back pain Acute, or Chronic, or Acute on Chronic? @ -Acute on chronic Uncomplicated (without systemic symptoms) or Complicated (systemic symptoms)? @ -[Uncomplicated Side effects of treatment? @ -[No Exacerbation, Progression, or Severe Exacerbation? @ -No Poses a threat to life or bodily function? How? (Chest pain, [place], [place], pneumonia, PE, COPD, DKA, ARF, appy, cholecystitis, CVA, Diverticulitis, Homicidal, Suicidal, threat to staff... and all critical care pts) @ -No Disposition Clinical Impression: Back pain Disposition: HOME SELF-CARE Condition: Stable Instructions (If sedation given, give patient instructions): Acute Low Back Pain (ED) Additional Instructions: Please return to the Emergency Department if symptoms worsen or any other concerns. Is patient prescribed a controlled substance at d/c from ED?: No Referrals: None,Stated [REFERRING] - 1-2 days Time of Disposition: 06:21
== END 2023-06-10 06:33 | disposition home or self-care (01) ==
LOC: EC 05:31
DX: M54.50 Low back pain, unspecified (principal); G47.30 Sleep apnea, unspecified; F12.90 Cannabis use, unspecified, uncomplicated
CPT/HCPCS: 99283; 96372; J1885

== ENCOUNTER → 2023-08-25 | Outpatient (CLI) | payer OTHER | END | disposition home or self-care (01) | LOC: LABPAT 10:39 | PROVIDERS: ATTEND Orthopaedic Surgery | DX: Z01.812 Encounter for preprocedural laboratory examination (principal); M48.061 Spinal stenosis, lumbar region without neurogenic claudication; M47.26 Other spondylosis with radiculopathy, lumbar region; Z22.322 Carrier or suspected carrier of Methicillin resistant Staphylococcus aureus | CPT/HCPCS: 86850; 86900; 86901; 87070 ==

== ENCOUNTER 2023-09-08 10:21 | Day surgery (SDC) | payer OTHER ==
[2023-08-24 13:14] VITALS: BMI 43.0
--- NOTE | 2023-09-03 15:52 | P.HPOR ---
History of Present Illness .T:Title: [facility] LENGTH OF VISIT: 11-22 minutes Patient consents to treatment over the phone Date of :[birth year] [id number]: NKDA Age: 47 year Height: 5'10" Weight: 300 lbs BMI: 43.05 kg/m2 Occupation: [employer] CHIEF COMPLAINT: Re-check on low back pain / Review MRI lumbar spine results DOI: Chronic/ DOS: N/A/ DOT: > 6 months HPI: The patient presents today via phone call for a re-check on his low back pain and review MRI lumbar spine results. The patient reports experiencing a continued ache-like, throbbing pain throughout the low back that radiates down into the bilateral lower extremities with a sharp, shooting quality. He reports experiencing worsening numbness and tingling throughout the bilateral lower extremities, worse on the left compared to the right. The patient states is symptoms worsen after all activity, which makes it very difficult for him to complete any of activities of daily living. The patient reports experiencing severe sleep disturbances related to his ongoing pain and associated symptoms. The patient is currently taking Flexeril and [place] for relief of his current symptoms. He has trialed all conservative treatment measures listed below with no significant or sustained relief. Otherwise, the patient denies experiencing any f/c/sob, loss of bowel/bladder control, or perineal numbness/tingling. PAST TREATMENTS: Trauma: No Work Related: No Activity Modification: Yes PT: No Home Exercise: Yes, the patient has trialed the physician directed home exercise program without relief of their symptoms. Medications:Yes; List: [place] Alternative Interventions: Chiropractic: No Massage therapy:No R.I.C.E:Yes Brace:No Injections: No RFA:No The patients' past social, medical, family, surgical history, as well as review of systems, have been reviewed. Please refer to the Neurosurgery History and Ph ysical form that has been scanned in to our electronic medical record system. 16 points review of systems completed and as stated in HPI, all other systems reviewed are negative. Social History: Reviewed, see appropriate section of the chart for details. P3 Family History: Reviewed, see appropriate section of the chart for details. P2 Past Medical History: Reviewed, see appropriate section of the chart for details. [id number] Medications: Rx: cyclobenzaprine 10 mg tablet Ref: 0 Rx: [place] Ref: 0 NO PHYSICAL EXAM PERFORMED RADIOGRAPHIC STUDIES: No new x-rays taken in office today. Please see previous notes. MRI completed at [facility] on 05/17/2023 of Lumbar Spine: Images reviewed with pt over the phone. There is severe disc collapse at L5-S1 with severe spondylotic changes. Retrolisthesis of L5-S1 causing b/l foraminal stenosis that is severe due to HNP, facet arthropathy, overgrowth, ligamental hypertrophy and spondylotic chnages. There are modic endplate changes due to the collapse at this level. Posterior osteophyte on L5 causes central stenosis. No acute fracture noted. Mild spondylotic changes noted at L4-5. Facet arthrosis at L4-5 and L5-S1. L5-S1 is severe. No lesions. INCLUDEPICTURE P:\\\\ppart\\\\Files\\\\[id number]\\\\[id number] 01\\\\[id number]\\\\CAJZ489\\\\IHJX668\\\\UBVK491\\\\TDIR414\\\\ZSGY352\\\\VCJG271\\\\XTIH974\\\\LEVK 001\\\\GFYQ031\\\\SJPR985\\\\NZSD262\\\\WTCV718\\\\HZPQ653\\\\XHLO218\\\\NFSI102\\\\RIWU279\\\\LEV T243\\\\[id number].PNG \\d IMPRESSION AND PLAN: It was my pleasure to have seen and examined John. I reviewed the patient's clinical syndrome, physical findings, and imaging studies during the appointment today. It is my impression that the patient has a diagnosis of. 1. L5-S1 spondylosis with bilateral foraminal stenosis 2. Lower extremity radiculopathy, bilateral (left worse than right) 3. Low back pain, severe 4. LE paresthesias I outlined the natural course history without intervention and various interventional options. Based on my findings I suggest the following course of action: -I discussed treatment options with the patient, including operative and non- operative options, and they have elected to proceed with the following surgical procedure: L5-S1 minimally invasive posterolateral and interbody decompression and fusion The indications, risks, benefits, and alternatives to surgery were discussed with the patient at length. Specifically (but not limited to) the risks of infection, stiffness, recurrence of symptoms, need for revision surgery, local numbness, neurovascular injury, and blood clots were discussed. The patient's questions were answered. The decision to proceed was made. Spine Surgery Risk Review Mr. Neri is presenting for evaluation of low back and bilateral lower extremity pain, bilateral lower extremity numbness and tingling. It was my pleasure to have seen and examined Mr. Neri. In our visit today we have had a chance to go over subjective complaints, physical examination findings and treatments including the natural course history without intervention and various interventional options. The patients imaging demonstrates: MRI completed at [facility] on 05/17/2023 of Lumbar Spine: Images reviewed with pt over the phone. There is severe disc collapse at L5-S1 with severe spondylotic changes. Retrolisthesis of L5-S1 causing b/l foraminal stenosis that is severe due to HNP, facet arthropathy, overgrowth, ligamental hypertrophy and spondylotic chnages. There are modic endplate changes due to the collapse at this level. Posterior osteophyte on L5 causes central stenosis. No acute fracture noted. Mild spondylotic changes noted at L4-5. Facet arthrosis at L4-5 and L5-S1. L5-S1 is severe. No lesions. XRay taken on 02/16/23 of Lumbar Spine; 5 views (AP, lateral, flexion, and extension): - Re-reviewed with the patient today. L5-S1 spondylosis with disc collapse and disc height collapse foraminal stenosis facet arthropathy and hypertrophy. Somewhat collapsed alignment minor segmental kyphosis slip stable on flexion-extension no lesions no fractures AP Pelvis: level pelvis fracture free CT Scan of the Lumbar Spine completed at [facility] on 03/26/2023: - Re-reviewed with the patient today. L5-S1 disc space collapse, facet arthropathy and overgrowth with subchondral cysts. There is at least moderate b/l foraminal stenosis due to this and the disc bulging at this level as well as collapse. No fracture. No lesions. Remainder of the spine shows reasonable alignment. On physical exam, Mr. Neri demonstrates: A continued ache-like, throbbing pain throughout the low back that radiates down into the bilateral lower extremities with a sharp, shooting quality. He reports experiencing worsening numbness and tingling throughout the bilateral lower extremities, worse on the left compared to the right. The patient states is symptoms worsen after all activity, which makes it very difficult for him to complete any of activities of daily living. The patient reports experiencing severe sleep disturbances related to his ongoing pain and associated symptoms. I have explained to the patient that as their condition progresses it will cause further neurological deficits and eventual paralysis. Based on the patients imaging, physical exam, and the rapid progression and disabling nature of their symptoms, at this time I recommend surgery in the form of a:L5-S1 minimally invasive posterolateral and interbody decompression and fusion I discussed the risk and benefits of this procedure at length with Mr. Neri. The patient [significant other] agreed to considered pursuing the procedure above mentioned. Prior to surgery, she should follow up with her PCP (Cardio, ID, IM etc) for clearance. Questions were invited and answered, and the patient wishes to proceed as outlined below. Currently, I am recommendin.L5-S1 minimally invasive posterolateral and interbody decompression and fusion 2.Follow up with PCP for surgical clearance 3.Review of surgical risks and benefits as well as an educational packet on the proposed surgical procedure. Risks: All surgical procedures come with inherent risks, including those related to positioning, anesthesia, intraoperative findings, and postoperative complications. It is important to understand that surgery does not come with any guarantee of a successful outcome as complications and adverse events are always possible. The patient was given a handout in office today discussing the surgical procedure and risks associated with the intervention, both of which were discussed with the patient. These risks include but are not limited to the following: * Experiencing same, different or even worse symptoms in back, neck, arms, or legs compared to before surgery. Requiring further surgery or other forms of treatment presently or at some time in the future at same or other levels of the intended spine surgery. On an extreme but fortunately relatively rare basis severe complication such as blindness, stroke, heart attack, temporary and/or permanent nerve injury, paralysis, coma, or may occur, sometimes without known explanation. Surgical complications may include but are not limited to risk of infection, fluid accumulation in the surgical dissection site, including a seroma or hematoma, that requires additional surgery, wound drainage, bleeding, new numbness or weakness, vision changes/loss, spinal fluid leakage, non-healing and/or infected incision, headaches, difficulty or inability to swallow, hoarseness, hemopneumothorax, pneumothorax, impotence, retrograde ejaculation, vaginal dryness; injury to nerves, spinal cord, blood vessels, lymphatics or other vital organs (i.e., bowel injury, injury to the great vessels); heterotopic bone formation; complications related to the hardware such as screws, rods, cages including misplaced hardware, device failure, instrumentation at the wrong spine level, hardware fracture/breakage, or hardware loosening; vertebral failure of the spinal column above or below the newly placed hardware; retained surgical instrumentations or devices and the need for further surgery. * Medical risks of the planned spine surgery include but are not limited to generalized Infections to the whole body or local areas outside of the surgical site (sepsis), heart attack, bleeding, anaphylaxis, meningitis, seizure, epilepsy, hearing loss, burn hayes, laceration of the head or other areas of the body, bruising, hypersensitivity of the skin, bladder over distension; allergic reaction; shoulder injury related to positioning; fat, blood and air clots to other areas of the body like heart, lungs, brain; failure of internal organs such as lungs, kidneys, liver and excessive bleeding. If blood transfusions are necessary, note that transfusions may cause intolerance reactions such as anaphylaxis or other complex reactions. Despite best efforts, the results of spine surgery might not heal in terms of bone, soft tissues such as skin, fascia, ligaments, and joints. Additionally, in order to achieve best possible results, spine surgery may be carried out beyond the initially planned levels and involve decompression, fusion including insertion of hardware at levels other than the original intended area of surgical interest change some portions of the procedure in order to ensure the best possible outcomes. With spine surgery and spinal fusion, there are different off label uses of instrumentation (devices, implants and hardware) as well as biological substances (bone morphogenic proteins, demineralized bone matrix) as well as using extra bone from allograft sources (i.e. cadaver bone) or autograft (iliac crest bone, ribs, or the spine itself). The patient has been given information about these practices and their inherent risks and benefits. [facility] is an educational center that serves as a training facility for neurosurgical and orthopedic ERGONOMIST and Nursing students. Physician assistants are medically trained surgical providers who function in the outpatient, inpatient, and operating room setting under the direct supervision of the attending surgeon. [facility] has multiple operating rooms with single and overlapping rooms running daily. They currently function under the required guidelines as produced by the Senate Finance Committee with regards to the overlapping rooms and will continue to comply with changes to this policy as they occur. The requirements include and are complied with as follows: (1) the critical portions of the overlapping rooms will not occur at the same time, (2) the attending physician will be physically present during the critical portions of the procedure and immediately available during the entire case, and (3) a back-up attending is designated should the primary attending not be immediately available. The patient has had a chance to review all the listed information, has been given print outs detailing this information, and has had all his/her questions answered to their satisfaction. It was my pleasure to have seen and examined Mr. Neri. In our visit today we have had a chance to go over my understanding of our patient's current condition, the natural course history without intervention and various interventional options. Questions were invited and answered, and the patient wishes to proceed as outlined above. I have seen and examined the patient for 25 minutes and we have spent more than 50% of the time in repeat and detailed counseling about the patient's condition, its natural course history with out and as much as can be predicted with surgery and re-review of various surgical treatment options. In conclusion, Mr. Neri requested we proceed with the above suggested surgery and are willing to accept risks and limitations of the suggested surgery as nature of the disease process and our best attempts at treatment for the condition. Thank you again for allowing us to be part of your patient's care. Please don't hesitate to contact me if you have any further questions. FOLLOW UP: Follow-up: Preoperative Evaluation (1 week prior to scheduled procedure) Patient Education (Informational booklet, instructions, etc) given at today's appointment: Yes .ED:Patient Education: Y Medications Reviewed: yes In our visit today Mr. Neri and I have had a chance to go over my understanding of the patient's current condition, the natural course history without intervention and various interventional options. Questions were invited and answered, and the patient wishes to proceed as outlined above. I will be sure to keep you updated afterMr. Neri returns here for further follow-up. Thank you again for your referral. Please do not hesitate to contact me if you have any further questions. Signed and authenticated by: [facility] [address] [place] [address] This message is confidential, intended only for the named recipient(s) and may contain information that is privileged or exempt from disclosure under applicable law. If you are not the intended recipient(s), you are notified that the dissemination, distribution or copying of this information is strictly prohibited. If you received this message in error, please notify the sender then delete this message. Patient verbalizes understanding of the information discussed. The above note was initiated by Belgica Velasquez, physician recording materials assistant for Dr. Justin Wilson. This note has been reviewed by Dr. Wilson, who has made his personal changes and impressions for this document. CC: Jurgen Dinero M.D. # SIGNED BY Justin Wilson (GOO)06/07/2023 02:25PM Past Medical History Past Medical History: Atrial Flutter, Sleep Apnea/CPAP/BIPAP Additional Past Medical History / Comment(s): HX of hep C, Back pain, no a- flutter since ablation History of Any Multi-Drug Resistant Organisms: None Reported Past Surgical History: Cardiac Ablation, Cholecystectomy, Orthopedic Surgery Additional Past Surgical History / Comment(s): c6-c7 fusion, left foot surg. Past Anesthesia/Blood Transfusion Reactions: No Reported Reaction Past Psychological History: No Psychological Hx Reported Smoking Status: Former smoker Past Alcohol Use History: None Reported Past Drug Use History: Marijuana Additional Drug Use History / Comment(s): occasional marijuana use, instructed to refrain from use 24hrs prior to procedure - Past Family History Father Family Medical History: Coronary Artery Disease (CAD) Additional Family Medical History / Comment(s): Brain tumor Mother Family Medical History: Chest Pain / Angina Additional Family Medical History / Comment(s): Breast cancer Medications and Allergies Home Medications Medication Instructions Recorded Confirmed Type Cyclobenzaprine [Flexeril] 10 mg PO TID PRN #15 tab 05/16/23 08/24/23 Rx Gabapentin 300 mg PO TID 08/24/23 08/24/23 History HYDROcodone/APAP 10-325MG [[place] 1 tab PO TID PRN 08/24/23 08/24/23 History 10325] Allergies Allergy/AdvReac Type Severity Reaction Status Date / Time No Known Allergies Allergy Verified 08/24/23 13:01 Physical Examination Osteopathic Statement: *. No significant issues noted on an osteopathic structural exam other than those noted in the History and Physical/Consult.
[~2023-09-08 10:21] MED LIST: ACETAMINOPHEN TAB 500 MG TAB PO PRN; GABAPENTIN 300 MG CAP PO PRN; ONDANSETRON 4 MG/2 ML VIAL IVP PRN; TRANEXAMIC 1,000 MG/100ML-NACL 1,000 MG in SALINE 1 100ML.BAG IVPB PRN; ceFAZolin 3 GM in SODIUM CHLORIDE 0.9% 100 ML IVPB PRN
[2023-09-08 11:17] LABS: Basophils % (A) 1 %; Eosinophils # (A) 0.2 k/uL (0-0.7); Eosinophils % (A) 3 %; HCT 52.8 % (39.0-53.0); Lymphocytes # (A) 2.5 k/uL (1.0-4.8); Lymphocytes % (A) 38 %; MCH 30.8 pg (25.0-35.0); MCHC 34.1 g/dL (31.0-37.0); MCV 90.4 fL (80.0-100.0); Monocytes # (A) 0.4 k/uL (0-1.0); Monocytes % (A) 7 %; Neutrophils # (A) 3.4 k/uL (1.3-7.7); Neutrophils % (A) 50 %; Platelet Count 223 k/uL (150-450); RBC 5.84 m/uL (4.30-5.90); RDW 12.9 % (11.5-15.5); WBC 6.7 k/uL (3.8-10.6)
[2023-09-08 11:29] LABS: ALT 68 U/L (4-49); AST 51 U/L (17-59); African American GFR (CKD) >90 (>60 ml/min/1.73 sqM); Albumin 4.9 g/dL (3.5-5.0); Alkaline Phosphatase 91 U/L (38-126); Anion Gap 10 mmol/L; Blood Urea Nitrogen 16 mg/dL (9-20); Calcium 9.7 mg/dL (8.4-10.2); Carbon Dioxide 22 mmol/L (22-30); Chloride 109 mmol/L (98-107); Glucose 104 mg/dL (74-99); Non-African American GFR(CKD) >90 (>60 ml/min/1.73 sqM); Potassium 4.4 mmol/L (3.5-5.1); Sodium 141 mmol/L (137-145); Total Bilirubin 0.9 mg/dL (0.2-1.3); Total Protein 8.4 g/dL (6.3-8.2)
[2023-09-08] MEDS: LACTATED RINGERS 1,000 ML IV SCH (11:35)
[2023-09-08] MEDS: ONDANSETRON 4 MG/2 ML VIAL IVP ONE (11:42)
[2023-09-08] MEDS: DEXAMETHASONE SOD PHOSPHATE 4 MG/ML 1 ML VIAL IV ONE (11:42)
[2023-09-08] MEDS: ceFAZolin 3 GM in SODIUM CHLORIDE 0.9% 100 ML IVPB PRN (12:44)
[2023-09-08] MEDS: THROMBIN (BOVINE) 5,000 UNIT VIAL TOPICAL ONE (13:41)
[2023-09-08] MEDS: ceFAZolin 1,000 MG in SODIUM CHLORIDE 0.9% 1,000 ML IRRIGATION ONE (13:41)
[2023-09-08] MEDS: VANCOMYCIN 1,000 MG VIAL MISCELLANE ONE (15:07)
--- NOTE | 2023-09-08 15:48 | P.OP ---
Date of Procedure: 09/08/23 Preoperative Diagnosis: 1. L5-S1 SPONDYLOSIS, SEVERE WITH B/L FORAMINAL STENOSIS 2. LLE RADICULOPATHY WITH WEAKENSS 3. LOW BACK PAIN 4. DEGENERATIVE DISC DISEASE Postoperative Diagnosis: 1. L5-S1 SPONDYLOSIS, SEVERE WITH B/L FORAMINAL STENOSIS 2. LLE RADICULOPATHY WITH WEAKENSS 3. LOW BACK PAIN 4. DEGENERATIVE DISC DISEASE Procedure(s) Performed: 1. L5-S1 POSTERIOLATERAL AND INTERBODY FUSION (56294) 2. L5-S1 INSTRUMENTATION (72901) 3. L5-S1 LAMINOFORAMINOTOMY AND DECOMPRESSION (76862) 4. INSERTION OF BIOMECHANICAL DEVICE (69418) 5. USE OF AGNITiO NAVIGATION (85518) USE OF IONM ALL SCREWS TESTED ABOVE 20mA USE OF IO MICROSCOPE CPTMOD 22 THIS CASE TOOK 80% LONGER THAN EXPECTED DUE TO CORMORBID CONDITIONS, HIGH BMI >40, EXTENT OF LUMBAR DISEASE AND HIGH TECHNICALITY OF THE CASE. Implants: -SIDDHARTHA EVEREST RODS AND SCREWS -GLOBUS SABLE CAGE LONG, 9-16, 8 DEG -MAGNATOS, ALLOGRAFT, AUTOGRAFT Anesthesia: GINNYA Surgeon: Justin Wilson Junior Database Administrator #1: Tony Heart (WAS PRESENT AND ASSISTED WITH ALL ASPECTS OF THE CASE FROM POSITION TO CLOUSRE) Estimated Blood Loss (ml): 125 IV fluids (ml): 1,500 Urine output (ml): 0 Pathology: none sent Condition: stable Disposition: PACU Indications for Procedure: Mr. Neri is presenting for evaluation of low back and bilateral lower extremity pain, bilateral lower extremity numbness and tingling. It was my pleasure to have seen and examined Mr. Neri. In our visit today we have had a chance to go over subjective complaints, physical examination findings and treatments including the natural course history without intervention and various interventional options. The patients imaging demonstrates: MRI completed at [facility] on 05/17/2023 of Lumbar Spine: Images reviewed with pt over the phone. There is severe disc collapse at L5-S1 with severe spondylotic changes. Retrolisthesis of L5-S1 causing b/l foraminal stenosis that is severe due to HNP, facet arthropathy, overgrowth, ligamental hypertrophy and spondylotic chnages. There are modic endplate changes due to the collapse at this level. Posterior osteophyte on L5 causes central stenosis. No acute fracture noted. Mild spondylotic changes noted at L4-5. Facet arthrosis at L4-5 and L5-S1. L5-S1 is severe. No lesions. XRay taken on 02/16/23 of Lumbar Spine; 5 views (AP, lateral, flexion, and extension): - Re-reviewed with the patient today. L5-S1 spondylosis with disc collapse and disc height collapse foraminal stenosis facet arthropathy and hypertrophy. Somewhat collapsed alignment minor segmental kyphosis slip stable on flexion-extension no lesions no fractures AP Pelvis: level pelvis fracture free CT Scan of the Lumbar Spine completed at [facility] on 03/26/2023: - Re-reviewed with the patient today. L5-S1 disc space collapse, facet arthropathy and overgrowth with subchondral cysts. There is at least moderate b/l foraminal stenosis due to this and the disc bulging at this level as well as collapse. No fracture. No lesions. Remainder of the spine shows reasonable alignment. On physical exam, Mr. Neri demonstrates: A continued ache-like, throbbing pain throughout the low back that radiates down into the bilateral lower extremities with a sharp, shooting quality. He reports experiencing worsening numbness and tingling throughout the bilateral lower extremities, worse on the left compared to the right. The patient states is symptoms worsen after all activity, which makes it very difficult for him to complete any of activities of daily living. The patient reports experiencing severe sleep disturbances related to his ongoing pain and associated symptoms. I have explained to the patient that as their condition progresses it will cause further neurological deficits and eventual paralysis. Based on the patients imaging, physical exam, and the rapid progression and disabling nature of their symptoms, at this time I recommend surgery in the form of a:L5-S1 minimally invasive posterolateral and interbody decompression and fusion I discussed the risk and benefits of this procedure at length with Mr. Neri. The patient [significant other] agreed to considered pursuing the procedure above mentioned. Prior to surgery, she should follow up with her PCP (Cardio, ID, IM etc) for clearance. Questions were invited and answered, and the patient wishes to proceed as outlined below. Currently, I am recommendin.L5-S1 minimally invasive posterolateral and interbody decompression and fusion Description of Procedure: L5-S1 MIS TLIF ALYSSA The patient was seen and examined in the preoperative area. All preoperative protocols were followed. Informed consent was obtained, risks and benefits of the procedure were discussed at length. Risks including bleeding infection damage to the surrounding tissue and risk of reoperation were discussed with the patient. Risk of anesthesia up to and including was discussed with the patient. These are outlined in the risk review. They were willing to accept these risks and all the risks of surgery. The patient was given a weight-based dose of antibiotics in the form of 2 g Ancef. The patient was seen and evaluated by the anesthesia team who deemed them fit for surgery. The site was marked, the patient was willing to proceed with the procedure. The patient was transferred to the operative suite by the Department of anesthesia. They were then drifted off to sleep by the department anesthesia and GETA was performed. The patient tolerated this well. Canela catheter was placed by nursing staff, a-traumatically. Once confirmation of lines and ventilation the patient was transferred to a prone Anthony table very carefully. All bony prominences including wrists, elbows, axilla, chest, hips, and thighs, and feet were padded very well. Special attention was paid to the genitalia, and these were padded accordingly. SCDs were placed on bilateral lower extremities and were connected. Arms were well padded and placed on arm boards up and out in the 90/90 position. Once in position, again we confirmed good ventilation capabilities and that lines were running appropriately. The patients Lumbar spine was then exposed. 1010s were placed outlining the incision site. Standard alcohol was used to clean the incision site and allowed to dry. C-arm was used to needle localize the pedicles at L5-S1 and bio-gerard the patient and confirm level for incision which was marked with a skin marker. Operative briefing was performed with all teams and everyone in agreement to proceed. The patient was then prepped and draped in a normal sterile fashion. Timeout was then performed, and all parties agreed with the procedure to be performed. Skin nicks were made over the PSIS on the right side and pins placed for the Whyd Navigation tracker. This was secured and then a 3D Zhiem spin was registered. Once registered it was tested and confirmed to be accurate. We then targeted pedicles b/l at L5 and S1 using navigated Jamshidi , JOVITA, and drill guide. Wires were then placed in their void and confirmed to be in good position on AP and Lateral. Contralateral right side screws were then placed over wires using lateral fluro and tested and they all tested above 20 mA. Attention was then turned to interbody fusion at L5-S1. Tubular retractor system was placed at the interspace of L5-S1 using biplanar c arm. Once in position and dilated up to 26mm tube it was locked to the bed and confirmed in good position. Microscope was then brought in for visualization. Limited myomectomy was performed and laminectomy, complete facetectomy and foraminotomy performed at L5-S1 using high speed joviat and Kerrison rongure. The ligamentum was removed and dural sac decompressed. Exiting and traversing roots visualized and decompressed. Neural elements were then protected, and disc space accessed with an osteotome. Sequential shaving then done under lateral imaging and complete discectomy performed using nikki, pituitary and curette. Once good bleeding endplates accomplished and good height spiritism with trials, a combination of autograft, allograft and synthetic placed anterior in the disc space. The cage was then selected and impacted into place under lateral imaging. The cage was then expanded restoring height, lordosis and alignment. The cage was backfilled with bone graft through a funnel. The maintenance instructor removed and area inspected. Good cage placement, stable cage and no injuries. Area was irrigated copiously, and meticulous hemostasis achieved. The tubular retractor was then removed under direct visualization. Screws were then selected and placed over the previously placed wires on the ipsilateral side. This was done in the fashion described above. Screws were then tested, and all tested above 20 mA. Kris length was then measured, and rods selected. They were then placed through the MIS tabs, subfascial. These were then locked into place with set screws and final tightened. Kris holders removed and images taken showing good placement of rods good lordosis and spiritism of height. Tabs were broken off. Wounds were then copiously irrigated with NSS. Jovita used for TP decortication and mixture of MagnatOs, allograft and autograft packed posterolateral. Facia was then closed with 0 Vircyl. Deep subq closed with 0 Vicryl. Superficial subq closed with 2-0 Vicryl and skin with paloma. Wound edges approximated very well. Wound was then cleaned with alcohol and dried. Wounds dressed in Optifoam dressings. The patient was then transferred off the table back to their hospital bed a- traumatically. They were extubated by the department of anesthesia. They were then transferred to PACU in stable condition having tolerated the procedure with no complications.
[2023-09-08] MEDS ORDERED: MAGNESIUM HYDROXIDE 2,400 MG/30 ML CUP PO PRN (15:57)
[2023-09-08] MEDS ORDERED: HYDROmorphone 0.5 MG/0.5 ML SYRINGE IVP PRN (15:57)
[2023-09-08] MEDS ORDERED: oxyCODONE-APAP 7.5-325MG 1 EACH TAB PO PRN (16:00)
[2023-09-08] MEDS: HYDROmorphone 0.5 MG/0.5 ML SYRINGE IVP PRN (16:24)
[2023-09-08] MEDS: HYDROcodone/APAP 10-325MG 1 EACH TAB PO PRN (17:08)
[2023-09-08] MEDS: GABAPENTIN 300 MG CAP PO SCH (17:08)
[2023-09-08] MEDS: HYDROmorphone 1 MG/ML 1 ML SYRINGE IVP PRN (18:56)
[2023-09-08] MEDS: ceFAZolin 3 GM in SODIUM CHLORIDE 0.9% 100 ML IVPB SCH (21:45)
[2023-09-08] MEDS: CYCLOBENZAPRINE 5 MG TAB PO PRN (21:45)
--- NOTE | 2023-09-09 02:46 | CT ---
EXAM: CT Lumbar Spine Without Intravenous Contrast CLINICAL HISTORY: ITS.REASON CT Reason: s/p L5-S1 MIS PLIF TECHNIQUE: Axial computed tomography images of the lumbar spine without intravenous contrast. CTDI is 47.9 mGy and DLP is 1714.4 mGy-cm. This CT exam was performed using one or more of the following dose reduction techniques: automated exposure control, adjustment of the mA and/or kV according to patient size, and/or use of iterative reconstruction technique. COMPARISON: No relevant prior studies available. FINDINGS: Posterior fusion L5-S1. Vertebrae: No acute fracture. Grade 1 retrolisthesis of L5 on S1. Discs/spinal canal/neural foramina: Degenerative change. Soft tissues: Fatty liver. Seroma/hematoma in the bilateral paraspinal subcutaneous tissue subjacent to the paloma. Approximately 5-6 cm bilaterally. IMPRESSION: No acute fracture. Post op changes.
[2023-09-09 06:48] LABS: Basophils % (A) 0 %; Eosinophils # (A) 0.2 k/uL (0-0.7); Eosinophils % (A) 2 %; HCT 47.7 % (39.0-53.0); HGB 15.9 gm/dL (13.0-17.5); Lymphocytes # (A) 1.7 k/uL (1.0-4.8); Lymphocytes % (A) 17 %; MCH 30.5 pg (25.0-35.0); MCHC 33.3 g/dL (31.0-37.0); MCV 91.4 fL (80.0-100.0); Mean Platelet Volume 8.5; Monocytes # (A) 0.5 k/uL (0-1.0); Monocytes % (A) 5 %; Neutrophils # (A) 7.4 k/uL (1.3-7.7); Neutrophils % (A) 75 %; Platelet Count 210 k/uL (150-450); RBC 5.22 m/uL (4.30-5.90); RDW 12.9 % (11.5-15.5); WBC 9.9 k/uL (3.8-10.6)
[2023-09-09 07:28] LABS: African American GFR (CKD) >90 (>60 ml/min/1.73 sqM); Anion Gap 11 mmol/L; Blood Urea Nitrogen 15 mg/dL (9-20); Calcium 9.2 mg/dL (8.4-10.2); Carbon Dioxide 26 mmol/L (22-30); Chloride 102 mmol/L (98-107); Glucose 125 mg/dL (74-99); Non-African American GFR(CKD) >90 (>60 ml/min/1.73 sqM); Sodium 139 mmol/L (137-145)
[2023-09-09 07:33] LABS: Potassium 4.4 mmol/L (3.5-5.1)
[2023-09-09] MEDS: SENNOSIDES-DOCUSATE SODIUM 1 EACH TAB PO SCH (08:31)
--- NOTE | 2023-09-09 09:03 | P.PN ---
Subjective Progress Note Date: 09/09/23 Principal diagnosis: 1. L5-S1 spondylosis with bilateral foraminal stenosis 2. Lower extremity radiculopathy, bilateral (left worse than right) 3. Low back pain, severe 4. LE paresthesias Patient seen and examined this morning. Patient is resting comfortably in bed. He does report that he has been up multiple times ambulating to the restroom with standby assist and use of IV pole. Informed patient that physical therapy will be in to work with him and provide a walker. Patient does have complaint of increased lumbar pain that radiates into the bilateral buttock with certain movements and ambulation. Medications will be adjusted. Surgical incisions to the lumbar spine, dressing is clean dry and intact. Overall patient is very pleased with his improvement of his low back pain and feeling stable when up and about since the procedure. Continue to encourage patient to be up in chair for all meals and the use of the incentive spirometer 10 times/hour while awake. No acute concerns at this time. Objective - Vital Signs Vital signs: Vital Signs Temp 98.3 F 09/09/23 06:54 Pulse 96 09/09/23 06:54 Resp 18 09/09/23 06:54 BP 122/79 09/09/23 06:54 Pulse Ox 97 09/09/23 06:54 FiO2 Intake & Output 09/08/23 09/09/23 09/09/23 18:59 06:59 18:59 Intake Total 1001 Output Total 125 Balance 876 Weight 135.1 kg Intake: IV 1001 Output: Estimated Blood Loss 125 Other: Voiding Method Toilet - Exam Physical Examination General: The patient is awake and alert, in no acute distress Skin: Skin is warm and dry with no obvious rashes or lesions. Surgical incisions to the lumbar spine, dressings are clean dry and intact. Eye: Pupils are equal, round and reactive to light, extra-ocular movements are intact; there is normal conjunctiva bilaterally. Neck: The neck is supple, there is no tenderness and ROM intact. Cardiovascular: There is a regular rate and rhythm. No murmur, rub or gallop is appreciated. Respiratory: Lungs are clear to auscultation, respirations are non-labored, breath sounds are equal. Gastrointestinal: Soft, non-distended, non-tender abdomen. Back: There is no tenderness to palpation in the midline, paralumbar, parathoracic or buttocks region. There is no obvious deformity . Musculoskeletal: ROM limited secondary to pain and stiffness from surgical procedure. Muscle strength in all major muscle groups of bilateral upper extremities 5/5, bilateral lower extremities 4/5. Neurological: CN 2-12 intact. There are no obvious motor or sensory deficits. Movement and coordination equal and intact. Sensory exam to light touch intact C5-T1 and intact from L2-S1. Reflexes 2/4 in bilateral upper and lower extremities. Negative Hoffmans, babinski, and clonus signs. Psychiatric: Cooperative, appropriate mood & affect, normal judgment. - Labs CBC & Chem 7: 09/09/23 06:25 09/09/23 06:25 Labs: Abnormal Lab Results - Last 24 Hours (Table) 09/08/23 09/08/23 09/09/23 Range/Units 10:56 10:56 06:25 Hgb 18.0 H (13.0-17.5) gm/dL Chloride 109 H (98-107) mmol/L Glucose 104 H 125 H (74-99) mg/dL ALT 68 H (4-49) U/L Total Protein 8.4 H (6.3-8.2) g/dL Assessment and Plan Assessment: Postop day 1: L5-S1 minimally invasive PLIF 1. L5-S1 spondylosis with bilateral foraminal stenosis 2. Lower extremity radiculopathy, bilateral (left worse than right) 3. Low back pain, severe 4. LE paresthesias Plan: -Appreciate medical social consultant and team management. -Activity: Ambulate QID, OOB all meals, up and about, limit lifting bending twisting to less than 5 lbs. Use walker or cane if needed for stability. -Daily PT/OT, increase ambulation strength and balance. -Brace when up and about, not needed in bed or chair -Pain control: Adequate at this time -Meds: reviewed -GI ppx: senna, Miralax -DVT PPX: OK to restart Heparin tonight -Hygiene: Shower today. Maintain dressing clean and dry. Meticulous cleaning after BMs away from the incision site -Encourage IS 10x/hr -Dispo: Anticipate discharge home with homecare tomorrow 09/10/23 vs Monday *I reviewed and discussed this case with my attending Dr. Wilson, whom has reviewed this chart and films and is in agreement with assessment and plan of care as outlined above. I have personally seen and examined the patient, performed the documentation and the assessment and plan as written. Number of minutes spent on the visit: 20m.
--- NOTE | 2023-09-09 17:43 | P.CONS ---
History of Present Illness - Reason for Consult Consult date: 09/09/23 Medical management - Chief Complaint Low back pain - History of Present Illness 47-year-old male patient seen by orthopedic surgery for low back pain; patient reported as continued ache-like throbbing pain throughout the lower back radiating down into bilateral lower extremities with sharp shooting nature; pain was progressively getting worse and associated with worsening numbness and tingling throughout bilateral lower extremity left more than right side; according to the patient symptoms would worsen with movement and with all activities making it difficult for him to achieve any of his ADLs --Patient was initially managed on Flexeril and Hoffman which did not help with the symptoms MRI of the lumbar spine reveals severe disc collapse at L5-S1 with severe spondylotic changes. Retrolisthesis of L5-S1 causing b/l foraminal stenosis that is severe due to HNP, facet arthropathy, overgrowth, ligamental hypertrophy and spondylotic chnages. There are modic endplate changes due to the collapse at this level. Posterior osteophyte on L5 causes central stenosis. No acute fracture noted. Mild spondylotic changes noted at L4-5. Facet arthrosis at L4-5 and L5-S1. L5-S1 is severe. No lesions. Patient underwent L5-S1 posterior lateral and interbody fusion, L5-S1 laminal foraminotomy and decompression; POD #1 Review of Systems REVIEW OF SYSTEMS: CONSTITUTIONAL: No fever, no malaise, no fatigue. HEENT: No recent visual problems or hearing problems. Denied any sore throat. CARDIOVASCULAR: No chest pain, orthopnea, PND, no palpitations, no syncope. PULMONARY: No shortness of breath, no cough, no hemoptysis. GASTROINTESTINAL: No diarrhea, no nausea, no vomiting, no abdominal pain. NEUROLOGICAL: No headaches, no weakness, no numbness. HEMATOLOGICAL: Denies any bleeding or petechiae. GENITOURINARY: Denies any burning micturition, frequency, or urgency. MUSCULOSKELETAL/RHEUMATOLOGICAL: Denies any joint pain, swelling, or any muscle pain. ENDOCRINE: Denies any polyuria or polydipsia. The rest of the 14-point review of systems is negative. Past Medical History Past Medical History: Atrial Flutter, Sleep Apnea/CPAP/BIPAP Additional Past Medical History / Comment(s): HX of hep C, Back pain, no a- flutter since ablation History of Any Multi-Drug Resistant Organisms: None Reported Past Surgical History: Cardiac Ablation, Cholecystectomy, Orthopedic Surgery Additional Past Surgical History / Comment(s): c6-c7 fusion, left foot surg. Past Anesthesia/Blood Transfusion Reactions: No Reported Reaction Past Psychological History: No Psychological Hx Reported Smoking Status: Former smoker Past Alcohol Use History: None Reported Past Drug Use History: Marijuana Additional Drug Use History / Comment(s): occasional marijuana use, instructed to refrain from use 24hrs prior to procedure - Past Family History Father Family Medical History: Coronary Artery Disease (CAD) Additional Family Medical History / Comment(s): Brain tumor Mother Family Medical History: Chest Pain / Angina Additional Family Medical History / Comment(s): Breast cancer Medications and Allergies Home Medications Medication Instructions Recorded Confirmed Type Cyclobenzaprine [Flexeril] 10 mg PO TID PRN #15 tab 05/16/23 09/08/23 Rx Gabapentin 300 mg PO TID 08/24/23 09/08/23 History HYDROcodone/APAP 10-325MG [Hoffman 1 tab PO TID PRN 08/24/23 09/08/23 History 10-325] Allergies Allergy/AdvReac Type Severity Reaction Status Date / Time No Known Allergies Allergy Verified 09/08/23 10:37 Physical Exam Vitals: Vital Signs Temp Pulse Resp BP Pulse Ox 09/09/23 10:51 96 18 09/09/23 06:54 98.3 F 96 18 122/79 97 09/09/23 02:00 98.7 F 88 20 113/72 95 09/08/23 18:49 96 123/89 09/08/23 18:34 91 119/76 94 L 09/08/23 18:20 70 116/65 97 09/08/23 18:04 84 119/86 95 09/08/23 17:49 96 116/73 95 09/08/23 17:34 85 120/80 93 L 09/08/23 17:20 89 19 134/84 96 09/08/23 16:49 73 16 135/73 95 09/08/23 16:39 89 16 135/65 97 09/08/23 16:23 68 16 95 09/08/23 16:19 85 16 153/81 97 09/08/23 16:04 97 F L 90 16 160/82 99 Intake and Output 09/08/23 09/09/23 09/09/23 22:59 06:59 14:59 Intake Total 100 Output Total 125 Balance -25 Intake: IV 100 Output: Estimated Blood Loss 125 Other: Voiding Method Toilet Toilet # Voids 3 Weight 135.1 kg - Constitutional General appearance: Present: average body habitus, cooperative, no acute distress - EENT Eyes: Present: anicteric sclerae, EOMI, PERRLA, normal appearance ENT: Present: hearing grossly normal, normal oropharynx Ears: bilateral: normal - Neck Neck: Present: normal ROM. Absent: lymphadenopathy, rigidity, thyromegaly Carotids: negative: bruit present Thyroid: bilateral: normal size, negative: enlarged, nodule - Respiratory Respiratory: bilateral: CTA, negative: rales, rhonchi, wheezing - Cardiovascular Rhythm: regular Heart sounds: normal: S1, S2 Abnormal Heart Sounds: Absent: systolic murmur, diastolic murmur - Gastrointestinal General gastrointestinal: Present: normal bowel sounds, soft. Absent: distended, organomegaly, tenderness - Genitourinary Genitourinary Comment(s): deferred - Integumentary Integumentary: Present: normal turgor. Absent: jaundiced, rash, ulcer - Neurologic Neurologic: Present: CNII-XII intact. Absent: focal deficits - Musculoskeletal Musculoskeletal: Present: gait normal, strength equal bilaterally - Psychiatric Psychiatric: Present: A&O x's 3, appropriate affect, intact judgment & insight Results CBC & Chem 7: 09/09/23 06:25 09/09/23 06:25 Labs: Abnormal Lab Results - Last 24 Hours (Table) 09/09/23 Range/Units 06:25 Glucose 125 H (74-99) mg/dL Assessment and Plan Assessment: 1. L5-S1 spondylosis with bilateral foraminal stenosis/lumbar radiculopathy --Patient is status post L5-S1 minimally invasive PLIF; POD #1 -Patient is recommended to ambulate 4 times a day; out of bed for all meals; continue to limit lifting, bending and twisting; less than 5 pound weight -PT/OT is consulted to increase ambulation strength and balance -Continue with current pain control -Bowel regimen is in place 2. Obesity; counseling done on need for weight reduction 3. Transaminitis; ALT mildly elevated at 68; will monitor liver enzymes periodically DVT prophylaxis; subcu heparin CODE STATUS; full code
[2023-09-10] MEDS ORDERED: ONDANSETRON 4 MG/2 ML VIAL IVP PRN (07:29)
--- NOTE | 2023-09-10 11:19 | P.PN ---
Subjective Progress Note Date: 09/10/23 Principal diagnosis: 1. L5-S1 spondylosis with bilateral foraminal stenosis 2. Lower extremity radiculopathy, bilateral (left worse than right) 3. Low back pain, severe 4. LE paresthesias Patient seen and examined this morning. Patient is resting comfortably in bed. Patient states that his pain is better controlled on current regimen. LSO brace is at bedside. Patient has been ambulatory within room, tolerating activity well. Patient does report increased stiffness and pulling sensation when changing position from sitting to standing. Patient does report improvement in his radiculopathy to the bilateral lower extremities since the procedure. Surgical incisions to the lumbar spine, dressings are clean dry and intact. Patient reports he has been urinating without any difficulty, he is passing gas. No bowel movement at this time. Anticipating discharge tomorrow 09/11/2023. Objective - Vital Signs Vital signs: Vital Signs Temp 98.9 F 09/10/23 01:50 Pulse 101 H 09/10/23 01:50 Resp 19 09/10/23 01:50 BP 135/76 09/10/23 01:50 Pulse Ox 90 L 09/10/23 01:50 FiO2 Intake & Output 09/09/23 09/10/23 09/10/23 18:59 06:59 18:59 Intake Total 300 Balance 300 Intake: Oral 300 Other: Voiding Method Toilet # Voids 1 4 - Exam Physical Examination General: The patient is awake and alert, in no acute distress Skin: Skin is warm and dry with no obvious rashes or lesions. Surgical incisions to the lumbar spine, dressings are clean dry and intact. Eye: Pupils are equal, round and reactive to light, extra-ocular movements are intact; there is normal conjunctiva bilaterally. Neck: The neck is supple, there is no tenderness and ROM intact. Cardiovascular: There is a regular rate and rhythm. No murmur, rub or gallop is appreciated. Respiratory: Lungs are clear to auscultation, respirations are non-labored, breath sounds are equal. Gastrointestinal: Soft, non-distended, non-tender abdomen. Back: There is no tenderness to palpation in the midline, paralumbar, parathoracic or buttocks region. There is no obvious deformity . Musculoskeletal: ROM limited secondary to pain and stiffness from surgical procedure. Muscle strength in all major muscle groups of bilateral upper extremities 5, bilateral lower extremities 4/5. Neurological: CN 2-12 intact. There are no obvious motor or sensory deficits. Movement and coordination equal and intact. Sensory exam to light touch intact C5-T1 and intact from L2-S1. Reflexes 2/4 in bilateral upper and lower extremities. Negative Hoffmans, babinski, and clonus signs. Psychiatric: Cooperative, appropriate mood & affect, normal judgment. - Labs CBC & Chem 7: 09/09/23 06:25 09/09/23 06:25 Labs: Abnormal Lab Results - Last 24 Hours (Table) 09/09/23 Range/Units 06:25 Glucose 125 H (74-99) mg/dL Assessment and Plan Assessment: Postop day 2: L5-S1 minimally invasive PLIF 1. L5-S1 spondylosis with bilateral foraminal stenosis 2. Lower extremity radiculopathy, bilateral (left worse than right) 3. Low back pain, severe 4. LE paresthesias Plan: -Appreciate proposal consultant and team management. -Activity: Ambulate QID, OOB all meals, up and about, limit lifting bending twisting to less than 5 lbs. Use walker or cane if needed for stability. -Daily PT/OT, increase ambulation strength and balance. -Brace when up and about, not needed in bed or chair -Pain control: Adequate at this time -Meds: reviewed -GI ppx: senna, Miralax -DVT PPX: Heparin -Hygiene: Shower today. Maintain dressing clean and dry. Meticulous cleaning after BMs away from the incision site -Encourage IS 10x/hr -Dispo: Anticipate discharge home with homecare tomorrow 09/11/23 *I reviewed and discussed this case with my attending Dr. Wilson, whom has reviewed this chart and films and is in agreement with assessment and plan of care as outlined above. I have personally seen and examined the patient, performed the documentation and the assessment and plan as written. Number of minutes spent on the visit: 20m.
[2023-09-10] MEDS: HYDROcodone/APAP 10-325MG 1 EACH TAB PO PRN (18:07)
--- NOTE | 2023-09-10 18:43 | P.PN ---
Subjective Progress Note Date: 09/10/23 47-year-old male patient seen by orthopedic surgery for low back pain; patient reported as continued ache-like throbbing pain throughout the lower back radiating down into bilateral lower extremities with sharp shooting nature; pain was progressively getting worse and associated with worsening numbness and tingling throughout bilateral lower extremity left more than right side; according to the patient symptoms would worsen with movement and with all activities making it difficult for him to achieve any of his ADLs --Patient was initially managed on Flexeril and [place] which did not help with the symptoms MRI of the lumbar spine reveals severe disc collapse at L5-S1 with severe spondylotic changes. Retrolisthesis of L5-S1 causing b/l foraminal stenosis that is severe due to HNP, facet arthropathy, overgrowth, ligamental hypertrophy and spondylotic chnages. There are modic endplate changes due to the collapse at this level. Posterior osteophyte on L5 causes central stenosis. No acute fracture noted. Mild spondylotic changes noted at L4-5. Facet arthrosis at L4-5 and L5-S1. L5-S1 is severe. No lesions. Patient underwent L5-S1 posterior lateral and interbody fusion, L5-S1 laminal foraminotomy and decompression; POD # 2 --Reports uncontrolled pain; continues to rely on IV Dilaudid; orthopedic surgery recommending to continue to increase activity and anticipating discharge in next 24 hours Objective - Vital Signs Vital signs: Vital Signs Temp 98.5 F 09/10/23 07:18 Pulse 84 09/10/23 07:18 Resp 18 09/10/23 08:00 BP 109/70 09/10/23 07:18 Pulse Ox 92 L 09/10/23 07:18 FiO2 Intake & Output 09/09/23 09/10/23 09/10/23 18:59 06:59 18:59 Intake Total 300 480 Balance 300 480 Intake: Oral 300 480 Other: Voiding Method Toilet Toilet # Voids 1 4 3 - Exam - Constitutional General appearance: Present: average body habitus, cooperative, no acute distress - EENT Eyes: Present: anicteric sclerae, EOMI, PERRLA, normal appearance ENT: Present: hearing grossly normal, normal oropharynx Ears: bilateral: normal - Neck Neck: Present: normal ROM. Absent: lymphadenopathy, rigidity, thyromegaly Carotids: negative: bruit present Thyroid: bilateral: normal size, negative: enlarged, nodule - Respiratory Respiratory: bilateral: CTA, negative: rales, rhonchi, wheezing - Cardiovascular Rhythm: regular Heart sounds: normal: S1, S2 Abnormal Heart Sounds: Absent: systolic murmur, diastolic murmur - Gastrointestinal General gastrointestinal: Present: normal bowel sounds, soft. Absent: distended, organomegaly, tenderness - Genitourinary Genitourinary Comment(s): deferred - Integumentary Integumentary: Present: normal turgor. Absent: jaundiced, rash, ulcer - Neurologic Neurologic: Present: CNII-XII intact. Absent: focal deficits - Musculoskeletal Musculoskeletal: Present: gait normal, strength equal bilaterally - Psychiatric Psychiatric: Present: A&O x's 3, appropriate affect, intact judgment & insight - Labs CBC & Chem 7: 09/09/23 06:25 09/09/23 06:25
--- NOTE | 2023-09-10 21:06 | XR ---
EXAMINATION TYPE: XR lumbar spine 2 or 3V, FL guidance operating room DATE OF EXAM: 09/08/2023 Comparison: 04/04/2023 Clinical History: 47-year-old male LUMBAR FUSION Findings: Lumbar fusion. 35 sec fl 36388.07 mGycm2 DAP 7 images provided. Impression: Intraoperative fluoroscopy as above.
[2023-09-11 10:19] VITALS: BP 128/82; PULSE 89; RESP 16; TEMP 97.6
--- NOTE | 2023-09-11 10:23 | P.PN ---
Subjective Progress Note Date: 09/11/23 Principal diagnosis: 1. L5-S1 spondylosis with bilateral foraminal stenosis 2. Lower extremity radiculopathy, bilateral (left worse than right) 3. Low back pain, severe 4. LE paresthesias Patient seen and examined this morning. Patient is resting comfortably in bed. Patient states that his pain is better controlled on current regimen. LSO brace is at bedside. Patient has been ambulatory within room, tolerating activity well. Surgical incisions to the lumbar spine, edges are well-approximated with paloma intact. New surgical dressings have been applied. Patient reports he has been urinating without any difficulty, he is passing gas. Patient states that he feels comfortable going home with home care. No acute concerns. Objective - Vital Signs Vital signs: Vital Signs Temp 98.3 F 09/11/23 02:25 Pulse 78 09/11/23 02:25 Resp 18 09/11/23 02:25 BP 143/81 09/11/23 02:25 Pulse Ox 95 09/11/23 02:25 FiO2 Intake & Output 09/10/23 09/11/23 09/11/23 18:59 06:59 18:59 Intake Total 680 Balance 680 Intake: Oral 680 Other: Voiding Method Toilet # Voids 2 2 - Exam Physical Examination General: The patient is awake and alert, in no acute distress Skin: Skin is warm and dry with no obvious rashes or lesions. Surgical incisions to the lumbar spine, edges are well-approximated with paloma intact. New surgical dressing has been applied. Eye: Pupils are equal, round and reactive to light, extra-ocular movements are intact; there is normal conjunctiva bilaterally. Neck: The neck is supple, there is no tenderness and ROM intact. Cardiovascular: There is a regular rate and rhythm. No murmur, rub or gallop is appreciated. Respiratory: Lungs are clear to auscultation, respirations are non-labored, breath sounds are equal. Gastrointestinal: Soft, non-distended, non-tender abdomen. Back: There is no tenderness to palpation in the midline, paralumbar, parathoracic or buttocks region. There is no obvious deformity . Musculoskeletal: ROM limited secondary to pain and stiffness from surgical procedure. Muscle strength in all major muscle groups of bilateral upper extremities 5/5, bilateral lower extremities 4/5. Neurological: CN 2-12 intact. There are no obvious motor or sensory deficits. Movement and coordination equal and intact. Sensory exam to light touch intact C5-T1 and intact from L2-S1. Reflexes 2/4 in bilateral upper and lower extremities. Negative Hoffmans, babinski, and clonus signs. Psychiatric: Cooperative, appropriate mood & affect, normal judgment. - Labs CBC & Chem 7: 09/09/23 06:25 09/09/23 06:25 Assessment and Plan Assessment: Postop day 3: L5-S1 minimally invasive PLIF 1. L5-S1 spondylosis with bilateral foraminal stenosis 2. Lower extremity radiculopathy, bilateral (left worse than right) 3. Low back pain, severe 4. LE paresthesias Plan: -Appreciate reporting process consultant and team management. -Activity: Ambulate QID, OOB all meals, up and about, limit lifting bending twisting to less than 5 lbs. Use walker or cane if needed for stability. -Daily PT/OT, increase ambulation strength and balance. -Brace when up and about, not needed in bed or chair -Pain control: Adequate at this time -Meds: reviewed -GI ppx: senna, Miralax -DVT PPX: Heparin -Hygiene: Shower today. Maintain dressing clean and dry. Meticulous cleaning after BMs away from the incision site -Encourage IS 10x/hr -Dispo: Discharge home later today with home care. *I reviewed and discussed this case with my attending Dr. Wilson, whom has reviewed this chart and films and is in agreement with assessment and plan of care as outlined above. I have personally seen and examined the patient, performed the documentation and the assessment and plan as written. Number of minutes spent on the visit: 20m.
--- NOTE | 2023-09-11 10:24 | P.DS ---
Providers Date of admission: 09/08/23 Expected date of discharge: 09/11/23 Attending physician: Justin Wilson DO Consults: 09/08/23 15:59 Consult Physician Routine Consulting Provider: Rafael Dinero Reason/Comments: Medical Management s/p L5-S1 MIS PLIF Do you want consulting provider notified?: Yes Primary care physician: Rafael Dinero Hospital Course: Hospital Course: The patient was evaluated preoperatively and found to have the diagnosis of lumbar spondylosis with stenosis. They underwent appropriate preoperative care and were willing to undergo the intended procedure. They underwent a successful L5-S1 minimally invasive PLIF, were recovered appropriately and sent to the floor. While on the floor they worked with physical therapy, occupational therapy and nursing to enhance their recovery experience. Their pain was well controlled through their stay and they were started on appropriate medications, DVT ppx modalities, activity and dietary needs. Daily labs were monitored closely, and transfusions were only used when necessary. Medicine as well as other consulting services have made their input and have helped with our team approach and multidisciplinary care. PT milestones have been met and passed and they have made the recommendation of home with home care for this patient and treating providers agree with this care path. The patient will be discharged home with appropriate medications, instructions and follow-up information and in stable condition. Patient Condition at Discharge: Good Plan - Discharge Summary Discharge Rx Participant: No New Discharge Prescriptions: New cefaDROXiL [Duricef] 500 mg PO Q12HR #10 cap oxyCODONE HCL [oxyCODONE HCL (IR)] 5 mg PO Q6H PRN #28 cap PRN Reason: Pain Sennosides/Docusate Sodium [Senna Plus 8.6-50 mg Softgel] 1 each PO DAILY PRN #20 capsule PRN Reason: Constipation No Action Cyclobenzaprine [Flexeril] 10 mg PO TID PRN #15 tab PRN Reason: Spasms Gabapentin 300 mg PO TID HYDROcodone/APAP 10-325MG [[place] 10-325] 1 tab PO TID PRN PRN Reason: Pain Discharge Medication List Cyclobenzaprine [Flexeril] 10 mg PO TID PRN #15 tab 05/16/23 [Rx] Gabapentin 300 mg PO TID 08/24/23 [History] HYDROcodone/APAP 10-325MG [[place] 10-325] 1 tab PO TID PRN 08/24/23 [History] Sennosides/Docusate Sodium [Senna Plus 8.6-50 mg Softgel] 1 each PO DAILY PRN #20 capsule 09/11/23 [Rx] cefaDROXiL [Duricef] 500 mg PO Q12HR #10 cap 09/11/23 [Rx] oxyCODONE HCL [oxyCODONE HCL (IR)] 5 mg PO Q6H PRN #28 cap 09/11/23 [Rx] Follow up Appointment(s)/Referral(s): Rafael Dinero MD [Primary Care Provider] - 09/18/23 2:10 pm Justin Wilson DO [Doctor of Osteopathic Medicine] - 09/22/23 9:00 am Activity/Diet/Wound Care/Special Instructions: Spine Discharge and Recovery Instructions Date of Surgery: 09/08/2023 Diagnosis: Lumbar stenosis Procedure: L5-S1 minimally invasive PLIF Medications: See medication list All medication refills should be obtained through your primary care doctor or your clinic spine surgeon. Please discuss prescription refills at your follow up appointment. Do not call the hospital for medication refills. Activity: Encourage ambulation with assist of walker, Up and about 6-8x daily PT/OT daily work on balance, strength and mobility Up in chair with all meals Shower daily Brace: Use brace when up and about, do not wear in bed or shower Dressing: Leave your dressing in place for a total of 3 days post operatively. Then you may remove your dressing and leave open to air. Keep the area clean and if not able to keep area clean, then cover with sterile gauze and tape. Showering: You may shower 3 days after your procedure allowing soap and water to run over incision. Do not scrub. Do not soak. Blot dry. Follow up: Please confirm a follow up appointment with your surgeon 2 weeks post operatively. Please make an appointment to follow up with your PCP in 1-2 weeks after surgery for evaluation `3 phase, 3-week plan POST OP WEEKS 1-3 1. Lifting/carrying/pushing/pulling limited to less than 5 pounds. 2. Do not sit for longer than 15 minutes at one time. Get up and walk around. Prolonged sitting is NOT advised. If you lay down, see if you can tolerate laying down on you front (belly side) 3. Walk for periods of 15 minutes = 1 mile but no longer; do it multiple times times each day. 4. Ice your low back after activity. POST OP WEEKS 3-6 1. Lifting limited to less than 20 pounds. 2. Do not sit for longer than 30 minutes at a time. Frequently change positions. Use a sit-to stand workstation or take frequent breaks from sitting if you have returned to work. 3. Walk for 30 minutes each day. If possible, do these three or more times a day POST OP WEEKS 6+ At your 6-week appointment we will give you a physical therapy referral to focus on a core stabilization and strengthening program. You should also work on leg & buttock strengthening, hamstring & quadriceps stretching, and continue a low impact aerobic activity program such as swimming, walking, or riding a stationary bicycle. During the initial 6 weeks after your surgery, you are at the highest risk of re-injuring your spine. You should generally avoid BLTs (bending, lifting and twisting combination motions) and follow the above guidelines to reduce the chance of reinjury. You can anticipate post op appointments in our office at approximately 3 weeks and 6 weeks after your surgery. INCISION CARE: If your incision is not draining you do NOT need to cover it with a dressing. Keep your incision clean, dry and intact. In most cases, we apply skin glue, paloma or sutures to the incision at the time of surgery. This will be like a crust or have the appearance of a scab and will fall off in time on its own. The stitches or paloma need to be removed at 3 weeks post op appointment. You may begin to shower 3 days after surgery (this allows the glue to martini well). However, please avoid scrubbing the incision site or peeling off any of the skin glue. This will ensure optimal healing of your incision. Also, during this time avoid soaking the incision area in water - this includes swimming pools, hot tubs or baths. No ointments, lotions or oils on the incision until your surgeon allows. Leave paloma, sutures or glue in place. Neurological dysfunction that comes on suddenly can also be a sign of a stroke. Below some common symptoms of a stroke are listed: B - balance difficulty such as sudden onset walking or leaning to one side - NEW E - eye problem such as sudden double vision or trouble seeing on one side - NEW F - Facial weakness or numbness on one side - NEW A - Arm or leg weakness or numbness on one side - NEW S - Slurred speech or difficulty with word finding - NEW T - Time is BRAIN! Call 911 as soon as you recognize these symptoms Diet: Consume a regular diet rich in vegetables and lean protein such as chicken or fish. You should consume in a ratio of approximately 20% fats|40% carbohydrates|40%protein. Vegetables, sweet potatoes, brown rice or quinoa are examples of good carbohydrates. Chips, white bread, cookies and sweets/sugar are examples of bad carbohydrates. Limit your bad carbs, go wild with good carbs. "Life's Simple 7" Guidelines as per [employer] These will help you reclaim your life after surgery and bindery helper in your recovery, keeping in mind your restrictions. (1) Get Active. Physical activity can help people lose weight, control high blood pressure and cholesterol, feel emotionally better, and sleep better. (2) Control Cholesterol. Avoid a diet high in saturated fat, trans fat, & cholesterol. Limit whole milk & cream, ice cream, butter, egg yolks, processed meats (like sausage and hot dogs), and fatty meats. Choose healthy foods that are low in saturated fat, trans fat and cholesterol which include: Fruits and vegetables, fiber rich grain products (like whole grain pasta and brown rice), lean meat such as chicken, fish, nuts, seeds, and legumes. (3) Eat Better. Eat small portions. Shop at the grocery with a list and do not stray from it. Tips for a healthy diet include: Limit sodium intake to less than 1500mg daily, avoid prepackaged, processed, and fast foods, choose a diet rich in fruits, vegetables, and whole grain, high fiber foods, and limit saturated & cholesterol in your diet. (4) Manage Blood Pressure. If you have high blood pressure, you should have a cuff at home so that you can check your blood pressure regularly. Be sure you have a good cuff. An arm one is generally better than a wrist one. Bring the cuff to a doctor's appointment to validate that the measurements that your cuff are taking are accurate. Take your blood pressure twice daily when you are sitting down and relaxing. Record the numbers in a log and bring this log with you to your doctors' appointments. (5) Lose Weight if your BMI is above 25. A healthy BMI is between 19-25. To calculate Your BMI, you may use a Standard BMI Calculator on the NIH BMI website: <www.nhlbi.nih.gov/guidelines/obesity/BMI/bmicalc.htm>. Weigh oneself daily. If you are overweight, set a goal to lose weight. A pound a week loss if needed is a good target. (6) Reduce Blood Sugar. Limit foods and liquids with "added sugars." (Added sugars include sucrose, fructose, glucose, maltose, dextrose, high fructose corn syrup, corn syrup, concentrated fruit juice and honey). (7) Stop Smoking. If you smoke, quitting smoking is one of the best things that you can do for your health. Smoking increases your risk of heart attack, stroke, and peripheral vascular disease, which is a build-up of plaque in your arteries. Please discard all the cigarettes and lighters in your house. Have a plan for what you will do when you have the urge to smoke. Direct and second- hand smoke shortens your life as well as the lives of your family, friends and others around you. For your health and the health of those around you, please co nsider quitting! Proper Bending Body Mechanics: Maintain a wide stance with one foot slightly in front of the other. Keep your back straight. Bend utilizing the strength in your hips and knees. Do not bend at the waist. Maintain the lifted object at your waist-level close to your body. Avoid lifting weight that causes immediately pain or pain anywhere in the body afterwards. Smoking/Nicotine If there was ever one thing that you could do to increase your overall health, decrease your risk of cardiovascular problems by about 39% the second you make the choice, it is to STOP SMOKING. Your body's most instant gratification is the second you stop smoking. We have all heard the studies, read the articles but it is true, smoking is extremely bad for your overall health, and moreover it is detrimental to your bone health. Nicotine, IN ANY FORM, kills bone cells, prevents your body from healing fractures, and significantly prolongs healing after surgery. In spine surgery specifically, it increases your risk of not healing your bones to create a fusion and increases your risk of having a revision surgery due to this up to 60%. I know it is hard. I know it feels impossible. But there are ways. Take control of your life. We are here to help you through it. And when you are ready, ask us and we can direct you to help if you desire. Use the START Plan to Quit Smoking (please visit the Helpguide.org website listed below for more information): S = Set a quit date. Choose a date within the next 2 weeks, so you have enough time to prepare without losing your motivation to quit. If you mainly smoke at work, quit on the weekend, so you have a few days to adjust to the change. T = Tell family, friends, and co-workers that you plan to quit. Let your friends and family in on your plan to quit smoking and tell them you need their support and encouragement to stop. Look for a quit ozzy who wants to stop smoking as well. You can help each other get through the rough times. A = Anticipate and plan for the challenges you'll face while quitting. Most people who begin smoking again do so within the first 3 months. You can help yourself make it through by preparing ahead for common challenges, such as nicotine withdrawal and cigarette cravings. R = Remove cigarettes and other tobacco products from your home, car, and work. Throw away all your cigarettes (no emergency pack!), lighters, ashtrays, and matches. Wash your clothes and freshen up anything that smells like smoke. Shampoo your car, clean your drapes and carpet, and steam your furniture. T = Talk to your doctor about getting help to quit. Your doctor can prescribe medication to help with withdrawal and suggest other alternatives. If you can't see a doctor, you can get many products over the counter at your local pharmacy or grocery store, including the nicotine patch, nicotine lozenges, and nicotine gum. Resources for Quitting Smoking: <https://www.[place].gov/documents/[facility]/Quit_Tobacco_Resources_for_patients_313 480_7.pdf> Supplementation: Take recommended dosages of Vitamin D and Calcium to help fortify your bones and help them to heal. See your health maintenance packet for dosages and recommended levels. DVT/VTE prophylaxis: You will be given compression stockings from the hospital. Wear these daily for the first two weeks after surgery. You may take them off at night. You may be prescribed a medication to help thin your blood. Take this as directed. If you are not prescribed this medication, early and frequent ambulation has been shown to be the best prophylaxis to deep vein thrombosis and sequelae related to this event. Discharge Disposition: HOME WITH HOME HEALTH SERVICES
== END 2023-09-11 13:07 | disposition home health service (06) ==
LOC: OR 10:21 → 4SSUR 15:46 → OR 09-11 13:07
PROVIDERS: ATTEND Orthopaedic Surgery
DX: M47.817 Spondylosis without myelopathy or radiculopathy, lumbosacral region (principal); M43.17 Spondylolisthesis, lumbosacral region; M48.07 Spinal stenosis, lumbosacral region; G47.30 Sleep apnea, unspecified; E66.9 Obesity, unspecified; Z87.891 Personal history of nicotine dependence; Z90.49 Acquired absence of other specified parts of digestive tract
CPT/HCPCS: 97161; 80053; 80048; 85025 ×2; 72100; 72131; 22633; 22853; 22840; 20936; 20931; C1713; C1762; C1734; J3370; J1100; J0690 ×3; J2405; J1170 ×5

== ENCOUNTER 2023-09-20 01:41 | Emergency (ER) | payer OTHER ==
[2023-09-20 02:10] VITALS: RESP 20
--- NOTE | 2023-09-20 02:40 | ED ---
Back Pain HPI - General Source: patient Limitations: no limitations <Rickey Cantu - Last Filed: 09/20/23 04:16> <Margarito Hopkins - Last Filed: 09/20/23 07:24> - General Chief Complaint: Back Pain/Injury Stated Complaint: Post-Op Back Pain Time Seen by Provider: 09/20/23 02:03 - History of Present Illness Initial Comments: 47-year-old male with a past surgical history significant for L5-L1 minimally invasive PLIF on 09/08/[address] Wilson presenting to the ED with complaints of back pain, bilateral hip pain. Patient reports after surgery had some improvement of back pain however shortly after started to develop pain of his bilateral hips radiating down the lower extremities with some associated paresthesias. Also reports continued back pain however reports significantly improved since surgery and not recently worsening. Reports since surgery has also had problems with sweats and chills. Denies saddle anesthesia. Denies bowel or bladder incontinence. No known fever. No other complaints at this time. (Rickey Cantu) - Related Data Home Medications Medication Instructions Recorded Confirmed Gabapentin 300 mg PO TID 08/24/23 09/08/23 HYDROcodone/APAP 10-325MG [[employer] 1 tab PO TID PRN 08/24/23 09/08/23 10-325] Previous Rx's Medication Instructions Recorded Cyclobenzaprine [Flexeril] 10 mg PO TID PRN #15 tab 05/16/23 Sennosides/Docusate Sodium [Senna 1 each PO DAILY PRN #20 capsule 09/11/23 Plus 8.6-50 mg Softgel] cefaDROXiL [Duricef] 500 mg PO Q12HR #10 cap 09/11/23 oxyCODONE HCL [OxyIR] 5 mg PO Q4-6H PRN #28 tab 09/11/23 methocarbamoL [Robaxin-750] 750 mg PO QID PRN 3 Days #12 tab 09/20/23 Allergies Allergy/AdvReac Type Severity Reaction Status Date / Time No Known Allergies Allergy Verified 09/20/23 01:57 Review of Systems ROS Other: All systems not noted in ROS Statement are negative. <Rickey Cantu - Last Filed: 09/20/23 04:16> ROS Other: All systems not noted in ROS Statement are negative. <SandeepMargarito - Last Filed: 09/20/23 07:24> ROS Statement: Those systems with pertinent positive or pertinent negative responses have been documented in the HPI. Past Medical History Past Medical History: Atrial Flutter, Sleep Apnea/CPAP/BIPAP Additional Past Medical History / Comment(s): HX of hep C, Back pain, no a- flutter since ablation History of Any Multi-Drug Resistant Organisms: None Reported Past Surgical History: Cardiac Ablation, Cholecystectomy, Orthopedic Surgery Additional Past Surgical History / Comment(s): c6-c7 fusion, left foot surg.decompression fusion from S1-L5 Past Anesthesia/Blood Transfusion Reactions: No Reported Reaction Past Psychological History: No Psychological Hx Reported Smoking Status: Former smoker Past Alcohol Use History: None Reported Past Drug Use History: Marijuana - Past Family History Father Family Medical History: Coronary Artery Disease (CAD) Additional Family Medical History / Comment(s): Brain tumor Mother Family Medical History: Chest Pain / Angina Additional Family Medical History / Comment(s): Breast cancer <Rickey Cantu - Last Filed: 09/20/23 04:16> General Exam Limitations: no limitations General appearance: alert, in no apparent distress Eye exam: Present: normal appearance Neck exam: Present: normal inspection Respiratory exam: Present: normal lung sounds bilaterally Cardiovascular Exam: Present: regular rate GI/Abdominal exam: Present: soft Extremities exam: Present: other (Strength and sensation equal and intact of bilateral lower extremities.) Back exam: Present: other (No midline spinal tenderness to palpation. Patient reports paresthesias over the lower lumbar spine. Incisions appear clean dry and intact.) Neurological exam: Present: alert, oriented X3 Skin exam: Present: warm, dry <Rickey Cantu - Last Filed: 09/20/23 04:16> Course Vital Signs 09/20/23 09/20/23 01:57 06:24 Temperature 98.7 F 98.5 F Pulse Rate 103 H 90 Respiratory 20 20 Rate Blood Pressure 167/124 130/85 O2 Sat by Pulse 99 98 Oximetry Medical Decision Making - Lab Data Result diagrams: 09/20/23 03:30 <Rickey Cantu - Last Filed: 09/20/23 04:16> - Lab Data Result diagrams: 09/20/23 03:30 09/20/23 03:30 <Margarito Hopkins - Last Filed: 09/20/23 07:24> - Medical Decision Making Was pt. sent in by a medical professional or institution (, PA, BLEACH TESTER, urgent care, hospital, or shelter...) When possible be specific @ -No Did you speak to anyone other than the patient for history (EMS, parent, family, police, friend...)? What history was obtained from this source @ -No Did you review nursing and triage notes (agree or disagree)? Why? @ -I reviewed and agree with nursing and triage notes Were old charts reviewed (outside hosp., previous admission, EMS record, old EKG, old radiological studies, urgent care reports/EKG's, shelter records)? Report findings @ -No old charts were reviewed Differential Diagnosis (chest pain, altered mental status, abdominal pain women, abdominal pain men, vaginal bleeding, weakness, fever, dyspnea, syncope, headac he, dizziness, GI bleed, back pain, seizure, CVA, palpatations, mental health, musculoskeletal)? @ -Differential Musculoskeletal Muscular strain, contusion, ligament sprain, fracture, arthritis, septic arthritis, bursitis, cellulitis, muscle spasm, nerve compression, DVT, arterial occlusion, herpes zoster, electrolyte abnormality, tumor.... This is not meant to be in all inclusive list EKG interpreted by me (3pts min.). @ -None X-rays interpreted by me (1pt min.). @ -Pending CT interpreted by me (1pt min.). @ -Pending U/S interpreted by me (1pt. min.). @ -None done What testing was considered but not performed or refused? (CT, X-rays, U/S, labs)? Why? @ -None What meds were considered but not given or refused? Why? @ -None Did you discuss the management of the patient with other professionals (professionals i.e. , CHARLES, BLEACH TESTER, lab, RT, psych nurse, social contact worker, tow driver, teacher, traffic officer, home health care case manager)? Give summary @ -No Was smoking cessation discussed for >3mins.? @ -No Was critical care preformed (if so, how long)? @ -No Were there social determinants of health that impacted care today? How? (Homelessness, low income, unemployed, alcoholism, drug addiction, transportation, low edu. Level, literacy, decrease access to med. care, half-way, re hab)? @ -No Was there de-escalation of care discussed even if they declined (Discuss DNR or withdrawal of care, Hospice)? DNR status @ -No What co-morbidities impacted this encounter? (DM, HTN, Smoking, COPD, CAD, Cancer, CVA, ARF, Chemo, Hep., AIDS, mental health diagnosis, sleep apnea, morbid obesity)? @ -None Was patient admitted / discharged? Hospital course, mention meds given and route, prescriptions, significant lab abnormalities, going to OR and other pertinent info. @ -Pending 47-year-old male status post minimally invasive PLIF L5-S1 by Dr. Delatorre seen on 09/08/2023 presented to the ED with complaints of bilateral hip pain rating down her legs with some associated chills. At this time laboratory studies and imaging pending. Case signed out to my attending physician, Dr. Hopkins, for further disposition. (Rickey Cantu) Signed out to me pending results of CT imaging and labs. Briefly, patient had lumbar spine surgery with Dr. Wilson 2 weeks ago. Since discharge, has been complaining of worsening back pain with some radiation down both legs. Denies any saddle anesthesias, urinary or bowel incontinence or retention, paralysis of the lower extremities. Presents for further evaluation. Occasionally gets chills but no known fevers. No other acute complaints at this time. Laboratory studies unremarkable. Patient's pelvis x-ray as interpreted by myself is unremarkable. Lumbar spine CT interpreted by myself reveals adequate postsurgical changes but no other acute process at this time. After the patient. As he has no red flag symptoms for cauda equina syndrome, and otherwise appears well I did recommend follow-up with Dr. Wilson. He was in agreement this plan. We will switch his muscle relaxer from Flexeril to Robaxin to see if that improves his symptoms. Patient was in agreement this plan. Strict return precautions discussed. I will provide the patient with a prescription for Robaxin. I instructed the patient to follow up with their PCP in the next 1-3 days.. I explained that the patient should return to the emergency department if they experience any worsening symptoms. Strict return precautions were discussed with the patient. The patient expressed understanding of these instructions. I answered all questions that the patient had. The patient was discharged home in good condition with their prescriptions and follow up information. Diagnosis/symptom? @ -Postoperative pain Acute, or Chronic, or Acute on Chronic? @ -Acute Uncomplicated (without systemic symptoms) or Complicated (systemic symptoms)? @ -Uncomplicated Side effects of treatment? @ -None Exacerbation, Progression, or Severe Exacerbation] @ -No Poses a threat to life or bodily function? @ -Unlikely (Margarito Hopkins) - Lab Data Lab Results 09/20/23 09/20/23 09/20/23 Range/Units 03:30 03:30 04:17 WBC 8.2 (3.8-10.6) k/uL RBC 4.82 (4.30-5.90) m/uL Hgb 14.7 (13.0-17.5) gm/dL Hct 44.9 (39.0-53.0) % MCV 93.3 (80.0-100.0) fL MCH 30.5 (25.0-35.0) pg MCHC 32.7 (31.0-37.0) g/dL RDW 12.8 (11.5-15.5) % Plt Count 342 (150-450) k/uL MPV 7.5 Neutrophils % 65 % Lymphocytes % 25 % Monocytes % 7 % Eosinophils % 2 % Basophils % 1 % Neutrophils # 5.4 (1.3-7.7) k/uL Lymphocytes # 2.1 (1.0-4.8) k/uL Monocytes # 0.6 (0-1.0) k/uL Eosinophils # 0.2 (0-0.7) k/uL Basophils # 0.0 (0-0.2) k/uL Sodium 138 (137-145) mmol/L Potassium 4.5 (3.5-5.1) mmol/L Chloride 104 (98-107) mmol/L Carbon Dioxide 25 (22-30) mmol/L Anion Gap 9 mmol/L BUN 17 (9-20) mg/dL Creatinine 0.81 (0.66-1.25) mg/dL Est GFR (CKD-EPI)AfAm >90 (>60 ml/min/1.73 sqM) Est GFR (CKD-EPI)NonAf >90 (>60 ml/min/1.73 sqM) Glucose 114 H (74-99) mg/dL Calcium 9.5 (8.4-10.2) mg/dL Total Bilirubin 0.8 (0.2-1.3) mg/dL AST 31 (17-59) U/L ALT 40 (4-49) U/L Alkaline Phosphatase 86 (38-126) U/L Total Protein 7.8 (6.3-8.2) g/dL Albumin 4.4 (3.5-5.0) g/dL Urine Color Colorless Urine Appearance Clear (Clear) Urine pH 6.0 (5.0-8.0) Ur Specific [place] 1.043 H (1.001-1.035) Urine Protein Negative (Negative) Urine Glucose (UA) Negative (Negative) Urine Ketones Negative (Negative) Urine Blood Negative (Negative) Urine Nitrite Negative (Negative) Urine Bilirubin Negative (Negative) Urine Urobilinogen <2.0 (<2.0) mg/dL Ur Leukocyte Esterase Negative (Negative) Disposition <Rickey Cantu - Last Filed: 09/20/23 04:16> Is patient prescribed a controlled substance at d/c from ED?: No Time of Disposition: 05:39 <Margarito Hopkins - Last Filed: 09/20/23 07:24> Clinical Impression: Post-op pain Disposition: HOME SELF-CARE Condition: Good Instructions (If sedation given, give patient instructions): Acute Low Back Pain (ED) Prescriptions: methocarbamoL [Robaxin-750] 750 mg PO QID PRN 3 Days #12 tab PRN Reason: Pain Referrals: Rafael Dinero MD [Primary Care Provider] - 1-2 days Justin Wilson DO [Doctor of Osteopathic Medicine] - 1-2 days
[2023-09-20] MEDS: HYDROmorphone 1 MG/ML 1 ML SYRINGE IVP STA (03:30)
[2023-09-20] MEDS: SODIUM CHLORIDE 0.9% 1,000 ML IV STA (03:36)
[2023-09-20 03:49] LABS: ALT 40 U/L (4-49); AST 31 U/L (17-59); African American GFR (CKD) >90 (>60 ml/min/1.73 sqM); Albumin 4.4 g/dL (3.5-5.0); Alkaline Phosphatase 86 U/L (38-126); Anion Gap 9 mmol/L; Blood Urea Nitrogen 17 mg/dL (9-20); Calcium 9.5 mg/dL (8.4-10.2); Carbon Dioxide 25 mmol/L (22-30); Chloride 104 mmol/L (98-107); Glucose 114 mg/dL (74-99); Non-African American GFR(CKD) >90 (>60 ml/min/1.73 sqM); Potassium 4.5 mmol/L (3.5-5.1); Sodium 138 mmol/L (137-145); Total Bilirubin 0.8 mg/dL (0.2-1.3); Total Protein 7.8 g/dL (6.3-8.2)
[2023-09-20 04:27] LABS: Appearance,Urine Clear (Clear); Bilirubin,Urine Negative (Negative); Blood,Urine Negative (Negative); Color,Urine Colorless; Glucose,Urine (UA) Negative (Negative); Ketones,Urine Negative (Negative); Leukocyte Esterase,Urine Negative (Negative); Nitrite,Urine Negative (Negative); Protein,Urine Negative (Negative); Specific Gravity,Urine 1.043 (1.001-1.035); Urobilinogen,Urine <2.0 mg/dL (<2.0)
--- NOTE | 2023-09-20 04:51 | CT ---
EXAM: CT Lumbar Spine With Intravenous Contrast CLINICAL HISTORY: ITS.REASON CT Reason: s/p lumbar PLIF 09/08/23. back pain/hip pain TECHNIQUE: Axial computed tomography images of the lumbar spine with intravenous contrast. CTDI is 52.38 mGy and DLP is 1888.4 mGy-cm. This CT exam was performed using one or more of the following dose reduction techniques: automated exposure control, adjustment of the mA and/or kV according to patient size, and/or use of iterative reconstruction technique. COMPARISON: No relevant prior studies available. FINDINGS: Postop changes L5-S1 fusion. Vertebrae: No acute fracture. Minimal retrolisthesis of L4 on L5. Discs/spinal canal/neural foramina: Mild disc bulge L4-5. Moderate bilateral foraminal stenosis L4-5. Severe left and moderate right L5-S1 foraminal stenosis. Soft tissues: 11. IMPRESSION: No acute fracture. Foraminal stenosis at L4-5 and L5-S1.
[2023-09-20 04:59] LABS: Basophils % (A) 1 %; Eosinophils # (A) 0.2 k/uL (0-0.7); Eosinophils % (A) 2 %; HCT 44.9 % (39.0-53.0); HGB 14.7 gm/dL (13.0-17.5); Lymphocytes # (A) 2.1 k/uL (1.0-4.8); Lymphocytes % (A) 25 %; MCH 30.5 pg (25.0-35.0); MCHC 32.7 g/dL (31.0-37.0); MCV 93.3 fL (80.0-100.0); Mean Platelet Volume 7.5; Monocytes # (A) 0.6 k/uL (0-1.0); Monocytes % (A) 7 %; Neutrophils # (A) 5.4 k/uL (1.3-7.7); Neutrophils % (A) 65 %; Platelet Count 342 k/uL (150-450); RBC 4.82 m/uL (4.30-5.90); RDW 12.8 % (11.5-15.5); WBC 8.2 k/uL (3.8-10.6)
--- NOTE | 2023-09-20 05:16 | XR ---
EXAMINATION TYPE: XR pelvis AP view DATE OF EXAM: 09/20/2023 CLINICAL HISTORY: Bilateral hip pain, recent hip surgery September 07. TECHNIQUE: A single AP view of the pelvis is obtained. COMPARISON: Pelvic x-ray April 04, 2023. FINDINGS: There is no acute fracture/dislocation evident in the pelvis. The hip and sacroiliac join ts appear symmetric and within normal limits. Surgical changes L4-L5 level is now seen with overlying vertical oriented skin paloma bilaterally. Contrast excretion in both distal ureters is noted. IMPRESSION: As above.
[2023-09-20] MEDS: methocarbamoL 750 MG TAB PO STA (06:16)
[2023-09-20 07:00] VITALS: BP 130/85; PULSE 90; TEMP 98.5
== END 2023-09-20 06:25 | disposition home or self-care (01) ==
LOC: EC 01:41
DX: G89.18 Other acute postprocedural pain (principal); M54.9 Dorsalgia, unspecified; F12.90 Cannabis use, unspecified, uncomplicated; Z87.891 Personal history of nicotine dependence
CPT/HCPCS: 36415; 80053; 85025; 81003; 72170; 72132; 99284; 96374; 96361 ×3; J1170; Q9967

== ENCOUNTER → 2024-02-01 | Outpatient (CLI) | payer OTHER ==
--- NOTE | 2024-02-01 15:43 | CT ---
EXAMINATION TYPE: CT cervical spine wo con CT DLP: 709 mGycm, Automated exposure control for dose reduction was used. DATE OF EXAM: 02/01/2024 3:21 PM COMPARISON: CT cervical spine 01/30/2022. CLINICAL INDICATION:Male, 48 years old with history of M54.12 RADICULOPATHY, CERVICAL REGION; PHH, PA IN AND NUMBNESS/TINGLING DOWN INTO LEFT ARM WHEN TURNING HEAD BACK AND TO THE LEFT. HX OF C6-C7 FUSIO N. TECHNIQUE: Axial CT images from the skull base to the inferior aspect of T2 we obtained without intra venous contrast. Coronal and sagittal reformatted images were also reviewed. FINDINGS: Fracture: None. Osseous structures: Postsurgical changes from anterior cervical fusion with disc spacer involving C6- C7. Hardware appears intact with appropriate alignment. Vertebral alignment: Straightening of the cervical spine which may be due to patient position versus muscle spasm. Spinal canal/Neural Foramina: Degenerative changes of the C1-C2 anterior articulation. Posterior disc osteophyte complex at C6-C7 with mild effacement of the anterior thecal sac. There is uncovertebral joint hypertrophy at this level resulting in moderate bilateral neuroforaminal stenosis. No other sig nificant neural foraminal or central canal stenosis at the other visualized level. Neck soft tissues: Prevertebral soft tissues are within normal limits. Other: The airway is patent. The lung apices are clear. IMPRESSION: 1. No evidence of cervical spine fracture. 2. Postoperative changes from ACDF C6-C7. 3. Similar degenerative changes at C6-C7 with posterior distal aspect complex causing mild effacement of the anterior thecal sac. Uncovertebral joint hypertrophy resulting in moderate bilateral neural f oraminal stenosis. [facility], , 02/01/2024 3:41 PM
== END | disposition home or self-care (01) ==
LOC: RADCTMAIN 14:57
PROVIDERS: ATTEND Orthopaedic Surgery
DX: M48.02 Spinal stenosis, cervical region (principal); M47.22 Other spondylosis with radiculopathy, cervical region; Z98.1 Arthrodesis status
CPT/HCPCS: 72125

== ENCOUNTER → 2024-03-05 | Outpatient (CLI) | payer OTHER ==
--- NOTE | 2024-03-05 22:01 | MR ---
EXAMINATION TYPE: MR cervical spine wo con DATE OF EXAM: 03/05/2024 COMPARISON: 02/01/2024 CT cervical spine HISTORY: Cervical pain into left bicept and pectoral area, Numbness/weakness in left hand/arm, Headac hes, Hx cervical fusion CONTRAST: Performed utilizing mL intravenous gadolinium contrast. TECHNIQUE: Multiplanar multiecho imaging on a 3.0 Jaylene magnet is performed through the cervical spin e. FINDINGS: The craniovertebral junction is normal. Vertebral body alignment is straightened. There is an anterior cervical fusion C6-7. C7-T1: No focal disc herniation or significant disc bulge is evident. No spinal canal stenosis or n eural foraminal stenosis is present. C6-7: No focal disc herniation or significant disc bulge is evident. No spinal canal stenosis. Cinda inal narrowing is present bilaterally. Correlate for radicular symptoms. Disc spacer and anterior fus ion at C 6/7 is present. C5-6: Left lateral disc herniation is present. This may be impinging the foramen. No spinal canal asif nosis and left foraminal stenosis is present. C4-5: No focal disc herniation or significant disc bulge is evident. No spinal canal stenosis or fito ral foraminal stenosis is present. C3-4: No focal disc herniation or significant disc bulge is evident. No spinal canal stenosis or fito ral foraminal stenosis is present. C2-3: No focal disc herniation or significant disc bulge is evident. No spinal canal stenosis or fito ral foraminal stenosis is present. IMPRESSION: 1. Small left paracentral disc herniation may have impingement of the left foramen. Correlate for lef t radicular symptoms C5-6. 2. Bilateral foraminal stenosis C6-7 and left C5-6. [facility], Workstation: [facility], 03/05/2024 9:59 PM
== END | disposition home or self-care (01) ==
LOC: RADMRIMAIN 21:15
PROVIDERS: ATTEND Orthopaedic Surgery
DX: M48.02 Spinal stenosis, cervical region (principal); M50.322 Other cervical disc degeneration at C5-C6 level
CPT/HCPCS: 72141

== ENCOUNTER 2024-03-21 20:29 | Observation (INO) | payer OTHER ==
--- NOTE | 2024-03-21 20:43 | ED ---
Arrhythmia/Palpitations HPI - General Source: patient, RN notes reviewed Mode of arrival: wheelchair Limitations: no limitations <Elyse Ortiz - Last Filed: 03/21/24 20:42> - General Source: patient, RN notes reviewed, old records reviewed <Margarito Hopkins - Last Filed: 03/21/24 23:20> - General Chief Complaint: Arrhythmia/Palpitations Stated Complaint: chest pain, FRANC Time Seen by Provider: 03/21/24 20:42 - History of Present Illness Initial Comments: Quick note: 48-year-old male presented to the ER with a chief complaint of racing heart and palpitations. Patient is scheduled for a cervical neck fusion with Dr. Wilson and is currently undergoing cardiac clearance. Patient does report a history of atrial fibrillation and atrial flutter and underwent ablation by Dr. Spears. He is currently on Eliquis and metoprolol. He states he has not been taking metoprolol for the past 2 to 3 days as medication gives him migraines. Patient is currently complaining of "racing heart". He denies any current pain. He also states he is having some shortness of breath. (Elyse Ortiz) Patient is a 48-year-old male with past medical history remarkable for atrial fibrillation, sleep apnea, chronic back pain who presents emergency department complaining of feeling off. Was diagnosed with atrial fibrillation 2 days ago. Previously had a cardiac ablation for a flutter. Was just started on metoprolol as well as Eliquis 2 days ago. States that the metoprolol when he takes it it makes him feel weird and gives him what he describes as a migraine headache. So he did not take it today. Feels like his heart rate is fluctuating at home. Decided to come the emergency department for further evaluation as he has been unable to follow-up with his construction coordinator. Cardiology did tell him to take half dose of his metoprolol but he was nervous taking any of it without being monitored. Does endorse a mild headache at this time. Denies chest pain. Endorses occasional dyspnea. Endorses occasional lightheadedness. He is concerned because sure it is also intermittently elevated. Presents for further evaluation at this time. Originally seen as a quick note. I evaluated the patient when he was placed in a room. He is scheduled for a cervical neck fusion with Dr. Wilson and the atrial fibrillation was discovered during the routine cardiac screening. (Margarito Hopkins) - Related Data Home Medications Medication Instructions Recorded Confirmed Gabapentin 300 mg PO TID 08/24/23 09/08/23 HYDROcodone/APAP 10-325MG [Carlock 1 tab PO TID PRN 08/24/23 09/08/23 10-325] Previous Rx's Medication Instructions Recorded Cyclobenzaprine [Flexeril] 10 mg PO TID PRN #15 tab 05/16/23 Sennosides/Docusate Sodium [Senna 1 each PO DAILY PRN #20 capsule 09/11/23 Plus 8.6-50 mg Softgel] cefaDROXiL [Duricef] 500 mg PO Q12HR #10 cap 09/11/23 oxyCODONE HCL [OxyIR] 5 mg PO Q4-6H PRN #28 tab 09/11/23 methocarbamoL [Robaxin-750] 750 mg PO QID PRN 3 Days #12 tab 09/20/23 Allergies Allergy/AdvReac Type Severity Reaction Status Date / Time No Known Allergies Allergy Verified 03/21/24 20:37 Review of Systems ROS Other: All systems not noted in ROS Statement are negative. <Elyse Ortiz - Last Filed: 03/21/24 20:42> ROS Other: All systems not noted in ROS Statement are negative. <Margarito Hopkins - Last Filed: 03/21/24 23:20> ROS Statement: Those systems with pertinent positive or pertinent negative responses have been documented in the HPI. Review of Systems: CONST: Denies fever EYES: Denies blurry vision ENT: Denies nasal congestion C/V: Denies Chest pain RESP: Denies shortness of breath GI: Denies abdominal pain : Denies dysuria SKIN: Denies rash. MSK: Denies joint pain. NEURO: Endorses headache (Margarito Hopkins) Past Medical History Past Medical History: Atrial Fibrillation, Atrial Flutter, Sleep Apnea/CPAP/BIPAP Additional Past Medical History / Comment(s): HX of hep C, Back pain, no a- flutter since ablation History of Any Multi-Drug Resistant Organisms: None Reported Past Surgical History: Cardiac Ablation, Cholecystectomy, Orthopedic Surgery Additional Past Surgical History / Comment(s): c6-c7 fusion, left foot surg.decompression fusion from S1-L5 Past Anesthesia/Blood Transfusion Reactions: No Reported Reaction Past Psychological History: No Psychological Hx Reported Smoking Status: Former smoker Past Alcohol Use History: None Reported Past Drug Use History: Marijuana - Past Family History Father Family Medical History: Coronary Artery Disease (CAD) Additional Family Medical History / Comment(s): Brain tumor Mother Family Medical History: Chest Pain / Angina Additional Family Medical History / Comment(s): Breast cancer <Elyse Ortiz - Last Filed: 03/21/24 20:42> General Exam Limitations: no limitations <Elyse Ortiz - Last Filed: 03/21/24 20:42> <Margarito Hopkins - Last Filed: 03/21/24 23:20> - General Exam Comments Initial Comments: Visual Physical Exam Vital signs reviewed General: Well-appearing, nontoxic, no acute distress. Head: Normocephalic, atraumatic Eyes: PERRLA, EOMI ENT: Airway patent Chest: Nonlabored breathing Skin: No visual rash, normal skin tone Neuro: Alert and oriented 3 Musculoskeletal: No gross abnormalities (Elyse Ortiz) General: Appears in no acute distress. HEAD: Normal with no signs of head trauma. EYES: PERRLA, EOMI, conjunctiva normal, no discharge. ENT: Hearing grossly intact, normal oropharynx. RESPIRATORY: Clear breath sounds bilaterally. No wheezes, rales, or rhonchi. C/V: Regular rate and rhythm. S1 and S2 auscultated, no edema, peripheral pulses 2+ and intact throughout ABD: Abd is soft, nontender, nondistended EXT: Normal range of motion, no obvious deformity SKIN: No rashes or lesions observed on exposed skin. NEURO: Alert and oriented x 4. Cranial nerves II-XII intact. No focal sensory or strength deficits. (Margarito Hopkins) Course Vital Signs 03/21/24 20:34 Temperature 98.2 F Pulse Rate 92 Respiratory 18 Rate Blood Pressure 150/109 O2 Sat by Pulse 98 Oximetry Medical Decision Making <Elyse Ortiz - Last Filed: 03/21/24 20:42> - Lab Data Result diagrams: 03/21/24 21:22 03/21/24 21:22 - EKG Data -: EKG Interpreted by [facility] <Margarito Hopkins - Last Filed: 03/21/24 23:20> - Medical Decision Making I performed the quick note portion of this chart. Electronically signed by Elyse Ortiz PA-C (Elyse Ortiz) Was pt. sent in by a medical professional or institution (CHARLES Miller, INSTALLER INSPECTOR FINAL, urgent care, hospital, or alf...) When possible be specific @ -No Did you speak to anyone other than the patient for history (EMS, parent, family, police, friend...)? What history was obtained from this source @ -No Did you review nursing and triage notes (agree or disagree)? Why? @ -I reviewed and agree with nursing and triage notes Were old charts reviewed (outside hosp., previous admission, EMS record, old EKG, old radiological studies, urgent care reports/EKG's, alf records)? Report findings @ -Charts reviewed confirming patient's prior history of atrial fibrillation/flutter. Differential Diagnosis (chest pain, altered mental status, abdominal pain women, abdominal pain men, vaginal bleeding, weakness, fever, dyspnea, syncope, headache, dizziness, GI bleed, back pain, seizure, CVA, palpatations, mental health, musculoskeletal)? @ -Differential Palpitations Ventricular arrhythmias, atrial arrhythmias, myocardial infarction, anemia, thyrotoxicosis, electrolyte imbalance, hypokalemia, pulmonary embolism, pulmonary disease, drugs, alcohol, anxiety, stress.... This is not meant to be an all-inclusive list. EKG interpreted by me (3pts min.). @ -As above X-rays interpreted by me (1pt min.). @ -X-ray reveals no obvious acute cardiopulmonary process. CT interpreted by me (1pt min.). @ -None done U/S interpreted by me (1pt. min.). @ -None done What testing was considered but not performed or refused? (CT, X-rays, U/S, labs)? Why? @ -None What meds were considered but not given or refused? Why? @ -None Did you discuss the management of the patient with other professionals (professionals i.e. CHARLES Miller, INSTALLER INSPECTOR FINAL, lab, RT, psych nurse, social service assistant, metal organ pipe maker, teacher, security patrol officer, case worker)? Give summary @ -Discussed with Dr. Dinero who accepted the admission. Was smoking cessation discussed for >3mins.? @ -No Was critical care preformed (if so, how long)? @ -No Were there social determinants of health that impacted care today? How? (Homelessness, low income, unemployed, alcoholism, drug addiction, tr ansportation, low edu. Level, literacy, decrease access to med. care, [facility], rehab)? @ -No Was there de-escalation of care discussed even if they declined (Discuss DNR or withdrawal of care, Hospice)? DNR status @ -No What co-morbidities impacted this encounter? (DM, HTN, Smoking, COPD, CAD, Cancer, CVA, ARF, Chemo, Hep., AIDS, mental health diagnosis, sleep apnea, morbid obesity)? @ -Atrial fibrillation Was patient admitted / discharged? Hospital course, mention meds given and route, prescriptions, significant lab abnormalities, going to OR and other pertinent info. @ -Patient presents with noncompliance with A-fib medications for 1 day and having some symptoms likely from intermittent atrial fibrillation as well as possibly from the medication itself. States that he gets headaches and feels off when he takes the metoprolol but also notes that not taking the metoprolol today is led to fluctuations in his heart rate and also feeling off. Currently is in normal sinus rhythm when I evaluated him in the room. Workup was completed in triage. Remarkable for normal D-dimer for patient's age, undetectable troponin. Remainder the labs unremarkable. Chest x-ray shows no obvious acute cardiopulmonary process. On the monitor, patient does appear to intermittently go into rate controlled atrial fibrillation. I discussed the results of his workup with him. He was symptomatically treated with IV fluids, Zofran, Toradol, Benadryl for his headache as well as a dose of his normal Carlock 10. Patient also was amenable to receiving half of his normal dose of Toprol-XL. States he does not want to take the full 50 mg as it makes him feel different. I will give him half dose of 25 mg at this time, as he did not take it today. He was amenable to this dose. I did recommend as he is symptomatic and likely intermittently going in and out of atrial fibrillation that we watch him overnight. Cardiology can see him in the morning. He was in agreement this plan. May require medication adjustments. I spoke with the admitting provider, Dr. Dinero who accepted the admission. Undiagnosed new problem with uncertain prognosis? @ -No Drug Therapy requiring intensive monitoring for toxicity (Heparin, Nitro, Insulin, Cardizem)? @ -No Were any procedures done? @ -No Diagnosis/symptom? @ -Atrial fibrillation, headache Acute, or Chronic, or Acute on Chronic? @ -Acute Uncomplicated (without systemic symptoms) or Complicated (systemic symptoms)? @ -Complicated Side effects of treatment? @ -No Exacerbation, Progression, or Severe Exacerbation? @ -No Poses a threat to life or bodily function? How? (Chest pain, [place], CA, pneumonia, PE, COPD, DKA, ARF, appy, cholecystitis, CVA, Diverticulitis, Homicidal, Suicidal, threat to staff... and all critical care pts) @ -Potentially, yes if uncontrolled. (Margarito Hopkins) - Lab Data Lab Results 03/21/24 03/21/24 03/21/24 Range/Units 21:22 21:22 21:22 WBC 6.9 (3.8-10.6) k/uL RBC 5.37 (4.30-5.90) m/uL Hgb 16.5 (13.0-17.5) gm/dL Hct 48.0 (39.0-53.0) % MCV 89.4 (80.0-100.0) fL MCH 30.7 (25.0-35.0) pg MCHC 34.3 (31.0-37.0) g/dL RDW 13.2 (11.5-15.5) % Plt Count 229 (150-450) k/uL MPV 8.0 Neutrophils % 54 % Lymphocytes % 36 % Monocytes % 6 % Eosinophils % 3 % Basophils % 0 % Neutrophils # 3.8 (1.3-7.7) k/uL Lymphocytes # 2.5 (1.0-4.8) k/uL Monocytes # 0.4 (0-1.0) k/uL Eosinophils # 0.2 (0-0.7) k/uL Basophils # 0.0 (0-0.2) k/uL PT 11.3 (10.0-12.5) sec INR 1.0 (<1.2) APTT 25.8 (22.0-30.0) sec D-Dimer (<0.60) mg/L FEU Sodium 139 (137-145) mmol/L Potassium 3.9 (3.5-5.1) mmol/L Chloride 102 (98-107) mmol/L Carbon Dioxide 24 (22-30) mmol/L Anion Gap 13 mmol/L BUN 15 (9-20) mg/dL Creatinine 0.87 (0.66-1.25) mg/dL Est GFR (CKD-EPI)AfAm >90 (>60 ml/min/1.73 sqM) Est GFR (CKD-EPI)NonAf >90 (>60 ml/min/1.73 sqM) Glucose 109 H (74-99) mg/dL Calcium 9.9 (8.4-10.2) mg/dL Magnesium 2.2 (1.6-2.3) mg/dL Total Bilirubin 1.3 (0.2-1.3) mg/dL AST 97 H (17-59) U/L ALT 121 H (4-49) U/L Alkaline Phosphatase 94 (38-126) U/L Troponin I (0.000-0.034) ng/mL Total Protein 8.8 H (6.3-8.2) g/dL Albumin 5.2 H (3.5-5.0) g/dL 03/21/24 03/21/24 Range/Units 21:22 21:22 WBC (3.8-10.6) k/uL RBC (4.30-5.90) m/uL Hgb (13.0-17.5) gm/dL Hct (39.0-53.0) % MCV (80.0-100.0) fL MCH (25.0-35.0) pg MCHC (31.0-37.0) g/dL RDW (11.5-15.5) % Plt Count (150-450) k/uL MPV Neutrophils % % Lymphocytes % % Monocytes % % Eosinophils % % Basophils % % Neutrophils # (1.3-7.7) k/uL Lymphocytes # (1.0-4.8) k/uL Monocytes # (0-1.0) k/uL Eosinophils # (0-0.7) k/uL Basophils # (0-0.2) k/uL PT (10.0-12.5) sec INR (<1.2) APTT (22.0-30.0) sec D-Dimer 0.39 (<0.60) mg/L FEU Sodium (137-145) mmol/L Potassium (3.5-5.1) mmol/L Chloride (98-107) mmol/L Carbon Dioxide (22-30) mmol/L Anion Gap mmol/L BUN (9-20) mg/dL Creatinine (0.66-1.25) mg/dL Est GFR (CKD-EPI)AfAm (>60 ml/min/1.73 sqM) Est GFR (CKD-EPI)NonAf (>60 ml/min/1.73 sqM) Glucose (74-99) mg/dL Calcium (8.4-10.2) mg/dL Magnesium (1.6-2.3) mg/dL Total Bilirubin (0.2-1.3) mg/dL AST (17-59) U/L ALT (4-49) U/L Alkaline Phosphatase (38-126) U/L Troponin I <0.012 (0.000-0.034) ng/mL Total Protein (6.3-8.2) g/dL Albumin (3.5-5.0) g/dL - EKG Data EKG Comments: 12-lead Electrocardiogram Interpretation Note EKG was reviewed and interpreted by myself. 12-lead ECG performed at 2046 is interpreted by me as revealing normal sinus rhythm at a rate of 87 beats per minute. [place] is normal. [place] interval is 151 ms, QRS duration is 109 ms, QTc is 394 ms.. There were no ST or T wave abnormalities to suggest myocardial ischemia or injury. R wave progression across the precordium was satisfactory. By my interpretation this EKG is non-diagnostic for acute ischemia. (Margarito Hopkins) Disposition <Elyse Ortiz - Last Filed: 03/21/24 20:42> Time of Disposition: 23:20 <Margarito Hopkins - Last Filed: 03/21/24 23:20> Clinical Impression: Atrial fibrillation, Headache Disposition: ADMITTED IP TO THIS HOSP Condition: Stable Referrals: Rafael Dinero MD [Primary Care Provider] - 1-2 days
--- NOTE | 2024-03-21 21:21 | XR ---
EXAMINATION TYPE: XR chest 2V DATE OF EXAM: 03/21/2024 CLINICAL HISTORY: dysrhythmia TECHNIQUE: Frontal and lateral views of the chest are obtained. COMPARISON: 11/15/2021 FINDINGS: There is no focal air space opacity, pleural effusion, or pneumothorax seen. The cardiac silhouette size is within normal limits. The osseous structures are intact. IMPRESSION: No acute cardiopulmonary process. [facility], , 03/21/2024 9:18 PM
[2024-03-21 21:49] LABS: Basophils % (A) 0 %; Eosinophils # (A) 0.2 k/uL (0-0.7); Eosinophils % (A) 3 %; HGB 16.5 gm/dL (13.0-17.5); Lymphocytes # (A) 2.5 k/uL (1.0-4.8); Lymphocytes % (A) 36 %; MCH 30.7 pg (25.0-35.0); MCHC 34.3 g/dL (31.0-37.0); MCV 89.4 fL (80.0-100.0); Monocytes # (A) 0.4 k/uL (0-1.0); Monocytes % (A) 6 %; Neutrophils # (A) 3.8 k/uL (1.3-7.7); Neutrophils % (A) 54 %; Platelet Count 229 k/uL (150-450); RBC 5.37 m/uL (4.30-5.90); RDW 13.2 % (11.5-15.5); WBC 6.9 k/uL (3.8-10.6)
[2024-03-21 22:00] LABS: Partial Thromboplastin Time 25.8 sec (22.0-30.0); Prothrombin Time 11.3 sec (10.0-12.5)
[2024-03-21 22:05] LABS: ALT 121 U/L (4-49); AST 97 U/L (17-59); African American GFR (CKD) >90 (>60 ml/min/1.73 sqM); Albumin 5.2 g/dL (3.5-5.0); Alkaline Phosphatase 94 U/L (38-126); Anion Gap 13 mmol/L; Blood Urea Nitrogen 15 mg/dL (9-20); Calcium 9.9 mg/dL (8.4-10.2); Carbon Dioxide 24 mmol/L (22-30); Chloride 102 mmol/L (98-107); Glucose 109 mg/dL (74-99); Magnesium 2.2 mg/dL (1.6-2.3); Non-African American GFR(CKD) >90 (>60 ml/min/1.73 sqM); Potassium 3.9 mmol/L (3.5-5.1); Sodium 139 mmol/L (137-145); Total Bilirubin 1.3 mg/dL (0.2-1.3); Total Protein 8.8 g/dL (6.3-8.2)
[2024-03-21] MEDS: SODIUM CHLORIDE 0.9% 1,000 ML IV STA (22:47)
[2024-03-21] MEDS: KETOROLAC 15 MG/ML 1 ML VIAL IVP STA (22:48)
[2024-03-21] MEDS: ONDANSETRON 4 MG/2 ML VIAL IVP STA (22:52)
[2024-03-21] MEDS: diphenhydrAMINE 50 MG/ML 1 ML VIAL IVP STA (22:53)
[2024-03-21] MEDS: METOPROLOL SUCCINATE (ER) 25 MG TAB.ER.24H PO STA (22:53)
[2024-03-21] MEDS ORDERED: NALOXONE 0.4 MG/ML 1 ML VIAL IV PRN (23:20)
[2024-03-21] MEDS ORDERED: ONDANSETRON 4 MG/2 ML VIAL IVP PRN (23:20)
[2024-03-21] MEDS: HYDROcodone/APAP 10-325MG 1 EACH TAB PO ONE (23:29)
[2024-03-22] MEDS: HYDROcodone/APAP 10-325MG 1 EACH TAB PO PRN (03:57)
[2024-03-22 04:44] LABS: Basophils % (A) 1 %; Eosinophils # (A) 0.2 k/uL (0-0.7); Eosinophils % (A) 3 %; HCT 44.8 % (39.0-53.0); HGB 15.1 gm/dL (13.0-17.5); Lymphocytes # (A) 2.6 k/uL (1.0-4.8); Lymphocytes % (A) 38 %; MCH 30.7 pg (25.0-35.0); MCHC 33.6 g/dL (31.0-37.0); MCV 91.2 fL (80.0-100.0); Mean Platelet Volume 7.8; Monocytes # (A) 0.4 k/uL (0-1.0); Monocytes % (A) 6 %; Neutrophils # (A) 3.4 k/uL (1.3-7.7); Neutrophils % (A) 50 %; Platelet Count 172 k/uL (150-450); RBC 4.91 m/uL (4.30-5.90); RDW 13.3 % (11.5-15.5); WBC 6.8 k/uL (3.8-10.6)
[2024-03-22 05:00] LABS: ALT 101 U/L (4-49); AST 77 U/L (17-59); African American GFR (CKD) >90 (>60 ml/min/1.73 sqM); Albumin 4.4 g/dL (3.5-5.0); Alkaline Phosphatase 81 U/L (38-126); Anion Gap 6 mmol/L; Blood Urea Nitrogen 17 mg/dL (9-20); Calcium 8.7 mg/dL (8.4-10.2); Carbon Dioxide 25 mmol/L (22-30); Chloride 106 mmol/L (98-107); Glucose 104 mg/dL (74-99); Non-African American GFR(CKD) >90 (>60 ml/min/1.73 sqM); Potassium 3.9 mmol/L (3.5-5.1); Sodium 137 mmol/L (137-145); Total Bilirubin 1.1 mg/dL (0.2-1.3); Total Protein 7.3 g/dL (6.3-8.2)
[2024-03-22] MEDS: LOSARTAN 25 MG TAB PO SCH (08:39)
[2024-03-22] MEDS: CYCLOBENZAPRINE 10 MG TAB PO SCH (08:40)
[2024-03-22] MEDS: GABAPENTIN 400 MG CAP PO SCH (08:40)
[2024-03-22] MEDS: APIXABAN 5 MG TAB PO SCH (08:40)
[2024-03-22] MEDS: DILTIAZEM CD 120 MG CAP.ER.24H PO SCH (10:18)
[2024-03-22] MEDS: FLECAINIDE 50 MG TAB PO SCH (10:18)
[2024-03-22] MEDS: METOPROLOL SUCCINATE (ER) 50 MG TAB.ER.24H PO SCH (10:20)
--- NOTE | 2024-03-22 11:51 | P.CRDCN ---
History of Present Illness History of present illness: HISTORY OF PRESENT ILLNESS: This is a 48-year-old male with a past medical history significant for paroxysmal atrial flutter with previous ablation, atrial fibrillation, hypertension, obstructive sleep apnea, and obesity. Patient follows in the office with Dr. Sullivan. We have been asked to see the patient in consultation for A-fib. Patient examined at the bedside in the emergency room. Patient was at the cardiology office on March 19, 2024 to obtain cardiac clearance to undergo spine surgery with Dr. Wilson. An EKG was completed at that time revealing A-fib with RVR with heart rates in the 130s. The patient states he did not have any palpitations at that time. Patient was started back on Eliquis and metoprolol. He states that he started his Eliquis but he did not take the metoprolol as it gave him a very bad headache after he took the first dose. He presented to the hospital yesterday with palpitations. Patient was found to be in A-fib with RVR. He was given a dose of metoprolol and converted to sinus mechanism. He is maintaining sinus mechanism at the time of examination. DIAGNOSTICS: - EKG reveals sinus mechanism with no signs of acute ischemia - Chest xray negative for acute process - Laboratory data: WBC 6.8. Hemoglobin 15.1. Platelet count 172. D-dimer 0.39. Sodium 137. Potassium 3.9. BUN 17. Creatinine 0.83. AST 77. ALT 101. Troponin negative x 3. - Current home cardiac medications include Eliquis 5 mg twice a day, metoprolol succinate 50 mg with dinner, losartan 25 mg daily - Most recent echocardiogram obtained in May 2023 revealed ejection fraction 5055% with mild LVH -Patient underwent Lexiscan stress test in March 2023 with no evidence of ischemia REVIEW OF SYSTEMS: At the time of my exam: CONSTITUTIONAL: Denies fever or chills. HEENT: Denies blurred vision, vision changes, or eye pain. Denies hemoptysis CARDIOVASCULAR: Denies chest pain. Denies orthopnea. Denies PND. Denies palpitations RESPIRATORY: Denies shortness of breath. GASTROINTESTINAL: Denies abdominal pain. Denies nausea or vomiting. HEMATOLOGIC: Denies bleeding disorders. GENITOURINARY: Denies any blood in urine. SKIN: Denies pruitis. Denies rash. PHYSICAL EXAM: VITAL SIGNS: Reviewed. GENERAL: Well-developed in no acute distress. HEENT: Head is normocephalic. Pupils are equal, round. Sclerae anicteric. Mucous membranes of the mouth are moist. Neck supple. No JVD or thyromegaly LUNGS: Respirations even and unlabored. Lungs essentially clear to auscultation bilaterally. HEART: Regular rate and rhythm. S1 and S2 heard. ABDOMEN: Soft. Nondistended. Nontender. EXTREMITIES: Normal range of motion. No clubbing or cyanosis. Peripheral pulses intact. No lower extremity edema NEUROLOGIC: Awake and alert. Oriented x 3. ASSESSMENT: Paroxysmal atrial fibrillation with RVR History of atrial fibrillation that was stimulated at end of a-flutter ablation History of typical atrial flutter ablation, 2021 Hypertension Obstructive sleep apnea Morbid obesity: BMI 46.6 History of back surgery PLAN: No need to obtain echocardiogram at this time Discontinue metoprolol as patient is unable to tolerate this Begin Cardizem CD 120 mg daily Begin flecainide 50 mg twice a day Continue anticoagulation with Eliquis Patient is scheduled to cloth picker a 3-day heart monitor on 03/25/2024 from the office. Patient to have EKG performed when he drops off DCG monitor. Patient to follow-up postdischarge with Dr. Sullivan Patient may be discharged home today from a cardiac standpoint Nurse practitioner note has been reviewed by physician. Signing provider agrees with the documented findings, assessment, and plan of care documented by PARTS COUNTER SPECIALIST as a scribe. Past Medical History Past Medical History: Atrial Fibrillation, Atrial Flutter, Sleep Apnea/CPAP/BIPAP Additional Past Medical History / Comment(s): HX of hep C, Back pain, no a- flutter since ablation History of Any Multi-Drug Resistant Organisms: None Reported Past Surgical History: Cardiac Ablation, Cholecystectomy, Orthopedic Surgery Additional Past Surgical History / Comment(s): c6-c7 fusion, left foot surg.decompression fusion from S1-L5 Past Anesthesia/Blood Transfusion Reactions: No Reported Reaction Past Psychological History: No Psychological Hx Reported Smoking Status: Former smoker Past Alcohol Use History: None Reported Past Drug Use History: Marijuana - Past Family History Father Family Medical History: Coronary Artery Disease (CAD) Additional Family Medical History / Comment(s): Brain tumor Mother Family Medical History: Chest Pain / Angina Additional Family Medical History / Comment(s): Breast cancer Medications and Allergies Home Medications Medication Instructions Recorded Confirmed Type HYDROcodone/APAP 10-325MG [Isom 1 tab PO TID 08/24/23 03/22/24 History 10-325] Apixaban [Eliquis] 5 mg PO BID 03/22/24 03/22/24 History Cyclobenzaprine [Flexeril] 10 mg PO TID 03/22/24 03/22/24 History Gabapentin [Neurontin] 400 mg PO TID 03/22/24 03/22/24 History HYDROcodone/APAP 10-325MG [Isom 1 tab PO DAILY PRN 03/22/24 03/22/24 History 10-325] Losartan [Cozaar] 25 mg PO DAILY 03/22/24 03/22/24 History Metoprolol Succinate (ER) [Toprol 50 mg PO AC-SUPPER 03/22/24 03/22/24 History Xl] Allergies Allergy/AdvReac Type Severity Reaction Status Date / Time No Known Allergies Allergy Verified 03/22/24 07:57 Physical Exam Vitals: Vital Signs Temp Pulse Resp BP Pulse Ox 03/22/24 10:18 75 20 126/81 97 03/22/24 08:41 71 20 118/82 97 03/22/24 07:05 66 16 128/78 94 L 03/22/24 03:57 86 18 118/76 97 03/22/24 00:57 96 03/22/24 00:50 98.0 F 84 17 120/74 93 L 03/21/24 23:37 75 16 168/97 98 03/21/24 20:34 98.2 F 92 18 150/109 98 Intake and Output 03/21/24 03/22/24 03/22/24 22:59 06:59 14:59 Other: Weight 147.418 kg Results 03/22/24 04:19 03/22/24 04:19 Cardiac Enzymes 03/21/24 03/21/24 03/22/24 Range/Units 21:22 21:22 00:34 AST 97 H (17-59) U/L Troponin I <0.012 <0.012 (0.000-0.034) ng/mL 03/22/24 03/22/24 Range/Units 04:19 04:19 AST 77 H (17-59) U/L Troponin I <0.012 (0.000-0.034) ng/mL Coagulation 03/21/24 Range/Units 21: PT 11.3 (10.0-12.5) sec APTT 25.8 (22.0-30.0) sec CBC 03/21/24 03/22/24 Range/Units 21: 04:19 WBC 6.9 6.8 (3.8-10.6) k/uL RBC 5.37 4.91 (4.30-5.90) m/uL Hgb 16.5 15.1 (13.0-17.5) gm/dL Hct 48.0 44.8 (39.0-53.0) % Plt Count 229 172 (150-450) k/uL Comprehensive Metabolic Panel 03/21/24 03/22/24 Range/Units 21: 04:19 Sodium 139 137 (137-145) mmol/L Potassium 3.9 3.9 (3.5-5.1) mmol/L Chloride 102 106 (98-107) mmol/L Carbon Dioxide 24 25 (22-30) mmol/L BUN 15 17 (9-20) mg/dL Creatinine 0.87 0.83 (0.66-1.25) mg/dL Glucose 109 H 104 H (74-99) mg/dL Calcium 9.9 8.7 (8.4-10.2) mg/dL AST 97 H 77 H (17-59) U/L ALT 121 H 101 H (4-49) U/L Alkaline Phosphatase 94 81 (38-126) U/L Total Protein 8.8 H 7.3 (6.3-8.2) g/dL Albumin 5.2 H 4.4 (3.5-5.0) g/dL Current Medications Generic Name Dose Route Start Last Admin Trade Name Freq PRN Reason Stop Dose Admin Hydrocodone Bitart/Acetaminophen 1 each 03/22/24 00:19 03/22/24 03:57 Hydrocodone/Apap 10-325mg 1 Each Tab PO 1 each Q8HR PRN Administration Pain Apixaban 5 mg 03/22/24 09:00 03/22/24 08:40 Apixaban 5 Mg Tab PO 5 mg BID DONALD Administration Protocol Cyclobenzaprine HCl 10 mg 03/22/24 09:00 03/22/24 08:40 Cyclobenzaprine 10 Mg Tab PO 10 mg TID DONALD Administration Diltiazem HCl 120 mg 03/22/24 09:45 03/22/24 10:18 Diltiazem Cd 120 Mg Cap.Er.24h PO 120 mg DAILY DONALD Administration Flecainide Acetate 50 mg 03/22/24 09:45 03/22/24 10:18 Flecainide 50 Mg Tab PO 50 mg Q12HR DONALD Administration Gabapentin 400 mg 03/22/24 09:00 03/22/24 08:40 Gabapentin 400 Mg Cap PO 400 mg TID DONALD Administration Losartan Potassium 25 mg 03/22/24 09:00 03/22/24 08:39 Losartan 25 Mg Tab PO 25 mg DAILY DONALD Administration Naloxone HCl 0.2 mg 03/21/24 23:20 Naloxone 0.4 Mg/Ml 1 Ml Vial IV Q2M PRN Opioid Reversal Ondansetron HCl 4 mg 03/21/24 23:20 Ondansetron 4 Mg/2 Ml Vial IVP Q8HR PRN Nausea And Vomiting Intake and Output 03/21/24 03/22/24 03/22/24 22:59 06:59 14:59 Other: Weight 147.418 kg 03/22/24 04:19 03/22/24 04:19
[2024-03-22] MEDS ORDERED: BUTALB/APAP/CAFF 50-325-40MG TAB PO PRN (16:30)
[2024-03-22] MEDS ORDERED: HYDROcodone/APAP 10-325MG 1 EACH TAB PO PRN (16:38)
[2024-03-22] MEDS: BUTALB/APAP/CAFF 50-325-40MG TAB PO PRN (17:10)
[2024-03-22] MEDS ORDERED: METOPROLOL SUCCINATE (ER) 50 MG TAB.ER.24H PO SCH (17:30)
[2024-03-22] MEDS: DILTIAZEM 125 MG in SODIUM CHLORIDE 0.9% 100 ML IV SCH (18:08)
[2024-03-22] MEDS: DILTIAZEM DRIP BOLUS FROM BAG 1 MG SOLN IV ONE (19:43)
[2024-03-22] MEDS ORDERED: APIXABAN 5 MG TAB PO SCH (21:00)
[2024-03-22] MEDS ORDERED: GABAPENTIN 400 MG CAP PO SCH (22:00)
[2024-03-22] MEDS ORDERED: CYCLOBENZAPRINE 10 MG TAB PO SCH (22:00)
[2024-03-22] MEDS: HYDROcodone/APAP 10-325MG 1 EACH TAB PO SCH (22:23)
[2024-03-23] MEDS ORDERED: LOSARTAN 25 MG TAB PO SCH (09:00)
--- NOTE | 2024-03-23 09:34 | P.PN ---
Subjective Progress Note Date: 03/23/24 HISTORY OF PRESENT ILLNESS: This is a 48-year-old male with a past medical history significant for paro xysmal atrial flutter with previous ablation, atrial fibrillation, hypertension, obstructive sleep apnea, and obesity. Patient follows in the office with Dr. Sullivan. We have been asked to see the patient in consultation for A-fib. Patient examined at the bedside in the emergency room. Patient was at the cardiology office on March 19, 2024 to obtain cardiac clearance to undergo spine surgery with Dr. Wilson. An EKG was completed at that time revealing A-fib with RVR with heart rates in the 130s. The patient states he did not have any palpitations at that time. Patient was started back on Eliquis and metoprolol. He states that he started his Eliquis but he did not take the metoprolol as it gave him a very bad headache after he took the first dose. He presented to the hospital yesterday with palpitations. Patient was found to be in A-fib with RVR. He was given a dose of metoprolol and converted to sinus mechanism. He is maintaining sinus mechanism at the time of examination. DIAGNOSTICS: - EKG reveals sinus mechanism with no signs of acute ischemia - Chest xray negative for acute process - Laboratory data: WBC 6.8. Hemoglobin 15.1. Platelet count 172. D-dimer 0.39 . Sodium 137. Potassium 3.9. BUN 17. Creatinine 0.83. AST 77. ALT 101. Troponin negative x 3. - Current home cardiac medications include Eliquis 5 mg twice a day, metoprolol succinate 50 mg with dinner, losartan 25 mg daily - Most recent echocardiogram obtained in May 2023 revealed ejection fraction 5055% with mild LVH -Patient underwent Lexiscan stress test in March 2023 with no evidence of ischemia Progress note 03/23/2024 Seen and examined at bedside. Yesterday night he was having intermittent A-fib RVR. Reports short lived. Was started on Cardizem drip which was eventually discontinued. This morning he is in sinus rhythm. PHYSICAL EXAM: VITAL SIGNS: Reviewed. GENERAL: Well-developed in no acute distress. HEENT: Head is normocephalic. Pupils are equal, round. Sclerae anicteric. Mucous membranes of the mouth are moist. Neck supple. No JVD or thyromegaly LUNGS: Respirations even and unlabored. Lungs essentially clear to auscultation bilaterally. HEART: Regular rate and rhythm. S1 and S2 heard. ABDOMEN: Soft. Nondistended. Nontender. EXTREMITIES: Normal range of motion. No clubbing or cyanosis. Peripheral pulses intact. No lower extremity edema NEUROLOGIC: Awake and alert. Oriented x 3. 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 Patient to have EKG performed when he drops off DCG monitor to check flecainide effect on QRS. Patient to follow-up postdischarge with Dr. Sullivan Patient may be discharged home today from a cardiac standpoint Objective - Vital Signs Vital signs: Vital Signs Temp 97.5 F L 03/23/24 07:00 Pulse 61 03/23/24 07:00 Resp 15 03/23/24 07:00 BP 133/81 03/23/24 07:00 Pulse Ox 97 03/23/24 08:02 FiO2 Intake & Output 03/22/24 03/23/24 03/23/24 18:59 06:59 18:59 Intake Total 118 39.333 Balance 118 39.333 Weight 147.418 kg Intake: Intake, IV Titration 39.333 Amount Diltiazem 125 mg In 39.333 Sodium Chloride 0.9% 100 ml @ 10 MG/HR 10 mls/hr IV .[id number] [facility] Rx#: [id number] Oral 118 Other: Voiding Method Toilet # Voids 3 - Labs CBC & Chem 7: 03/22/24 04:19 03/22/24 04:19 Labs: Abnormal Lab Results - Last 24 Hours (Table) 03/22/24 Range/Units 04:19 Hep C IgG Ab Reactive A (Nonreactive)
[2024-03-23 14:52] VITALS: RESP 16; TEMP 97.8
[2024-03-23 18:17] VITALS: BP 143/89; PULSE 85
[2024-03-24] MEDS ORDERED: LOSARTAN 25 MG TAB PO SCH (09:00)
--- NOTE | 2024-03-25 03:47 | HP ---
HISTORY AND PHYSICAL CHIEF COMPLAINT: Rapid heart beating. HISTORY OF PRESENT ILLNESS: This is another admission for this 48-year-old white male. He has a history of atrial fibrillation. His heart rate sped up when he came to the emergency room where he was found to have heart rate around 140. He is also trying to get his rhythm under control, so he can go ahead with a surgical procedure on his neck. REVIEW OF SYSTEMS: He denies any syncope, neurologic problems, chest pain, shortness of breath, abdominal pain, nausea, vomiting, etc. PAST MEDICAL HISTORY: All otherwise unremarkable or noncontributory. FAMILY HISTORY: All otherwise unremarkable or noncontributory. PERSONAL AND SOCIAL HISTORY: All otherwise unremarkable or noncontributory. He does vape. ALLERGIES: He is not allergic to any medication. MEDICATIONS: He has been on meloxicam, Vicodin, Lantus, venlafaxine, Xanax. PHYSICAL EXAMINATION: VITAL SIGNS: Pulse is 120. Rest of his vital signs are normal. HEAD, EARS, EYES, NOSE, MOUTH AND THROAT: Normal. CHEST: Clear. CARDIAC: Sounds like sinus rhythm. There are no murmurs or extra sounds. ABDOMEN: Soft, nontender. EXTREMITIES: Normal. NEUROLOGIC: Intact. DIAGNOSES: 1. Atrial fibrillation. 2. Insulin-dependent diabetes mellitus. 3. Osteoarthritis and cervical spondylosis. PLAN: 1. Bedrest. 2. IV fluids. 3. EKG. 4. Consult Cardiology. 5. Anticoagulated. MMODL / IJN: [id number] /
--- NOTE | 2024-03-25 10:32 | PN ---
PROGRESS NOTE DATE OF SERVICE: 03/22/2024 CHIEF COMPLAINT: Atrial fibrillation. HISTORY OF PRESENT ILLNESS: This gentleman's heart rate has come down. He is having bursts of atrial fibrillation and occasional PACs. He is complaining a lot of a headache and neck pain, which is related to his upcoming surgical issues. PHYSICAL EXAMINATION: CHEST: Clear. CARDIAC: Normal. ABDOMEN: Soft and nontender. IMPRESSION: 1. Atrial fibrillation. 2. Cervical spondylosis. 3. Type 2 diabetes. 4. Elevated liver function studies. PLAN: Continue telemetry and await any further recommendations from Cardiology. He is anticoagulated. MMODL / IJN: [id number] /
--- NOTE | 2024-03-25 10:52 | DS ---
DISCHARGE SUMMARY CHIEF COMPLAINT: Atrial fibrillation. HISTORY OF PRESENT ILLNESS AND PHYSICAL EXAM: Details of this man's history and physical can be found in the initial workup. LABORATORY STUDIES: While he was in the hospital, he had laboratory studies, details of which could be found in the laboratory section of his chart. COURSE IN THE HOSPITAL: After admission, he was placed on bedrest and started on intravenous fluids and telemetry. He was also started on anticoagulation. He was seen by Cardiology. On the , they felt that he could be discharged even though he still had some episodes of atrial fibrillation. He will go home on anticoagulation as well as an increase in medications to help preserve normal sinus rhythm. He will follow up in the office in several days. FINAL DIAGNOSES: 1. Atrial fibrillation. 2. Type 1 diabetes mellitus. 3. Cervical spondylosis. OPERATIONS: None. CONSULTATION: Cardiology. He is improved. ERNESTO / EAN: [id number] /
== END 2024-03-23 18:55 | disposition home or self-care (01) ==
LOC: EC 20:29 → 6NMEDSUR 23:20
PROVIDERS: ADMIT Family Medicine; ATTEND Family Medicine
DX: I48.0 Paroxysmal atrial fibrillation (principal); R51.9 Headache, unspecified; T44.7X6A Underdosing of beta-adrenoreceptor antagonists, initial encounter; Z91.128 Patient's intentional underdosing of medication regimen for other reason; M47.812 Spondylosis without myelopathy or radiculopathy, cervical region; M19.90 Unspecified osteoarthritis, unspecified site; G47.33 Obstructive sleep apnea (adult) (pediatric); I10 Essential (primary) hypertension; E10.9 Type 1 diabetes mellitus without complications; E66.01 Morbid (severe) obesity due to excess calories; Z68.42 Body mass index [BMI] 45.0-49.9, adult; R94.5 Abnormal results of liver function studies; G89.29 Other chronic pain; M54.9 Dorsalgia, unspecified; F17.290 Nicotine dependence, other tobacco product, uncomplicated; Z79.01 Long term (current) use of anticoagulants; Z79.4 Long term (current) use of insulin; Z79.899 Other long term (current) drug therapy; Z98.890 Other specified postprocedural states
CPT/HCPCS: 96365; 96366; 96361 ×2; 96375; 99285; 36415; 94760; 93005; 86803; 85379; 80053 ×2; 83735; 84484 ×2; 85025 ×2; 85610; 85730; 71046; G0378 ×3; J1200; J2405; J1885

== ENCOUNTER → 2024-04-10 | Outpatient (CLI) | payer OTHER | END | disposition home or self-care (01) | LOC: LABPAT 11:46 | PROVIDERS: ATTEND Orthopaedic Surgery | DX: Z01.812 Encounter for preprocedural laboratory examination (principal); M50.20 Other cervical disc displacement, unspecified cervical region; Z22.322 Carrier or suspected carrier of Methicillin resistant Staphylococcus aureus | CPT/HCPCS: 86850; 86900; 86901; 87070 ==

== ENCOUNTER 2024-04-18 12:41 | Day surgery (SDC) | payer OTHER ==
[2024-04-17 09:03] VITALS: BMI 45.1
--- NOTE | 2024-04-17 22:57 | P.HPOR ---
History of Present Illness H&P Date: 04/10/24 .D:Date: 04/10/24 : 03:32pm .T:Title: PRE-OP H1 [facility] [address] [place], [place] [address] [address]| PROVIDER: COREY SHELDON DO CLINICAL SUMMARY: Mr. Neri is a 48-year-old male presenting for a pre-operative appointment for a C5-6 total disc replacement [1]. He had a previous fusion at the C6-7 level. Mr. Randolph chief complaint is left-sided neck pain that radiates into his left upper extremity [1]. He reports numbness and tingling in the left arm and notes that his left arm feels weak and he has dropped objects due to the weakness [1, 2]. He also reports nighttime sleep disturbances due to pain [1]. His pain is rated at 6 out of 10 on the visual analog scale [1]. Mr. Randolph past treatments have included several rounds of physical therapy for his neck and back, a physician-directed home exercise program, activity modification, and healthcare science specialist, massage, and rest, ice, compression, and elevation (RICE), all without improvement [3]. He has tried [id number] pain medications, including gabapentin, Motrin, Aleve, aspirin, and Tylenol, which provided only temporary relief [3]. He has had injections in his back in the past but none recently in his neck [4]. Imaging studies, including an MRI dated 03/15/24, reveal a large central to paracentral herniated nucleus pulposus (HNP) at C5-6, more prominent on the le ft, causing severe central and left foraminal stenosis [5, 6]. There is also collapse of the disc space at this level [5, 6]. A CT scan dated 02/01/24 confirms these findings and notes mild to moderate adjacent segment disease (ASD) at C5-6 [7]. X-rays also show collapse of the C5-6 disc space [7]. On physical exam, Mr. Neri exhibits restricted range of motion in his neck and lumbar spine [8]. Neurological testing reveals left upper extremity weakness (4-4+/5 strength), hyperreflexia (3+ biceps/brachioradialis reflexes), a positive Hoffmans sign on the left, and sensory deficits in the C5-6 distribution [9]. These findings are consistent with left upper extremity radiculopathy [10]. The plan for Mr. Neri is to undergo a C5-6 total disc replacement [11]. This procedure was chosen over fusion because it is a motion-preserving option that will decompress the neural elements and reduce the risk of further adjacent segment disease [12]. The risks and benefits of the procedure were discussed with Mr. Neri, and he elected to proceed [2]. He will follow up with his primary care physician for surgical clearance [13]. DEMOGRAPHICS: Age: 48 year Height: 5'10" Weight: 300 lbs BP:/ BMI: 43.05 kg/m2 Occupation: Disability CC: cervical pain VAS: 6 HISTORY: Mr. Neri presents to the office today, 04/10/24, for a pre-operative appointment preceding his C5-6 total disc replacement. Patient continues to report left sided neck pain that radiates into the left upper extremity. He notes numbness and tingling of the left arm. Patient states his left arm feels weak and he has dropped objects. Patient states his pain has begun affecting his activities of daily living. He is having night time sleep disturbances due to his ongoing pain and associated symptoms. Patient is currently taking Gabapentin, [place], and Ibuprofen. He ambulates independently. * Patient denies any f/c/sob/cp, perineal numbness or tingling, bowel, or bladder incontinence/retention. * The patients past social, medical, family, surgical history, as well as review of systems, have been reviewed. Please refer to the History and Physical form that has been scanned into our electronic medical record system. * 16 points review of systems completed and as stated in HPI, all other systems reviewed are negative. AST TREATMENTS: PAST IMAGING: YES -XR, MRI, CT TRAUMA RELATED: NO - WORK RELATED: YES, BUT NOT EXCLUSIVE - PT IN LAST 6 MONTHS: YES -SEVERAL ROUNDS FOR NECK AND BACK WITHOUT IMPROVEMENT PHYSICIAN DIRECTED HOME EXERCISE PROGRAM: YES -NO IMPROVEMENT ACTIVITY MODIFICATION: YES -LIMITED BLTTPP <20 LBS LIMITED AT WORK ADLS LIMITED SECONDARY TO DEBILITY AND PAIN MEDICATIONS: YES -GABAPENTIN, MOTRIN, ALEVE, ASA, TYLENOL ALL WITH TEMPORARY RELIEF ALTERNATIVE INTERVENTIONS (CHIROPRACTIC, ACUPUNCTURE, MASSAGE, RICE): YES -CHIRO, MASSAGE, RICE BRACING: NO - INJECTIONS (NATHAN, TF, RFA): -YES IN THE PAST IN THE BACK. NONE IN THE NECK RECENTLY, NOT INDICATED, PT HAD ISSUES PREVIOUSLY. MEDICAL HISTORY: Past Medical History: REVIEWED STATED IN CHART Past Surgical History: REVIEWED STATED IN CHART Social History: REVIEWED STATED IN CHART SMOKING: Never smoker ETOH: None SUBSTANCES: None Family History: REVIEWED STATED IN CHART P1 Current Medications: Rx: HYDROcodone 10 mg-acetaminophen 325 mg tablet Ref: 0 Instructions: take 1 tablet by oral route every 4-6 hours as needed for pain Rx: losartan 25 mg tablet Ref: 0 Instructions: take 1 tablet (25 mg) by oral route once daily Rx: cyclobenzaprine 10 mg tablet Ref: 0 Instructions: take 1 tablet (10 mg) by oral route 3 times per day Rx: gabapentin 400 mg capsule Ref: 0 Instructions: take 1 capsule (400 mg) by oral route 3 times per day as needed for muscle spasms Rx: apixaban 5 mg tablet Ref: 0 Instructions: take 1 tablet (5 mg) by oral route 2 times per day Rx: flecainide 50 mg tablet Ref: 0 Instructions: take 1 tablet (50 mg) by oral route every 12 hours P1 PHYSICAL EXAM: General: AOX3, NAD, Well hydrate, well nourished HEENT: No lumps or masses Extremities: No color changes, no pooling INTEGUMENT: Appearance: Normal color and turgor Surgical Incisions: healed ANTERIOR CERVICAL AND POSTERIOR LUMBAR INCISIONS Hairy Patches: ABSENT Dorsal Skin Dimples: Normal [employer] spots: ABSENT PALPATION: TTP Midline: YES Paracervical: YES Parathoracic: NO Paralumbar: YES SIJ TESTING: NOT TESTED POSTURAL BALANCE: Coronal: BALANCED Sagittal: BALANCED Shoulder height: LEVEL Pelvic Girdle: LEVEL ROM AND APPEARANCE: Neck: RESTRICTED Lumbar: RESTRICTED Shoulders: Symmetrical Hips: Symmetrical Knees: Symmetrical Hands: Symmetrical Feet: Symmetrical VASCULAR STATUS: PALPABLE PULSES B/L UE AND LE 2/4 RAD/ULNAR/DP/PT Edema: NONE NEUROLOGICAL EXAMINATION: Mental Status: Awake, alert, fully oriented with normal attention, concentration, and memory. Fluent appropriate speech. CRANIAL NERVES: I: Olfactory not assessed. II: Visual acuity normal, no visual field deficit noted with confrontation. III, IV: Normal pupillary reflexes & intact extraocular movements without nystagmus. V, : Intact symmetrical facial sensation. VII: Intact symmetrical facial motor movement: Hearing intact. IX, X: Intact gag, swallow, & normal voice. XI: Sternocleidomastoid, trapezius function intact. XII: Tongue midline with normal movements. TENSIONING: * L'HERMITTE'S SIG:NEG SPURLUNG'S SIGN:POS UE TENSIONING: POS BUE CUBITAL TUNNEL COMPRESSION:NEG TINELS AT WRIST:NEG STRAIGH LEG RAISE:NEG CONTRALATERAL STRAIGHT LEG RAISE: NEG MOTOR EXAM (0-5/5, NT) Muscle appearance: Symmetrical, without signs of atrophy or dystrophy UPPER EXTREMITY RIGHT LEFT Shoulder Abduction 5 4+ Biceps 5 4+ Triceps 5 4+ Wrist Extension 5 4 Hand Intrinsics 5 4 Hr Generalist 4+ 4 LOWER EXTREMITY RIGHT LEFT Hip Flexion 5 5 Knee Extension 5 5 Knee Flexion 5 5 Dorsiflexion 5 5 Plantarflexion 5 5 EHL 5 5 FHL 5 5 REFLEXES (0-4/2, NT): RIGHT LEFT Bicep 2 3 Brachioradialis 2 3 Triceps 2 2 Patellar 2 2 Achilles 2 2 PATHOLOGICAL REFLEXES: RIGHT LEFT REDMAN'S ABSENT PRESENT CLONUS ABSENT ABSENT BABINSKI ABSENT ABSENT RECTAL TONE: INTACT/NT SENSATION (0-4, NT): Sensation intact to LT and Pain * C5-T1 distribution BUE * L2-S2 distribution BLE *Exceptions below* DERMATOMAL DEFICIT/RADICULAR PATTERN: C5-6 LUE GAIT AND FUNCTIONAL EVALUATION: AMBULATORY AID NONE ROMBERG'S TEST INTACT HAND AND FINGER DEXTERITY INTACT NO DYSDIADOCHOKINESIA EXAM NEG B/L YES TOE/HEEL WALK INTACT WITH GOOD BALANCE YES SQUAT AND RISE W/O ASSISTANCE TO 60 DEG KNEE FLEXION YES SINGLE LEG STANCE INTACT [place] NEG IMAGING: XRAY Date: 03/13/24 Location: [facility] Region: lumbar Views: 2v IMAGES ARE REVIEWED WITH THE PATIENT IN OFFICE AND DEMONSTRATE THE FOLLOWING: FINDINGS: POST SURGICAL CHANGES L5-S1. HARDWARE IN GOOD POSITION. NO EVIDENCE OF FRACTURE, FAILURE, MIGRATION OR LOOSENING. GOOD HEALING NOTED IB AND PL SPACES. NO LESIONS. NO COMPLICATING FACTORS SEEN. GOOD ALIGNMENT. ADJACENT SEGMENT MAINTAINED HEIGHT, ALIGNMENT. ----- CT Date: 02/01/24 Location: [facility] Region: Cervical spine Contrast: N IMAGES ARE REVIEWED WITH THE PATIENT IN OFFICE AND DEMONSTRATE THE FOLLOWING: FINDINGS: * No acute fractures. Good healing noted about C6-7 region with fusion C5-6 ASD, mild to moderate noted. Mild stenotic features noted with facet arthrosis and disc collapse. Flattened CL due to collapse. ----- MRI Date: 03/15/24 Location: [facility] Region: Cervical spine Contrast: N IMAGES ARE REVIEWED WITH THE PATIENT IN OFFICE AND DEMONSTRATE THE FOLLOWING: FINDINGS: POST SURGICAL CHANGES NOTED C6-[address]. THERE IS AT THE C5-6 LEVEL A LARGE CENTRAL TO PARACENTRAL HNP MORE PROMINENT ON THE LEFT CAUSING SEVERE CENTRAL AND LEFT FORAMINAL STENOSIS. THERE IS COLLAPSE OF THIS DISC SPACE DUE TO THE HNP. THERE IS LITTLE TO NO FACET ARTHROSIS. MILD LIGAMENTAL HYPERTROPY. NO OTHER AREAS OF ISSUES NOTED. POST SURGICAL BED SHOWS GOOD HEALING AND GOOD DECOMPRESSION. IMPRESSION: It was my pleasure to have seen and examined John. I reviewed the patient's clinical syndrome, physical findings, and imaging studies during the appointment today. It is my impression that the patient has a diagnosis of. 1.C5-6 HNP, LARGE WITH STENOSIS, SEVERE AND RADICULOPATHY 2.Left upper extremity radiculopathy 3. Left upper extremity weakness 4. Status post L5-S1 MN PLIF PLAN: DISCUSSION: -I HAVE DISCUSSED WITH THE PATIENT HIS CLINICAL SSX WELL TREATMENT OPTOINS AND ALTERNATIVES. UNFORTUNATELY, HE HAS A NEW HNP ABOVE HIS PREVIOUS FUSION. HE HAS DONE EXTREMTLY WELL HOWEVER WITH HIS PREVIOUS SURGERY, AND WOULD BENEFIT FROM A TOTAL DISC REPLACEMENT AT THE C5-6 LVEL. WE DISCUSSED THIS AT LENGTH. WE DISCUSSED RISKS AND BENEFITS OULINTED BELOW. THE PATIENT IS COMFORTABLE AND WOULD LIKE TO PROCEED OUTLINED. SURGICAL RECOMMENDATION -C5-6 TOTAL DISC REPLACEMENT, REVISION EXPOSURE ANTERIOR RIGHT SIDE CERVICAL SPINE. THERAPIES -CONT ABLE. -Cont. with home exercises and home PT exercises as able -Cont. with Heat/Ice as warranted -Cont. with supplementation Vit D, Vit C, Ca2+, High protein diet -OK for massage or other alternative treatment modalities as able. If it exacerbates your sx do not continue ACTIVITY -Recommend walking up to 30 min 2x daily on a flat easy surface with good support. MEDICATIONS -Take as directed -Cont. home medications as directed by your PCP. Check with your PCP for any medication interactions or issues if needed. Spine Surgery Risk Review Mr. Neri is presenting for evaluation of cervical pain. It was my pleasure to have seen and examined Mr. Neri. In our visit today we have had a chance to go over subjective complaints, physical examination findings and treatments including the natural course history without intervention and various interventional options. The patients imaging demonstrates: MRI Date: 03/15/24 Location: [facility] Region: Cervical spine Contrast: N IMAGES ARE REVIEWED WITH THE PATIENT IN OFFICE AND DEMONSTRATE THE FOLLOWING: FINDINGS: POST SURGICAL CHANGES NOTED C6-[address]. THERE IS AT THE C5-6 LEVEL A LARGE CENTRAL TO PARACENTRAL HNP MORE PROMINENT ON THE LEFT CAUSING SEVERE CENTRAL AND LEFT FORAMINAL STENOSIS. THERE IS COLLAPSE OF THIS DISC SPACE DUE TO THE HNP. THERE IS LITTLE TO NO FACET ARTHROSIS. MILD LIGAMENTAL HYPERTROPY. NO OTHER AREAS OF ISSUES NOTED. POST SURGICAL BED SHOWS GOOD HEALING AND GOOD DECOMPRESSION. ----- CT Date: 02/01/24 Location: [facility] Region: Cervical spine Contrast: N IMAGES ARE REVIEWED WITH THE PATIENT IN OFFICE AND DEMONSTRATE THE FOLLOWING: FINDINGS: * No acute fractures. Good healing noted about C6-7 region with fusion C5-6 ASD, mild to moderate noted. Mild stenotic features noted with facet arthrosis and disc collapse. Flattened CL due to collapse. ----- XR OF THE C SPINE DEMONSTRATE SIMILAR FINDINGS WITH HARDWARE AT C6-7 IN GOOD POSIIONG WITH GOOD HEALING. THERE IS COLLAPSE OF C5-6 WITH DISC HEIGHT LOSS, NO FRACTURE OR LEIONS, NO INSTABILITY. On physical exam, Mr. Neri demonstrates: Regarding the cervical spine patient reports left sided neck pain that radiates into the left upper extremity. He notes numbness and tingling of the left arm. Patient states his left arm feels weak and he has dropped objects. I have explained to the patient that as their condition progresses it will cause further neurological deficits and eventual paralysis. Based on the patients imaging, physical exam, and the rapid progression and disabling nature of their symptoms, at this time I recommend surgery in the form of a: C5-6 TDR. I discussed the risk and benefits of this procedure at length with Mr. Neri. The patient agreed to considered pursuing the procedure abovementioned. Prior to surgery, she should follow up with her PCP (Cardio, ID, IM etc) for clearance. Questions were invited and answered, and the patient wishes to proceed as outlined below. Currently, I am recommendin.C5-6 TOTAL DISC REPLACEMENT. 2.Follow up with PCP for surgical clearance 3.Review of surgical risks and benefits as well as an educational packet on the proposed surgical procedure. Risks: All surgical procedures come with inherent risks, including those related to positioning, anesthesia, intraoperative findings, and postoperative complications. It is important to understand that surgery does not come with any guarantee of a successful outcome as complications and adverse events are always possible. The patient was given a handout in office today discussing the surgical procedure and risks associated with the intervention, both of which were discussed with the patient. These risks include but are not limited to the following: * Experiencing same, different or even worse symptoms in back, neck, arms, or legs compared to before surgery. Requiring further surgery or other forms of treatment presently or at some time in the future at same or other levels of the intended spine surgery. On an extreme but fortunately relatively rare basis severe complication such as blindness, stroke, heart attack, temporary and/or permanent nerve injury, paralysis, coma, or may occur, sometimes without known explanation. Surgical complications may include but are not limited to risk of infection, fluid accumulation in the surgical dissection site, including a seroma or hematoma, that requires additional surgery, wound drainage, bleeding, new numbness or weakness, vision changes/loss, spinal fluid leakage, non-healing and/or infected incision, headaches, difficulty or inability to swallow, hoarseness, hemopneumothorax, pneumothorax, impotence, retrograde ejaculation, vaginal dryness; injury to nerves, spinal cord, blood vessels, lymphatics or other vital organs (i.e., bowel injury, injury to the great vessels); heterotopic bone formation; complications related to the hardware such as screws, rods, cages including misplaced hardware, device failure, instrumentation at the wrong spine level, hardware fracture/breakage, or hardware loosening; vertebral failure of the spinal column above or below the newly placed hardware; retained surgical instrumentations or devices and the need for further surgery. * Medical risks of the planned spine surgery include but are not limited to generalized Infections to the whole body or local areas outside of the surgical site (sepsis), heart attack, bleeding, anaphylaxis, meningitis, seizure, epilepsy, hearing loss, burn hayes, laceration of the head or other areas of the body, bruising, hypersensitivity of the skin, bladder over distension; allergic reaction; shoulder injury related to positioning; fat, blood and air clots to other areas of the body like heart, lungs, brain; failure of internal organs such as lungs, kidneys, liver and excessive bleeding. If blood transfusions are necessary, note that transfusions may cause intolerance reactions such as anaphylaxis or other complex reactions. Despite best efforts, the results of spine surgery might not heal in terms of bone, soft tissues such as skin, fascia, ligaments, and joints. Additionally, in order to achieve best possible results, spine surgery may be carried out beyond the initially planned levels and involve decompression, fusion including insertion of hardware at levels other than the original intended area of surgical interest change some portions of the procedure in order to ensure the best possible outcomes. With spine surgery and spinal fusion, there are different off label uses of instrumentation (devices, implants and hardware) as well as biological substances (bone morphogenic proteins, demineralized bone matrix) as well as using extra bone from allograft sources (i.e. cadaver bone) or autograft (iliac crest bone, ribs, or the spine itself). The patient has been given information about these practices and their inherent risks and benefits. [facility] is an educational center that serves as a training facility for neurosurgical and orthopedic RECONSIGNMENT CLERK and Nursing students. Physician assistants are medically trained surgical providers who function in the outpatient, inpatient, and operating room setting under the direct supervision of the attending surgeon. [facility] has multiple operating rooms with single and overlapping rooms running daily. They currently function under the required guidelines as produced by the [facility] Finance Committee with regards to the overlapping rooms and will continue to comply with changes to this policy as they occur. The requirements include and are complied with as follows: (1) the critical portions of the overlapping rooms will not occur at the same time, (2) the attending physician will be physically present during the critical portions of the procedure and immediately available during the entire case, and (3) a back-up attending is designated should the primary attending not be immediately available. The patient has had a chance to review all the listed information, has been given print outs detailing this information, and has had all his/her questions answered to their satisfaction. It was my pleasure to have seen and examined Mr. Neri. In our visit today we have had a chance to go over my understanding of our patient's current condition, the natural course history without intervention and various interventional options. Questions were invited and answered, and the patient wishes to proceed as outlined above. I have seen and examined the patient for 25 minutes and we have spent more than 50% of the time in repeat and detailed counseling about the patient's condition, its natural course history with out and as much as can be predicted with surgery and re-review of various surgical treatment options. In conclusion, Mr. Neri requested we proceed with the above suggested surgery and are willing to accept risks and limitations of the suggested surgery as nature of the disease process and our best attempts at treatment for the condition. Thank you again for allowing us to be part of your patient's care. Please don't hesitate to contact me if you have any further questions. ---- SURGICAL AND AUTHORIZATION RATIONALE: C5-6 total disc replacement with revision exposure anterior right side cervical spine is indicated based on: 1. MRI-documented large central to paracentral HNP at C5-6 causing severe central and left foraminal stenosis 2. Adjacent segment disease above prior C6-7 fusion with disc space collapse 3. Total disc replacement preferred over fusion to maintain motion and reduce risk of further adjacent segment disease 4. Failed comprehensive conservative management including medications, multiple rounds of PT, and activity modifications 5. Surgical approach represents motion-preserving option that will adequately decompress neural elements MEDICAL NECESSITY: Surgical intervention is medically necessary based on: 1. Progressive neurological deficits with objective evidence: - Left upper extremity weakness (4-4+/5) - Hyperreflexia (3+ biceps/brachioradialis) - Positive Redman's sign on left - Impaired hand dexterity with documented dropped objects 2. Radiographic correlation: - Recent MRI (03/15/24) showing severe neural compression - CT and X-rays confirming disc collapse and ASD 3. Failed conservative measures: - Multiple rounds of physical therapy without improvement - Medication management including narcotics and muscle relaxants - Activity modifications and work restrictions 4. Functional decline: - Unable to maintain employment - Risk of further neurological deterioration without intervention - Progressive weakness affecting daily activities 5. Clear surgical target with high likelihood of improvement 6. Previous excellent response to cervical surgery at C6-7 level 7. Patient young enough (48 years) to benefit from motion-preserving surgery ---- MEDICAL NECESSITY: A C5-6 total disc replacement is medically necessary for this 48-year-old male who demonstrates clear evidence of progressive neurological deterioration and functional decline due to adjacent segment disease above his prior C6-7 fusion. Objective findings include documented left upper extremity weakness (4-4+/5 in multiple muscle groups), pathological reflexes (3+ biceps/brachioradialis with positive left Redman's sign), and C5-6 dermatomal deficits, correlating precisely with recent MRI findings of a large left-sided central to paracentral herniated disc causing severe central and foraminal stenosis at C5-6. Conservative management has failed, including multiple rounds of physical therapy, comprehensive medication management ([place], Flexeril, Gabapentin, Celebrex), and activity modifications. The patient's young age and documented adjacent segment disease make him an ideal candidate for motion-preserving total disc replacement rather than fusion to prevent further adjacent segment deterioration. Given his progressive neurological deficits, including functional impairment with dropped objects and inability to work, combined with clear radiographic evidence of severe neural compression, surgical intervention is necessary to prevent permanent neurological injury. The chosen surgical approach represents the least invasive option that will adequately address the pathology while preserving cervical motion and reducing the risk of future adjacent segment disease. FOLLOW UP: POST-OP PLAN AT NEXT VISIT: RECHECK PATIENT EDUCATION: Medications Reviewed: YES In our visit today Mr. Neri and I have had a chance to go over my understanding of the patient's current condition, the natural course history without intervention and various interventional options. Questions were invited and answered, and the patient wishes to proceed as outlined above. I will be sure to keep you updated after Mr. Neri returns here for further follow-up. Thank you again for your referral. Please do not hesitate to contact me if you have any further questions. Signed and authenticated by: Corey Schreiber [facility] [address] [place] [id number] . This message is confidential, intended only for the named recipient(s) and may contain information that is privileged or exempt from disclosure under applicable law. If you are not the intended recipient(s), you are notified that the dissemination, distribution or copying of this information is prohibited. If you received this message in error, please notify the sender then delete this message. # SIGNED BY Corey Sheldon ([facility])04/16/2024 05:59PM Past Medical History Past Medical History: Atrial Fibrillation, Atrial Flutter, Hypertension, Sleep Apnea/CPAP/BIPAP Additional Past Medical History / Comment(s): HX of hep C, Back pain. Uses CPAP. History of Any Multi-Drug Resistant Organisms: None Reported Past Surgical History: Cardiac Ablation, Cholecystectomy, Orthopedic Surgery Additional Past Surgical History / Comment(s): c6-c7 fusion, left foot surg.decompression fusion from S1-L5 Past Anesthesia/Blood Transfusion Reactions: No Reported Reaction Additional Past Anesthesia/Blood Transfusion Reaction / Comment(s): No hx of blood transfusion to date. Smoking Status: Former smoker - Past Family History Father Family Medical History: Coronary Artery Disease (CAD) Additional Family Medical History / Comment(s): Brain tumor Mother Family Medical History: Chest Pain / Angina Additional Family Medical History / Comment(s): Breast cancer Medications and Allergies Home Medications Medication Instructions Recorded Confirmed Type Apixaban [Eliquis] 5 mg PO BID 03/22/24 04/17/24 History Cyclobenzaprine [Flexeril] 10 mg PO TID 03/22/24 04/17/24 History Flecainide [Tambocor] 50 mg PO Q12HR #60 tab 03/22/24 04/17/24 Rx Gabapentin [Neurontin] 400 mg PO TID 03/22/24 04/17/24 History HYDROcodone/APAP 10-325MG [[place] 1 tab PO TID 03/22/24 04/17/24 History 10-325] Losartan [Cozaar] 25 mg PO QAM 03/22/24 04/17/24 History Diltiazem Cd [Cardizem CD] 120 mg PO QAM 04/17/24 04/17/24 History Allergies Allergy/AdvReac Type Severity Reaction Status Date / Time No Known Allergies Allergy Verified 04/17/24 08:50 Physical Examination Osteopathic Statement: *. No significant issues noted on an osteopathic structural exam other than those noted in the History and Physical/Consult.
[~2024-04-18 12:41] MED LIST changes: -ACETAMINOPHEN TAB 500 MG TAB PO PRN; -GABAPENTIN 300 MG CAP PO PRN; +MIDAZOLAM 2 MG/2 ML VIAL IV PRN; -ceFAZolin 3 GM in SODIUM CHLORIDE 0.9% 100 ML IVPB PRN; +fentaNYL (PF) 50 MCG/ML 2 ML AMP IVP PRN
[2024-04-18] MEDS: LIDOCAINE 1% (10MG/ML) FOR IV START INTRADERMA PRN (14:00)
[2024-04-18] MEDS: IV FLUID CONTINUATION 1,000 ML IV ONE (14:00)
[2024-04-18] MEDS: LACTATED RINGERS 1,000 ML IV SCH (14:00)
[2024-04-18] MEDS: ACETAMINOPHEN TAB 500 MG TAB PO PRN (14:35)
[2024-04-18] MEDS: GABAPENTIN 300 MG CAP PO PRN (14:36)
[2024-04-18] MEDS: DEXAMETHASONE SOD PHOSPHATE 4 MG/ML 1 ML VIAL IV ONE (14:36)
[2024-04-18] MEDS: ONDANSETRON 4 MG/2 ML VIAL IVP ONE (14:36)
[2024-04-18 14:46] LABS: Prothrombin Time 10.9 sec (10.0-12.5)
[2024-04-18 14:52] LABS: Partial Thromboplastin Time 21.7 sec (22.0-30.0)
[2024-04-18] MEDS ORDERED: SUCCINYLCHOLINE CHLORIDE 200 MG/10 ML VIAL IV ONE (15:10)
[2024-04-18] MEDS ORDERED: PROPOFOL 10 MG/ML 20 ML VIAL IV ONE (15:10)
[2024-04-18] MEDS ORDERED: MIDAZOLAM 2 MG/2 ML VIAL ONE (15:10)
[2024-04-18] MEDS ORDERED: TRANEXAMIC 1,000 MG/100ML-NACL PREMIX BAG ONE (15:10)
[2024-04-18] MEDS ORDERED: LIDOCAINE 1% INJ 10MG/ML (20 ML MDV) ONE (15:10)
[2024-04-18] MEDS ORDERED: ROCURONIUM 10 MG/ML (5 ML VIAL) IV ONE (15:10)
[2024-04-18] MEDS ORDERED: KETAMINE HCL IN 0.9 % NACL 50 MG/5 ML SYRINGE ONE (15:10)
[2024-04-18] MEDS ORDERED: fentaNYL (PF) 50 MCG/ML 2 ML AMP ONE (15:10)
[2024-04-18] MEDS ORDERED: NEOSTIGMINE 1 MG/ML 10 ML VIAL ONE (15:10)
[2024-04-18] MEDS ORDERED: GLYCOPYRROLATE 0.2 MG/ML 2 ML VIAL ONE (15:10)
[2024-04-18] MEDS: ceFAZolin 3 GM in SODIUM CHLORIDE 0.9% 100 ML IVPB PRN (15:18)
[2024-04-18] MEDS: LACTATED RINGERS 1,000 ML IV ONE (16:10)
[2024-04-18] MEDS: THROMBIN (BOVINE) 5,000 UNIT VIAL TOPICAL ONE (16:50)
--- NOTE | 2024-04-18 17:05 | P.ANPRN ---
Procedure Note - Anesthesia - Invasive Line Left Central Line Time Out Performed: Yes Date of Procedure: 04/18/24 Time of Procedure: 15:52 Location of Patient: PreOp Preparation: Sterile Prep, Sterile Dressing Central Line Location: Internal Jugular Ultrasound Used: Yes Purpose - Visualization and Identification of Vasculature: Yes Image Stored and Saved: Yes Narrative: Invasive line placement per sterile protocol utilized.
[2024-04-18] MEDS ORDERED: CYCLOBENZAPRINE 10 MG TAB PO PRN (18:20)
[2024-04-18] MEDS ORDERED: HYDROmorphone 0.5 MG/0.5 ML SYRINGE IVP PRN (18:20)
[2024-04-18] MEDS ORDERED: ONDANSETRON 4 MG/2 ML VIAL IVP PRN (18:20)
--- NOTE | 2024-04-18 18:36 | FL ---
EXAMINATION TYPE: FL guidance operating room, XR cervical spine limited DATE OF EXAM: 04/18/2024 6:22 PM COMPARISON: Pre Operative Images if available both CT/MRI or plain film CLINICAL INDICATION: Male, 48 years old with history of C5-C6 Arthroplasty; TECHNIQUE: FL guidance operating room, XR cervical spine limited, multiple fluoroscopic images provid ed for procedure. Total fluoroscopy time: 38 seconds Total submitted images to PACS: 6 DAP: 2.2299 mGym2 Gycm2 uGym2 cGycm2 or equivalent. FINDINGS: Fluoroscopic images during internal fixation/arthroplasty demonstrate hardware in appropriate positio n. Hardware appears intact. No immediate complication identified. IMPRESSION: 1. No evidence for intraoperative complication. 2. Please see the operative/procedural note for further details. [facility], , 04/18/2024 6:34 PM
--- NOTE | 2024-04-18 18:40 | P.OP ---
Date of Procedure: 04/18/24 Preoperative Diagnosis: 1. 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 C5-6 DISC DISPLACEMENT 3. ASD C5-6 4. UE RADICULOPATHY 5. NECK PAIN Postoperative Diagnosis: 1. 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 C5-6 DISC DISPLACEMENT 3. ASD C5-6 4. UE RADICULOPATHY 5. NECK PAIN Procedure(s) Performed: 1. REVISION RIGHT ANTERIOR THORNTON PETERSION EXPOSURE TO THE CERVICAL SPINE 2. C5-6 TOTAL DISC ARTHROPLASTY 3. EXPLORATION OF FUSION C6-7 USE OF IONM USE OF IO MICROSCOPE Implants: PRO DISC C VIVO, 7MM XL Anesthesia: GETA Surgeon: Justin Wilson Set And Exhibit Designer #1: Vangie Almanza Estimated Blood Loss (ml): 25 IV fluids (ml): 1,200 Urine output (ml): 0 Pathology: none sent Condition: stable Disposition: PACU Indications for Procedure: Mr. Neri is presenting for evaluation of cervical pain. It was my pleasure to have seen and examined Mr. Neri. In our visit today we have had a chance to go over subjective complaints, physical examination findings and treatments including the natural course history without intervention and various interventional options. The patients imaging demonstrates: MRI Date: 03/15/24 Location: [facility] Region: Cervical spine Contrast: N IMAGES ARE REVIEWED WITH THE PATIENT IN OFFICE AND DEMONSTRATE THE FOLLOWING: FINDINGS: POST SURGICAL CHANGES NOTED C6-[address]. THERE IS AT THE C5-6 LEVEL A LARGE CENTRAL TO PARACENTRAL HNP MORE PROMINENT ON THE LEFT CAUSING SEVERE CENTRAL AND LEFT FORAMINAL STENOSIS. THERE IS COLLAPSE OF THIS DISC SPACE DUE TO THE HNP. THERE IS LITTLE TO NO FACET ARTHROSIS. MILD LIGAMENTAL HYPERTROPY. NO OTHER AREAS OF ISSUES NOTED. POST SURGICAL BED SHOWS GOOD HEALING AND GOOD DECOMPRESSION. ----- CT Date: 02/01/24 Location: [facility] Region: Cervical spine Contrast: N IMAGES ARE REVIEWED WITH THE PATIENT IN OFFICE AND DEMONSTRATE THE FOLLOWING: FINDINGS: * No acute fractures. Good healing noted about C6-7 region with fusion C5-6 ASD, mild to moderate noted. Mild stenotic features noted with facet arthrosis and disc collapse. Flattened CL due to collapse. ----- XR OF THE C SPINE DEMONSTRATE SIMILAR FINDINGS WITH HARDWARE AT C6-7 IN GOOD POSIIONG WITH GOOD HEALING. THERE IS COLLAPSE OF C5-6 WITH DISC HEIGHT LOSS, NO FRACTURE OR LEIONS, NO INSTABILITY. On physical exam, Mr. Neri demonstrates: Regarding the cervical spine patient reports left sided neck pain that radiates into the left upper extremity. He notes numbness and tingling of the left arm. Patient states his left arm feels weak and he has dropped objects. I have explained to the patient that as their condition progresses it will cause further neurological deficits and eventual paralysis. Based on the patients imaging, physical exam, and the rapid progression and disabling nature of their symptoms, at this time I recommend surgery in the form of a: C5-6 TDR. I discussed the risk and benefits of this procedure at length with Mr. Neri. The patient agreed to considered pursuing the procedure abovementioned. Prior to surgery, she should follow up with her PCP (Cardio, ID, IM etc) for clearance. Questions were invited and answered, and the patient wishes to proceed as outlined below. Currently, I am recommendin.C5-6 TOTAL DISC REPLACEMENT Description of Procedure: C5-6 TDR The patient was seen and examined in the preoperative area. All preoperative protocols were followed. Informed consent was obtained, risks and benefits of the procedure were discussed at length. Risks including bleeding infection damage to the surrounding tissue and risk of reoperation were discussed with the patient. Risk of anesthesia up to and including was discussed with the patient. These are outlined in the risk review. They were willing to accept these risks and all the risks of surgery. The patient was given a weight-based dose of antibiotics in the form of 2 g Ancef. The patient was seen and evaluated by the anesthesia team who deemed them fit for surgery. The site was marked, the patient was willing to proceed with the procedure. The patient was transferred to the operative suite by the Department of anesthesia. They were then drifted off to sleep by the department anesthesia and GETA was performed. The patient tolerated this well. Canela catheter was pl aced by nursing staff, a-traumatically. Once confirmation of lines and ventilation the patient was transferred to a Supine Anthony table very carefully. All bony prominences including wrists, elbows, axilla, chest, hips, and thighs, and feet were padded very well. Special attention was paid to the genitalia, and these were padded accordingly. SCDs were placed on bilateral lower extremities and were connected. Arms were well padded and placed at their side thumbs up. Shoulder roll was placed and shoulders were gently taped to the table. Once in position, again we confirmed good ventilation capabilities and that lines were running appropriately. The patients Cervical spine was then exposed. 1010s were placed outlining the incision site. Standard alcohol was used to clean the incision site and allowed to dry. C-arm was used to bio-gerard the patient and confirm level for incision which was marked with a skin marker. Operative briefing was performed with all teams and everyone in agreement to proceed. The patient was then prepped and draped in a normal sterile fashion. Timeout was then performed, and all parties agreed with the procedure to be performed. Transverse skin incision was then made on the right side of the patient's neck 3 cm and dissection taken down to the platysma which was split transversely. Sub platysma flap was made, and interval identified between SCM and medial structures. Omohyoid was visualized and protected. Blunt dissection taken down to the anterior cervical fascia which was identified. Old hardware at C6-7 was visualized and the fusion was explored. There was solid fusion noted with good healing and stable screw, plate and cage construct. Scar tissue was removed from the esophagus and this was mobilized. Blunt probe was then placed and lateral image taken which confirmed levels for operation. These levels were then marked with a bovi. Subperiosteal dissection of the longissimus muscles were then done over these levels identifying uncovertebral joints bilaterally. Retractor was then placed deep to these muscles and held in place with a bed arm. Millstone pins were placed into C5 and C6 and gentle parallel distraction taken out over the levels. Mary rongeur used to remove disc material. Operating microscope brought in for visualization. Complete discectomy performed at this level with curette, rongeur and pituitary. High speed jovita used to remove osteophytes anteriorly and posteriorly until PLL was identified. 6-0 up curette then used to identify the canal and resect the PLL. 2-0 and 3-0 Kerrison used then to remove PLL and disc herniation and performed b/l foraminotomies. Once good decompression was accomplished, meticulous hemostasis was performed. Sizers were then placed under lateral fluoroscopy until the desired height and alignment. Six and 7 trial heights were placed as well as L and XL. ON AP and LAT images the 7mm XL fit the best with good uncovertebral joint to UC joint contact without overstuffing. Trial was then placed and secured. Distraction removed for XR. AP and lateral image confirmed central placement. Trial was then removed and gentle distraction placed again. Further clean up of the endplates done as well as foramen and decompression. Disc space was irrigated thoroughly. Final implant was then placed under lateral image to match the marked midline and was placed optimally on AP and lateral imaging. Once in place the implant was tested and was secured. Motors run before and after implant placement were stable. The wound bed was irrigated. Distraction pins removed and bone wax placed in their void. Bone wax placed on any bleeding bony surfaces. Surgicel then placed deep in the wound and retractors removed after inspection without injury. Final AP and lateral images confirmed good placement of implant with good height and alignment episcopal. The wound was then irrigated copiously with NSS. Surgicel placed deep in the wound. Layered closure then performed with 3-0 Vicryl in the platysma and subQ tissue. 4-0 Strata fix in the subcuticular tissue. The wound was then cleaned, and dried and skin glue placed. Once glue dried an Opifoam was placed. The patient was then transferred back to their hospital bed a-traumatically. The drain continued to hold suction. They were placed in a soft collar. They were then awakened by the department of anesthesia having tolerated the procedure well without complications.
[2024-04-18] MEDS: HYDROmorphone 0.5 MG/0.5 ML SYRINGE IVP PRN (19:42)
[2024-04-18] MEDS: CYCLOBENZAPRINE 10 MG TAB PO SCH (20:37)
[2024-04-18] MEDS: GABAPENTIN 400 MG CAP PO SCH (20:37)
[2024-04-18] MEDS: oxyCODONE-APAP 5-325MG 1 EACH TAB PO PRN (20:37)
[2024-04-18] MEDS: FLECAINIDE 50 MG TAB PO SCH (21:51)
[2024-04-18] MEDS: HYDROmorphone 1 MG/ML 1 ML SYRINGE IVP PRN (21:51)
--- NOTE | 2024-04-18 23:11 | CT ---
EXAMINATION TYPE: CT cervical spine wo con DATE OF EXAM: 04/18/2024 COMPARISON: Prior cervical spine CT February 01, 2024 HISTORY: s/p C5-C6 TDR CT DLP: 906.1 mGycm. Automated Exposure Control for Dose Reduction was Utilized. TECHNIQUE: CT scan of the cervical spine is obtained without contrast, axial images are obtained, sa gittal and coronal reformatted images are also reviewed. FINDINGS: Cervical spine is visualized in its entirety from C1 through upper thoracic levels, and red emonstrates anterior fusion plate with metallic disc material at C6-C7 level. There is new discectomy with metallic endplates at C5-C6 level. Alignment is stable and satisfactory. Vertebral body heights and disc space heights are maintained above and below surgical levels. Review of axial images shows evidence of recent surgery with ill-defined fluid and subcutaneous air i n the right neck. There is left-sided left internal jugular central venous catheter partially imaged. Some dependent atelectasis in the right upper lobe is seen. IMPRESSION: There is interval surgical change at C5-C6 level with stable and satisfactory alignment n oted. [facility], , 04/18/2024 11:09 PM
[2024-04-19] MEDS: KETOROLAC 15 MG/ML 1 ML VIAL IVP SCH (00:10)
[2024-04-19] MEDS: ceFAZolin 3 GM in SODIUM CHLORIDE 0.9% 100 ML IVPB SCH (00:11)
[2024-04-19 03:56] LABS: Basophils % (A) 0 %; Eosinophils # (A) 0.2 k/uL (0-0.7); Eosinophils % (A) 1 %; HCT 43.6 % (39.0-53.0); HGB 14.6 gm/dL (13.0-17.5); Lymphocytes # (A) 1.4 k/uL (1.0-4.8); Lymphocytes % (A) 13 %; MCH 31.3 pg (25.0-35.0); MCHC 33.4 g/dL (31.0-37.0); MCV 93.7 fL (80.0-100.0); Mean Platelet Volume 7.2; Monocytes # (A) 0.6 k/uL (0-1.0); Monocytes % (A) 5 %; Neutrophils # (A) 8.7 k/uL (1.3-7.7); Neutrophils % (A) 80 %; Platelet Count 203 k/uL (150-450); RBC 4.66 m/uL (4.30-5.90); RDW 12.7 % (11.5-15.5); WBC 10.8 k/uL (3.8-10.6)
[2024-04-19 04:11] LABS: African American GFR (CKD) >90 (>60 ml/min/1.73 sqM); Anion Gap 7 mmol/L; Blood Urea Nitrogen 13 mg/dL (9-20); Carbon Dioxide 24 mmol/L (22-30); Chloride 104 mmol/L (98-107); Glucose 127 mg/dL (74-99); Non-African American GFR(CKD) >90 (>60 ml/min/1.73 sqM); Potassium 4.7 mmol/L (3.5-5.1); Sodium 135 mmol/L (137-145)
[2024-04-19 07:41] VITALS: BP 121/80; PULSE 77; RESP 18; TEMP 97.5
[2024-04-19] MEDS: LOSARTAN 25 MG TAB PO SCH (08:19)
[2024-04-19] MEDS: SENNOSIDES-DOCUSATE SODIUM 1 EACH TAB PO SCH (08:19)
[2024-04-19] MEDS: DILTIAZEM CD 120 MG CAP.ER.24H PO SCH (08:20)
--- NOTE | 2024-04-19 09:01 | P.PN ---
Subjective Progress Note Date: 04/19/24 Principal diagnosis: 1.C5-6 HNP, LARGE WITH STENOSIS, SEVERE AND RADICULOPATHY 2.Left upper extremity radiculopathy 3. Left upper extremity weakness 4. Status post L5-S1 VT PLIF Patient seen and examined this morning. Patient is sitting up in chair at bedside. He does report that his pain is managed on current regimen. Surgical incision to the anterior cervical spine, dressing is clean dry and intact with cervical collar in place. Patient does report improvement of the radiculopathy in the upper extremities since the procedure. Informed patient that physical therapy will be in to work with him this morning. Patient verbalizes understanding. Discussed discharge plans for later today. No acute concerns. Objective - Vital Signs Vital signs: Vital Signs Temp 98.4 F 04/19/24 00:57 Pulse 98 04/19/24 01:36 Resp 20 04/19/24 01:36 BP 113/72 04/19/24 01:36 Pulse Ox 95 04/19/24 01:36 FiO2 Intake & Output 04/18/24 04/18/24 04/19/24 06:59 18:59 06:59 Intake Total 1500 0 Output Total 25 Balance 1475 0 Weight 144.4 kg 144.4 kg Intake: IV 1500 0 Output: Estimated Blood Loss 25 - Exam Physical Examination General: The patient is awake and alert, in no acute distress Skin: Skin is warm and dry with no obvious rashes or lesions. Surgical incision to the anterior cervical spine, dressing is clean dry and intact with collar in place. Eye: Pupils are equal, round and reactive to light, extra-ocular movements are intact; there is normal conjunctiva bilaterally. Neck: The neck is supple, there is Mild tenderness around incision site and limited range of motion due to surgery and cervical collar. Cardiovascular: There is a irregular rate, afib. No murmur, rub or gallop is appreciated. Respiratory: Respirations are non-labored, breath sounds are equal. Gastrointestinal: Soft, non-distended, non-tender abdomen. Back: There is no tenderness to palpation in the midline, paralumbar, parathoracic or buttocks region. There is no obvious deformity . Musculoskeletal: ROM limited secondary to pain and stiffness from surgical procedure. Right: Shoulder abduction 4/5, elbow flexors 5/5, wrist dorsiflexors 5/5. finger abductor 5/5, hog tender 5/5, hip flexor 5/5, knee flexor 5/5, ankle dorsiflexor 5/5, ankle plantarflexion 5/5 and extensor hallucis 5/5. Left: Shoulder abduction 4/5, elbow flexors 5/5, wrist dorsiflexors 5/5. finger abductor 5/5, hog tender 5/5, hip flexor 5/5, knee flexor 5/5, ankle dorsiflexor 5/5, ankle plantarflexion 5/5 and extensor hallucis 5/5. Neurological: CN 2-12 intact. There are no obvious motor or sensory deficits. Movement and coordination equal and intact. Sensory exam to light touch intact C5-T1 and intact from L2-S1. Reflexes 2/4 in bilateral upper and lower extremities. Negative Hoffmans, babinski, and clonus signs. Psychiatric: Cooperative, appropriate mood & affect, normal judgment. - Labs CBC & Chem 7: 04/19/24 03:37 04/19/24 03:37 Labs: Abnormal Lab Results - Last 24 Hours (Table) 04/18/24 04/19/24 04/19/24 Range/Units 14:19 03:37 03:37 WBC 10.8 H (3.8-10.6) k/uL Neutrophils # 8.7 H (1.3-7.7) k/uL APTT 21.7 L (22.0-30.0) sec Sodium 135 L (137-145) mmol/L Glucose 127 H (74-99) mg/dL Assessment and Plan Assessment: Postop day 1: C5-C6 TDR Plan: -Appreciate trousseau consultant and team management. -Activity: Ambulate QID, OOB all meals, up and about, limit lifting bending twisting to less than 5 lbs. Use walker or cane if needed for stability. -Daily PT/OT, increase ambulation strength and balance. -Cervical collar on at all times, may remove for showers. -Pain control: Adequate at this time -Meds: reviewed -GI ppx: senna, Miralax -DVT PPX: Eliquis may resume in 48-72hrs. -Hygiene: Maintain incision clean and dry. May change dressing as needed, please document in notes if performed. -Encourage IS 10x/hr -Dispo: Anticipate discharge home with homecare 20m *I reviewed and discussed this case with my attending Dr. Wilson, whom has reviewed this chart and films and is in agreement with assessment and plan of care as outlined above. I have personally seen and examined the patient, performed the documentation and the assessment and plan as written. Number of minutes spent on the visit: 20m.
[2024-04-19] MEDS: TAMSULOSIN 0.4 MG CAP.ER.24H PO SCH (10:51)
--- NOTE | 2024-04-19 12:10 | P.DS ---
Providers Date of admission: 04/18/24 Expected date of discharge: 04/19/24 Attending physician: Justin Wilson, DO Consults: 04/18/24 18:24 Consult Physician Routine Consulting Provider: Rafael Dinero Reason/Comments: Medical Management Do you want consulting provider notified?: Yes Primary care physician: Rafael Dinero Hospital Course: Hospital Course: The patient was evaluated preoperatively and found to have the diagnosis of C5-C6 with HNP stenosis. They underwent appropriate preoperative care and were willing to undergo the intended procedure. They underwent a successful C5-C6 TDR, were recovered appropriately and sent to the floor. While on the floor they worked with physical therapy, occupational therapy and nursing to enhance their recovery experience. Their pain was well controlled through their stay and they were started on appropriate medications, DVT ppx modalities, activity and dietary needs. Daily labs were monitored closely, and transfusions were only used when necessary. Medicine as well as other consulting services have made their input and have helped with our team approach and multidisciplinary care. PT milestones have been met and passed and they have made the recommendation of home for this patient and treating providers agree with this care path. The patient will be discharged home with appropriate medications, instructions and follow-up information and in stable condition. Patient Condition at Discharge: Good Plan - Discharge Summary Discharge Rx Participant: Yes New Discharge Prescriptions: New Sennosides/Docusate Sodium [Senna Plus 8.6-50 mg Tablet] 2 each PO DAILY PRN #20 tab PRN Reason: Constipation oxyCODONE HCL/ACETAMINOPHEN [Percocet 5-325 mg] 1 tab PO Q4HR PRN #40 tab PRN Reason: Pain cefaDROXiL [Duricef] 500 mg PO Q12HR #10 cap Continue Cyclobenzaprine [Flexeril] 10 mg PO TID Gabapentin [Neurontin] 400 mg PO TID No Action Apixaban [Eliquis] 5 mg PO BID Flecainide [Tambocor] 50 mg PO Q12HR #60 tab Diltiazem Cd [Cardizem CD] 120 mg PO QAM Losartan [Cozaar] 25 mg PO QAM HYDROcodone/APAP 10-325MG [[place] 10-325] 1 tab PO TID Discharge Medication List Apixaban [Eliquis] 5 mg PO BID 03/22/24 [History] Cyclobenzaprine [Flexeril] 10 mg PO TID 03/22/24 [History] Flecainide [Tambocor] 50 mg PO Q12HR #60 tab 03/22/24 [Rx] Gabapentin [Neurontin] 400 mg PO TID 03/22/24 [History] HYDROcodone/APAP 10-325MG [[place] 10-325] 1 tab PO TID 03/22/24 [History] Losartan [Cozaar] 25 mg PO QAM 03/22/24 [History] Diltiazem Cd [Cardizem CD] 120 mg PO QAM 04/17/24 [History] Sennosides/Docusate Sodium [Senna Plus 8.6-50 mg Tablet] 2 each PO DAILY PRN #20 tab 04/19/24 [Rx] cefaDROXiL [Duricef] 500 mg PO Q12HR #10 cap 04/19/24 [Rx] oxyCODONE HCL/ACETAMINOPHEN [Percocet 5-325 mg] 1 tab PO Q4HR PRN #40 tab 04/19/24 [Rx] Follow up Appointment(s)/Referral(s): Rafael Dinero MD [Primary Care Provider] - 1 Week Justin Wilson DO [Doctor of Osteopathic Medicine] - 2 Weeks Activity/Diet/Wound Care/Special Instructions: Spine Discharge and Recovery Instructions Date of Surgery: 04/18/2024 Diagnosis: cervical spondylosis with stenosis Procedure: C5-C6 TDR Medications: Resume Eliquis in 48hrs, take Aspirin 81mg until then. See medication list All medication refills should be obtained through your primary care doctor or your clinic spine surgeon. Please discuss prescription refills at your follow up appointment. Do not call the hospital for medication refills. Activity: Encourage ambulation with assist of walker, Up and about 6-8x daily PT/OT daily work on balance, strength and mobility Up in chair with all meals Shower daily Brace: Use brace when up and about, do not wear in bed or shower Dressing: Leave your dressing in place for a total of 3 days post operatively. Then you may remove your dressing and leave open to air. Keep the area clean and if not able to keep area clean, then cover with sterile gauze and tape. Showering: You may shower 3 days after your procedure allowing soap and water to run over incision. Do not scrub. Do not soak. Blot dry. Follow up: Please confirm a follow up appointment with your surgeon 2 weeks post operatively. Please make an appointment to follow up with your PCP in 1-2 weeks after surgery for evaluation '3 phase, 3-week plan' POST OP WEEKS 1-3 1. Lifting/carrying/pushing/pulling limited to less than 5 pounds. 2. Do not sit for longer than 15 minutes at one time. Get up and walk around. Prolonged sitting is NOT advised. If you lay down, see if you can tolerate laying down on you front (belly side) 3. Walk for periods of 15 minutes = 1 mile but no longer; do it multiple times times each day. 4. Ice your low back after activity. POST OP WEEKS 3-6 1. Lifting limited to less than 20 pounds. 2. Do not sit for longer than 30 minutes at a time. Frequently change positions. Use a sit-to stand workstation or take frequent breaks from sitting if you have returned to work. 3. Walk for 30 minutes each day. If possible, do these three or more times a day POST OP WEEKS 6+ At your 6-week appointment we will give you a physical therapy referral to focus on a core stabilization and strengthening program. You should also work on leg & buttock strengthening, hamstring & quadriceps stretching, and continue a low impact aerobic activity program such as swimming, walking, or riding a stationary bicycle. During the initial 6 weeks after your surgery, you are at the highest risk of re-injuring your spine. You should generally avoid BLT's (bending, lifting and twisting combination motions) and follow the above guidelines to reduce the chance of reinjury. You can anticipate post op appointments in our office at approximately 3 weeks and 6 weeks after your surgery. INCISION CARE: If your incision is not draining you do NOT need to cover it with a dressing. Keep your incision clean, dry and intact. In most cases, we apply skin glue, paloma or sutures to the incision at the time of surgery. This will be like a crust or have the appearance of a scab and will fall off in time on its own. The stitches or paloma need to be removed at 3 weeks post op appointment. You may begin to shower 3 days after surgery (this allows the glue to martini well). However, please avoid scrubbing the incision site or peeling off any of the skin glue. This will ensure optimal healing of your incision. Also, during this time avoid soaking the incision area in water - this includes swimming pools, hot tubs or baths. No ointments, lotions or oils on the incision until your surgeon allows. Leave paloma, sutures or glue in place. Neurological dysfunction that comes on suddenly can also be a sign of a stroke. Below some common symptoms of a stroke are listed: B - balance difficulty such as sudden onset walking or leaning to one side - NEW E - eye problem such as sudden double vision or trouble seeing on one side - NEW F - Facial weakness or numbness on one side - NEW A - Arm or leg weakness or numbness on one side - NEW S - Slurred speech or difficulty with word finding - NEW T - Time is BRAIN! Call 911 as soon as you recognize these symptoms Diet: Consume a regular diet rich in vegetables and lean protein such as chicken or fish. You should consume in a ratio of approximately 20% fats|40% carbohydrates|40%protein. Vegetables, sweet potatoes, brown rice or quinoa are examples of good carbohydrates. Chips, white bread, cookies and sweets/sugar are examples of bad carbohydrates. Limit your bad carbs, go wild with good carbs. "Life's Simple 7" Guidelines as per [employer] These will help you reclaim your life after surgery and varnish maker helper in your recovery, keeping in mind your restrictions. (1) Get Active. Physical activity can help people lose weight, control high blood pressure and cholesterol, feel emotionally better, and sleep better. (2) Control Cholesterol. Avoid a diet high in saturated fat, trans fat, & cholesterol. Limit whole milk & cream, ice cream, butter, egg yolks, processed meats (like sausage and hot dogs), and fatty meats. Choose healthy foods that are low in saturated fat, trans fat and cholesterol which include: Fruits and vegetables, fiber rich grain products (like whole grain pasta and brown rice), lean meat such as chicken, fish, nuts, seeds, and legumes. (3) Eat Better. Eat small portions. Shop at the grocery with a list and do not stray from it. Tips for a healthy diet include: Limit sodium intake to less than 1500mg daily, avoid prepackaged, processed, and fast foods, choose a diet rich in fruits, vegetables, and whole grain, high fiber foods, and limit saturated & cholesterol in your diet. (4) Manage Blood Pressure. If you have high blood pressure, you should have a cuff at home so that you can check your blood pressure regularly. Be sure you have a good cuff. An arm one is generally better than a wrist one. Bring the cuff to a doctor's appointment to validate that the measurements that your cuff are taking are accurate. Take your blood pressure twice daily when you are sitting down and relaxing. Record the numbers in a log and bring this log with you to your doctors' appointments. (5) Lose Weight if your BMI is above 25. A healthy BMI is between 19-25. To calculate Your BMI, you may use a Standard BMI Calculator on the NIH BMI website: <www.nhlbi.nih.gov/guidelines/obesity/BMI/bmicalc.htm>. Weigh oneself daily. If you are overweight, set a goal to lose weight. A pound a week loss if needed is a good target. (6) Reduce Blood Sugar. Limit foods and liquids with "added sugars." (Added sugars include sucrose, fructose, glucose, maltose, dextrose, high fructose corn syrup, corn syrup, concentrated fruit juice and honey). (7) Stop Smoking. If you smoke, quitting smoking is one of the best things that you can do for your health. Smoking increases your risk of heart attack, stroke, and peripheral vascular disease, which is a build-up of plaque in your arteries. Please discard all the cigarettes and lighters in your house. Have a plan for what you will do when you have the urge to smoke. Direct and second- hand smoke shortens your life as well as the lives of your family, friends and others around you. For your health and the health of those around you, please consider quitting! Proper Bending Body Mechanics: Maintain a wide stance with one foot slightly in front of the other. Keep your back straight. Bend utilizing the strength in your hips and knees. Do not bend at the waist. Maintain the lifted object at your waist-level close to your body. Avoid lifting weight that causes immediately pain or pain anywhere in the body afterwards. Smoking/Nicotine If there was ever one thing that you could do to increase your overall health, decrease your risk of cardiovascular problems by about 39% the second you make the choice, it is to STOP SMOKING. Your body's most instant gratification is the second you stop smoking. We have all heard the studies, read the articles but it is true, smoking is extremely bad for your overall health, and moreover it is detrimental to your bone health. Nicotine, IN ANY FORM, kills bone cells, prevents your body from healing fractures, and significantly prolongs healing after surgery. In spine surgery specifically, it increases your risk of not healing your bones to create a fusion and increases your risk of having a revision surgery due to this up to 60%. I know it is hard. I know it feels impossible. But there are ways. Take control of your life. We are here to help you through it. And when you are ready, ask us and we can direct you to help if you desire. Use the START Plan to Quit Smoking (please visit the HelpguPromoco.org website listed below for more information): S = Set a quit date. Choose a date within the next 2 weeks, so you have enough time to prepare without losing your motivation to quit. If you mainly smoke at work, quit on the weekend, so you have a few days to adjust to the change. T = Tell family, friends, and co-workers that you plan to quit. Let your friends and family in on your plan to quit smoking and tell them you need their support and encouragement to stop. Look for a quit ozzy who wants to stop smoking as well. You can help each other get through the rough times. A = Anticipate and plan for the challenges you'll face while quitting. Most people who begin smoking again do so within the first 3 months. You can help yourself make it through by preparing ahead for common challenges, such as nicotine withdrawal and cigarette cravings. R = Remove cigarettes and other tobacco products from your home, car, and work. Throw away all your cigarettes (no emergency pack!), lighters, ashtrays, and matches. Wash your clothes and freshen up anything that smells like smoke. Shampoo your car, clean your drapes and carpet, and steam your furniture. T = Talk to your doctor about getting help to quit. Your doctor can prescribe medication to help with withdrawal and suggest other alternatives. If you can't see a doctor, you can get many products over the counter at your local pharmacy or grocery store, including the nicotine patch, nicotine lozenges, and nicotine gum. Resources for Quitting Smoking: <https://www.[place].gov/documents/health system/Quit_Tobacco_Resources_for_patients_313 480_7.pdf> Supplementation: Take recommended dosages of Vitamin D and Calcium to help fortify your bones and help them to heal. See your health maintenance packet for dosages and recommended levels. DVT/VTE prophylaxis: You will be given compression stockings from the hospital. Wear these daily for the first two weeks after surgery. You may take them off at night. You may be prescribed a medication to help thin your blood. Take this as directed. If you are not prescribed this medication, early and frequent ambulation has been shown to be the best prophylaxis to deep vein thrombosis and sequelae related to this event. Discharge Disposition: HOME SELF-CARE
--- NOTE | 2024-04-20 02:49 | HP ---
HISTORY AND PHYSICAL CHIEF COMPLAINT: Cervical spondylosis. HISTORY OF PRESENT ILLNESS: This gentleman is admitted for an elective cervical spine procedure. He has been fairly healthy, but he is on anticoagulant for cardiac arrhythmia. REVIEW OF SYSTEMS: He denies any chest pain, shortness of breath, fever and chills, urinary complaints, etc. Past medical history, family history, and personal and social histories are all otherwise unremarkable or noncontributory. PHYSICAL EXAMINATION: VITAL SIGNS: Normal. HEAD, EARS, EYES, NOSE, MOUTH AND THROAT: Normal. CHEST: Clear. CARDIAC: Normal. ABDOMEN: Protuberant, soft and nontender. EXTREMITIES: Normal. IMPRESSION: 1. Cervical spondylosis. 2. Cardiac arrhythmia. 3. Obesity. PLAN: 1. Bedrest. 2. IV fluids. 3. Proceed with his cervical spine procedure. MMODL / IJN: [id number] /
--- NOTE | 2024-04-20 03:43 | PN ---
PROGRESS NOTE DATE OF SERVICE: 04/19/2024 CHIEF COMPLAINT: Postop cervical procedure. HISTORY OF PRESENT ILLNESS: This gentleman is doing well and he is going home. He denies fever and chills, nausea, etc. He did have a slight problem with urinary retention and he will be discharged on Flomax and seen in the office in several days. FINAL DIAGNOSIS: Cervical spondylosis. PLAN: Follow up in the office in several days. MMODL / IJN: [id number] /
== END 2024-04-19 15:50 | disposition home or self-care (01) ==
LOC: OR 12:41 → 4SSUR 18:36 → OR 04-19 15:50
PROVIDERS: ATTEND Orthopaedic Surgery
DX: M47.22 Other spondylosis with radiculopathy, cervical region (principal); M48.02 Spinal stenosis, cervical region; I48.91 Unspecified atrial fibrillation; I10 Essential (primary) hypertension; G47.30 Sleep apnea, unspecified; E66.9 Obesity, unspecified; Z86.19 Personal history of other infectious and parasitic diseases; Z90.49 Acquired absence of other specified parts of digestive tract; Z82.49 Family history of ischemic heart disease and other diseases of the circulatory system; Z80.3 Family history of malignant neoplasm of breast; Z68.33 Body mass index [BMI] 33.0-33.9, adult; Z98.1 Arthrodesis status; Z79.01 Long term (current) use of anticoagulants; Z79.899 Other long term (current) drug therapy
CPT/HCPCS: 97161; 80048; 85025; 85610; 85730; 72040; 72125; 22551; L0120; C1713; J1100; J0690 ×2; J2405; J1171 ×3; J1885

== ENCOUNTER → 2024-07-17 | Outpatient (CLI) | payer OTHER ==
--- NOTE | 2024-07-18 00:03 | MR ---
EXAMINATION TYPE: MR lumbar spine wo con DATE OF EXAM: 07/17/2024 7:52 PM COMPARISON: 05/17/2023. CLINICAL INDICATION: Male, 48 years old with history of M54.50 LOW BACK PAIN, UNSPECIFIED; PHH, Post surgery last August and pt is still having pain, difficult to urinate, pain in both legs TECHNIQUE: Multi planar, multi sequence imaging was performed utilizing: T1-weighted, T2-weighted, a nd turbo inversion recovery imaging of the lumbar spine. IV Contrast: mL (None, if empty) FINDINGS: Alignment: The lumbar vertebral bodies have preserved heights and alignment. Cord: The conus medullaris and the distal spinal cord appear unremarkable with regards to their signa l intensity and morphology. Bones/Discs: Fixation hardware at L5-S1 limits evaluation. Mild degeneration changes throughout the s pine with osteophyte formation and facet joint arthropathy. Intervertebral disc signal is maintained. No abnormal inversion recovery signal to suggest bony edema. T12-L1: No evidence of significant spinal canal stenosis or neural foraminal stenosis. L1-L2: No evidence of significant spinal canal stenosis or neural foraminal stenosis. L2-L3: No evidence of significant spinal canal stenosis or neural foraminal stenosis. L3-L4: No evidence of significant spinal canal stenosis or neural foraminal stenosis. L4-L5: No evidence of significant spinal canal stenosis. Facet joint arthropathy mild bilateral neura l foraminal stenosis. L5-S1: Susceptibility artifact limits evaluation at this level. Spinal canal is patent there is mild neural foraminal stenosis. No significant spinal canal or neural foraminal stenosis in the remainder of the visualized levels. Other findings: None. IMPRESSION: 1. Postsurgical changes evidence for significant spinal canal or neural foraminal stenosis. 2. No definitive evidence of disc herniation or significant spinal canal stenosis. 3. Mild disc degeneration with associated osteoarthritic changes. [facility], , 07/18/2024 12:01 AM
== END | disposition home or self-care (01) ==
LOC: RADMRIMAIN 18:52
PROVIDERS: ATTEND Orthopaedic Surgery
DX: M51.360 Other intervertebral disc degeneration, lumbar region with discogenic back pain only (principal); M47.816 Spondylosis without myelopathy or radiculopathy, lumbar region
CPT/HCPCS: 72148

== ENCOUNTER → 2024-08-02 | Outpatient (CLI) | payer OTHER ==
[2024-08-02 18:10] LABS: HCT 47.2 % (39.6-50.0); HGB 15.3 g/dL (13.0-17.0); MCH 29.5 pg (27.0-32.0); MCHC 32.4 g/dL (32.0-37.0); MCV 91.1 FL (80.0-97.0); Mean Platelet Volume 11.3 FL (9.5-12.2); NRBC Per 100 WBC 0 X 10*3/uL (0.00-0.01); Platelet Count 198 X 10*3/uL (140-440); RBC 5.18 X 10*6/uL (4.40-5.60)
[2024-08-02 18:22] LABS: Carbon Dioxide 23.6 mmol/L (21.6-31.8); Chloride 104 mmol/L (96-109); Potassium 4.5 mmol/L (3.5-5.5); Sodium 141 mmol/L (135-145)
== END | disposition home or self-care (01) ==
LOC: LABPAT 12:11
PROVIDERS: ATTEND Internal Medicine Clinical Cardiac Electrophysiology
DX: Z01.812 Encounter for preprocedural laboratory examination (principal); I48.0 Paroxysmal atrial fibrillation
CPT/HCPCS: 80051; 82565; 84520; 85027

== ENCOUNTER 2024-08-12 09:34 | Day surgery (SDC) | payer OTHER ==
[2024-08-08 11:24] VITALS: BMI 46.5
[2024-08-12] MEDS: IV FLUID CONTINUATION 1,000 ML IV ONE ×2 (10:30→10:37)
[2024-08-12] MEDS: SODIUM CHLORIDE 0.9% 1,000 ML IV SCH ×2 (10:44→21:44)
[2024-08-12] MEDS: DEXAMETHASONE SOD PHOSPHATE 4 MG/ML 1 ML VIAL IVP STA (10:45)
[2024-08-12] MEDS: ONDANSETRON 4 MG/2 ML VIAL IVP STA (10:46)
[2024-08-12 10:55] LABS: ALT 97 U/L (4-49); AST 73 U/L (17-59); African American GFR (CKD) >90 (>60 ml/min/1.73 sqM); Albumin 4.5 g/dL (3.5-5.0); Alkaline Phosphatase 88 U/L (38-126); Anion Gap 10 mmol/L; Blood Urea Nitrogen 11 mg/dL (9-20); Calcium 9.8 mg/dL (8.4-10.2); Carbon Dioxide 28 mmol/L (22-30); Chloride 102 mmol/L (98-107); Glucose 106 mg/dL (74-99); Non-African American GFR(CKD) >90 (>60 ml/min/1.73 sqM); Potassium 4.3 mmol/L (3.5-5.1); Sodium 140 mmol/L (137-145); Total Bilirubin 0.7 mg/dL (0.2-1.3); Total Protein 7.7 g/dL (6.3-8.2)
[2024-08-12] MEDS: HEPARIN SOD,PORK IN 0.45% NACL 25,000 UNIT in 0.45% NACL 1 250ML.BAG IV ONE (11:30)
[2024-08-12] MEDS: LIDOCAINE 1% INJ 10MG/ML (20 ML MDV) SQ ONE (11:56)
[2024-08-12] MEDS: IOPAMIDOL-370 100ML BTL INJ ONE (13:11)
[2024-08-12] MEDS ORDERED: ACETAMINOPHEN TAB 325 MG TAB PO PRN (14:01)
--- NOTE | 2024-08-12 14:08 | P.HPCAR ---
History of Present Illness This is Dr. Sullivan dictating an H/P on this patient The patient was interviewed and examined IMPRESSION / ASSESSMENT: Paroxysmal atrial fibrillation with RVR Refractory to therapy and breakthrough episodes on flecainide Increased BMI Hypertension History of atrial flutter status post ablation PLAN: Calculate heparin dose, continue Eliquis Maximize antihypertensive therapy Weight loss Proceed with A-fib ablation HPI Patient continues to have episodes of atrial fibrillation. Even though he held flecainide for only 2 days, he started having paroxysms of A-fib right away He feels the palpitations and shortness of breath when he is in A-fib Today he is in A-fib ROS: No fever chills or rigors, no cough, phlegm or expectoration, no nausea, vomiting or diarrhea, no hematuria, dysuria, no musculoskeletal complaints, no strokes or seizures, no skin lesions. EXAMINATION: Pulse rate in the 80s respirate 16 Blood pressure 168/80 mmHg afebrile Heart sounds are irregular Breath sounds are clear Abdomen soft nontender REVIEW OF LABS, ECG & MEDICAL DATA Sodium 140, potassium 4.3 Creatinine 0.8 AST and ALT are mildly elevated TSH normal at 3.0 Physical Exam Vitals: Vital Signs Temp Pulse Resp BP Pulse Ox 08/12/24 10:51 98.2 F 80 16 168/80 95 Intake and Output 08/11/24 08/12/24 08/12/24 22:59 06:59 14:59 Intake Total 1092 Balance 1092 Intake: IV 1092 Other: Weight 142.7 kg Past Medical History Past Medical History: Atrial Fibrillation, Atrial Flutter, Hypertension, Sleep Apnea/CPAP/BIPAP Additional Past Medical History / Comment(s): HX of hep C, Back pain. Uses CPAP. SEE DR. SULLIVAN'S H & P History of Any Multi-Drug Resistant Organisms: None Reported Past Surgical History: Back Surgery, Cardiac Ablation, Cholecystectomy, Orthopedic Surgery Additional Past Surgical History / Comment(s): c6-c7 fusion, left foot surg., decompression fusion from S1-L5, CERVICAL DISC REPLACEMENT 04/17/24, DISC REPLACEMENT L5-L6, Past Anesthesia/Blood Transfusion Reactions: No Reported Reaction Additional Past Anesthesia/Blood Transfusion Reaction / Comment(s): No hx of b lood transfusion to date. Smoking Status: Former smoker - Past Family History Father Family Medical History: Coronary Artery Disease (CAD) Additional Family Medical History / Comment(s): Brain tumor Mother Family Medical History: Chest Pain / Angina Additional Family Medical History / Comment(s): Breast cancer Physical Examination Vital Signs Temp Pulse Resp BP Pulse Ox 08/12/24 10:51 98.2 F 80 16 168/80 95 Intake and Output 08/11/24 08/12/24 08/12/24 22:59 06:59 14:59 Intake Total 1092 Balance 1092 Intake: IV 1092 Other: Weight 142.7 kg Results 08/12/24 10:26 Cardiac Enzymes 08/12/24 Range/Units 10:26 AST 73 H (17-59) U/L Comprehensive Metabolic Panel 08/12/24 Range/Units 10:26 Sodium 140 (137-145) mmol/L Potassium 4.3 (3.5-5.1) mmol/L Chloride 102 (98-107) mmol/L Carbon Dioxide 28 (22-30) mmol/L BUN 11 (9-20) mg/dL Creatinine 0.81 (0.66-1.25) mg/dL Glucose 106 H (74-99) mg/dL Calcium 9.8 (8.4-10.2) mg/dL AST 73 H (17-59) U/L ALT 97 H (4-49) U/L Alkaline Phosphatase 88 (38-126) U/L Total Protein 7.7 (6.3-8.2) g/dL Albumin 4.5 (3.5-5.0) g/dL Current Medications Generic Name Dose Route Start Last Admin Trade Name Freq PRN Reason Stop Dose Admin Acetaminophen 650 mg 08/12/24 14:01 Acetaminophen Tab 325 Mg Tab PO 09/11/24 14:00 Q6HR PRN Mild Pain (Scale 1 to 3) Apixaban 5 mg 08/12/24 21:00 Apixaban 5 Mg Tab PO 09/11/24 20:59 BID [facility] Protocol Diltiazem HCl 120 mg 08/13/24 09:00 Diltiazem Cd 120 Mg Cap.Er.24h PO 09/12/24 08:59 DAILY [facility] Flecainide Acetate 50 mg 08/12/24 21:00 Flecainide 50 Mg Tab PO 09/11/24 20:59 Q12HR [facility] Gabapentin 400 mg 08/12/24 16:00 Gabapentin 400 Mg Cap PO 09/11/24 15:59 TID DONALD Sodium Chloride 1,000 mls @ 20 mls/hr 08/12/24 05:58 08/12/24 10:44 Saline 0.9% IV 09/11/24 05:57 20 mls/hr .Q24H DONALD Administration Acetaminophen 1,000 mg/ IV 100 mls @ 400 mls/hr 08/12/24 14:01 Solution IVPB 08/12/24 14:15 ONCE ONE Losartan Potassium 50 mg 08/13/24 09:00 Losartan 25 Mg Tab PO 09/12/24 08:59 DAILY DONALD Sodium Chloride 12 ml 08/12/24 14:01 Sodium Chloride 0.9% Flush 10 Ml Syringe IV 09/11/24 14:00 Q12HR PRN Line Flush Intake and Output 08/11/24 08/12/24 08/12/24 22:59 06:59 14:59 Intake Total 1092 Balance 1092 Intake: IV 1092 Other: Weight 142.7 kg Patient Weight 08/13/24 06:59 Weight 142.7 kg 08/12/24 10:26
--- NOTE | 2024-08-12 14:14 | P.EPPROC ---
- EP Procedure Note Electrophysiology Procedure Note: PROCEDURE A. fib ablation with PVI and left atrial septal ablation DIAGNOSIS Atrial fibrillation, symptomatic, refractory to therapy RESULT No left atrial appendage mass seen on intracardiac echo Successful A. fib ablation/pulmonary vein isolation of all veins using cryo- ablation Complete entrance block in all 4 veins confirmed No evidence for phrenic nerve injury Left atrial septal ablation Esophageal deflection YES, right-sided esophagus Electrical cardioversion with a synchronized shock across the chest YES PROCEDURE DETAILS Written informed consent prior to procedure. Patient brought to the EP lab. General anesthesia given. Heparin administered. A city maintained above 300 seconds Both groins prepped and draped per protocol and venous sheaths placed. Esophagus intubated, circa catheter for temperature monitoring an endoscope for possible esophageal deflection. Phrenic nerve monitoring performed. Esophageal temperature monitoring performed. Esophageal deflection performed if circa catheter overlapping with the balloon or circa temperature less than 27.5°C Intracardiac echocardiography performed. Pericardium evaluated. Left atrial appendage evaluated. Left atrium evaluated along with pulmonary veins Transseptal catheterization performed under fluoroscopic guidance and intracardiac echo guidance Cryoablation sheath exchanged, balloon catheter along with achieve catheter placed in the left atrium. Pulmonary veins isolated in the following sequence: Left superior pulmonary vein followed by left inferior pulmonary vein, followed by right inferior pulmonary vein and lastly right superior pulmonary vein. Phrenic nerve stimulation along with capture thresholds within the SVC and right superior pulmonary vein to identify the phrenic nerve proximity to the cryo- balloon. Pulmonary veins isolated and confirmed with entrance and exit block. Phrenic nerve integrity confirmed at the end of the procedure Ablation of the left atrial septum performed with cannulation of the superior branch of the right inferior or the inferior branch of the right superior vein to achieve ablation of the posterior septum of the left atrium. Ablation of electrograms confirmed Electrical cardioversion performed for persistence of atrial fibrillation despite successful ablation. With a 200 J biphasic shock to sinus rhythm. Measurements were performed thereafter Diagnostic catheters for the high right atrium, His bundle, coronary sinus placed. LA and RA pressures recorded LA pressure: 19/02/17 Diagnostic EP study with coronary sinus pacing and recording Baseline measurements: OH interval 99 ms, QRS 90 ms, QT 406 ms AH 136 ms and HV interval 33 ms Sinus cycle length post cardioversion 877 ms Venous sheaths were removed and hemostasis assured with a closure device. Patient extubated and transferred to recovery PROCEDURES PERFORMED Diagnostic EP study CS pacing and recording Left and right transseptal catheterization Catheter the mapping of the tachycardia Intracardiac echocardiography Pulmonary vein isolation with transseptal and comprehensive EPS, [id number] Linear ablation, left atrium, +[id number] Electrical cardioversion with a synchronized shock across the chest [id number]
[2024-08-12] MEDS: ACETAMINOPHEN IV (For NPO) 1,000 MG in EMPTY BAG 1 BAG IVPB ONE (15:37)
[2024-08-12] MEDS: GABAPENTIN 400 MG CAP PO SCH (16:43)
[2024-08-12] MEDS: HYDROcodone/APAP 10-325MG 1 EACH TAB PO SCH (16:44)
[2024-08-12] MEDS: LACTATED RINGERS 1,000 ML IV SCH (18:21)
[2024-08-12 19:53] VITALS: RESP 16
[2024-08-12] MEDS: LOSARTAN 50 MG TAB PO SCH (20:03)
[2024-08-12] MEDS: APIXABAN 5 MG TAB PO SCH (20:03)
[2024-08-12] MEDS: FLECAINIDE 50 MG TAB PO SCH (20:03)
[2024-08-13 07:16] VITALS: BP 131/82; PULSE 80; TEMP 97.9
[2024-08-13] MEDS: COLCHICINE 0.6 MG EACH PO ONE (08:21)
[2024-08-13] MEDS: DILTIAZEM CD 120 MG CAP.ER.24H PO SCH (08:21)
[2024-08-13] MEDS ORDERED: LOSARTAN 25 MG TAB PO SCH (09:00)
--- NOTE | 2024-08-13 09:27 | DS ---
DISCHARGE SUMMARY John Neri is doing well. He does have a mild pleuritic chest discomfort, but without any rub, gallop, or murmur. Lungs are clear to auscultation. Heart sounds are normal. Groins have healed well. There is no hematoma, no swelling. IMPRESSION: Drug refractory paroxysmal atrial fibrillation, very frequent episodes. Status post left atrial septal ablation yesterday, followed by electrical cardioversion, since he was in atrial fibrillation after having stopped flecainide briefly. He remains in sinus rhythm today. 12-lead EKG is normal. Colchicine 1.2 mg single dose with breakfast. Cardizem CD 120 mg p.o. daily has been reduced to once daily. The dose of losartan has been increased to 100 mg in the evening. He must continue anticoagulation uninterrupted for the next 2 months even temporarily. This was explained to the patient. He will be discharged home today and will follow up with us in about a week. MMODL / IJN: [id number] /
--- NOTE | 2024-08-13 21:48 | PN ---
PROGRESS NOTE DATE OF SERVICE: 08/13/2024 CHIEF COMPLAINT: Atrial fibrillation. HISTORY OF PRESENT ILLNESS: This gentleman is doing well and expects to go home today. PHYSICAL EXAMINATION: CHEST: Clear. CARDIAC: Sounds sinus. IMPRESSION: Status post ablation for atrial fibrillation. PLAN: Home today. MMODL / IJN: [id number] /
--- NOTE | 2024-08-14 00:18 | CONS ---
CONSULTATION CHIEF COMPLAINT: Atrial fibrillation. HISTORY OF PRESENT ILLNESS: This gentleman is brought in electively for an ablation for his atrial fibrillation. REVIEW OF SYSTEMS: He has had no chest pain, syncope, shortness of breath, etc. Past medical history, family history, personal and social histories are otherwise unremarkable. He has a history of previous ablation in 2021. He does not smoke. PHYSICAL EXAMINATION: VITAL SIGNS: Blood pressure is 131/74 with a pulse of 86, respirations were 32. GENERAL: He appeared to be overweight and in no acute distress. HEAD, EARS, EYES, NOSE, MOUTH, AND THROAT: Normal. NECK: Neck veins are not distended. Thyroid is not enlarged. CHEST: Clear. CARDIAC: Reveals an irregularly irregular rhythm. ABDOMEN: Protuberant, soft and nontender without any visceromegaly or masses. Bowel sounds were present. EXTREMITIES: Normal. NEUROLOGICAL: He is intact. ASSESSMENT: He is admitted to the hospital with diagnoses of, 1. Atrial fibrillation. 2. History of hypertension. 3. Type 2 diabetes. 4. Obesity. RECOMMENDATIONS: None. Thank you respectfully, MMJENNAL / IJN: [id number] /
== END 2024-08-13 10:30 | disposition home or self-care (01) ==
LOC: CATHEP 09:34 → 6NMEDSUR 14:56 → CATHEP 08-13 10:30
PROVIDERS: ATTEND Internal Medicine Clinical Cardiac Electrophysiology
DX: I48.0 Paroxysmal atrial fibrillation (principal); E11.9 Type 2 diabetes mellitus without complications; E66.9 Obesity, unspecified; G47.30 Sleep apnea, unspecified; I10 Essential (primary) hypertension; Z79.01 Long term (current) use of anticoagulants; Z79.899 Other long term (current) drug therapy; Z87.891 Personal history of nicotine dependence; Z68.42 Body mass index [BMI] 45.0-49.9, adult
CPT/HCPCS: 92960; 93656; 93657; 86900; 86901; 80053; 84443; 86850; C1894; C1769; C1760 ×2; C1730 ×2; C1759; C1733; C1766; J1100; J2405; J2003; Q9967; J1644

== ENCOUNTER 2024-08-18 15:07 | Emergency (ER) | payer OTHER ==
--- NOTE | 2024-08-18 15:57 | ED ---
Extremity Problem HPI - General Chief complaint: Extremity Problem,Nontraumatic Stated complaint: L side groin pain, swollen and bruised L groin Time Seen by Provider: 08/18/24 15:25 Source: patient Limitations: no limitations - History of Present Illness Initial comments: This patient is a 48-year-old man who presents to have evaluation of left groin pain and swelling. The patient states that he had an ablation in the hospital monday was discharged on Monday. The patient states that he checked his left groin area on Monday and noticed that there was a little swelling and tenderness. When the symptoms persisted he showed his today who felt that he should be evaluated. He denies any systemic symptoms no fever or chills. No chest pain, dyspnea, palpitations, nausea or vomiting. MD Complaint: extremity swelling Onset/Timin -: days(s) Location: left, lower extremity History of Same: No Radiation: none Quality: dull Consistency: constant Improves with: nothing Worsens with: palpation Associated Symptoms: denies other symptoms - Related Data Home Medications Medication Instructions Recorded Confirmed Apixaban [Eliquis] 5 mg PO BID 03/22/24 08/18/24 Cyclobenzaprine [Flexeril] 10 mg PO TID 03/22/24 08/18/24 Gabapentin [Neurontin] 400 mg PO TID 03/22/24 08/18/24 HYDROcodone/APAP 10-325MG [[place] 1 tab PO TID 03/22/24 08/18/24 10-325] Cholecalciferol (Vitamin D3) 1,250 mcg PO Q30D 08/18/24 08/18/24 [Vitamin D3 (1250 Mcg = 50,000 Iu)] Losartan Potassium 100 mg PO HS 08/18/24 08/18/24 Previous Rx's Medication Instructions Recorded Flecainide [Tambocor] 50 mg PO Q12HR #60 tab 03/22/24 dilTIAZem HCL [dilTIAZem HCL 24Hr 120 mg PO DAILY #90 cap 08/12/24 ER (CD)] Allergies Allergy/AdvReac Type Severity Reaction Status Date / Time acetaminophen [From Ofirmev] AdvReac Nausea & Verified 08/18/24 16:22 Vomiting Review of Systems ROS Statement: Those systems with pertinent positive or pertinent negative responses have been documented in the HPI. ROS Other: All systems not noted in ROS Statement are negative. Constitutional: Denies: fever, chills Respiratory: Denies: cough, dyspnea Cardiovascular: Denies: chest pain, palpitations, edema Gastrointestinal: Denies: abdominal pain, vomiting Musculoskeletal: Reports: as per HPI Skin: Denies: rash Neurological: Denies: weakness, numbness Past Medical History Past Medical History: Atrial Fibrillation, Atrial Flutter, Hypertension, Sleep Apnea/CPAP/BIPAP Additional Past Medical History / Comment(s): HX of hep C, Back pain. Uses CPAP. History of Any Multi-Drug Resistant Organisms: None Reported Past Surgical History: Cardiac Ablation, Cholecystectomy, Orthopedic Surgery Additional Past Surgical History / Comment(s): c6-c7 fusion, left foot surg.decompression fusion from S1-L5, Cardiac Ablation Past Anesthesia/Blood Transfusion Reactions: No Reported Reaction Additional Past Anesthesia/Blood Transfusion Reaction / Comment(s): No hx of blood transfusion to date. Past Psychological History: No Psychological Hx Reported Smoking Status: Former smoker Past Alcohol Use History: None Reported Past Drug Use History: Marijuana - Past Family History Father Family Medical History: Coronary Artery Disease (CAD) Additional Family Medical History / Comment(s): Brain tumor Mother Family Medical History: Chest Pain / Angina Additional Family Medical History / Comment(s): Breast cancer General Exam Limitations: no limitations General appearance: alert, in no apparent distress Head exam: Present: atraumatic, normocephalic Extremities exam: Present: normal inspection (Groin ecchymosis), normal capilla ry refill, other (palpable ). Absent: pedal edema Neurological exam: Present: alert. Absent: motor sensory deficit Skin exam: Present: warm, dry, intact, normal color, other (Ecchymosis at the groin) Course Vital Signs 08/18/24 08/18/24 08/18/24 15:14 18:34 18:58 Temperature 98.6 F 38.2 F L Pulse Rate 79 79 78 Respiratory 18 14 18 Rate Blood Pressure 122/67 121/98 123/74 O2 Sat by Pulse 98 94 L 98 Oximetry Medical Decision Making - Medical Decision Making The patient had ultrasound of the groin and extremity that radiology interpreted as negative for pseudoaneurysm Was pt. sent in by a medical professional or institution (, PA, ROLL TUBE SETTER, urgent care, hospital, or alf...) When possible be specific @ -[No] Did you speak to anyone other than the patient for history (EMS, parent, family, police, friend...)? What history was obtained from this source @ -[No] Did you review nursing and triage notes (agree or disagree)? Why? @ -[I reviewed and agree with nursing and triage notes] Were old charts reviewed (outside hosp., previous admission, EMS record, old EKG, old radiological studies, urgent care reports/EKG's, alf records)? Report findings @ -[No old charts were reviewed] Differential Diagnosis (chest pain, altered mental status, abdominal pain women, abdominal pain men, vaginal bleeding, weakness, fever, dyspnea, syncope, headache, dizziness, GI bleed, back pain, seizure, CVA, palpatations, mental health, musculoskeletal)? @ -[not applicable] EKG interpreted by me (3pts min.). @ -[As above] X-rays interpreted by me (1pt min.). @ -[None done] CT interpreted by me (1pt min.). @ -[None done] U/S interpreted by me (1pt. min.). @ -[None done] What testing was considered but not performed or refused? (CT, X-rays, U/S, labs)? Why? @ -[None] What meds were considered but not given or refused? Why? @ -[None] Did you discuss the management of the patient with other professionals (professionals i.e. , PA, ROLL TUBE SETTER, lab, RT, psych nurse, social research assistant, commercial shrimping captain, teacher, data officer, protective services case worker)? Give summary @ -[No] Was smoking cessation discussed for >3mins.? @ -[No] Was critical care preformed (if so, how long)? @ -[No] Were there social determinants of health that impacted care today? How? (Homelessness, low income, unemployed, alcoholism, drug addiction, tra nsportation, low edu. Level, literacy, decrease access to med. care, snf, rehab)? @ -[No] Was there de-escalation of care discussed even if they declined (Discuss DNR or withdrawal of care, Hospice)? DNR status @ -[No] What co-morbidities impacted this encounter? (DM, HTN, Smoking, COPD, CAD, Can cer, CVA, ARF, Chemo, Hep., AIDS, mental health diagnosis, sleep apnea, morbid obesity)? @ -[Recent heart catheterization Was patient admitted / discharged? Hospital course, mention meds given and [place], prescriptions, significant lab abnormalities, going to OR and other pertinent info. @ -[Patient is 48-year-old man here to have evaluation of leg swelling and pain following heart cath. On the exam there is a degree of swelling and the patient had ultrasound that does not reveal pseudoaneurysm. On reevaluation he is feeling better and would like to go home. Discussed appropriate further care and follow-up as well as return parameters Undiagnosed new problem with uncertain prognosis? @ -[No] Drug Therapy requiring intensive monitoring for toxicity (Heparin, Nitro, Insulin, Cardizem)? @ -[No] Were any procedures done? @ -[No] Diagnosis/symptom? @ -[Acute groin pain Acute, or Chronic, or Acute on Chronic? @ -[Acute Uncomplicated (without systemic symptoms) or Complicated (systemic symptoms)? @ -[Uncomplicated Side effects of treatment? @ -[No] Exacerbation, Progression, or Severe Exacerbation? @ -[No] Poses a threat to life or bodily function? How? (Chest pain, [place], [place], pneumonia, PE, COPD, DKA, ARF, appy, cholecystitis, CVA, Diverticulitis, Homicidal, Suicidal, threat to staff... and all critical care pts) @ -[No] All treatments are based on ideal body weight as in ED triage - Lab Data Result diagrams: 08/18/24 16:46 08/18/24 17:35 Lab Results 08/18/24 08/18/24 Range/Units 16:46 17:35 WBC 10.27 H (4.50-10.00) 10*3/uL RBC 5.31 (4.40-5.60) 10*6/uL Hgb 16.3 (13.0-17.0) g/dL Hct 48.0 (39.6-50.0) % MCV 90.4 (80.0-97.0) fL MCH 30.7 (27.0-32.0) pg MCHC 34.0 (32.0-37.0) g/dL Plt Count 243 (140-440) 10*3/uL MPV 9.8 (9.5-12.2) fL Immature Gran % (Auto) 0.4 % Neutrophils % 61.3 % Lymphocytes % 26.1 % Monocytes % 10.2 % Eosinophils % 1.6 % Basophils % 0.4 % Immature Gran # 0.04 (0.00-0.04) 10*3/uL Neutrophils # 6.30 (1.80-7.70) 10*3/uL Lymphocytes # 2.68 (0.90-5.00) 10*3/uL Monocytes # 1.05 H (0.20-1.00) 10*3/uL Eosinophils # 0.16 (0.04-0.35) 10*3/uL Basophils # 0.04 (0.00-0.10) 10*3/uL Sodium 137 (137-145) mmol/L Potassium 6.0 H (3.5-5.1) mmol/L Chloride 103 (98-107) mmol/L Carbon Dioxide 24 (22-30) mmol/L Anion Gap 10 mmol/L BUN 12 (9-20) mg/dL Creatinine 0.83 (0.66-1.25) mg/dL Est GFR (CKD-EPI)AfAm >90 (>60 ml/min/1.73 sqM) Est GFR (CKD-EPI)NonAf >90 (>60 ml/min/1.73 sqM) Glucose 101 H (74-99) mg/dL Calcium 10.0 (8.4-10.2) mg/dL Disposition Clinical Impression: Groin pain Disposition: HOME SELF-CARE Condition: Good Instructions (If sedation given, give patient instructions): Groin Pain (ED) Is patient prescribed a controlled substance at d/c from ED?: No Referrals: Rafael Dinero MD [Primary Care Provider] - 1-2 days
[2024-08-18] MEDS: MORPHINE SULFATE 4 MG/ML SYRINGE IV STA (16:39)
[2024-08-18 16:49] LABS: Basophils # (A) 0.04 10*3/uL (0.00-0.10); Basophils % (A) 0.4 %; Eosinophils # (A) 0.16 10*3/uL (0.04-0.35); Eosinophils % (A) 1.6 %; HGB 16.3 g/dL (13.0-17.0); Lymphocytes # (A) 2.68 10*3/uL (0.90-5.00); Lymphocytes % (A) 26.1 %; MCH 30.7 pg (27.0-32.0); MCV 90.4 fL (80.0-97.0); Mean Platelet Volume 9.8 fL (9.5-12.2); Monocytes # (A) 1.05 10*3/uL (0.20-1.00); Monocytes % (A) 10.2 %; Neutrophils % (A) 61.3 %; Platelet Count 243 10*3/uL (140-440); RBC 5.31 10*6/uL (4.40-5.60); RDW 12.7 % (11.5-14.5); WBC 10.27 10*3/uL (4.50-10.00)
--- NOTE | 2024-08-18 17:14 | US ---
EXAMINATION TYPE: US lower ext pseudo artery LT DATE OF EXAM: 08/18/2024 COMPARISON: NONE CLINICAL INDICATION: Male, 48 years old with history of recent cath, swelling and pain; heart cath in left groin 6 days ago, bruising and palpable area TECHNIQUE:: Grayscale, color Doppler and spectral Doppler imaging performed of the groin, post cardia c catheter to assess for pseudoaneurysm. FINDINGS: SIDE PERFORMED: Left Color and Waveform Doppler performed to assess for the presence of pseudoaneurysm; Is there ultrasound evidence of a pseudoaneurysm: no Is there evidence of AV shunting: no Is there a fluid collection present: yes, nonvascular, medial to CFV = 2.4cm. IMPRESSION: 1. No convincing sonographic evidence of a pseudoaneurysm or AV fistula. 2. Nonspecific small fluid collection adjacent to the common femoral artery and vein measuring 2.3 x 2.4 x 1.3 cm. [facility], , 08/18/2024 5:11 PM
[2024-08-18 18:17] LABS: African American GFR (CKD) >90 (>60 ml/min/1.73 sqM); Anion Gap 10 mmol/L; Blood Urea Nitrogen 12 mg/dL (9-20); Carbon Dioxide 24 mmol/L (22-30); Chloride 103 mmol/L (98-107); Glucose 101 mg/dL (74-99); Non-African American GFR(CKD) >90 (>60 ml/min/1.73 sqM); Sodium 137 mmol/L (137-145)
[2024-08-18 18:36] VITALS: TEMP 38.2
[2024-08-18 18:58] VITALS: BP 123/74; PULSE 78; RESP 18
== END 2024-08-18 18:58 | disposition home or self-care (01) ==
LOC: EC 15:07
DX: R10.30 Lower abdominal pain, unspecified (principal); Z87.891 Personal history of nicotine dependence; Z79.01 Long term (current) use of anticoagulants; Z88.6 Allergy status to analgesic agent; Z98.890 Other specified postprocedural states
CPT/HCPCS: 36415; 80048; 85025; 93975; 93926; 99284; 96374; J2270

== ENCOUNTER → 2024-10-07 | Outpatient (CLI) | payer OTHER ==
--- NOTE | 2024-10-09 07:32 | P.PAINPG ---
PQRS Measure Charge Sheet Comment: HISTORY OF PRESENT ILLNESS: A 48 yr old male as a referral from Dr Wilson presents today w severe and chronic LBP > 1 yr secondary to failed L5-S1 TLIF, L Sacroiliitis for evaluation. Pt states pain level is provoked at 6 /10 in intensity, constant, localized in the L lumbosacral spine, predominantly axial, achy in character w occasional shooting pain towards the buttock. Pain is provoked by sitting for periods > 30 min. Pain is alleviated by PT x 6 wks which ended in Nov 2023, physician guided home stretches daily since Nov 2023, medications, topical, manual massage, repositioning and rest . Oswestry axial pain score at 27. PMH: OA, aFib, Atrial Flutter, HTN, CORRINE, Hx of HepC PSH: L5-S1 TLIF (09/21), C5-C7 Arthroplasty w Fusion (04/23), L5-S1 Decompression w Fusion, Cardiac Ablation, Cholecystectomy, L Foot Surgery SH: Former tobacco user, No ETOH abuse, Cannabis use FH: Fa- CAD, Brain Tumor. Mo- Angina, Breast CA All: See list Medications include Ibu, Tyl, Flexeril REVIEW OF ORGAN SYSTEMS: CONSTITUTIONAL: No fevers or chills. No recent weight loss. NEUROLOGICAL: + numbness and tingling along the distal extremities. No seizure disorders or headaches. MUSCULOSKELETAL: + pain PSYCHIATRIC: Denies current depression or suicidal thoughts. Physical Examinations : Constitutional : Cooperative , not in acute distress . Neurologic : Cranial nerve II to XII intact. No focal neurological deficits. Psychiatric : alert & oriented x 3. Matching mood & appropriate affect. Judgment & insight intact. Musculoskeletal : Cervical Spine Motor strength in the deltoid and biceps: Normal right side. Normal Left side Motor strength biceps and the wrist extensors: Normal right side . Normal left side Motor strength in the triceps muscle: Normal right side. Normal left side Deep tendon reflexes: Normal at the biceps. Normal at Brachioradialis. Normal at triceps Vertebral body tenderness to deep palpation over Cervical facet loading test: positive bilaterally Spurling test: positive bilaterally Neck distraction test: positive bilaterally Fredi sign: positive bilaterally Lumbar spine Motor strength lower extremities ,thigh and legs 5/5 Right side , 5/5 Left side Deep tendon reflexes : Normal Knee Jerk. Normal Ankle Jerk Vertebral body tenderness over Majano Test positive Lumbar facet Loading Test: positive Right / positive Left Range of motion of the lumbar spine Flexion 30 degrees, extension 10 degrees Straight Leg Raise test: Left/ Right positive at degrees Julee test: positive right / positive left. Severe tenderness over the Sacroiliac joint on the Right / Left sides Gaenslen test: positive bilaterally Seated flexion test: positive bilaterally. Sacral spine : Severe tenderness over the Sacroiliac joint: right side / left side Range of motion: Flexion of the lumbar spine <60 degrees Range of motion: Extension of the lumbar spine <20 degrees Gaenslen's Test positive L Julee test: positive right side / l eft side Thigh Thrust Test L positive Sacral Thrust Test Imaging: MRI non contrast lumbar spine from 07/17/24 reviewed Assessment/ Plan : L5-S1 TLIF, L Sacroiliitis Recommendation of L SI #1. Risks, benefits of procedure discussed and patient verbalized understanding. All questions answered. I have spent greater than 30 minutes on patient care today. Dr Luong was available by phone for the evaluation of this patient. The time was used to review the medical records including relevant urine studies and Prescription history (MAPs), review of the available imaging, evaluation and examination of the patient, coordination of care with the medical staff and if applicable refe rring physicians, as well as creation of the medical record - Pain Location Lower Back Pharmacological Interventions: Medication PQRS Narrative: Smoking Status Former smoker Home Medications: Ambulatory Orders Apixaban [Eliquis] 5 mg PO BID 03/22/24 Cyclobenzaprine [Flexeril] 10 mg PO TID 03/22/24 Flecainide [Tambocor] 50 mg PO Q12HR #60 tab 03/22/24 Gabapentin [Neurontin] 400 mg PO TID 03/22/24 HYDROcodone/APAP 10-325MG [[place] 10-325] 1 tab PO TID 03/22/24 dilTIAZem HCL [dilTIAZem HCL 24Hr ER (CD)] 120 mg PO DAILY #90 cap 08/12/24 Cholecalciferol (Vitamin D3) [Vitamin D3 (1250 Mcg = 50,000 Iu)] 1,250 mcg PO Q30D 08/18/24 Losartan Potassium 100 mg PO HS 08/18/24 Controlled Substance Measures - Controlled Substance Measures Is patient prescribed a controlled substance at discharge?: No
== END ==
LOC: PNWHC3 12:05
PROVIDERS: ATTEND Specialist
DX: M46.1 Sacroiliitis, not elsewhere classified (principal); M43.27 Fusion of spine, lumbosacral region; Z88.8 Allergy status to other drugs, medicaments and biological substances; Z87.891 Personal history of nicotine dependence
CPT/HCPCS: 99202

== ENCOUNTER 2024-10-31 10:09 | Day surgery (SDC) | payer OTHER ==
[2024-10-29 11:32] VITALS: BMI 44.3
[~2024-10-31 10:09] MED LIST changes: +LACTATED RINGERS 1,000 ML IV SCH; -MIDAZOLAM 2 MG/2 ML VIAL IV PRN; -ONDANSETRON 4 MG/2 ML VIAL IVP PRN; -TRANEXAMIC 1,000 MG/100ML-NACL 1,000 MG in SALINE 1 100ML.BAG IVPB PRN; -fentaNYL (PF) 50 MCG/ML 2 ML AMP IVP PRN
[2024-10-31 11:09] VITALS: TEMP 97.9
[2024-10-31] MEDS ORDERED: ROPIVACAINE 5 MG/ML 30 ML VIAL ONE (11:37)
[2024-10-31] MEDS ORDERED: methylPREDNISolone ACETATE 80 MG/ML 1 ML VIAL ONE (11:37)
[2024-10-31] MEDS ORDERED: IOPAMIDOL M300 15ML VIAL ONE (11:37)
--- NOTE | 2024-10-31 11:53 | P.PCN ---
Description of Procedure: Preprocedure diagnosis. Sacroiliac joint arthropathy. Postprocedure diagnosis. As above. Procedure done. Injection of the radio contrast material into bilateral sacroiliac joint, sacroiliac joint arthrogram, interpretation of arthrogram. Bilateral sacroiliac joint injection with local anesthetics and steroid under fluoroscopic guidance. Anesthesia. Local anesthetic infiltration. Continuous EKG, pulse ox, blood pressure, and verbal communication was maintained with the patient in OR. Blood loss. Minimal. Indication. Sacroiliac joint arthropathy. Discussed the procedure, alternatives, complications which may include infection,bleeding, nerve damage, aggravation of pain which could be permanent. Patient understands and questions were answered. Procedure note. After getting consent patient in OR in prone position. Back prepped with chlorhexidine and draped in sterile manner. After injecting 10 mL of 1% lidocaine subcutaneously, a 23-gauge spinal needle was introduced under tunnel vision of the fluoroscope in the lower and posterior one third of right sacroiliac joint. After needle position confirmation by AP and crosstable lateral view, 1 mL of Isovue 200 contrast was injected. Contrast was noted to be into the sacroiliac joint. After repeat negative aspiration, 2.5 mL solution was injected which consists of 1.5 ml of 0.5% Ropivacaine mixed with 1 mL of 40 mg Depo-Medrol. In exactly same way left sacroiliac joint was injected with same amount of solution. After the procedure needles were taken out. Bandage applied. Disposition. Patient tolerated the procedure well. No complication. Patient was discharged home in stable condition.
[2024-10-31 12:00] VITALS: RESP 17
--- NOTE | 2024-10-31 12:19 | FL ---
Zain SI Inj 27sec fluoro time .[id number] [facility], , 10/31/2024 12:17 PM
[2024-10-31 12:21] VITALS: BP 122/79; PULSE 70
== END 2024-10-31 12:40 | disposition home or self-care (01) ==
LOC: ORPAIN 10:09
PROVIDERS: ATTEND Pain Medicine Interventional Pain Medicine
DX: M46.1 Sacroiliitis, not elsewhere classified (principal); I48.91 Unspecified atrial fibrillation; Z79.01 Long term (current) use of anticoagulants; Z79.899 Other long term (current) drug therapy
CPT/HCPCS: 27096; J2795; Q9967; J1010; G0260

== ENCOUNTER 2024-11-06 13:09 | Emergency (ER) | payer OTHER ==
--- NOTE | 2024-11-06 13:33 | ED ---
General Adult HPI - General Source: patient, RN notes reviewed Mode of arrival: ambulatory Limitations: no limitations <Benson Caballero - Last Filed: 11/06/24 13:33> <Curt Mcfarlane - Last Filed: 11/06/24 18:00> - General Stated complaint: abd pain, dizziness,chest pain Time Seen by Provider: 11/06/24 13:33 - History of Present Illness Initial comments: Quick note: 48-year-old male presented the ER for evaluation of epigastric abdominal discomfort. He states about 1 month ago he started to experience epigastric abdominal pain after eating. He states throughout the month he has had continued intermittent flares of pain but pain has become more constant and is currently all the time. Patient also reports he feels mildly dizzy and nauseous. He does have a known cardiac history significant of atrial fibrillation with recent cardiac ablation. (Benson Caballero) - Related Data Home Medications Medication Instructions Recorded Confirmed Apixaban [Eliquis] 5 mg PO BID 03/22/24 11/06/24 HYDROcodone/APAP 10-325MG [Elizabeth 1 tab PO TID 03/22/24 11/06/24 10-325] Cholecalciferol (Vitamin D3) 1,250 mcg PO Q30D 08/18/24 11/06/24 [Vitamin D3 (1250 Mcg = 50,000 Iu)] Losartan Potassium 100 mg PO HS 08/18/24 11/06/24 dilTIAZem HCL [Tiazac] 240 mg PO DAILY 11/06/24 11/06/24 Allergies Allergy/AdvReac Type Severity Reaction Status Date / Time acetaminophen [From [facility]] AdvReac Nausea & Verified 11/06/24 16:17 Vomiting Review of Systems ROS Other: All systems not noted in ROS Statement are negative. <Benson Caballero - Last Filed: 11/06/24 13:33> ROS Other: All systems not noted in ROS Statement are negative. <Curt Mcfarlane - Last Filed: 11/06/24 18:00> ROS Statement: Those systems with pertinent positive or pertinent negative responses have been documented in the HPI. Past Medical History Past Medical History: Atrial Fibrillation, Atrial Flutter, Hypertension, Sleep Apnea/CPAP/BIPAP Additional Past Medical History / Comment(s): HX of hep C, Back pain. Uses CPAP. History of Any Multi-Drug Resistant Organisms: None Reported Past Surgical History: Cardiac Ablation, Cholecystectomy, Orthopedic Surgery Additional Past Surgical History / Comment(s): c6-c7 fusion, left foot surg.decompression fusion from S1-L5, Cardiac Ablation; DISC replacement 5-6l Past Anesthesia/Blood Transfusion Reactions: No Reported Reaction Additional Past Anesthesia/Blood Transfusion Reaction / Comment(s): No hx of blood transfusion to date. Smoking Status: Former smoker - Past Family History Father Family Medical History: Coronary Artery Disease (CAD) Additional Family Medical History / Comment(s): Brain tumor Mother Family Medical History: Chest Pain / Angina Additional Family Medical History / Comment(s): Breast cancer <Benson Caballero - Last Filed: 11/06/24 13:33> General Exam <Benson Caballero - Last Filed: 11/06/24 13:33> - General Exam Comments Initial Comments: Visual Physical Exam Vital signs reviewed General: Well-appearing, nontoxic, no acute distress. Head: Normocephalic, atraumatic Eyes: PERRLA, EOMI ENT: Airway patent Chest: Nonlabored breathing Skin: No visual rash, normal skin tone Neuro: Alert and oriented 3 Musculoskeletal: No gross abnormalities (Benson Caballero) Course Vital Signs 11/06/24 11/06/24 13:39 16:05 Temperature 98.8 F Pulse Rate 66 60 Respiratory 16 18 Rate Blood Pressure 139/95 132/78 O2 Sat by Pulse 96 98 Oximetry EKG Findings - EKG Comments: EKG Findings:: EKG is sinus bradycardia 59 DE 158 QRS 120 QTc 443 - EKG Results: EKG: interpreted by ERMD <Curt Mcfarlane - Last Filed: 11/06/24 18:00> Medical Decision Making <Benson Caballero - Last Filed: 11/06/24 13:33> - Lab Data Result diagrams: 11/06/24 14:12 11/06/24 14:12 <Curt Mcfarlane - Last Filed: 11/06/24 18:00> - Medical Decision Making I performed the quick note portion of this chart. Electronically signed by Benson Caballero PA-C (Benson Caballero) - Lab Data Lab Results 11/06/24 11/06/24 11/06/24 Range/Units 14:12 14:12 14:12 WBC 11.10 H (4.50-10.00) 10*3/uL RBC 5.11 (4.40-5.60) 10*6/uL Hgb 15.9 (13.0-17.0) g/dL Hct 45.8 (39.6-50.0) % MCV 89.6 (80.0-97.0) fL MCH 31.1 (27.0-32.0) pg MCHC 34.7 (32.0-37.0) g/dL Plt Count 230 (140-440) 10*3/uL MPV 9.4 L (9.5-12.2) fL Immature Gran % (Auto) 0.4 % Neutrophils % 74.1 % Lymphocytes % 16.4 % Monocytes % 8.2 % Eosinophils % 0.4 % Basophils % 0.5 % Immature Gran # 0.04 (0.00-0.04) 10*3/uL Neutrophils # 8.24 H (1.80-7.70) 10*3/uL Lymphocytes # 1.82 (0.90-5.00) 10*3/uL Monocytes # 0.91 (0.20-1.00) 10*3/uL Eosinophils # 0.04 (0.04-0.35) 10*3/uL Basophils # 0.05 (0.00-0.10) 10*3/uL PT (10.0-12.5) sec INR (<1.2) APTT (22.0-30.0) sec Sodium 133 L (137-145) mmol/L Potassium 5.1 (3.5-5.1) mmol/L Chloride 94 L (98-107) mmol/L Carbon Dioxide 26 (22-30) mmol/L Anion Gap 13 mmol/L BUN 16 (9-20) mg/dL Creatinine 0.59 L (0.66-1.25) mg/dL Est GFR (CKD-EPI)AfAm >90 (>60 ml/min/1.73 sqM) Est GFR (CKD-EPI)NonAf >90 (>60 ml/min/1.73 sqM) Glucose 109 H (74-99) mg/dL Calcium 9.4 (8.4-10.2) mg/dL Total Bilirubin 1.6 H (0.2-1.3) mg/dL AST 67 H (17-59) U/L ALT 78 H (4-49) U/L Alkaline Phosphatase 108 (38-126) U/L Troponin I <0.012 (0.000-0.034) ng/mL Total Protein 8.6 H (6.3-8.2) g/dL Albumin 5.0 (3.5-5.0) g/dL Amylase 44 (30-110) U/L Lipase 51 (23-300) U/L 11/06/24 Range/Units 14:12 WBC (4.50-10.00) 10*3/uL RBC (4.40-5.60) 10*6/uL Hgb (13.0-17.0) g/dL Hct (39.6-50.0) % MCV (80.0-97.0) fL MCH (27.0-32.0) pg MCHC (32.0-37.0) g/dL Plt Count (140-440) 10*3/uL MPV (9.5-12.2) fL Immature Gran % (Auto) % Neutrophils % % Lymphocytes % % Monocytes % % Eosinophils % % Basophils % % Immature Gran # (0.00-0.04) 10*3/uL Neutrophils # (1.80-7.70) 10*3/uL Lymphocytes # (0.90-5.00) 10*3/uL Monocytes # (0.20-1.00) 10*3/uL Eosinophils # (0.04-0.35) 10*3/uL Basophils # (0.00-0.10) 10*3/uL PT 11.9 (10.0-12.5) sec INR 1.1 (<1.2) APTT 25.1 (22.0-30.0) sec Sodium (137-145) mmol/L Potassium (3.5-5.1) mmol/L Chloride (98-107) mmol/L Carbon Dioxide (22-30) mmol/L Anion Gap mmol/L BUN (9-20) mg/dL Creatinine (0.66-1.25) mg/dL Est GFR (CKD-EPI)AfAm (>60 ml/min/1.73 sqM) Est GFR (CKD-EPI)NonAf (>60 ml/min/1.73 sqM) Glucose (74-99) mg/dL Calcium (8.4-10.2) mg/dL Total Bilirubin (0.2-1.3) mg/dL AST (17-59) U/L ALT (4-49) U/L Alkaline Phosphatase (38-126) U/L Troponin I (0.000-0.034) ng/mL Total Protein (6.3-8.2) g/dL Albumin (3.5-5.0) g/dL Amylase (30-110) U/L Lipase (23-300) U/L Disposition <Benson Caballero - Last Filed: 11/06/24 13:33> Is patient prescribed a controlled substance at d/c from ED?: No Time of Disposition: 18:00 <Curt Mcfarlane - Last Filed: 11/06/24 18:00> Clinical Impression: Gastritis, Chest pain, Abdominal pain Disposition: HOME SELF-CARE Condition: Fair Instructions (If sedation given, give patient instructions): Gastritis (ED) Referrals: Rafael Dinero MD [Primary Care Provider] - 1-2 days
[2024-11-06 13:41] VITALS: TEMP 98.8
--- NOTE | 2024-11-06 14:12 | XR ---
EXAMINATION TYPE: XR chest 2V DATE OF EXAM: 11/06/2024 1:49 PM COMPARISON: Chest radiographs from 03/21/2024. CLINICAL INDICATION: Male, 48 years old with history of epigastric abd pain; [facility] TECHNIQUE: XR chest 2V Frontal and lateral views of the chest. FINDINGS: Lungs/Pleura: There is no evidence of pleural effusion, focal consolidation, or pneumothorax. Pulmonary vascularity: Unremarkable. Heart/mediastinum: Cardiomediastinal silhouette is unremarkable. Musculoskeletal: No acute osseous pathology. There is fixation hardware in the lower cervical spine. IMPRESSION: No acute cardiopulmonary disease/process. [facility], , 11/06/2024 2:10 PM
[2024-11-06 14:20] LABS: Basophils # (A) 0.05 10*3/uL (0.00-0.10); Basophils % (A) 0.5 %; Eosinophils # (A) 0.04 10*3/uL (0.04-0.35); Eosinophils % (A) 0.4 %; HCT 45.8 % (39.6-50.0); HGB 15.9 g/dL (13.0-17.0); Lymphocytes # (A) 1.82 10*3/uL (0.90-5.00); Lymphocytes % (A) 16.4 %; MCH 31.1 pg (27.0-32.0); MCHC 34.7 g/dL (32.0-37.0); MCV 89.6 fL (80.0-97.0); Monocytes # (A) 0.91 10*3/uL (0.20-1.00); Monocytes % (A) 8.2 %; Neutrophils # (A) 8.24 10*3/uL (1.80-7.70); Neutrophils % (A) 74.1 %; Platelet Count 230 10*3/uL (140-440); RBC 5.11 10*6/uL (4.40-5.60); RDW 12.9 % (11.5-14.5); WBC 11.10 10*3/uL (4.50-10.00)
[2024-11-06 14:37] LABS: ALT 78 U/L (4-49); African American GFR (CKD) >90 (>60 ml/min/1.73 sqM); Amylase 44 U/L (30-110); Anion Gap 13 mmol/L; Blood Urea Nitrogen 16 mg/dL (9-20); Calcium 9.4 mg/dL (8.4-10.2); Carbon Dioxide 26 mmol/L (22-30); Chloride 94 mmol/L (98-107); Lipase 51 U/L (23-300); Non-African American GFR(CKD) >90 (>60 ml/min/1.73 sqM); Sodium 133 mmol/L (137-145)
[2024-11-06 14:46] LABS: Potassium 5.1 mmol/L (3.5-5.1)
[2024-11-06 14:47] LABS: AST 67 U/L (17-59); Albumin 5.0 g/dL (3.5-5.0); Alkaline Phosphatase 108 U/L (38-126); Glucose 109 mg/dL (74-99); Total Protein 8.6 g/dL (6.3-8.2)
[2024-11-06 15:07] LABS: INR 1.1 (<1.2); Partial Thromboplastin Time 25.1 sec (22.0-30.0); Prothrombin Time 11.9 sec (10.0-12.5)
[2024-11-06 16:07] VITALS: RESP 18
[2024-11-06] MEDS: ONDANSETRON 4 MG/2 ML VIAL IVP STA (18:15)
[2024-11-06] MEDS: KETOROLAC 15 MG/ML 1 ML VIAL IVP STA (18:15)
[2024-11-06] MEDS: MORPHINE SULFATE 4 MG/ML SYRINGE IVP STA (18:16)
[2024-11-06] MEDS: PANTOPRAZOLE 40 MG/10 ML VIAL IVP STA (18:16)
[2024-11-06 18:32] VITALS: BP 135/80; PULSE 64
== END 2024-11-06 18:32 | disposition home or self-care (01) ==
LOC: EC 13:09
DX: K29.70 Gastritis, unspecified, without bleeding (principal); R07.9 Chest pain, unspecified; R00.1 Bradycardia, unspecified; Z87.891 Personal history of nicotine dependence; Z88.8 Allergy status to other drugs, medicaments and biological substances
CPT/HCPCS: 36415; 93005; 80053; 82150; 83690; 84484; 85025; 85610; 85730; 71046; 99285; 96374; 96375; J2270; J2405; J1885; J2470

== ENCOUNTER → 2024-11-21 | Outpatient (CLI) | payer OTHER ==
[2024-11-21 13:28] VITALS: BP 135/88; PULSE 70; RESP 16; TEMP 98.5
--- NOTE | 2024-11-21 15:01 | P.PAINPG ---
Objective - Vital Signs Vital signs: Vital Signs Temp 98.5 F 11/21/24 13:21 Pulse 70 11/21/24 13:21 Resp 16 11/21/24 13:21 BP 135/88 11/21/24 13:21 Pulse Ox 94 L 11/21/24 13:21 FiO2 Intake & Output 11/20/24 11/21/24 11/21/24 18:59 06:59 18:59 Weight 133.81 kg PQRS Measure Charge Sheet Mode of Arrival: Ambulatory Comment: HISTORY OF PRESENT ILLNESS: A 48 yr old male presents today w severe and chronic LBP > 1 yr secondary to failed L5-S1 TLIF, L Sacroiliitis for evaluation s/p BL SI #1. Pt states he experienced 100% pain relief x 5 days s/p procedure. Pt states pain level is provoked at 3-6 /10 in intensity, constant, localized in the L lumbosacral spine, predominantly axial, achy in character w occasional shooting pain towards the buttock. Pain is provoked by sitting for periods > 30 min. Pain is alleviated by PT x 6 wks which ended in Nov 2023, physician guided home stretches daily since Nov 2023, medications, topical, manual massage, repositioning and rest . Oswestry axial pain score at 27. Interventional procedures include L5-S1 TLIF (09/21), C5-C7 Arthroplasty w Fusion (04/23), L5-S1 Decompression w Fusion, BL SI x1 (11/22) Medications include Ibu, Tyl, Flexeril, Cannabis REVIEW OF ORGAN SYSTEMS: CONSTITUTIONAL: No fevers or chills. No recent weight loss. NEUROLOGICAL: + numbness and tingling along the distal extremities. No seizure disorders or headaches. MUSCULOSKELETAL: + pain PSYCHIATRIC: Denies current depression or suicidal thoughts. Physical Examinations : Constitutional : Cooperative , not in acute distress . Neurologic : Cranial nerve II to XII intact. No focal neurological deficits. Psychiatric : alert & oriented x 3. Matching mood & appropriate affect. Judgment & insight intact. Musculoskeletal : Cervical Spine Motor strength in the deltoid and biceps: Normal right side. Normal Left side Motor strength biceps and the wrist extensors: Normal right side . Normal left side Motor strength in the triceps muscle: Normal right side. Normal left side Deep tendon reflexes: Normal at the biceps. Normal at Brachioradialis. Normal at triceps Vertebral body tenderness to deep palpation over Cervical facet loading test: positive bilaterally Spurling test: positive bilaterally Neck distraction test: positive bilaterally Fredi sign: positive bilaterally Lumbar spine Motor strength lower extremities ,thigh and legs 5/5 Right side , 5/5 Left side Deep tendon reflexes : Normal Knee Jerk. Normal Ankle Jerk Vertebral body tenderness over Majano Test positive Lumbar facet Loading Test: positive Right / positive Left Range of motion of the lumbar spine Flexion 30 degrees, extension 10 degrees Straight Leg Raise test: Left/ Right positive at degrees Julee test: positive right / positive left. Severe tenderness over the Sacroiliac joint on the Right / Left sides Gaenslen test: positive bilaterally Seated flexion test: positive bilaterally. Sacral spine : Severe tenderness over the Sacroiliac joint: right side / left side Range of motion: Flexion of the lumbar spine <60 degrees Range of motion: Extension of the lumbar spine <20 degrees Gaenslen's Test positive BL Julee test: positive right side < left side Thigh Thrust Test BL positive Sacral Thrust Test Imaging: MRI non contrast lumbar spine from 07/17/24 reviewed Assessment/ Plan : L5-S1 TLIF, L Sacroiliitis Will follow up when he can schedule diagnostic BL SI #2. All questions answered. I have spent greater than 30 minutes on patient care today. Dr Luong was available by phone for the evaluation of this patient. The time was used to review the medical records including relevant urine studies and Prescription history (MAPs), review of the available imaging, evaluation and examination of the patient, coordination of care with the medical staff and if applicable referring physicians, as well as creation of the medical record - Pain Location Bilateral Lower Back Non-Pharmacological Interventions: Ice, Inactivity, Physical Therapy, Position/Reposition, Sitting Pharmacological Interventions: Epidural, PRN Medication, Scheduled Medication, Topical Medication PQRS Narrative: Smoking Status Former smoker Blood Pressure 135/88 Pain Intensity [Bilateral 6 Lower Back] Scale Used Numeric (1 - 10) Hx Alcohol Use (MH) No Home Medications: Ambulatory Orders Apixaban [Eliquis] 5 mg PO BID 03/22/24 HYDROcodone/APAP 10-325MG [[place] 10-325] 1 tab PO TID 03/22/24 Cholecalciferol (Vitamin D3) [Vitamin D3 (1250 Mcg = 50,000 Iu)] 1,250 mcg PO Q30D 08/18/24 Losartan Potassium 100 mg PO HS 08/18/24 dilTIAZem HCL [Tiazac] 240 mg PO DAILY 11/06/24 Controlled Substance Measures - Controlled Substance Measures Is patient prescribed a controlled substance at discharge?: No
== END ==
LOC: PNWHC3 13:14
PROVIDERS: ATTEND Specialist
DX: M46.1 Sacroiliitis, not elsewhere classified (principal); Z98.890 Other specified postprocedural states; Z88.6 Allergy status to analgesic agent; Z87.891 Personal history of nicotine dependence
CPT/HCPCS: 99211

== ENCOUNTER → 2024-11-25 | Outpatient (CLI) | payer OTHER ==
--- NOTE | 2024-11-25 10:40 | FL ---
EXAMINATION TYPE: FL UGI air wo KUB DATE OF EXAM: 11/25/2024 COMPARISON: None CLINICAL INDICATION: Male, 48 years old with history of R10.13 EPIGASTRIC PAIN; PHH, pain and aching at the mid chest area for 2 months TECHNIQUE: A double contrast UGI study is performed. A total of 1 minute 31 seconds of fluoroscopic time was utilized during procedure and 30 images obtained. Total dose area product (DAP) in uGy*m?, mGy*cm? (or similar): 75 mGycm2. FINDINGS: There is underlying ACDF and intervertebral disc prosthesis within the cervical spine. The esophagus shows normal motility and emptying into the stomach. No evidence of hiatal hernia or s tricture noted. The stomach shows normal distensibility, peristalsis, and mucosal folds. No evidence of any mass or ulcer disease. No significant gastroesophageal reflux was seen during real time performance of this study. The duodenal bulb, sweep, and proximal small bowel loops are unremarkable. IMPRESSION: Unremarkable upper GI examination. [facility], , 11/25/2024 10:38 AM
== END | disposition home or self-care (01) ==
LOC: RADFLMAIN 08:32
PROVIDERS: ATTEND Family Medicine
DX: R10.13 Epigastric pain (principal)
CPT/HCPCS: 74246